=== PATIENT | female | born 1980 ===

== ENCOUNTER 2020-03-09 13:38 | Outpatient (REF) | payer OTHER, SELFPAY | END 2020-03-09 13:39 | disposition home or self-care (01) | LOC: HO.MDS 13:38 | PROVIDERS: PCP Internal Medicine; Visit Provider Internal Medicine | DX: O99.013 Anemia complicating pregnancy, third trimester (principal); D50.9 Iron deficiency anemia, unspecified; Z3A.00 Weeks of gestation of pregnancy not specified | CPT/HCPCS: 96365; J2916 ==

== ENCOUNTER 2020-03-10 11:26 | Outpatient (REF) | payer OTHER, SELFPAY | END 2020-03-10 11:27 | disposition home or self-care (01) | LOC: HO.MDS 11:26 | PROVIDERS: PCP Internal Medicine; Visit Provider Internal Medicine | DX: O99.119 Other diseases of the blood and blood-forming organs and certain disorders involving the immune mechanism complicating pregnancy, unspecified trimester (principal); D50.9 Iron deficiency anemia, unspecified; Z3A.00 Weeks of gestation of pregnancy not specified | CPT/HCPCS: 96365; J2916 ==

== ENCOUNTER 2020-03-16 13:00 | Outpatient (REF) | payer OTHER, SELFPAY | END 2020-03-16 13:01 | disposition home or self-care (01) | LOC: HO.MDS 13:00 | PROVIDERS: PCP Internal Medicine; Visit Provider Internal Medicine | DX: O99.013 Anemia complicating pregnancy, third trimester (principal); Z3A.00 Weeks of gestation of pregnancy not specified | CPT/HCPCS: 96365; J2916 ==

== ENCOUNTER 2020-03-17 10:39 | Outpatient (REF) | payer OTHER, SELFPAY | END 2020-03-17 10:40 | disposition home or self-care (01) | LOC: HO.MDS 10:39 | PROVIDERS: PCP Internal Medicine; Visit Provider Internal Medicine | DX: O99.013 Anemia complicating pregnancy, third trimester (principal); Z3A.00 Weeks of gestation of pregnancy not specified | CPT/HCPCS: 96365; J2916 ==

== ENCOUNTER 2020-03-24 12:26 | Outpatient (REF) | payer OTHER, SELFPAY | END 2020-03-24 12:27 | disposition home or self-care (01) | LOC: HO.MDS 12:26 | PROVIDERS: PCP Internal Medicine; Visit Provider Internal Medicine | DX: D50.9 Iron deficiency anemia, unspecified (principal) | CPT/HCPCS: 96365 ==

== ENCOUNTER 2020-10-20 07:53 | Outpatient (REF) | payer OTHER, SELFPAY ==
[2020-10-20 08:36] LABS: MANUAL DIFF FLAG NO
[2020-10-20 08:40] LABS: Basophils Percent Auto 0.5 % (0-2); Eosinophils Absolute Auto 0.1 X10*3/uL (0.0-0.4); Eosinophils Percent Auto 1.7 % (0-4); Hematocrit 33.2 % (37-47); Hemoglobin 10.5 g/dl (12.0-16.0); Imm Gran Abs Auto 0.01 X10*3/uL (0.00-0.03); Imm Gran Pct Auto 0.2 % (0.0-0.4); Lymphocytes Percent Auto 24.8 % (20-40); Mean Corpuscular HGB Conc 31.6 g/dl (31.0-35.0); Mean Corpuscular Hemoglobin 25.6 pg (27.0-33.0); Mean Platelet Volume 10.9 fL (9.4-12.3); Monocytes Absolute Auto 0.4 X10*3/uL (0.1-1.2); Monocytes Percent Auto 9.3 % (2-11); Neutrophils Absolute Auto 2.7 X10*3/uL (2.0-8.3); Neutrophils Percent Auto 63.5 % (45-73); Platelet Count 175 X10*3/uL (160-400); Red Cell Distribution Width 14.8 % (11.0-16.0); White Blood Count 4.2 X10*3/uL (4.8-10.8)
[2020-10-20 08:43] LABS: Color Urine YELLOW; Glucose Urine UA NEG (NEG); Leukocyte Esterase Urine NEG (NEG); Nitrite Urine NEG (NEG); Specific Gravity - Urine >= 1.030 (1.005-1.025); Urine Blood NEG (NEG); Urine Ketones NEG (NEG); Urine Protein NEG (NEG-TRACE)
[2020-10-20 08:44] LABS: Appearance Urine CLEAR
[2020-10-20 09:03] LABS: Alanine Aminotransferase 23 U/L (0-31); Albumin Level 4.1 g/dL (3.5-5.0); Alkaline Phosphatase 70 U/L (39-117); Anion Gap 11 (12-20); Aspartate Amino Transferase 42 U/L (5-31); Bilirubin Total 0.6 mg/dL (0.0-1.0); Blood Urea Nitrogen 10 mg/dL (9-16); Calcium 8.8 mg/dL (8.4-10.2); Carbon Dioxide 23 mmol/L (22-29); Chloride 109 mmol/L (96-108); Cholesterol 150 mg/dL; Estimated Glomerular Filt Rate > 60; Glucose Fasting 88 mg/dL (60-99); HDL Cholesterol 40 mg/dL; Iron 54 mcg/dL (30-160); LDL Cholesterol Calculated 77 mg/dl; Percent Iron Saturation 15 % (15-50); Potassium 4.1 mmol/L (3.3-5.1); Sodium 139 mmol/L (135-145); Total Iron Binding Capacity 370 mcg/dL (228-428); Triglycerides 168 mg/dL; Unsaturated Iron Binding 316 ug/dL
[2020-10-20 09:23] LABS: TSH reflex Free T4 1.48 uIU/mL (0.32-4.0); Vitamin D 25-OH Total 11.1 ng/mL (>30)
== END 2020-10-20 07:54 | disposition home or self-care (01) ==
LOC: HO.LAB 07:53
PROVIDERS: PCP Internal Medicine; Visit Provider Internal Medicine
DX: E78.00 Pure hypercholesterolemia, unspecified (principal); D50.9 Iron deficiency anemia, unspecified; I10 Essential (primary) hypertension; E55.9 Vitamin D deficiency, unspecified
CPT/HCPCS: 36415; 80053; 80061; 81003; 82306; 83540; 84443; 85025

== ENCOUNTER 2021-05-14 14:39 | Outpatient (REF) | payer OTHER, SELFPAY ==
--- NOTE | ~2021-05-14 | US_ITS ---
EXAMINATION: US DIAGNOSTIC ULTRASOUND BREAST, RIGHT CLINICAL INFORMATION: Palpable abnormality. COMPARISON: Mammography of same day. TECHNIQUE: Ultrasound of the breast is performed with real-time gilbert scale imaging and color Doppler. FINDINGS: Targeted ultrasound evaluation in region of palpable abnormality did not definitely demonstrate any abnormal cystic or solid mass. No skin lesion is appreciated and no mass effect upon the skin is appreciated. There is a small palpable region present but which is mobile. Recommend clinical follow-up and repeat mammogram and ultrasound if the finding is persistent in 6 months. Results are discussed with the patient at time of visit. US/US breast RT limited IMPRESSION: No specific mammographic or ultrasound findings to suggest malignancy. ASSESSMENT: BI-RADS 1: Negative RECOMMENDATION: Clinical management and if lesion is persistent would perform 6 month follow-up right breast mammogram and targeted ultrasound evaluation again. .
--- NOTE | ~2021-05-14 | MM_ITS ---
EXAMINATION: MM DIAGNOSTIC DIGITAL BREAST TOMOSYNTHESIS, BILATERAL US TARGETED BREAST, RIGHT CLINICAL INFORMATION: Right breast lump inferomedial right breast. The lifetime risk of breast cancer based on the Tyrer-Cuzick Model is 14.4%. COMPARISON: Mammography: 03/10/2014. TECHNIQUE: Digital breast tomosynthesis is performed in both the craniocaudal and mediolateral oblique views along with computer-aided detection (CAD). Synthesized 2D images are generated from the tomosynthesis. Targeted right breast ultrasound. FINDINGS: There are scattered areas of fibroglandular density (ACR BI-RADS breast composition Category b). On craniocaudal view only about the most inferior image corresponding to the skin is a question of an oval 1.5 x 1.0 cm structure. However, this may represent normal underlying parenchyma. No suspicious clustered of microcalcifications or spiculated mass identified. ULTRASOUND: Targeted ultrasound evaluation in the region of palpable abnormality did not definitely demonstrate any abnormal cystic or solid mass. No skin lesion is appreciated and no mass effect upon the skin is appreciated. There is a small palpable region present but which is mobile. Recommend clinical follow up and repeat mammogram and ultrasound if the finding is persistent in 6 months. Results are discussed with the patient at time of visit. MM/MM tomosynthesis diagnostic BI IMPRESSION: No specific mammographic or ultrasound findings to suggest malignancy. ASSESSMENT: BI-RADS 1: Negative. RECOMMENDATION: Clinical management and, if lesion is persistent, would perform 6 month follow up right breast mammogram and targeted ultrasound evaluation again. This patient's information was entered into a reminder system with a target due date for their next mammogram.
== END 2021-05-14 14:40 | disposition home or self-care (01) ==
LOC: HO.MAMMO 14:39
PROVIDERS: PCP Internal Medicine; Visit Provider Internal Medicine
DX: N63.14 Unspecified lump in the right breast, lower inner quadrant (principal)
CPT/HCPCS: 76642; 77062; 77066

== ENCOUNTER 2021-09-02 17:22 | Emergency (ER) | payer OTHER, SELFPAY ==
[2021-09-02 18:08] VITALS: BP 167/77; PULSE 76; RESP 18; TEMP 36.9; O2SAT 98; BMI 34.2
[2021-09-02 18:23] LABS: Hematocrit 32.1 % (37.0-47.0); Hemoglobin 10.1 g/dl (12.0-16.0); Mean Corpuscular HGB Conc 31.5 g/dl (31.0-35.0); Mean Corpuscular Hemoglobin 25.3 pg (27.0-33.0); Mean Corpuscular Volume 80.5 fL (80.0-98.0); Mean Platelet Volume 10.5 fL (9.4-12.3); Platelet Count 147 X10*3/uL (160-400); Red Blood Count 3.99 X10*6/uL (4.20-5.50); Red Cell Distribution Width 15.4 % (11.0-16.0); White Blood Count 5.5 X10*3/uL (4.8-10.8)
[2021-09-02 18:40] LABS: Appearance Urine CLEAR; Color Urine YELLOW; Glucose Urine UA NEG (NEG); Leukocyte Esterase Urine 1+ (NEG); Nitrite Urine NEG (NEG); PH 5.5 (5.0-8.0); Specific Gravity - Urine 1.025 (1.005-1.025); UACC Culture Trigger YES; Urine Blood NEG (NEG); Urine Ketones NEG (NEG); Urine Protein NEG (NEG-TRACE)
[2021-09-02 18:46] LABS: Anion Gap 12 (12-20); Blood Urea Nitrogen 9 mg/dL (9-16); Calcium 8.3 mg/dL (8.4-10.2); Carbon Dioxide 21 mmol/L (22-29); Chloride 108 mmol/L (96-108); Creatinine Clr Calc Pharmacy 150.9; Estimated Glomerular Filt Rate > 60; Glucose Random 100 mg/dL (60-115); Lipase 10 U/L (8-78); Potassium 4.1 mmol/L (3.3-5.1); Sodium 137 mmol/L (135-145)
[2021-09-02 18:52] LABS: Bacteria Urine 1+ /LPF; RBC Urine 0 /HPF (0); Squamous Epithelial Cell Urine 1+ /LPF
== END 2021-09-02 23:35 | disposition left against medical advice (07) ==
PROVIDERS: Emergency Provider Emergency Medicine; PCP Internal Medicine
DX: R10.11 Right upper quadrant pain (principal); R11.0 Nausea; Z79.899 Other long term (current) drug therapy
CPT/HCPCS: 36415; 80048; 81001; 83690; 85027; 87086; 99281; 99283

== ENCOUNTER 2021-09-03 09:48 | Emergency (ER) | payer OTHER, SELFPAY ==
--- NOTE | ~2021-09-03 | US_ITS ---
EXAMINATION: US ABDOMEN COMPLETE CLINICAL INFORMATION: Right upper quadrant pain. COMPARISON: CT abdomen and pelvis 07/08/2016 TECHNIQUE: Real-time imaging of the abdominal viscera. FINDINGS: PANCREAS: Pancreatic tail is obscured by bowel gas. Visualized portion of the pancreas is grossly unremarkable. ABDOMINAL AORTA: The proximal, mid, and distal segments are normal in caliber. INFERIOR VENA CAVA: Visualized portions are normal. LIVER: Liver demonstrates diffusely increased echogenicity compatible with steatosis. No liver lesions. GALLBLADDER: Moderately distended with a small amount of echogenic bile. No shadowing gallstones. No gallbladder wall thickening or pericholecystic fluid. COMMON BILE DUCT: Mildly dilated measuring 0.6-0.7 cm in diameter. RIGHT KIDNEY: Normal. No hydronephrosis or renal calculi. 2.2 cm hyperechoic focus in the upper pole cortex, indeterminate, possibly a small angiomyolipoma. No appreciable renal lesion at this location on prior CT of 05/08/2016 No other renal lesion. The kidney measures 12.1 cm in maximum dimension. LEFT KIDNEY: Normal. No hydronephrosis. No renal calculi or focal parenchymal lesions. The kidney measures 11.5 cm in maximum dimension. SPLEEN: Mildly enlarged The spleen measures 14.7 cm in maximum dimension. FREE FLUID: None. US/US abdomen complete IMPRESSION: 1. No evidence of cholelithiasis or sonographic findings of acute cholecystitis. 2. Hepatic steatosis. No liver lesion. 3. Mildly dilated extrahepatic bile duct. No intrahepatic biliary ductal dilation. Correlate with LFTs for clinical significance. 4. 2.2 cm subtly hyperechoic area in the upper pole cortex of the right kidney, indeterminate. No appreciable renal lesion at this location on comparison CT of 2017. Uncertain as to whether or not this is artifactual or due to true underlying renal lesion. Finding is not compatible with a cyst. Consider abdominal MRI for further evaluation.
[2021-09-03 10:18] VITALS: BP 149/78; PULSE 80; RESP 18; TEMP 37; O2SAT 96; BMI 34.0
[2021-09-03 15:49] VITALS: BP 150/75; PULSE 70; RESP 16; O2SAT 97
[2021-09-03] MEDS: Ibuprofen 800 MG TABLET PO (16:01)
[2021-09-03 16:08] LABS: UPreg QC Valid YES; Urine Pregnancy NEGATIVE (NEGATIVE)
--- NOTE | 2021-09-03 17:22 | ED.ABDPAIN ---
HPI - Abdominal Pain General Chief Complaint: Abdominal Pain Stated Complaint: abd pain Time Seen by Provider: 09/03/21 15:24 Source: patient Mode of arrival: ambulatory Limitations: no limitations History of Present Illness HPI narrative: 40-year-old female with a past medical history of depression, anemia, obesity and left ovarian cyst who recently had a on March 2020 and history of in vitro fertilization presenting to the ED with complaints of right upper quadrant/epigastric/right flank/back pain for that began 2 days ago and has been constant. She was in our waiting room yesterday although waited a few hours and was never called in therefore she left without being seen although reports persistent pain therefore she came here for further evaluation treatment. She reports associated nausea. She denies any fevers, chills, dizziness, headaches, neck pain/stiffness, trouble swallowing or breathing, vomiting, chest pain or shortness of breath, dyspnea exertion, orthopnea, palpitations, shoulder pain, paresthesias, dysuria, hematuria, abnormal vaginal discharge, black or bloody stools, diarrhea. Reports that she suffers from chronic constipation. Denies recent travel or sick contacts. Reports she is concerned that it is her gallbladder. MD elicited complaint: abdominal pain and flank pain Onset (ago): day(s) (2) Pain Consistency: constant Location: epigastric and RUQ Severity: moderate Quality: aching Radiation: back Exacerbating factors: nothing Relieving factors: nothing Associated symptoms: denies other symptoms Related Data Home Medications Medication Instructions Recorded Confirmed sertraline 50 mg tablet 50 mg PO DAILY 10/12/20 05/11/21 Previous Rx's Medication Instructions Recorded cefuroxime axetil 250 mg tablet 250 mg PO BID 7 days #14 tabs 09/03/21 Allergies Allergy/AdvReac Type Severity Reaction Status Date / Time No Known Allergies Allergy Verified 09/03/21 10:21 [No Known Allergies*] Review of Systems Review of Systems Constitutional : No Fever, No Chills, No Night Sweats, No Fatigue, No Malaise Cardiovascular : No Chest Pain, No SOB Respiratory : No Cough, No Sputum, No Wheezing, No Dyspnea Gastrointestinal : + Nausea, No Vomiting, No Diarrhea, + abdominal Pain, No Hematochezia, No Melena Genitourinary : No irregular bleeding, No Dysuria, No Urinary Frequency, No Hematuria,No Urinary Incontinence, No Urgency, No Flank Pain Musculoskeletal : No joint pain, No Myalgias, No Joint Swelling Skin : No Skin Lesions, No rash Neuro : No Weakness, No Numbness, No Paresthesias, No Loss of Consciousness, No Dizziness, No Headache Heme/Lymph: No Lymphadenopathy Endocrine : No Temperature Intolerance Yes all other systems are reviewed and are negative FOR[facility]LY [facility] Past Medical History Attestation statement: The following information was validated with the patient. Source: old records reviewed and nursing notes reviewed Medical History Anemia History of in vitro fertilization Left ovarian cyst Obesity (BMI 30-39.9) depression Surgical History H/O: (~03/2020) History of carpal tunnel surgery History of tonsillectomy Social History Social History Housing: Apartment Alcohol intake: never Patient Tobacco Use Status: Former Tobacco user e-Cigarette/Vaping Use: Never Used Second Hand Smoke Exposure: Yes Advance Directives: No Advance Directives Information Provided: No service: No Current occupational status: unemployed Physical Exam ED Vital Signs: Vital Signs - 24 hr 09/03/21 10:18 09/03/21 15:49 Temperature 98.6 F Pulse Rate 80 70 Respiratory Rate 18 16 Blood Pressure 149/78 H 150/75 H Pulse Oximetry 96 97 Oxygen Delivery Method Room Air Room Air BMI result Body Mass Index 34.0 Vital signs have been reviewed and blood pressure 149/78. Pulse is 80. Respiration 18. Temperature 98.6 degrees. Oxygen 96% on room air. Appearance: Alert. Oriented X3. No acute distress. Head: Normal external exam. Normocephalic. Eyes: PERRLA. EOMI. Conjunctiva and sclera normal. Eyelids normal. ENT: Pharynx normal. Uvula midline. Moist mucous membranes. No trismus noted. No drooling noted. No muffled voice noted. Neck: Normal inspection. Neck supple. FROM. No adenopathy. No meningeal signs. CVS: Normal heart rate and rhythm. Heart sound normal. No murmurs noted. Pulses normal throughout. Respiratory: No respiratory distress. Painless inspiration. Breath sounds normal. No wheezes/rales/rhonchi noted. Chest nontender. No accessory muscle usage noted or decreased air movement noted. Abdomen: Soft and moderate tenderness palpation to the epigastric/right upper quadrant/right flank. Nondistended. No guarding. No rigidity. Bowel sounds normal in all 4 quadrants. No distention noted. No organomegaly noted. No visible injury noted. No rebound tenderness. Negative Rovsing sign. Negative obturator's sign. Negative psoas sign. Positive Amaro sign. Back: No CVA tenderness. Full range of motion noted. Skin: Skin warm and dry. Normal skin color. Normal skin turgor. No rashes/lesions/lacerations noted. Extremities: Extremities exhibit normal range of motion. Extremities nontender. Neuro: Oriented X 3. No motor deficit. No sensory deficit. Reflexes normal. Normal steady gait. CN's II-XII intact bilaterally? Course Course Course Narrative: 15:35pm - 40-year-old female with a past medical history of depression, anemia, obesity and left ovarian cyst who recently had a on March 2020 and history of in vitro fertilization presenting to the ED with complaints of right upper quadrant/epigastric/right flank/back pain for that began 2 days ago and has been constant. With associated nausea. She was in our waiting room yesterday although waited a few hours and was never called in therefore she left without being seen although reports persistent pain therefore she came here for further evaluation treatment. Patient's labs reviewed from yesterday and patient has a mild baseline anemia similar compared to prior. Platelet count 147 which is low when compared to prior. Carbon dioxide 21. Calcium 8.3. Lipase 10. Otherwise all other labs are within normal limits. UA revealed +1 leukocytes otherwise for . Therefore at this time will provide Motrin and obtain an ultrasound of her abdomen and re-evaluate. Reevaluation(s) Reevaluation #1: - ultrasound of abdomen was negative for cholelithiasis or evidence of acute cholecystitis. Reported hepatic steatosis no liver lesion. Although they also state that patient has a mildly dilated extrahepatic bile duct. No intrahepatic biliary ductal dilation recommending to correlate with LFTs. Also mentions that the patient has a 2 x 2 cm subtly hyperechoic area in the upper pole cortex of the right kidney, indeterminate. No appreciable renal lesion at this location on comparison CT of 2017. Uncertain as to whether or not this is artifactual or due to true underlying renal lesion. Finding is not compatible with a cyst. Consider abdominal MRI for further evaluation. - therefore will repeat all labs at this time time including LFTs. And will re-evaluate. Sign out to SIOMARA Yee at this time pending repeat labs. Time: 17:59 MDM - Abdominal Pain Medical Records Attestation: I reviewed the patient's medical records. Lab Data Attestation: I reviewed the patient's lab results. Result diagrams: 09/03/21 18:37 09/03/21 18:27 Labs: Lab Results 09/03/21 09/03/21 Range/Units 15:53 18:37 WBC 5.5 (4.8-10.8) X10*3/uL RBC 4.05 L (4.20-5.50) X10*6/uL Hgb 10.3 L (12.0-16.0) g/dl Hct 32.6 L (37.0-47.0) % MCV 80.5 (80.0-98.0) fL MCH 25.4 L (27.0-33.0) pg MCHC 31.6 (31.0-35.0) g/dl RDW 15.3 (11.0-16.0) % Plt Count 148 L (160-400) X10*3/uL MPV 10.5 (9.4-12.3) fL Immature Gran % (Auto) 0.2 (0.0-0.4) % Neut % (Auto) 67.7 (45-73) % Lymph % (Auto) 23.2 (20-40) % Payne % (Auto) 6.9 (2-11) % Eos % (Auto) 1.5 (0-4) % Baso % (Auto) 0.5 (0-2) % Lymph # (Auto) 1.3 (1.2-4.9) X10*3/uL Payne # (Auto) 0.4 (0.1-1.2) X10*3/uL Eos # (Auto) 0.1 (0.0-0.4) X10*3/uL Baso # (Auto) 0.0 (0.0-0.2) X10*3/uL Abs Immat Gran (auto) 0.01 (0.00-0.03) X10*3/uL Absolute Neuts (auto) 3.7 (2.0-8.3) x10*3/uL Absolute Nucleated RBC 0.000 (0.0-0.012) X10*3/uL Nucleated RBC % (auto) 0.0 (0.0-0.2) /100WBC Urine Test NEGATIVE (NEGATIVE) Imaging Data Abdominal ultrasound: Attestation: I personally reviewed and interpreted this imaging study as follows: Radiologist's impression: FINDINGS: PANCREAS: Pancreatic tail is obscured by bowel gas. Visualized portion of the pancreas is grossly unremarkable. ABDOMINAL AORTA: The proximal, mid, and distal segments are normal in caliber. INFERIOR VENA CAVA: Visualized portions are normal. LIVER: Liver demonstrates diffusely increased echogenicity compatible with steatosis. No liver lesions. GALLBLADDER: Moderately distended with a small amount of echogenic bile. No shadowing gallstones. No gallbladder wall thickening or pericholecystic fluid. COMMON BILE DUCT: Mildly dilated measuring 0.6-0.7 cm in diameter. RIGHT KIDNEY: Normal. No hydronephrosis or renal calculi. 2.2 cm hyperechoic focus in the upper pole cortex, indeterminate, possibly a small angiomyolipoma. No appreciable renal lesion at this location on prior CT of 05/08/2016 No other renal lesion. The kidney measures 12.1 cm in maximum dimension. LEFT KIDNEY: Normal. No hydronephrosis. No renal calculi or focal parenchymal lesions. The kidney measures 11.5 cm in maximum dimension. SPLEEN: Mildly enlarged The spleen measures 14.7 cm in maximum dimension. FREE FLUID: None. US/US abdomen complete IMPRESSION: ? 1. No evidence of cholelithiasis or sonographic findings of acute cholecystitis. 2. Hepatic steatosis. No liver lesion. 3. Mildly dilated extrahepatic bile duct. No intrahepatic biliary ductal dilation. Correlate with LFTs for clinical significance. 4. 2.2 cm subtly hyperechoic area in the upper pole cortex of the right kidney, indeterminate. No appreciable renal lesion at this location on comparison CT of 2017. Uncertain as to whether or not this is artifactual or due to true underlying renal lesion. Finding is not compatible with a cyst. Consider abdominal MRI for further evaluation. Discharge Plan Discharge Clinical Impression: Right upper quadrant abdominal pain, Epigastric abdominal pain, UTI (urinary tract infection) Patient Disposition: Still a Patient Instructions: Urinary Tract Infection in Women (ED) Prescriptions: New cefuroxime axetil 250 mg tablet 250 mg PO BID 7 Days Qty: 14 0RF No Action sertraline 50 mg tablet 50 mg PO DAILY Referrals: Wilber Cochran MD [Primary Care Provider] - 3 days
[2021-09-03 18:44] LABS: MANUAL DIFF FLAG NO
[2021-09-03 18:47] LABS: Basophils Percent Auto 0.5 % (0-2); Eosinophils Absolute Auto 0.1 X10*3/uL (0.0-0.4); Eosinophils Percent Auto 1.5 % (0-4); Hematocrit 32.6 % (37.0-47.0); Hemoglobin 10.3 g/dl (12.0-16.0); Imm Gran Abs Auto 0.01 X10*3/uL (0.00-0.03); Imm Gran Pct Auto 0.2 % (0.0-0.4); Lymphocytes Absolute Auto 1.3 X10*3/uL (1.2-4.9); Lymphocytes Percent Auto 23.2 % (20-40); Mean Corpuscular HGB Conc 31.6 g/dl (31.0-35.0); Mean Corpuscular Hemoglobin 25.4 pg (27.0-33.0); Mean Corpuscular Volume 80.5 fL (80.0-98.0); Mean Platelet Volume 10.5 fL (9.4-12.3); Monocytes Absolute Auto 0.4 X10*3/uL (0.1-1.2); Monocytes Percent Auto 6.9 % (2-11); Neutrophils Absolute Auto 3.7 x10*3/uL (2.0-8.3); Neutrophils Percent Auto 67.7 % (45-73); Platelet Count 148 X10*3/uL (160-400); Red Blood Count 4.05 X10*6/uL (4.20-5.50); Red Cell Distribution Width 15.3 % (11.0-16.0); White Blood Count 5.5 X10*3/uL (4.8-10.8)
[2021-09-03 18:55] LABS: INTERNATIONAL NORM RATIO 1.4 (0.9-1.1); Prothrombin Time 15.8 SEC (10.0-13.1)
[2021-09-03 18:59] LABS: Alanine Aminotransferase 55 U/L (0-31); Albumin Level 4.1 g/dL (3.5-5.0); Alkaline Phosphatase 66 U/L (39-117); Anion Gap 11 (12-20); Aspartate Amino Transferase 108 U/L (5-31); Bilirubin Total 0.5 mg/dL (0.0-1.0); Blood Urea Nitrogen 9 mg/dL (9-16); Calcium 8.3 mg/dL (8.4-10.2); Carbon Dioxide 22 mmol/L (22-29); Chloride 109 mmol/L (96-108); Creatinine Clr Calc Pharmacy 150.2; Estimated Glomerular Filt Rate > 60; Glucose Random 92 mg/dL (60-115); Lipase 9 U/L (8-78); Magnesium 1.9 mg/dL (1.6-2.6); Potassium 4.1 mmol/L (3.3-5.1); Sodium 138 mmol/L (135-145)
== END 2021-09-03 20:29 | disposition home or self-care (01) ==
PROVIDERS: Physician Assistant Medical; Emergency Provider Emergency Medicine; PCP Internal Medicine
DX: N39.0 Urinary tract infection, site not specified (principal); R10.11 Right upper quadrant pain; R10.13 Epigastric pain; E66.9 Obesity, unspecified; Z68.34 Body mass index [BMI] 34.0-34.9, adult; Z79.899 Other long term (current) drug therapy; Z87.891 Personal history of nicotine dependence
CPT/HCPCS: 36415; 76700; 80053; 81025; 83690; 83735; 85025; 85610; 99283; 99284

== ENCOUNTER 2021-10-04 06:58 | Outpatient (REF) | payer OTHER, SELFPAY ==
[2021-10-04 08:35] LABS: Alanine Aminotransferase 46 U/L (0-31); Alkaline Phosphatase 71 U/L (39-117); Aspartate Amino Transferase 80 U/L (5-31); Bilirubin Direct 0.2 mg/dL (0.0-0.5); Bilirubin Total 0.4 mg/dL (0.0-1.0)
== END 2021-10-04 06:59 | disposition home or self-care (01) ==
LOC: HO.LAB 06:58
PROVIDERS: PCP Internal Medicine; Visit Provider Internal Medicine
DX: K75.9 Inflammatory liver disease, unspecified (principal)
CPT/HCPCS: 36415; 80076

== ENCOUNTER 2021-10-18 08:15 | Outpatient (REF) | payer OTHER, SELFPAY ==
--- NOTE | ~2021-10-18 | CT_ITS ---
EXAMINATION: CT ABDOMEN AND PELVIS WITHOUT AND WITH CONTRAST CLINICAL INFORMATION: Renal mass COMPARISON: Previous abdominal ultrasound August [address] of the abdomen and pelvis April 2016 TECHNIQUE: Multidetector volumetric imaging was performed of the abdomen and pelvis before and after the IV administration of 85 mL of Omnipaque 300 intravenous contrast. Sagittal and coronal reformatted images were obtained on the technologist's workstation. This CT examination was performed using dose optimization techniques as appropriate, variously including the following: *Automated exposure control *Adjustment of mA and/or kV according to patient size (this includes techniques or standardized protocols for targeted exams where dose is matched to indication/reason for exam; i.e. extremities or head) *Use of iterative reconstruction technique DLP: 1326 mGy-cm FINDINGS: LUNG BASES: The visualized lung bases are unremarkable. LIVER, GALLBLADDER, AND BILIARY TREE: The liver is slightly enlarged, right lobe measuring 25 cm in length. The liver is slightly low in attenuation suggestive of mild fatty infiltration. No focal hepatic lesion or biliary ductal dilatation is present. The gallbladder is unremarkable with no evidence of radiopaque gallstones, gallbladder wall thickening, or obvious pericholecystic inflammatory changes. PANCREAS: Unremarkable SPLEEN: The spleen is slightly enlarged measuring 14.3 cm in length. ADRENAL GLANDS: Unremarkable KIDNEYS AND URETERS: The kidneys are normal in size, shape, and attenuation. No renal mass. Small 3 mm stone in the lower pole the left kidney. BLADDER: Unremarkable GASTROINTESTINAL TRACT: The small and large bowel are unremarkable. The appendix is unremarkable. ABDOMINAL WALL: No significant hernia is appreciated. LYMPH NODES: Normal VASCULAR: Unremarkable PELVIC VISCERA: Unremarkable OSSEOUS STRUCTURES: There are degenerative changes of the spine. CT/CT abdomen pelvis wo/w IV con IMPRESSION: No renal mass. Small left renal stone. Mild fatty infiltration of the liver and hepatosplenomegaly. Fleischner guidelines were followed.
[2021-10-18] MEDS: iohexoL 350 MG/ML 100 ML INFUS..BTL 85 ML IV (09:14)
== END 2021-10-18 08:16 | disposition home or self-care (01) ==
LOC: HO.CT 08:15
PROVIDERS: Visit Provider Internal Medicine
DX: D17.71 Benign lipomatous neoplasm of kidney (principal)
CPT/HCPCS: 74178; Q9967

== ENCOUNTER 2021-11-22 12:45 | Outpatient (REF) | payer OTHER, SELFPAY ==
--- NOTE | ~2021-11-22 | MM_ITS ---
EXAMINATION: MM DIAGNOSTIC DIGITAL BREAST TOMOSYNTHESIS, BILATERAL US DIAGNOSTIC ULTRASOUND BREAST, RIGHT CLINICAL INFORMATION: Short interval six-month follow-up superficial palpable area inferomedial right breast. No imaging correlate on prior exam. Age 41. No known family history breast cancer. TC score 14%. COMPARISON: Mammography 05/14/2021, 03/10/2014; right breast ultrasound 05/14/2021. TECHNIQUE: Digital breast tomosynthesis is performed in both the craniocaudal and mediolateral oblique views along with computer-aided detection (CAD). Synthesized 2D images are generated from the tomosynthesis. Additional right MLO and spot right ML views are obtained. Ultrasound right breast is targeted to the area of clinical concern. Patient is able to point to area at time of imaging. Grayscale imaging and color Doppler are performed without and with harmonics. FINDINGS: There are scattered areas of fibroglandular density (ACR BI-RADS breast composition Category b). There is no interval mass or architectural abnormality. No skin thickening or coarsening of the Vargas's ligaments. There is no developing density in the area of clinical concern. No significant changes. Ultrasound demonstrates no cystic or solid mass or architectural abnormality. No focal duct ectasia. No skin thickening or edema tracking in soft tissue planes. No associated color flow. Results are discussed with the patient at time of visit. MM/MM diagnostic mammo unilat RT IMPRESSION: -No mammographic or ultrasound evidence of malignancy. -No imaging correlate for patient's palpable concern. ASSESSMENT: BI-RADS 1: Negative RECOMMENDATION: 1. Patient should be managed based on the clinical impression. If clinically indicated, further evaluation may be considered with surgical consult. Decision to proceed with biopsy should be based on clinical grounds and degree of clinical concern. 2. Otherwise, routine annual screening mammography. This patient's information was entered into a reminder system with a target due date for their next mammogram.
== END 2021-11-22 12:46 | disposition home or self-care (01) ==
LOC: HO.MAMMO 12:45
PROVIDERS: PCP Internal Medicine; Visit Provider Internal Medicine
DX: N63.15 Unspecified lump in the right breast, overlapping quadrants (principal)
CPT/HCPCS: 76642; 77062; 77065

== ENCOUNTER → 2021-12-13 13:42 | Outpatient (BNVA) | payer OTHER, SELFPAY | PROVIDERS: PCP Internal Medicine; Visit Provider Surgery | DX: N64.4 Mastodynia (principal); Z80.41 Family history of malignant neoplasm of ovary | CPT/HCPCS: 99202 ==

== ENCOUNTER 2022-03-11 15:35 | Outpatient (REF) | payer OTHER, SELFPAY ==
--- NOTE | ~2022-03-11 | XR_ITS ---
EXAMINATION: XR LUMBOSACRAL SPINE CLINICAL INFORMATION: Back pain. COMPARISON: CT abdomen and pelvis dated 10/18/2021; lumbar spine radiographs dated 09/08/2018; MRI lumbar spine dated 08/09/2016. TECHNIQUE: AP and lateral views of the lumbar spine and lateral view of the lumbosacral junction. FINDINGS: Vertebral body heights and alignment are normal. At L5-S1, there is mild disc space narrowing. The remaining disc spaces are relatively well-maintained. No acute fracture or spondylolisthesis is seen. There is multi-level thoracolumbar spondylosis and Schmorl's node formation. 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 No foreign body is seen. XR/XR lumbar spine 2-3V IMPRESSION: 1. There is mild degenerative disc disease at L5-S1. 2. 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 3. There is multi-level thoracolumbar spondylosis and Schmorl's node formation.
[2022-03-12 09:04] LABS: HBc Num1 0.06 S/CO (0.00-0.79); HBsAGNum1 0.35 S/CO (0.00-0.99); Hepatitis A Antibody IgM 0.12 Index (0-0.79); Hepatitis B Core Antibody Nonreactive (Nonreactive); Hepatitis B Surface Antigen Negative (Negative); ~HepC Num1 0.05 S/CO (0.00-0.79); ~Hepatitis A Antibody IgM Nonreactive (Nonreactive); ~Hepatitis C Antibody Nonreactive (Nonreactive)
[2022-03-12 09:39] LABS: HBS Num1 56.45 mIU/mL (0-7.99); ~Hepatitis B Surface Antibody REACTIVE (Nonreactive)
== END 2022-03-11 15:36 | disposition home or self-care (01) ==
LOC: HO.LAB 15:35
PROVIDERS: PCP Internal Medicine; Visit Provider Nurse Practitioner Family
DX: R79.89 Other specified abnormal findings of blood chemistry (principal); M54.9 Dorsalgia, unspecified
CPT/HCPCS: 36415; 72100; 86704; 86706; 86709; 86803; 87340

== ENCOUNTER → 2022-04-15 08:59 | Outpatient (BNVA) | payer OTHER, SELFPAY | PROVIDERS: PCP Internal Medicine; Visit Provider Nurse Practitioner Family | DX: M47.26 Other spondylosis with radiculopathy, lumbar region (principal); M43.06 Spondylolysis, lumbar region; G56.02 Carpal tunnel syndrome, left upper limb; M79.642 Pain in left hand; M62.830 Muscle spasm of back | CPT/HCPCS: 99202 ==

== ENCOUNTER 2022-05-02 07:22 | Outpatient (REF) | payer OTHER, SELFPAY ==
--- NOTE | ~2022-05-02 | MR_ITS ---
EXAMINATION: MR LUMBAR SPINE WITHOUT CONTRAST CLINICAL INFORMATION: Lumbar radiculopathy. COMPARISON: Lumbar spine radiographs from 03/11/2022. Lumbar spine MRI from 08/15/2016. CT abdomen and pelvis from 10/18/2021. TECHNIQUE: MRI of the lumbar spine was obtained using routine sequences without contrast. FINDINGS: Mild degenerative retrolisthesis of L4 on L5. Degenerative grade 1 anterolisthesis of L5 on S1. Otherwise, normal anatomic alignment. Moderate degenerative disc disease at T10-T11, T11-T12, L4-L5, and L5-S1. Mild degenerative disc disease from T12-L3. Associated mild mixed Modic type discogenic endplate changes. No suspicious marrow edema. Small Schmorl's nodes from T10-L3. Otherwise, the vertebral body heights are largely maintained. The conus medullaris terminates at the level of L1. The distal spinal cord is normal in appearance. Mild subcutaneous edema within the soft tissues of the back below the level of T12. No additional Significant abnormalities of the paraspinal musculature. Limited evaluation of the intra-abdominal structures without significant abnormalities. The abdominal aorta is of normal contour and caliber. AXIAL SPINAL LEVELS: T12-L1: Normal annular contour. There is mild bilateral facet joint arthropathy. There is no neural foraminal stenosis. There is no spinal canal stenosis. L1-L2: Shallow diffuse disc bulge. There is moderate right and mild left facet joint arthropathy. There is no neural foraminal stenosis. There is no spinal canal stenosis. L2-L3: Normal annular contour. There is mild bilateral facet joint arthropathy. There is mild right and no left neural foraminal stenosis. There is no spinal canal stenosis. L3-L4: Normal annular contour. There is mild bilateral facet joint arthropathy. There is no neural foraminal stenosis. There is no spinal canal stenosis. L4-L5: Mild diffuse disc bulge with superimposed central/right subarticular disc protrusion. There is no facet joint arthropathy. There is mild to moderate bilateral neural foraminal stenosis. There is narrowing of the right subarticular zone with no overt spinal canal stenosis centrally. L5-S1: Moderate diffuse disc bulge with posterior osseous ridging and superimposed right foraminal disc protrusion. There is moderate right and mild left facet joint arthropathy. There is moderate right and mild left neural foraminal stenosis. There is no spinal canal stenosis. MR/MR lumbar spine wo con IMPRESSION: Mild to moderate multilevel degenerative spondyloarthropathy of the lumbar spine as described in detail above. Most notably, there are mild to moderate neural foraminal stenoses at L4-L5 and L5-S1. Narrowing of the right subarticular zone at L4-L5. No overt spinal canal stenosis centrally. Overall, degenerative changes have mildly progressed compared to exam from 2017.
== END 2022-05-02 07:23 | disposition home or self-care (01) ==
LOC: HO.MRI 07:22
PROVIDERS: PCP Internal Medicine; Visit Provider Nurse Practitioner Family
DX: M43.06 Spondylolysis, lumbar region (principal); M47.816 Spondylosis without myelopathy or radiculopathy, lumbar region; M51.36 Other intervertebral disc degeneration, lumbar region; M54.16 Radiculopathy, lumbar region
CPT/HCPCS: 72148

== ENCOUNTER 2022-05-17 09:56 | Outpatient (REF) | payer OTHER, SELFPAY ==
--- NOTE | ~2022-05-17 | XR_ITS ---
EXAMINATION: XR HAND, LEFT CLINICAL INFORMATION: Pain left hand COMPARISON: None available. TECHNIQUE: PA, lateral, and oblique views of the left hand. FINDINGS: The bones and soft tissues are normal. No fracture. Alignment is anatomic. Joint spaces are maintained. No erosions or soft tissue calcifications. XR/XR hand LT min 3V IMPRESSION: Normal left hand.
== END 2022-05-17 09:57 | disposition home or self-care (01) ==
LOC: HO.HOSX 09:56
PROVIDERS: Visit Provider Orthopaedic Surgery
DX: G56.03 Carpal tunnel syndrome, bilateral upper limbs (principal)
CPT/HCPCS: 73130; 99202

== ENCOUNTER → 2022-05-19 14:34 | Outpatient (BNVA) | payer OTHER, SELFPAY | PROVIDERS: PCP Internal Medicine; Visit Provider Nurse Practitioner Family ==

== ENCOUNTER 2022-05-27 11:00 | Outpatient (RCR) | payer OTHER, SELFPAY ==
--- NOTE | 2022-04-07 13:54 | MHC.PT.EP ---
[facility] [place] Office [place] Office [place] Office [address] [phone] F: [phone] F: [phone] F: [phone] F: [phone] Physical Therapy Plan of Care Date of Evaluation: Date of Surgery: Diagnosis: dorsalgia (MD Dx) chronic LBP from DDD L5-S1, bilateral L5 spondylolysis defect and multi-level thoracolumbar spondylosis (PT Dx) Assessment: Patient is a 41 y.o. female who is referred to PT by DAYDAY Ashley with Dx of dorsalgia. PT diagnosis is chronic LBP from DDD L5-S1, bilateral L5 spondylolysis defect and multi-level thoracolumbar spondylosis as confirmed on x-ray imaging. Patient impairments include pain, limited ROM, weakness. 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 Patient will benefit from skilled PT to address aforementioned impairments and functional limitations to meet established goals. Frequency and Duration: The patient will be seen 2x/week for 4 weeks Short Term Goals: 2 weeks Patient demonstrates consistency and independence with HEP to self manage symptoms. Patient presents with ability to perform TA contraction in supine, sitting and standing to stabilize core for standing to was dishes. 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 Patient presents with increased lumbar flexion AROM 90 degrees to be able to get out of bed in the morning with less pain. Treatment Plan: Modalities to reduce pain, spasms and effusion. Manual therapy to restore motion and function. Therapeutic exercise to improve strength and flexibility. Neuromuscular re-education for posture and balance. Therapeutic activities to return to functional activities of daily living. Electronically signed by: Maame Perez, PT, DPT Please sign and return to therapist. Thank you for your referral.
--- NOTE | 2022-07-04 16:42 | MHC.PT.DC ---
[facility] [place] Office [place] Office [place] Office [address] Andrew [address] [facility] [phone] F: [phone] F: [phone] F: [phone] F: [phone] Physical Therapy Discharge Report Diagnosis: dorsalgia (MD Dx) chronic LBP from DDD L5-S1, bilateral L5 spondylolysis defect and multi-level thoracolumbar spondylosis (PT Dx) Date of Surgery: Date of Evaluation: 04/07/22 Date of Discharge: 07/04/22 Treatments to Date: 4 Cancellations to Date: 2 No Shows to Date: Discharge Status: Patient Elected to Stop Discharge Summary: Patient had carpal tunnel surgery. She called to self discharge from PT as she did not want to resume PT afterwards. Electronically signed by: Maame Perez, PT, DPT Please sign and return to therapist. Thank you for your referral.
== END 2022-07-04 16:43 | disposition home or self-care (01) ==
LOC: HO.PT 11:00
PROVIDERS: PCP Internal Medicine; Visit Provider Nurse Practitioner Family
DX: M54.9 Dorsalgia, unspecified (principal)
CPT/HCPCS: 97110; 97140; 97161

== ENCOUNTER 2022-05-30 09:51 | Day surgery (SDC) | payer OTHER, SELFPAY ==
[2022-05-30 11:12] VITALS: BMI 37.2
--- NOTE | 2022-05-30 11:28 | MHC.SHP ---
Pre-Procedural Eval Section A Date of Service: 05/30/22 The patient is an INPATIENT: No Changes since office visit: No Cold of Flu in the past 2 weeks, No New Medical Problems, No Changes in Medication and No Patient answered all questions The History & Physical has been completed within 30 days and I have reviewed it.: Yes Section B Chief Complaint: Lesion of ulnar nerve, right upper limb Allergies: Allergies Allergy/AdvReac Type Severity Reaction Status Date / Time No Known Allergies Allergy Verified 05/25/22 11:35 [No Known Allergies*] Plan I have reviewed the history and physical and performed a pertinent physical examination on my patient. No changes have occurred unless specified. Time Spent With Patient Time: Total time managing care of this patient today ____ minutes.
--- NOTE | 2022-05-30 11:29 | W.PM.OPN ---
Operative Note Operative Note Date of Service: 05/30/22 Narrative: Preop diagnosis: 1. Left Carpal tunnel syndrome Postop diagnosis: same Procedure: 1. Left Carpal tunnel release Surgeon: Ashlee Eller MD Anesthesia: local block using 1% lidocaine with epinephrine Findings: Thickened transverse carpal ligament. EBL: Less than 5 mL Specimens: None Complications: None Disposition: Brought to recovery room in stable condition Plan: Follow-up for 10-14 days for wound check and suture removal Indications: The patient is a 41 years old, with left carpal tunnel syndrome that has been unresponsive to nonoperative management. The risks and benefits of operative treatment including but not limited to risk of damage to blood vessels, nerves, tendons, infection, persistent pain, persistent symptoms, or possible need for additional surgery were discussed with the patient and the patient wishes to proceed with surgery. Procedure: Once consent was obtained a local block was performed using a combination of 1% lidocaine with epinephrine. The patient was then brought back to the operating suite and placed on the operative table in supine position. The left upper extremity was prepped and draped in a standard surgical fashion. Once assured that we had a good block, a 2.0 cm longitudinal incision was made centered over the carpal tunnel. The incision was made through the skin to the subcutaneous tissues using a #15 blade. Dissection was made down to the level of the transverse carpal ligament with care being taken to protect the palmar cutaneous nerve. Once the transverse carpal ligament was clearly visualized, a longitudinal incision was made in the transverse carpal ligament 1st using a #15 blade, then using tenotomy scissors under direct visualization. Care was taken to look for and protect the motor branch of the median nerve when seen in this area. Once satisfied with our carpal tunnel release the wound was copiously irrigated with normal saline and hemostasis was obtained with a brief period of local pressure. The skin edges were reapproximated with some 5.0 nylon suture material and a sterile dressing was applied. The patient appears to have tolerated the procedure well and with no complications. All digits were well vascularized at the conclusion of the case.
[2022-05-30 12:17] VITALS: BP 147/83; PULSE 63; RESP 15; O2SAT 98
== END 2022-05-30 12:18 | disposition home or self-care (01) ==
PROVIDERS: PCP Internal Medicine; Visit Provider Orthopaedic Surgery
PROC: (CPT 64721; principal; 2022-05-30 11:50)
DX: G56.02 Carpal tunnel syndrome, left upper limb (principal)
CPT/HCPCS: 64721; J0171

== ENCOUNTER → 2022-06-14 11:09 | Outpatient (BNVA) | payer OTHER, SELFPAY | PROVIDERS: PCP Internal Medicine; Visit Provider Orthopaedic Surgery ==

== ENCOUNTER 2022-06-21 06:05 | Outpatient (REF) | payer OTHER, SELFPAY ==
--- NOTE | ~2022-06-21 | FL_ITS ---
EXAMINATION: XR FLUOROSCOPY WITH IMAGES CLINICAL INFORMATION: M54.16 - Radiculopathy, lumbar region COMPARISON: Lumbar radiographs 03/11/2022. TECHNIQUE: Fluoroscopy Supervised By: Dr. Rigo Urbano. Fluoroscopy Time: 0.4 minutes. Cumulative Dose: 12.4 mGy. DAP: 2.35 Gycm2. Images: 1. FINDINGS: There are spinal needles overlying the outer left L5 neural foramen. There is contrast seen in the nerve sheath along with transforaminal epidural extension. No visible vascular communication. FL/FL guidance in treatment room IMPRESSION: Fluoroscopy for pain management procedures.
== END 2022-06-21 06:06 | disposition home or self-care (01) ==
LOC: CF 06:05
PROVIDERS: Visit Provider Anesthesiology
DX: M54.16 Radiculopathy, lumbar region (principal); M47.816 Spondylosis without myelopathy or radiculopathy, lumbar region; M51.36 Other intervertebral disc degeneration, lumbar region
CPT/HCPCS: 64483; J3301

== ENCOUNTER → 2022-07-19 11:12 | Outpatient (BNVA) | payer OTHER, SELFPAY | PROVIDERS: PCP Internal Medicine; Visit Provider Orthopaedic Surgery | DX: M65.331 Trigger finger, right middle finger (principal); R20.0 Anesthesia of skin; Z86.69 Personal history of other diseases of the nervous system and sense organs | CPT/HCPCS: 20550; 99212; J1100 ==

== ENCOUNTER → 2022-07-28 14:14 | Outpatient (BNVA) | payer OTHER, SELFPAY | PROVIDERS: PCP Internal Medicine; Visit Provider Nurse Practitioner Family | DX: M51.36 Other intervertebral disc degeneration, lumbar region (principal); M43.06 Spondylolysis, lumbar region; M47.816 Spondylosis without myelopathy or radiculopathy, lumbar region; M54.16 Radiculopathy, lumbar region; M79.18 Myalgia, other site | CPT/HCPCS: 99212 ==

== ENCOUNTER → 2022-08-19 13:50 | Outpatient (BNVA) | payer OTHER, SELFPAY | PROVIDERS: PCP Internal Medicine; Visit Provider Physician Assistant | DX: M54.9 Dorsalgia, unspecified (principal) | CPT/HCPCS: 99202 ==

== ENCOUNTER 2022-09-19 09:12 | Outpatient (REF) | payer OTHER, SELFPAY ==
[2022-09-19 09:30] LABS: MANUAL DIFF FLAG NO
[2022-09-19 10:18] LABS: Basophils Percent Auto 0.7 % (0-2); Eosinophils Absolute Auto 0.1 X10*3/uL (0.0-0.4); Eosinophils Percent Auto 1.5 % (0-4); Hematocrit 36.9 % (37.0-47.0); Imm Gran Abs Auto 0.01 X10*3/uL (0.00-0.03); Imm Gran Pct Auto 0.2 % (0.0-0.4); Lymphocytes Absolute Auto 1.2 X10*3/uL (1.2-4.9); Lymphocytes Percent Auto 30.3 % (20-40); Mean Corpuscular HGB Conc 32.5 g/dl (31.0-35.0); Mean Corpuscular Hemoglobin 26.9 pg (27.0-33.0); Mean Corpuscular Volume 82.7 fL (80.0-98.0); Mean Platelet Volume 10.6 fL (9.4-12.3); Monocytes Absolute Auto 0.3 X10*3/uL (0.1-1.2); Monocytes Percent Auto 7.4 % (2-11); Neutrophils Absolute Auto 2.4 x10*3/uL (2.0-8.3); Neutrophils Percent Auto 59.9 % (45-73); Platelet Count 158 X10*3/uL (160-400); Red Blood Count 4.46 X10*6/uL (4.20-5.50); Red Cell Distribution Width 15.1 % (11.0-16.0); White Blood Count 4.1 X10*3/uL (4.8-10.8)
[2022-09-19 10:51] LABS: Alanine Aminotransferase 14 U/L (0-31); Albumin Level 3.9 g/dL (3.5-5.0); Alkaline Phosphatase 54 U/L (39-117); Anion Gap 15 (12-20); Aspartate Amino Transferase 15 U/L (5-31); Bilirubin Total 0.3 mg/dL (0.0-1.0); Blood Urea Nitrogen 9 mg/dL (9-16); C Reactive Protein 0.74 mg/dL (< or = 0.50); Calcium 8.7 mg/dL (8.4-10.2); Carbon Dioxide 18 mmol/L (22-29); Chloride 111 mmol/L (96-108); Cholesterol 169 mg/dL; Estimated Glomerular Filt Rate > 60; Glucose Fasting 96 mg/dL (60-99); HDL Cholesterol 39 mg/dL; Iron 55 mcg/dL (30-160); LDL Cholesterol Calculated 105 mg/dl; Percent Iron Saturation 17 % (15-50); Potassium 4.1 mmol/L (3.3-5.1); Sodium 140 mmol/L (135-145); Total Iron Binding Capacity 330 mcg/dL (228-428); Total Protein 6.8 g/dL (6.5-8.0); Triglycerides 128 mg/dL; Unsaturated Iron Binding 275 ug/dL
[2022-09-19 10:54] LABS: Erythrocyte Sedimentation Rate 14 MM/HR (0-20)
[2022-09-19 11:05] LABS: Rheumatoid Factor < 13.0 IU/mL (<15.0)
[2022-09-19 11:12] LABS: Vitamin D 25-OH Total 17.6 ng/mL (>30)
[2022-09-25 15:38] LABS: Anti Nuclear Antibody Screen NEGATIVE (NEGATIVE)
== END 2022-09-19 09:13 | disposition home or self-care (01) ==
LOC: HO.LAB 09:12
PROVIDERS: PCP Internal Medicine; Visit Provider Internal Medicine
DX: Z00.00 Encounter for general adult medical examination without abnormal findings (principal); E55.9 Vitamin D deficiency, unspecified; M25.50 Pain in unspecified joint; M54.16 Radiculopathy, lumbar region; D50.9 Iron deficiency anemia, unspecified; R79.89 Other specified abnormal findings of blood chemistry; E78.00 Pure hypercholesterolemia, unspecified
CPT/HCPCS: 36415; 80053; 80061; 82306; 83540; 84443; 85025; 85652; 86038; 86140; 86431

== ENCOUNTER 2022-09-21 09:55 | Outpatient (REF) | payer OTHER, SELFPAY ==
--- NOTE | 2022-09-21 | EMG_ITS ---
Please see scanned EMG / Nerve Conduction Report. MTDD
== END 2022-09-21 09:56 | disposition home or self-care (01) ==
LOC: HO.NEURO 09:55
PROVIDERS: PCP Internal Medicine; Visit Provider Orthopaedic Surgery
DX: R20.0 Anesthesia of skin (principal); R20.2 Paresthesia of skin
CPT/HCPCS: 95860; 95885; 95907; 95910

== ENCOUNTER 2022-09-21 12:41 | Outpatient (AMB) | payer OTHER, SELFPAY ==
[2022-09-21 12:49] VITALS: BP 138/78; PULSE 79; O2SAT 98; BMI 36.8
--- NOTE | 2022-09-21 12:49 | MHC.PC.OV ---
Vital Signs 09/21/22 12:49 Height 5 ft 9 in Weight 249 lb BMI 36.8 BP 138/78 Blood Pressure Location Lt brachial Position Sitting Pulse 79 Pulse Source Pulse Oximeter Pulse Oximetry (%) 98 Oxygen Delivery Method Room Air Intake Visit Reasons: Annual Exam Allergies No Known Allergies [No Known Allergies*] Allergy (Verified 09/21/22 13:20) Medication List - Last Reconciled 09/21/22 by Wilber Cochran MD cyclobenzaprine 10 mg (2 x 5 mg) PO BEDTIME PRN 30 days escitalopram oxalate 20 mg PO DAILY 30 days ibuprofen 600 mg PO Q8H PRN L norgest/e.estradiol-e.estrad 0.15 mg-30 mcg (84)/10 mcg (7) 1 tab PO DAILY lorazepam 1 mg PO ONCE PRN trazodone 100 mg PO BEDTIME PRN 30 days Tobacco use date assessed: 08/05/22 Dental Screening Dental Screen Date: 09/21/22 Did you have a dental visit in the last 12 months?: Yes Did you have a dental problem in the last 6 months where you did not have access to dental care?: No Was dental information given to patient?: Patient has dentist HPI Annual Exam HPI Details Patient comes in today for her annual physical examination States that she has been experiencing recurrent discomfort and irritation in her right ear for the past 2 to 3 days Denies any ear drainage; denies any fever, sore throat or recent cough/cold symptoms and that she feels okay otherwise She denies any headaches or dizziness Denies any chest pains, no SOB No nausea/vomiting, no abdominal pain No change in bowel habits noted Denies any acute urinary symptoms Still has recurrent joint pains and myalgias but states that these have been manageable lately Adds that her anxiety/depression have been a lot better controlled lately and feels that her Escitalopram at her current dose is working well for her Had her labs done a couple of days ago - to discuss her results Had her screening mammogram done last November 2021 and she will be due for repeat in a couple of months 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 and she will be calling her grab setter to schedule an appointment [facility] Medical History (Updated 09/21/22 @ 13:57 by Wilber Cochran MD) Anemia Breast pain, right Depression Family history of ovarian cancer Hepatitis History of in vitro fertilization Left ovarian cyst Obesity (BMI 30-39.9) depression Vitamin D deficiency Surgical History H/O: (~03/2020) History of carpal tunnel surgery History of tonsillectomy Family History Maternal Aunt Ovarian cancer Maternal Uncle Colon cancer Maternal Uncle Colon cancer Mother COPD (chronic obstructive pulmonary disease) Fibromyalgia Hypertension Father No problems noted. Brother No problems noted. Son No problems noted. Social History Housing: Apartment Alcohol intake: current Alcohol intake frequency: holidays/special occasions only Patient Tobacco Use Status: Former Tobacco user Tobacco use type: Cigarette e-Cigarette/Vaping Use: Never Used Second Hand Smoke Exposure: Yes service: No Current occupational status: unemployed Cognitive needs: No Hearing needs: No Vision needs: Yes (glasses) Female Reproductive History Menstrual Age of Menarche: 12 Questionnaire PHQ-9 Over the last 2 weeks, how often have you been bothered by any of the following problems? 1. Little interest or pleasure in doing things: several days 2. Feeling down, depressed, or hopeless: several days 3. Trouble falling or staying asleep, or sleeping too much: several days 4. Feeling tired or having little energy: several days 5. Poor appetite or overeating: several days 6. Feeling bad about yourself - or that you are a failure or have let yourself or your family down: several days 7. Trouble concentrating on things, such as reading the newspaper or watching television: several days 8. Moving or speaking so slowly that other people could have noticed. Or the opposite - being so fidgety or restless that you have been moving around a lot more than usual: several days 9. Thoughts that you would be better off or of hurting yourself in some way: not at all Total score: 8 Depression Screening Interpretation: Positive Depression Screening Follow-up: Existing condition and In treatment 17500 - PHQ-9 Billing: Yes Source: Developed by Drs. Quan Painting, Sam Ac and colleagues, with an educational maxwell from [employer]. Thrive Questionnaire Date Thrive assessed: 08/05/22 AUDIT C Alcohol Use Questionnaire (AUDIT-C) 1. How often do you have a drink containing alcohol?: Never Total Score: 0 Score Reviewed/Action Taken: Yes BISHNU-7 AMB Questionnaire BISHNU-7 Date BISHNU - 7 assessed: 08/05/22 Source: Developed by Drs. Quan Painting, Sam Ac and colleagues, with an educational maxwell from [employer]. Review of Systems Const Denies chills, Reports difficulty sleeping (current Rx helping; takes Rx only when needed), Reports fatigue (improving), Denies fever(s) and Denies headache(s) Eyes Denies blurry vision, Denies change in vision, Denies irritation and Denies itchy eyes ENT Denies dysphagia, Denies dizziness, Denies ear discharge, Denies otalgia (but (+) discomfort and irritation in the right ear), Denies headache(s), Denies nasal congestion, Denies odynophagia, Denies sinus pain and Denies sore throat Card Denies chest pain, Denies palpitations and Denies dyspnea Resp Denies cough, Denies dyspnea and Denies wheezing GI Denies abdominal pain, Denies constipation, Denies dysphagia, Denies heartburn, Denies diarrhea, Denies nausea, Denies odynophagia and Denies vomiting Denies hematuria, Denies difficulty voiding, Denies nocturia, Denies dysuria and Denies urinary urgency Musc Reports back pain (over the lower back - chronic) and Denies arthralgias Skin/Breast Denies breast pain, Denies breast mass, Denies change in pigmentation, Denies lesions, Denies rash and Denies unusual bruising Neuro Denies dizziness and Denies headache(s) Psych Denies anxiety (much better controlled), Denies depression (Rx helping a lot), Denies irritability and Denies mood swings Endo Reports fatigue (improving) and Denies palpitations Jefferson/Lymph Denies easy bruising Aller/Immun Denies itchy eyes and Denies wheezing Physical exam (Primary Care) Vital Signs: Last Vital Signs Pulse 79 09/21/22 12:49 BP 138/78 09/21/22 12:49 Pulse Ox 98 09/21/22 12:49 Oxygen Delivery Method Room Air 09/21/22 12:49 BMI result Body Mass Index 36.8 Tobacco/Smoking Status: Tobacco use Status Tobacco use date assessed 08/05/22 09/21/22 12:57 Patient Tobacco Use Status Former Tobacco user 09/21/22 12:57 Tobacco use type Cigarette 09/21/22 12:57 e-Cigarette/Vaping Use Never Used 09/21/22 12:57 PHQ-9: PHQ-9 Score PHQ-9: Total score 8 09/21/22 12:57 Depression Screening Interpretation: Positive Depression Screening Follow-up: Existing condition and In treatment Thrive Assessment: Date of Thrive Assessment Date Thrive assessed 08/05/22 09/21/22 12:57 Const General: no acute distress, alert and awake Orientation/consciousness: patient oriented x3 HENMT Head: Yes normocephalic and Yes atraumatic Ears: external ears normal, TM's normal bilaterally, EAC's normal (in the left ear) and Abnormal EAC present erythema (mild) on the right; no edema General nose exam: No nasal discharge present Face and sinus: Yes normal facial exam and Yes sinuses nontender Teeth and gingiva: dentition normal Throat: Yes posterior oropharynx normal and Yes tonsils normal (no TP congestion) Eyes Eyelids: Yes eyelids normal Conjunctivae: conjunctivae normal Pupils: Equal, round and reactive pupils present EOM: EOMs intact bilaterally Neck Neck: Yes no lymphadenopathy and Yes supple Thyroid: Thyroid normal Resp Auscultation: clear to auscultation bilaterally, no rales and no wheezes Cardio Rate: regular rate Rhythm: regular rhythm Heart sounds: no murmurs GI Palpation (GI): Soft to palpation, nontender and No hepatosplenomegaly present Auscultation: normal bowel sounds General: Yes no CVA tenderness Back/Spine/Pelvis Back: no CVA tenderness Thoracic/Lumbar Spine: lumbar spinal tenderness Skin Lesions: no lesions Rashes: no rashes Neuro General: patient oriented x3, moves all extremities, no focal motor deficits and CN's II-XI intact bilaterally Cranial nerves: Yes Equal, round and reactive pupils present Cognition (Neuro): normal cognition Gait exam (Neuro): Normal gait present Extrem General: Yes no clubbing, cyanosis or edema Results Reviewed Results Reviewed: Laboratory Tests 06/09/19/22 09/19/22 15:15 09:29 09:29 WBC 4.1 L Hgb 12.0 Hct 36.9 L Plt Count 158 L ESR 14 Sodium Potassium Creatinine Estimated GFR Fasting Glucose Calcium AST ALT C-Reactive Protein Triglycerides Cholesterol LDL Cholesterol, Calc HDL Cholesterol 25-OH Vitamin D Total TSH Specific [place] (Auto) 1.030 Rheumatoid Factor 09/19/22 09/19/22 09:29 09:29 WBC Hgb Hct Plt Count ESR Sodium 140 Potassium 4.1 Creatinine 0.65 Estimated GFR > 60 Fasting Glucose 96 Calcium 8.7 AST 15 ALT 14 C-Reactive Protein 0.74 H Triglycerides 128 Cholesterol 169 LDL Cholesterol, Calc 105 HDL Cholesterol 39 25-OH Vitamin D Total 17.6 TSH 0.90 Specific [place] (Auto) Rheumatoid Factor < 13.0 Assessment and Plan Assessment & Plan (1) Annual physical exam: Code(s): Z00.00 - Encounter for general adult medical examination without abnormal findings Plan: Results of her labs done a couple of days ago reviewed and discussed with patient (2) Discomfort of right ear: Code(s): H92.01 - Otalgia, right ear Plan: Will start patient empirically on Cortisporin ear drops to apply 5 drops into the right ear QID x 7 days Patient is istructed to call if her ear symptoms persist or get worse despite her Rx (3) Vitamin D deficiency: Code(s): E55.9 - Vitamin D deficiency, unspecified Plan: Advised that her Vitamin D level remains low on her recent labs Will start her on Vitamin D3 2000 units QD (4) Elevated LFTs: Code(s): R79.89 - Other specified abnormal findings of blood chemistry Plan: Reassured that her LFTs have improved and remain normal on her recent labs Were most likely related to her weight (hepatosteatosis) Will continue to monitor her LFTs regularly (5) Lumbar degenerative disc disease: Code(s): M51.36 - Other intervertebral disc degeneration, lumbar region Plan: Reinforced activity and weight-lifting restrictions Continue Cyclobenzaprine 10 mg Q HS PRN Follow up with [facility] [place] as scheduled (6) Insomnia: Code(s): G47.00 - Insomnia, unspecified Qualifiers: Insomnia type: unspecified Qualified Code(s): G47.00 - Insomnia, unspecified Plan: Sleep hygiene reinforced Continue Trazodone 100 mg Q HS PRN - patient states that she only has had to take this every now and then, not daily (7) Depression: Code(s): F32.A - Depression, unspecified Qualifiers: Depression Type: major depressive disorder Major depression recurrence: recurrent Active/Remission status: currently active Major depression episode severity: unspecified Qualified Code(s): F33.9 - Major depressive disorder, recurrent, unspecified Plan: Most likely also has a component of depression Continue Escitalopram 20 mg QD - feels that she is currently doing a lot better on Rx (8) Obesity (BMI 30-39.9): Code(s): E66.9 - Obesity, unspecified Plan: Reinforced diet/exercise as tolerated/lose weight Plan Follow up in 6 months Medications: New cholecalciferol (vitamin D3) 50 mcg PO DAILY 90 days 90 caps 3RF E55.9 - Vitamin D deficiency, unspecified Cortisporin-TC 3.3-3-10-0.5 mg/mL (rievmomt-isaoel-ZH-thonzonium) 5 drps otic (ear) left QID 7 days 10 mL 0RF NS Coding Level of Care Code Est Pt Prev Care 40-64y([id number]) Diagnoses Annual physical exam Z00.00 Discomfort of right ear H92.01 Vitamin D deficiency E55.9 Elevated LFTs R79.89 Lumbar degenerative disc disease M51.36 Insomnia G47.00 Insomnia type: unspecified Depression F33.9 Depression Type: major depressive disorder Major depression recurrence: recurrent Active/Remission status: currently active Major depression episode severity: unspecified Obesity (BMI 30-39.9) E66.9
== END 2022-09-21 13:34 | disposition home or self-care (01) ==
PROVIDERS: Visit Provider Internal Medicine
DX: Z00.00 Encounter for general adult medical examination without abnormal findings (principal); E55.9 Vitamin D deficiency, unspecified; F33.9 Major depressive disorder, recurrent, unspecified; Z68.36 Body mass index [BMI] 36.0-36.9, adult; E66.9 Obesity, unspecified; H92.01 Otalgia, right ear; R79.89 Other specified abnormal findings of blood chemistry; M51.36 Other intervertebral disc degeneration, lumbar region; G47.00 Insomnia, unspecified
CPT/HCPCS: 99396

== ENCOUNTER 2022-10-18 06:00 | Outpatient (REF) | payer OTHER, SELFPAY ==
--- NOTE | ~2022-10-18 | FL_ITS ---
EXAMINATION: XR FLUOROSCOPY WITH IMAGES CLINICAL INFORMATION: Sacrococcygeal disorders, not elsewhere classified. COMPARISON: None available. TECHNIQUE: Fluoroscopy Supervised By: Dr. Rigo Urbano. Fluoroscopy Time: 0.2 minutes. Cumulative Dose: 4.50 mGy. DAP: 0.0782 Gycm2. Images: 1. FINDINGS: Image demonstrates needle placement and contrast injection over the left sacroiliac joint FL/FL guidance in treatment room IMPRESSION: Fluoroscopy guidance for left sacroiliac joint injection
== END 2022-10-18 06:01 | disposition home or self-care (01) ==
LOC: CF 06:00
PROVIDERS: Visit Provider Anesthesiology
DX: M53.3 Sacrococcygeal disorders, not elsewhere classified (principal); M51.36 Other intervertebral disc degeneration, lumbar region; M43.06 Spondylolysis, lumbar region; M47.816 Spondylosis without myelopathy or radiculopathy, lumbar region; M54.16 Radiculopathy, lumbar region; M79.18 Myalgia, other site; M46.1 Sacroiliitis, not elsewhere classified; G89.29 Other chronic pain
CPT/HCPCS: 27096

== ENCOUNTER 2022-10-18 10:39 | Outpatient (AMB) | payer OTHER, SELFPAY ==
[2022-10-18 10:48] VITALS: BP 126/82; PULSE 68; RESP 17; O2SAT 98; BMI 36.8
--- NOTE | 2022-10-18 10:48 | MHC.OFFVIS ---
Intake Vital Signs 10/18/22 10:48 10/18/22 11:23 Height 5 ft 9 in 5 ft 9 in Weight 249 lb 249 lb BMI 36.8 36.8 BP 126/82 120/84 Blood Pressure Location Lt brachial Lt brachial Position Sitting Sitting Respiration 17 16 Pulse 68 84 Pulse Source Pulse Oximeter Pulse Oximeter Pulse Oximetry (%) 98 96 Oxygen Delivery Method Room Air Room Air Comment pre-op post-op Intake Visit Reasons: L DX SIJ INJ/LOCAL Allergies No Known Allergies [No Known Allergies*] Allergy (Verified 10/18/22 10:50) PFSH Medical History (Updated 10/18/22 @ 12:25 by Rigo Urbano MD) Anemia Breast pain, right Depression Family history of ovarian cancer Hepatitis History of in vitro fertilization Left ovarian cyst Obesity (BMI 30-39.9) depression Vitamin D deficiency Surgical History H/O: (~03/2020) History of carpal tunnel surgery History of tonsillectomy Family History Maternal Aunt Ovarian cancer Maternal Uncle Colon cancer Maternal Uncle Colon cancer Mother COPD (chronic obstructive pulmonary disease) Fibromyalgia Hypertension Father No problems noted. Brother No problems noted. Son No problems noted. Social History Housing: Apartment Alcohol intake: current Alcohol intake frequency: holidays/special occasions only Patient Tobacco Use Status: Former Tobacco user Tobacco use type: Cigarette e-Cigarette/Vaping Use: Never Used Second Hand Smoke Exposure: Yes service: No Current occupational status: unemployed Cognitive needs: No Hearing needs: No Vision needs: Yes (glasses) Female Reproductive History Menstrual Age of Menarche: 12 Physical Exam Vital Signs: Last Vital Signs Pulse 84 10/18/22 11:23 Resp 16 10/18/22 11:23 BP 120/84 10/18/22 11:23 Pulse Ox 96 10/18/22 11:23 Oxygen Delivery Method Room Air 10/18/22 11:23 BMI result Body Mass Index 36.8 Assessment & Plan Assessment & Plan (1) Lumbar degenerative disc disease: Code(s): M51.36 - Other intervertebral disc degeneration, lumbar region (2) Pars defect of lumbar spine: Code(s): M43.06 - Spondylolysis, lumbar region (3) Lumbar spondylosis: Code(s): M47.816 - Spondylosis without myelopathy or radiculopathy, lumbar region (4) Lumbar back pain with radiculopathy affecting left lower extremity: Code(s): M54.16 - Radiculopathy, lumbar region (5) Piriformis muscle pain: Code(s): M79.18 - Myalgia, other site (6) Sacroiliitis: Code(s): M46.1 - Sacroiliitis, not elsewhere classified Plan: left diagnostic sacroiliac joint injection Informed consent was explained thoroughly to the patient. All questions about benefits and risks for the procedure were answered. Patient came to the operating room and was positioned prone on the operating table with the pillow under the pelvis. [place] [employer] monitors were applied and patient was deeply sedated. Time out was performed delineating name and of the patient, allergies and the nature of the procedure. The lower back and buttocks of the patient were prepped with ChloraPrep prepped and draped with sterile utility towels. C-arm was brought over the operating field and sq picture of patient's pelvis was demonstrated on the screen. For the left joint tilting C-arm contralateral to the site of the joint the most posterior portion of the joints was superimposed with anterior silhouette of the joint. Skin was injected in the projection of the joint slightly medial to the location of the joint with 25 gauge 1/2 inch needle using local lidocaine 2% .After that 22 gauge 3 and 1/2 inch needle was driven to the right joint in tunnel vision fashion. When needle entered the joint capsule injection of the contrast was performed demonstrating intra-articular and minimally periarticular spread of the contrast. After that 4 cc. of ropivacaine 0.5% was injected into the joint. Upon completion of the injections the needle was removed Sterile dressing was applied. Upon completion of the injection patient was taken outside of the operating room to the recovery room where recovered uneventfully. (7) Chronic left SI joint pain: Code(s): M53.3 - Sacrococcygeal disorders, not elsewhere classified; G89.29 - Other chronic pain Plan Patient is status post Left L5-S1 TFESI injection with good results but only 2 weeks of pain relief. She would like to hold off on diagnostic left piriformis muscle injection and proceed with Neurosurgical evaluation. She did not make any gains regarding pain or function with physical therapy. Patient is aware to call if pain worsens or if she develops any red flag symptoms to seek emergency care. Patient denies any cauda equina syndrome symptoms at this time. All questions and concerns have been answered and patient agreed with the plan. Follow up after injections and sooner if needed. Orders: Orders FL guidance in treatment room Today G89.29 - Other chronic pain, M53.3 - Sacrococcygeal disorders, not elsewhere classified Coding Level of Care Code Procedure Only Diagnoses Lumbar degenerative disc disease M51.36 Pars defect of lumbar spine M43.06 Lumbar spondylosis M47.816 Lumbar back pain with radiculopathy affecting left lower extremity M54.16 Piriformis muscle pain M79.18 Sacroiliitis M46.1 Chronic left SI joint pain M53.3; G89.29
[2022-10-18 11:23] VITALS: BP 120/84; PULSE 84; RESP 16; O2SAT 96; BMI 36.8
== END 2022-10-18 11:27 | disposition home or self-care (01) ==
PROVIDERS: PCP Internal Medicine; Visit Provider Anesthesiology
DX: M46.1 Sacroiliitis, not elsewhere classified (principal); M53.3 Sacrococcygeal disorders, not elsewhere classified; M51.36 Other intervertebral disc degeneration, lumbar region; M47.26 Other spondylosis with radiculopathy, lumbar region; G89.29 Other chronic pain
CPT/HCPCS: 27096

== ENCOUNTER 2022-10-20 08:59 | Outpatient (AMB) | payer OTHER, SELFPAY ==
--- NOTE | 2022-10-20 09:18 | A.OFFVIS_ITS ---
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 Urbano. Patient reports 40% pain relief for 6 hours after procedure with partial relief in left lower back or buttock tightness. Patient reports she was able to complete housework, take care of her 2 year old toddler and complete laundry during these 6 hours with less pain. After6 hours, her pain gradually returned to its baseline and currently rates her pain at 8/10. She continues to report mid to lower back pain with bending forward or lifting her toddler or objects, prolonged sitting, walking or standing. 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 Patient reports she was deemed non surgical candidate with [facility]. She is interested to proceed with therapeutic left SIJ injection as diagnostic injection allowed her to be less symptomatic and more functional. Denies any fever, foot drop, bladder or bowel dysfunction or saddle anesthesia. Past Procedures: 10/18/22: Left Diagnostic SIJ injection-40% pain relief for 6 hours 06/21/22: Left L5-S1 TFESI-80% pain relief for 2 weeks PRIOR: Patient is a pleasant 41 year old female who presents today for an initial evaluation of chronic lower back pain, left hand pain and right shoulder pain. Patient reports chronic back pain that has been worsening after her with epidural 04/04/2020. Her back pain is axial and also radiates into her left lower extremity posteriorly with numbness and tingling in the posterior lower leg, osborne and sole of her left foot. She also has localized pain in the projections of the left sacroiliac joint. Patient also reports left hand and wrist pain with flexion, pulling and lifting objects consistent with carpal tunnel syndrome. She has a history of right carpal tunnel repair in 2010. Patient is right hand dominant. Her right shoulder radiates to her neck with muscle spasms and tenderness. Pain increases with prolonged sitting, walking, standing, intercourse, climbing stairs, changing positions and weather changes. Pain is described as constant throbbing, shooting, stabbing, sharp, cramping, tingling, sore, hurting, aching, exhausting, tiring, and radiating. Pain interferes with her daily activities and functionings, mood, sleep, social interactions and quality of life. She has been managing pain with Ibuprofen and cyclobenzaprine with continued symptoms. Patient also started physical therapy last week and is intersted to trial acupuncture therapy for right shoulder and neck pain. Lumbar spine MRI in 2017 showed disc degeneration and a minimal anterior subluxation at L5-S1 with chronic bilateral L5 pars defects and [id number] right foraminal narrowing. Facet spurring mildly distorts the exiting right L5 nerve root. Most recent lumbar spine xray showed bilateral L5 spondylolysis defect is redemonstrated and multi-level thoracolumbar spondylosis and Schmorl's node formation. Patient denies any fever, weight loss, tachycardia, abdominal or groin pain, weakness, nausea, vomiting, constipation, diarrhea, vaginal bleeding, bladder or bowel incontinence or saddle anesthesia. Of note, patient has history of fatty liver, elevated LFT and hepatitis. She reports the most recent screening for hepatitis panel was negative. [facility] Medical History Anemia Breast pain, right Depression Family history of ovarian cancer Hepatitis History of in vitro fertilization Left ovarian cyst Obesity (BMI 30-39.9) depression Vitamin D deficiency Surgical History H/O: (~03/2020) History of carpal tunnel surgery History of tonsillectomy Family History Maternal Aunt Ovarian cancer Maternal Uncle Colon cancer Maternal Uncle Colon cancer Mother COPD (chronic obstructive pulmonary disease) Fibromyalgia Hypertension Father No problems noted. Brother No problems noted. Son No problems noted. Social History Housing: Apartment Alcohol intake: current Alcohol intake frequency: holidays/special occasions only Patient Tobacco Use Status: Former Tobacco user Tobacco use type: Cigarette e-Cigarette/Vaping Use: Never Used Second Hand Smoke Exposure: Yes service: No Current occupational status: unemployed Cognitive needs: No Hearing needs: No Vision needs: Yes (glasses) Female Reproductive History Menstrual Age of Menarche: 12 Review of Systems Const All systems reviewed & are unremarkable except as noted in HPI and below Physical Exam Vital Signs: Last Vital Signs Pulse 68 10/20/22 09:25 BP 179/93 H 10/20/22 09:25 Pulse Ox 98 10/20/22 09:25 Oxygen Delivery Method Room Air 10/20/22 09:25 BMI result Body Mass Index 36.7 General: Appears afebrile. Alert and oriented. Mood and affect appropriate. Follows and participates in conversation appropriately. Respiratory effort is unlabored. No cough. Able to transition from sit to stand unassisted. Back/Spine/Pelvis Other: Patient is able to walk and stand on heels and tip toes with mild difficulty on the left due to pain and unsteadiness. Mild antalgic gait, no limping. Can flex forward to 65-75 degrees and extend to 5-10 degrees before experiencing lumbar pain. Limited bending elicits low mid to low back pain. Demonstrates 5/5 strength of quadriceps bilaterally as well as flexion/dorsiflexion of bilateral feet against resistance. 2+ pedal pulses bilaterally. Straight leg rise with dorsiflexion negative bilaterally. Diminished patellar and achilles reflexes bilaterally. Facet loading test positive bilaterally. Alex signs, Rafael?s, Pelvic Compression and Stinchfield tests are positive on the left. Mild groin pain with external hip rotations. Valsalva maneuver negative. Cervical Spine: normal cervical lordosis, cervical ROM normal and No Cervical spine tenderness Thoracic/Lumbar Spine: thoracic and lumbar spine normal to inspection, No Thoracic/lumbar spine scar(s), Lasegue's sign negative, straight leg raise negative bilaterally, pain with thoraco-lumbar ROM, paraspinal muscle tenderness, thoraco-lumbar spasm on the left greater than right, No thoracic spinal tenderness and lumbar spinal tenderness Pelvis: buttock tenderness on the left Sacroiliac joints: bilaterally tender to palpation Results Reviewed Results Reviewed: MR LUMBAR SPINE WITHOUT CONTRAST 05/02/22 CLINICAL INFORMATION: Lumbar radiculopathy. COMPARISON: Lumbar spine radiographs from 03/11/2022. Lumbar spine MRI from 08/15/2016. CT abdomen and pelvis from 10/18/2021. TECHNIQUE: MRI of the lumbar spine was obtained using routine sequences without contrast. FINDINGS: Mild degenerative retrolisthesis of L4 on L5. Degenerative grade 1 anterolisthesis of L5 on S1. Otherwise, normal anatomic alignment. Moderate degenerative disc disease at T10-T11, T11-T12, L4-L5, and L5-S1. Mild degenerative disc disease from T12-L3. Associated mild mixed Modic type discogenic endplate changes. No suspicious marrow edema. Small Schmorl's nodes from T10-L3. Otherwise, the vertebral body heights are largely maintained. The conus medullaris terminates at the level of L1. The distal spinal cord is normal in appearance. Mild subcutaneous edema within the soft tissues of the back below the level of T12. No additional Significant abnormalities of the paraspinal musculature. Limited evaluation of the intra-abdominal structures without significant abnormalities. The abdominal aorta is of normal contour and caliber. AXIAL SPINAL LEVELS: T12-L1: Normal annular contour. There is mild bilateral facet joint arthropathy. There is no neural foraminal stenosis. There is no spinal canal stenosis. L1-L2: Shallow diffuse disc bulge. There is moderate right and mild left facet joint arthropathy. There is no neural foraminal stenosis. There is no spinal canal stenosis. L2-L3: Normal annular contour. There is mild bilateral facet joint arthropathy. There is mild right and no left neural foraminal stenosis. There is no spinal canal stenosis. L3-L4: Normal annular contour. There is mild bilateral facet joint arthropathy. There is no neural foraminal stenosis. There is no spinal canal stenosis. L4-L5: Mild diffuse disc bulge with superimposed central/right subarticular disc protrusion. There is no facet joint arthropathy. There is mild to moderate bilateral neural foraminal stenosis. There is narrowing of the right subarticular zone with no overt spinal canal stenosis centrally. L5-S1: Moderate diffuse disc bulge with posterior osseous ridging and superimposed right foraminal disc protrusion. There is moderate right and mild left facet joint arthropathy. There is moderate right and mild left neural foraminal stenosis. There is no spinal canal stenosis. 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 Most notably, there are mild to moderate neural foraminal stenoses at L4-L5 and L5-S1. Narrowing of the right subarticular zone at L4-L5. No overt spinal canal stenosis centrally. Overall, degenerative changes have mildly progressed compared to exam from 2017. XR LUMBOSACRAL SPINE 03/11/22 FINDINGS: Vertebral body heights and alignment are normal. At L5-S1, there is mild disc space narrowing. The remaining disc spaces are relatively well-maintained. No acute fracture or spondylolisthesis is seen. There is multi-level thoracolumbar spondylosis and Schmorl's node formation. 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 No foreign body is seen. IMPRESSION: 1. There is mild degenerative disc disease at L5-S1. 2. 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 3. There is multi-level thoracolumbar spondylosis and Schmorl's node formation. Assessment & Plan Assessment & Plan (1) Lumbar degenerative disc disease: Code(s): M51.36 - Other intervertebral disc degeneration, lumbar region (2) Lumbar spondylosis: Code(s): M47.816 - Spondylosis without myelopathy or radiculopathy, lumbar region (3) Lumbar back pain with radiculopathy affecting left lower extremity: Code(s): M54.16 - Radiculopathy, lumbar region (4) Chronic left SI joint pain: Code(s): M53.3 - Sacrococcygeal disorders, not elsewhere classified; G89.29 - Other chronic pain (5) Sacroiliitis: Code(s): M46.1 - Sacroiliitis, not elsewhere classified (6) Vertebrogenic low back pain: Code(s): M54.51 - Vertebrogenic low back pain Plan 1. Patient is status post Left Diagnostic SIJ injection with 40% pain relief for 6 hours during which she was able to complete housework, take care of her 2 year old toddler and complete laundry during these 6 hours with less pain. She requests to proceed with Therapeutic Left SIJ injection with local and fluoroscopy to achieve a longer pain relief. 2. For her axial low back pain and degenerative changes with mixed Modic type discogenic endplate changes and Schmorl's nodes, patient is a good candidate for possible Intracept procedure. All questions and concerns have been answered and patient agreed with the plan. Follow up after injection and sooner if needed. Anticoagulation: Patient not on anticoagulant Justification for interventional therapy: ? Patient with average pain > 6/10 ? Patient has exhausted conservative therapy, NSAIDs, physical therapy The risks, consequences, alternatives, and benefits of various treatment options were discussed with the patient in great detail, including conservative management, injections and procedures. I informed her of the hyperglycemic effects of steroids. Coding Level of Care Code Est Pt Level 4 (72930) Diagnoses Lumbar degenerative disc disease M51.36 Lumbar spondylosis M47.816 Lumbar back pain with radiculopathy affecting left lower extremity M54.16 Chronic left SI joint pain M53.3; G89.29 Sacroiliitis M46.1 Vertebrogenic low back pain M54.51
[2022-10-20 09:25] VITALS: BP 179/93; PULSE 68; O2SAT 98; BMI 36.7
== END 2022-10-20 09:43 | disposition home or self-care (01) ==
PROVIDERS: PCP Internal Medicine; Visit Provider Nurse Practitioner Family
DX: G89.29 Other chronic pain (principal); M51.36 Other intervertebral disc degeneration, lumbar region; M47.816 Spondylosis without myelopathy or radiculopathy, lumbar region; M54.16 Radiculopathy, lumbar region; M53.3 Sacrococcygeal disorders, not elsewhere classified; M46.1 Sacroiliitis, not elsewhere classified; M54.51 Vertebrogenic low back pain
CPT/HCPCS: 99214

== ENCOUNTER → 2022-10-20 08:59 | Outpatient (BNVA) | payer OTHER, SELFPAY | PROVIDERS: PCP Internal Medicine; Visit Provider Nurse Practitioner Family | DX: M51.36 Other intervertebral disc degeneration, lumbar region (principal); M47.26 Other spondylosis with radiculopathy, lumbar region; G89.29 Other chronic pain; M53.3 Sacrococcygeal disorders, not elsewhere classified; M46.1 Sacroiliitis, not elsewhere classified; M54.51 Vertebrogenic low back pain; Z98.890 Other specified postprocedural states | CPT/HCPCS: 99212 ==

== ENCOUNTER 2022-11-08 06:26 | Outpatient (REF) | payer OTHER, SELFPAY ==
--- NOTE | ~2022-11-08 | FL_ITS ---
EXAMINATION: XR FLUOROSCOPY WITH IMAGES CLINICAL INFORMATION: Sacrococcygeal disorders, not elsewhere classified, left injection. COMPARISON: None available. TECHNIQUE: Fluoroscopy Supervised By: Dr. Rigo Urbano. Fluoroscopy Time: 0.1 minute. Cumulative Dose: 2.32 mGy. DAP: 0.0403 Gycm2. Images: 1. FINDINGS: Images demonstrate needle placement and contrast injection of the left sacroiliac joint FL/FL guidance in treatment room IMPRESSION: Fluoroscopy guidance for left sacroiliac joint injection.
== END 2022-11-08 06:27 | disposition home or self-care (01) ==
LOC: CF 06:26
PROVIDERS: Visit Provider Anesthesiology
DX: M53.3 Sacrococcygeal disorders, not elsewhere classified (principal); G89.29 Other chronic pain; M51.36 Other intervertebral disc degeneration, lumbar region; M47.816 Spondylosis without myelopathy or radiculopathy, lumbar region; M54.16 Radiculopathy, lumbar region; M46.1 Sacroiliitis, not elsewhere classified; M54.51 Vertebrogenic low back pain
CPT/HCPCS: 27096; J2795; J3301

== ENCOUNTER 2022-11-08 13:51 | Outpatient (AMB) | payer OTHER, SELFPAY ==
[2022-11-08 13:59] VITALS: BP 130/84; PULSE 90; RESP 18; O2SAT 97; BMI 36.6
--- NOTE | 2022-11-08 13:59 | A.OFFVIS_ITS ---
Intake Vital Signs 11/08/22 13:59 11/08/22 14:45 Height 5 ft 9 in 5 ft 9 in Weight 248 lb 248 lb BMI 36.6 36.6 BP 130/84 122/94 H Blood Pressure Location Lt radial Lt radial Position Sitting Sitting Respiration 18 18 Pulse 90 84 Pulse Source Pulse Oximeter Pulse Oximeter Pulse Oximetry (%) 97 98 Oxygen Delivery Method Room Air Room Air Comment pre-op post-op Intake Visit Reasons: L THERAPEUTIC SIJ INJ/LOCAL Allergies No Known Allergies [No Known Allergies*] Allergy (Verified 11/08/22 14:00) PFSH Medical History Anemia Breast pain, right Depression Family history of ovarian cancer Hepatitis History of in vitro fertilization Left ovarian cyst Obesity (BMI 30-39.9) depression Vitamin D deficiency Surgical History H/O: (~03/2020) History of carpal tunnel surgery History of tonsillectomy Family History Maternal Aunt Ovarian cancer Maternal Uncle Colon cancer Maternal Uncle Colon cancer Mother COPD (chronic obstructive pulmonary disease) Fibromyalgia Hypertension Father No problems noted. Brother No problems noted. Son No problems noted. Social History Housing: Apartment Alcohol intake: current Alcohol intake frequency: holidays/special occasions only Patient Tobacco Use Status: Former Tobacco user Tobacco use type: Cigarette e-Cigarette/Vaping Use: Never Used Second Hand Smoke Exposure: Yes service: No Current occupational status: unemployed Cognitive needs: No Hearing needs: No Vision needs: Yes (glasses) Female Reproductive History Menstrual Age of Menarche: 12 Physical Exam Vital Signs: Last Vital Signs Pulse 84 11/08/22 14:45 Resp 18 11/08/22 14:45 BP 122/94 H 11/08/22 14:45 Pulse Ox 98 11/08/22 14:45 Oxygen Delivery Method Room Air 11/08/22 14:45 BMI result Body Mass Index 36.6 Assessment & Plan Assessment & Plan (1) Lumbar degenerative disc disease: Code(s): M51.36 - Other intervertebral disc degeneration, lumbar region (2) Lumbar spondylosis: Code(s): M47.816 - Spondylosis without myelopathy or radiculopathy, lumbar region (3) Lumbar back pain with radiculopathy affecting left lower extremity: Code(s): M54.16 - Radiculopathy, lumbar region (4) Chronic left SI joint pain: Code(s): M53.3 - Sacrococcygeal disorders, not elsewhere classified; G89.29 - Other chronic pain (5) Sacroiliitis: Code(s): M46.1 - Sacroiliitis, not elsewhere classified Plan: Left therapeutic sacroiliac joint injection Informed consent was explained thoroughly to the patient. All questions about benefits and risks for the procedure were answered. Patient came to the operating room and was positioned prone on the operating table with the pillow under the pelvis. Time out was performed delineating name and of the patient, allergies and the nature of the procedure. The lower back and buttocks of the patient were prepped with ChloraPrep prepped and draped with sterile utility towels. C-arm was brought over the operating field and sq picture of patient's pelvis was demonstrated on the screen. For the left joint tilting C-arm contralateral to the site of the joint the most p osterior portion of the joints was superimposed with anterior silhouette of the joint. Skin was injected in the projection of the joint slightly medial to the location of the joint with 25 gauge 1/2 inch needle using local lidocaine 2% .After that 22 gauge 3 and 1/2 inch needle was driven to the left joint in tunnel vision fashion. When needle entered the joint capsule injection of the contrast was performed demonstrating intra-articular and minimally periarticular spread of the contrast. After that 4 cc. of ropivacaine 0.5%mixed with kenalog 40 mg was injected into each joint. Upon completion of the injections the needle was removed Sterile dressing was applied. Upon completion of the injection patient was taken outside of the operating room to the recovery room where recovered uneventfully. (6) Vertebrogenic low back pain: Code(s): M54.51 - Vertebrogenic low back pain Plan 1. Patient is status post Left Diagnostic SIJ injection with 40% pain relief for 6 hours during which she was able to complete housework, take care of her 2 year old toddler and complete laundry during these 6 hours with less pain. She requests to proceed with Therapeutic Left SIJ injection with local and fluoroscopy to achieve a longer pain relief. 2. For her axial low back pain and degenerative changes with mixed Modic type discogenic endplate changes and Schmorl's nodes, patient is a good candidate for possible Intracept procedure. All questions and concerns have been answered and patient agreed with the plan. Follow up after injection and sooner if needed. Anticoagulation: Patient not on anticoagulant Justification for interventional therapy: ? Patient with average pain > 6/10 ? Patient has exhausted conservative therapy, NSAIDs, physical therapy The risks, consequences, alternatives, and benefits of various treatment options were discussed with the patient in great detail, including conservative management, injections and procedures. I informed her of the hyperglycemic effects of steroids. Orders: Orders FL guidance in treatment room Today G89.29 - Other chronic pain, M53.3 - Sacrococcygeal disorders, not elsewhere classified Coding Level of Care Code Procedure Only Diagnoses Lumbar degenerative disc disease M51.36 Lumbar spondylosis M47.816 Lumbar back pain with radiculopathy affecting left lower extremity M54.16 Chronic left SI joint pain M53.3; G89.29 Sacroiliitis M46.1 Vertebrogenic low back pain M54.51
[2022-11-08 14:45] VITALS: BP 122/94; PULSE 84; RESP 18; O2SAT 98; BMI 36.6
== END 2022-11-08 14:40 | disposition home or self-care (01) ==
LOC: HO.PMCPRC 13:51
PROVIDERS: PCP Internal Medicine; Visit Provider Anesthesiology
DX: M46.1 Sacroiliitis, not elsewhere classified (principal); M53.3 Sacrococcygeal disorders, not elsewhere classified; M47.26 Other spondylosis with radiculopathy, lumbar region; G89.29 Other chronic pain; M51.36 Other intervertebral disc degeneration, lumbar region; M54.51 Vertebrogenic low back pain
CPT/HCPCS: 27096

== ENCOUNTER 2022-11-17 11:08 | Outpatient (AMB) | payer OTHER, SELFPAY ==
--- NOTE | 2022-11-17 11:25 | MHC.OFFVIS ---
Intake Vital Signs 11/17/22 11:33 Height 5 ft 9 in Weight 247 lb 4 oz BMI 36.5 BP 163/105 H Blood Pressure Location Rt brachial Position Sitting Pulse 75 Pulse Source Pulse Oximeter Pulse Oximetry (%) 98 Oxygen Delivery Method Room Air Intake Visit Reasons: Pain s/p Injection on 11/08 Intake Note: Pain today 8/10 Professional Services Manager Required: No Accompanied by: Self / Same As Patient Allergies No Known Allergies [No Known Allergies*] Allergy (Verified 11/17/22 11:32) HPI HPI Comments History of Present Illness Details Patient presents today status post therapeutic left SIJ injection on 11/08/22 due to increase low back pain with radiation into her left buttock, thigh and lower leg. Patient reports no pain relief since injection. She also reports concerns for urinary incontinence for one month. Patient presents today with localized tenderness in the projection of left SIJ area with positive provocative testing. Denies any recent cough, cold, infection, fever or other significant changes in medical history since last office visit. Patient denies any bladder or bowel incontinence or saddle anesthesia. PRIOR: Patient presents today for follow up and to assess response to Left Diagnostic SIJ injection on 10/18/[address] Urbano. Patient reports 40% pain relief for 6 hours after procedure with partial relief in left lower back or buttock tightness. Patient reports she was able to complete housework, take care of her 2 year old toddler and complete laundry during these 6 hours with less pain. After 6 hours, her pain gradually returned to its baseline and currently rates her pain at 8/10. She continues to report mid to lower back pain with bending forward or lifting her toddler or objects, prolonged sitting, walking or standing. 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 Patient reports she was deemed non surgical candidate with [facility]. She is interested to proceed with therapeutic left SIJ injection as diagnostic injection allowed her to be less symptomatic and more functional. Denies any fever, foot drop, bladder or bowel dysfunction or saddle anesthesia. Past Procedures: 10/18/22: Left Diagnostic SIJ injection-40% pain relief for 6 hours 06/21/22: Left L5-S1 TFESI-80% pain relief for 2 weeks PRIOR: Patient is a pleasant 41 year old female who presents today for an initial evaluation of chronic lower back pain, left hand pain and right shoulder pain. Patient reports chronic back pain that has been worsening after her with epidural 04/04/2020. Her back pain is axial and also radiates into her left lower extremity posteriorly with numbness and tingling in the posterior lower leg, osborne and sole of her left foot. She also has localized pain in the projections of the left sacroiliac joint. Patient also reports left hand and wrist pain with flexion, pulling and lifting objects consistent with carpal tunnel syndrome. She has a history of right carpal tunnel repair in 2010. Patient is right hand dominant. Her right shoulder radiates to her neck with muscle spasms and tenderness. Pain increases with prolonged sitting, walking, standing, intercourse, climbing stairs, changing positions and weather changes. Pain is described as constant throbbing, shooting, stabbing, sharp, cramping, tingling, sore, hurting, aching, exhausting, tiring, and radiating. Pain interferes with her daily activities and functionings, mood, sleep, social interactions and quality of life. She has been managing pain with Ibuprofen and cyclobenzaprine with continued symptoms. Patient also started physical therapy last week and is intersted to trial acupuncture therapy for right shoulder and neck pain. Lumbar spine MRI in 2017 showed disc degeneration and a minimal anterior subluxation at L5-S1 with chronic bilateral L5 pars defects and [id number] right foraminal narrowing. Facet spurring mildly distorts the exiting right L5 nerve root. Most recent lumbar spine xray showed bilateral L5 spondylolysis defect is redemonstrated and multi-level thoracolumbar spondylosis and Schmorl's node formation. Patient denies any fever, weight loss, tachycardia, abdominal or groin pain, weakness, nausea, vomiting, constipation, diarrhea, vaginal bleeding, bladder or bowel incontinence or saddle anesthesia. Of note, patient has history of fatty liver, elevated LFT and hepatitis. She reports the most recent screening for hepatitis panel was negative. [facility]LY [facility], [facility] Medical History Anemia Breast pain, right Depression Family history of ovarian cancer Hepatitis History of in vitro fertilization Left ovarian cyst Obesity (BMI 30-39.9) depression Vitamin D deficiency Surgical History H/O: (~03/2020) History of carpal tunnel surgery History of tonsillectomy Family History Maternal Aunt Ovarian cancer Maternal Uncle Colon cancer Maternal Uncle Colon cancer Mother COPD (chronic obstructive pulmonary disease) Fibromyalgia Hypertension Father No problems noted. Brother No problems noted. Son No problems noted. Social History Housing: Apartment Alcohol intake: current Alcohol intake frequency: holidays/special occasions only Patient Tobacco Use Status: Former Tobacco user Tobacco use type: Cigarette e-Cigarette/Vaping Use: Never Used Second Hand Smoke Exposure: Yes service: No Current occupational status: unemployed Cognitive needs: No Hearing needs: No Vision needs: Yes (glasses) Female Reproductive History Menstrual Age of Menarche: 12 Review of Systems Const All systems reviewed & are unremarkable except as noted in HPI and below Denies abnormal vaginal bleeding, Denies hematuria, Denies difficulty voiding, Denies flank pain, Reports urinary incontinence and Denies urinary urgency Physical Exam Vital Signs: Last Vital Signs Pulse 75 11/17/22 11:33 BP 163/105 H 11/17/22 11:33 Pulse Ox 98 11/17/22 11:33 Oxygen Delivery Method Room Air 11/17/22 11:33 BMI result Body Mass Index 36.5 General: Appears afebrile. Alert and oriented. Mood and affect appropriate. Follows and participates in conversation appropriately. Respiratory effort is unlabored. No cough. Able to transition from sit to stand unassisted. Const General: healthy appearing and no acute distress Nutritional Appearance: well nourished and obese Limitations: no limitations Back/Spine/Pelvis Other: Localized TTP in the projection of left SIJ. Rafael's, Gaenslen's and Stinchfield's testing reproduce SIJ pain on the left. Limited lumbar ROM due to mild pain. Cervical Spine: normal cervical lordosis, cervical ROM normal and No Cervical spine tenderness Thoracic/Lumbar Spine: thoracic and lumbar spine normal to inspection, No Thoracic/lumbar spine scar(s), Lasegue's sign negative, straight leg raise negative bilaterally, pain with thoraco-lumbar ROM, paraspinal muscle tenderness, No thoracic spinal tenderness and lumbar spinal tenderness Pelvis: buttock tenderness on the left Sacroiliac joints: on the right nontender and on the left tender to palpation Results Reviewed Results Reviewed: MR LUMBAR SPINE WITHOUT CONTRAST 05/02/22 CLINICAL INFORMATION: Lumbar radiculopathy. COMPARISON: Lumbar spine radiographs from 03/11/2022. Lumbar spine MRI from 08/15/2016. CT abdomen and pelvis from 10/18/2021. TECHNIQUE: MRI of the lumbar spine was obtained using routine sequences without contrast. FINDINGS: Mild degenerative retrolisthesis of L4 on L5. Degenerative grade 1 anterolisthesis of L5 on S1. Otherwise, normal anatomic alignment. Moderate degenerative disc disease at T10-T11, T11-T12, L4-L5, and L5-S1. Mild degenerative disc disease from T12-L3. Associated mild mixed Modic type discogenic endplate changes. No suspicious marrow edema. Small Schmorl's nodes from T10-L3. Otherwise, the vertebral body heights are largely maintained. The conus medullaris terminates at the level of L1. The distal spinal cord is normal in appearance. Mild subcutaneous edema within the soft tissues of the back below the level of T12. No additional Significant abnormalities of the paraspinal musculature. Limited evaluation of the intra-abdominal structures without significant abnormalities. The abdominal aorta is of normal contour and caliber. AXIAL SPINAL LEVELS: T12-L1: Normal annular contour. There is mild bilateral facet joint arthropathy. There is no neural foraminal stenosis. There is no spinal canal stenosis. L1-L2: Shallow diffuse disc bulge. There is moderate right and mild left facet joint arthropathy. There is no neural foraminal stenosis. There is no spinal canal stenosis. L2-L3: Normal annular contour. There is mild bilateral facet joint arthropathy. There is mild right and no left neural foraminal stenosis. There is no spinal canal stenosis. L3-L4: Normal annular contour. There is mild bilateral facet joint arthropathy. There is no neural foraminal stenosis. There is no spinal canal stenosis. L4-L5: Mild diffuse disc bulge with superimposed central/right subarticular disc protrusion. There is no facet joint arthropathy. There is mild to moderate bilateral neural foraminal stenosis. There is narrowing of the right subarticular zone with no overt spinal canal stenosis centrally. L5-S1: Moderate diffuse disc bulge with posterior osseous ridging and superimposed right foraminal disc protrusion. There is moderate right and mild left facet joint arthropathy. There is moderate right and mild left neural foraminal stenosis. There is no spinal canal stenosis. 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 Most notably, there are mild to moderate neural foraminal stenoses at L4-L5 and L5-S1. Narrowing of the right subarticular zone at L4-L5. No overt spinal canal stenosis centrally. Overall, degenerative changes have mildly progressed compared to exam from 2017. XR LUMBOSACRAL SPINE 03/11/22 FINDINGS: Vertebral body heights and alignment are normal. At L5-S1, there is mild disc space narrowing. The remaining disc spaces are relatively well-maintained. No acute fracture or spondylolisthesis is seen. There is multi-level thoracolumbar spondylosis and Schmorl's node formation. 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 No foreign body is seen. IMPRESSION: 1. There is mild degenerative disc disease at L5-S1. 2. 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 3. There is multi-level thoracolumbar spondylosis and Schmorl's node formation. Assessment & Plan Assessment & Plan (1) Urine incontinence: Code(s): R32 - Unspecified urinary incontinence (2) Chronic left SI joint pain: Code(s): M53.3 - Sacrococcygeal disorders, not elsewhere classified; G89.29 - Other chronic pain (3) Sacroiliitis: Code(s): M46.1 - Sacroiliitis, not elsewhere classified (4) Lumbar spondylosis: Code(s): M47.816 - Spondylosis without myelopathy or radiculopathy, lumbar region Plan 1. Urology referral and Pelvic Floor PT for urinary incontinence x 1 month. Encouraged diary for frequency of incontinence episodes. 2. Patient is status post recent therapeutic left SIJ with no pain relief so far. She is encouraged to monitor her symptoms and follow up with Sp[facility]. Due to minimal pain responses, patient is not candidate for sacroiliac joint neuromodulation or RFA procedures at this time. Will consider lumbar facet joint injections for persistent low back pain. Encouraged daily physical activity, adequate hydration, weight loss, good posture and Kegel exercises. All questions and concerns have been answered and patient agreed with the plan. Follow up as needed. Orders: Referrals Urology Referral R32 - Unspecified urinary incontinence Pelvic Mobile Device Engineer Referral G89.29 - Other chronic pain, M46.1 - Sacroiliitis, not elsewhere classified, M53.3 - Sacrococcygeal disorders, not elsewhere classified, R32 - Unspecified urinary incontinence Coding Level of Care Code Est Pt Level 4 (68330) Diagnoses Urine incontinence R32 Chronic left SI joint pain M53.3; G89.29 Sacroiliitis M46.1 Lumbar spondylosis M47.816
[2022-11-17 11:33] VITALS: BP 163/105; PULSE 75; O2SAT 98; BMI 36.5
== END 2022-11-17 11:49 | disposition home or self-care (01) ==
PROVIDERS: PCP Internal Medicine; Visit Provider Nurse Practitioner Family
DX: R32 Unspecified urinary incontinence (principal); M53.3 Sacrococcygeal disorders, not elsewhere classified; G89.29 Other chronic pain; M46.1 Sacroiliitis, not elsewhere classified; M47.816 Spondylosis without myelopathy or radiculopathy, lumbar region
CPT/HCPCS: 99214

== ENCOUNTER → 2022-11-17 11:08 | Outpatient (BNVA) | payer OTHER, SELFPAY | PROVIDERS: PCP Internal Medicine; Visit Provider Nurse Practitioner Family | DX: M46.1 Sacroiliitis, not elsewhere classified (principal); G89.29 Other chronic pain; M53.3 Sacrococcygeal disorders, not elsewhere classified; M47.816 Spondylosis without myelopathy or radiculopathy, lumbar region; R32 Unspecified urinary incontinence | CPT/HCPCS: 99212 ==

== ENCOUNTER 2022-11-19 09:57 | Outpatient (AMB) | payer OTHER, SELFPAY ==
--- NOTE | 2022-11-19 10:46 | AM.OFFWIN_ITS ---
Intake Vital Signs 11/19/22 11:00 Weight 249 lb BP 120/80 Blood Pressure Location Rt brachial Position Sitting Pulse 88 Pulse Source Pulse Oximeter Pulse Oximetry (%) 98 Oxygen Delivery Method Room Air Intake Visit Reasons: EP, low back pain [phone] Intake Note: Patient here for a lot of lower back pain that radiates down and having difficulty walking or standing too long. she states she has a hx of arthritis amoungs other things Patient Tobacco Use Status: Former Tobacco user Allergies No Known Allergies [No Known Allergies*] Allergy (Verified 11/19/22 11:04) Medication List - Last Reconciled 11/19/22 by Kaylee Thomas CNP cholecalciferol (vitamin D3) 50 mcg PO DAILY 90 days Cortisporin-TC 3.3-3-10-0.5 mg/mL (nshopkqo-hcjesb-VP-thonzonium) 5 drps otic (ear) left QID 7 days NS cyclobenzaprine 10 mg (2 x 5 mg) PO BEDTIME PRN 30 days escitalopram oxalate 20 mg PO DAILY 30 days ibuprofen 600 mg PO Q8H PRN L norgest/e.estradiol-e.estrad 0.15 mg-30 mcg (84)/10 mcg (7) 1 tab PO DAILY lorazepam 1 mg PO ONCE PRN trazodone 100 mg PO BEDTIME PRN 30 days Do you need a note to return to daycare/school/sports/work: No HPI HPI Comments History of Present Illness Details 42-year-old female presents today for co mplaint of left lower back pain radiating down left thigh and lower leg with radiation into her mid to left buttocks and difficulty walking due to excruciating pain. Patient reports no pain relief since steroid injection on 11/08/22. She does have localized tenderness in the projection of left SIJ area with positive provocative testing. She denies any recent cough, fever, chills cold, CP, SOB, bladder or bowel incontinence or saddle anesthesia. Patient is followed by pain management w/ recent referral to spine center. [facility] Medical History Vitamin D deficiency Depression Family history of ovarian cancer Breast pain, right Hepatitis depression Obesity (BMI 30-39.9) History of in vitro fertilization Left ovarian cyst Anemia Surgical History H/O: (~03/2020) History of tonsillectomy History of carpal tunnel surgery Family History Maternal Aunt Ovarian cancer Maternal Uncle Colon cancer Maternal Uncle Colon cancer Mother COPD (chronic obstructive pulmonary disease) Fibromyalgia Hypertension Father No problems noted. Brother No problems noted. Son No problems noted. Social History Housing: Apartment Alcohol intake: current Alcohol intake frequency: holidays/special occasions only Patient Tobacco Use Status: Former Tobacco user Tobacco use type: Cigarette e-Cigarette/Vaping Use: Never Used Second Hand Smoke Exposure: Yes service: No Current occupational status: unemployed Cognitive needs: No Hearing needs: No Vision needs: Yes (glasses) Female Reproductive History Menstrual Age of Menarche: 12 Review of Systems Const All systems reviewed & are unremarkable except as noted in HPI and below Physical Exam Vital Signs: Last Vital Signs Pulse 88 11/19/22 11:00 BP 120/80 11/19/22 11:00 Pulse Ox 98 11/19/22 11:00 Oxygen Delivery Method Room Air 11/19/22 11:00 General: Appears afebrile. Alert and oriented. Mood and affect appropriate. Follows and participates in conversation appropriately. Respiratory effort is unlabored. No cough. Able to transition from sit to stand unassisted. Const General: healthy appearing and no acute distress Nutritional Appearance: well nourished and obese Limitations: no limitations Back/Spine/Pelvis Other: Localized TTP in the projection of left SIJ. Rafael's, Gaenslen's and Stinchfield's testing reproduce SIJ pain on the left. Limited lumbar ROM due to mild pain. Cervical Spine: normal cervical lordosis, cervical ROM normal and No Cervical spine tenderness Thoracic/Lumbar Spine: thoracic and lumbar spine normal to inspection, No Thoracic/lumbar spine scar(s), Lasegue's sign negative, straight leg raise negative bilaterally, pain with thoraco-lumbar ROM, paraspinal muscle tenderness, No thoracic spinal tenderness and lumbar spinal tenderness Pelvis: buttock tenderness on the left Sacroiliac joints: on the right nontender and on the left tender to palpation Results Reviewed Results Reviewed: EXAMINATION: MR LUMBAR SPINE WITHOUT CONTRAST CLINICAL INFORMATION: Lumbar radiculopathy. COMPARISON: Lumbar spine radiographs from 03/11/2022. Lumbar spine MRI from 08/15/2016. CT abdomen and pelvis from 10/18/2021. TECHNIQUE: MRI of the lumbar spine was obtained using routine sequences without contrast. FINDINGS: Mild degenerative retrolisthesis of L4 on L5. Degenerative grade 1 anterolisthesis of L5 on S1. Otherwise, normal anatomic alignment. Moderate degenerative disc disease at T10-T11, T11-T12, L4-L5, and L5-S1. Mild degenerative disc disease from T12-L3. Associated mild mixed Modic type discogenic endplate changes. No suspicious marrow edema. Small Schmorl's nodes from T10-L3. Otherwise, the vertebral body heights are largely maintained. The conus medullaris terminates at the level of L1. The distal spinal cord is normal in appearance. Mild subcutaneous edema within the soft tissues of the back below the level of T12. No additional Significant abnormalities of the paraspinal musculature. Limited evaluation of the intra-abdominal structures without significant abnormalities. The abdominal aorta is of normal contour and caliber. AXIAL SPINAL LEVELS: T12-L1: Normal annular contour. There is mild bilateral facet joint arthropathy. There is no neural foraminal stenosis. There is no spinal canal stenosis. L1-L2: Shallow diffuse disc bulge. There is moderate right and mild left facet joint arthropathy. There is no neural foraminal stenosis. There is no spinal canal stenosis. L2-L3: Normal annular contour. There is mild bilateral facet joint arthropathy. There is mild right and no left neural foraminal stenosis. There is no spinal canal stenosis. L3-L4: Normal annular contour. There is mild bilateral facet joint arthropathy. There is no neural foraminal stenosis. There is no spinal canal stenosis. L4-L5: Mild diffuse disc bulge with superimposed central/right subarticular disc protrusion. There is no facet joint arthropathy. There is mild to moderate bilateral neural foraminal stenosis. There is narrowing of the right subarticular zone with no overt spinal canal stenosis centrally. L5-S1: Moderate diffuse disc bulge with posterior osseous ridging and superimposed right foraminal disc protrusion. There is moderate right and mild left facet joint arthropathy. There is moderate right and mild left neural foraminal stenosis. There is no spinal canal stenosis. MR/MR lumbar spine wo con IMPRESSION: Mild to moderate multilevel degenerative spondyloarthropathy of the lumbar spine as described in detail above. Most notably, there are mild to moderate neural foraminal stenoses at L4-L5 and L5-S1. Narrowing of the right subarticular zone at L4-L5. No overt spinal canal stenosis centrally. Overall, degenerative changes have mildly progressed compared to exam from 2017. Assessment & Plan Assessment & Plan (1) Chronic left SI joint pain: Code(s): M53.3 - Sacrococcygeal disorders, not elsewhere classified; G89.29 - Other chronic pain Plan: 42-year-old female seen today for unresolved sacral lower back pain and ongoing SI Joint pain, Patient is status post recent therapeutic left SIJ with no pain relief so far. -- Encouraged to follow up with Spine Center, and pain management. -- Per Pain management; they will consider lumbar facet joint injections for persistent low back pain. -- Encouraged daily physical activity, adequate hydration, weight loss, good posture and Kegel exercises. -- Tylenol 1000 mg, orally, every 6 hours as needed for sacral back pain, and SI joint pain -- Lidocaine patch, available [id number] and should be apply to area of maximal tenderness as directed on the outside package -- Prednisone 20 mg po bid x 5 days, followed by Ibuprofen 600 mg, orally with milk or food, every 6 hours as needed for back pain and SI Joint pain. -- Ice to low back pain twice a day, may alternate w/ heat therapy. Call office, or go to ER for acute worsening of symptoms. Medications: New prednisone 20 mg PO BID 5 days 10 tabs 0RF G89.29 - Other chronic pain, M53.3 - Sacrococcygeal disorders, not elsewhere classified lidocaine 4% (AsperFlex (lidocaine)) 1 patch topical DAILY 10 days PRN 10 ea 0RF pain G89.29 - Other chronic pain, M53.3 - Sacrococcygeal disorders, not elsewhere classified Coding Level of Care Code Est Pt Level 3 (57373) Diagnoses Chronic left SI joint pain M53.3; G89.29
[2022-11-19 11:00] VITALS: BP 120/80; PULSE 88; O2SAT 98
== END 2022-11-19 11:12 | disposition home or self-care (01) ==
PROVIDERS: PCP Internal Medicine; Visit Provider Nurse Practitioner Acute Care
DX: M53.3 Sacrococcygeal disorders, not elsewhere classified (principal); G89.29 Other chronic pain
CPT/HCPCS: 99051; 99213

== ENCOUNTER 2023-03-03 14:32 | Outpatient (AMB) | payer OTHER, SELFPAY ==
[2023-03-03 14:33] VITALS: BP 124/86; PULSE 78; O2SAT 98; BMI 38.1
--- NOTE | 2023-03-03 14:33 | MHC.PC.OV ---
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 Accompanied by: Self / Same As Patient Allergies No Known Allergies [No Known Allergies*] Allergy (Verified 03/03/23 15:01) Medication List - Last Reconciled 03/03/23 by Wilber Cochran MD cholecalciferol (vitamin D3) 50 mcg PO DAILY 90 days cyclobenzaprine 10 mg (2 x 5 mg) PO BEDTIME PRN 30 days escitalopram oxalate 20 mg PO DAILY 30 days ibuprofen 600 mg PO Q8H PRN L norgest/e.estradiol-e.estrad 0.15 mg-30 mcg (84)/10 mcg (7) 1 tab PO DAILY lidocaine 4% (AsperFlex (lidocaine)) 1 patch topical DAILY PRN 10 days lorazepam 1 mg PO ONCE PRN trazodone 100 mg PO BEDTIME PRN 30 days Tobacco use date assessed: 03/03/23 Dental Screening Dental Screen Date: 03/03/23 Did you have a dental visit in the last 12 months?: Yes Did you have a dental problem in the last 6 months where you did not have access to dental care?: No Was dental information given to patient?: Patient has dentist HPI 6 month f/u HPI Details Patient comes in today for her follow up visit States that she has been experiencing again recurrent headaches lately, especially over her right side Has not noticed any associated nausea/vomiting, blurring of vision or any photosensitivity associated with her headaches Adds that she feels that she has been losing a lot of her hair lately and that her hair is starting to thin out significantly States that she still has chronic low back pain - has been seeing pain management for her low back pain for a while now and states that the injections that she has received so far have not really helped with her pain She has reportedly been advised to see neurosurgery for further evaluation but she states that she does not really want to get any surgery done on her lower back and is debating whether she should see neurosurgery or not Would like to get her Cyclobenzaprine Rx refilled in the meantime Patient denies any dizziness Denies any chest pains, no SOB No abdominal pain and no change in bowel habits noted PFSH Medical History Vitamin D deficiency Depression Family history of ovarian cancer Breast pain, right Hepatitis depression Obesity (BMI 30-39.9) History of in vitro fertilization Left ovarian cyst Anemia Surgical History H/O: (~03/2020) History of tonsillectomy History of carpal tunnel surgery Family History Maternal Aunt Ovarian cancer Maternal Uncle Colon cancer Maternal Uncle Colon cancer Mother COPD (chronic obstructive pulmonary disease) Fibromyalgia Hypertension Father No problems noted. Brother No problems noted. Son No problems noted. Social History Housing: Apartment Alcohol intake: current Alcohol intake frequency: holidays/special occasions only Patient Tobacco Use Status: Former Tobacco user Tobacco use type: Cigarette e-Cigarette/Vaping Use: Never Used Second Hand Smoke Exposure: Yes service: No Current occupational status: unemployed Cognitive needs: No Hearing needs: No Vision needs: Yes (glasses) Female Reproductive History Menstrual Age of Menarche: 12 Questionnaire PHQ-9 Over the last 2 weeks, how often have you been bothered by any of the following problems? 1. Little interest or pleasure in doing things: several days 2. Feeling down, depressed, or hopeless: several days 3. Trouble falling or staying asleep, or sleeping too much: several days 4. Feeling tired or having little energy: several days 5. Poor appetite or overeating: several days 6. Feeling bad about yourself - or that you are a failure or have let yourself or your family down: several days 7. Trouble concentrating on things, such as reading the newspaper or watching television: several days 8. Moving or speaking so slowly that other people could have noticed. Or the opposite - being so fidgety or restless that you have been moving around a lot more than usual: several days 9. Thoughts that you would be better off or of hurting yourself in some way: not at all Total score: 8 Depression Screening Interpretation: Positive Depression Screening Follow-up: Existing condition and In treatment Depression Screening Done: Yes [id number] - PHQ-9 Billing: Yes Source: Developed by Drs. Quan Painting, Sam Ac and colleagues, with an educational maxwell from [employer]. Thrive Questionnaire Date Thrive assessed: 03/03/23 I am a: Patient What is your living situation today?: I have a steady place to live Within the past 12 months, did the food you bought not last and you didn't have the money to get more?: Never true Within the past 12 months, did you worry whether your food would run out before you got money to buy more?: Never true Do you have trouble paying for medicines?: No Do you have trouble getting transportation to medical appointments?: No Do you have trouble paying your heating and electricity bill?: No Do you have trouble taking care of your child, family member or friend?: No Do you have trouble with day-to-day activities such as bathing, preparing meals, shopping, managing finances, etc.?: No Are you currently unemployed and looking for a job?: No Are you interested in more education?: No Please select the resources that you would like help with: None Currently or been in a relationship where the following occur: no concerns reported AUDIT C Alcohol Use Questionnaire (AUDIT-C) 1. How often do you have a drink containing alcohol?: Never Total Score: 0 Score Reviewed/Action Taken: Yes BISHNU-7 AMB Questionnaire BISHNU-7 Date BISHNU - 7 assessed: 03/03/23 Feeling nervous, anxious, or on edge: 0 = Not at all Not being able to stop or control worryin = Not at all Worrying too much about different things: 0 = Not at all Trouble relaxin = Not at all Being so restless that it is hard to sit still: 0 = Not at all Becoming easily annoyed or irritable: 0 = Not at all Feeling afraid as if something awful might happen: 0 = Not at all Total BISHNU-7 score (0-4 normal; 5-9 mild; 10-14 moderate; 15-21 severe): 0 Source: Developed by Vickie Dean Kurt Kroenke and colleagues, with an educational maxwell from [employer]. Review of Systems Const Denies chills, Reports difficulty sleeping (current Rx helping; takes Rx only when needed), Reports fatigue, Denies fever(s) and Reports headache(s) (recurrent lately) ENT Denies dysphagia, Denies dizziness, Denies otalgia, Reports headache(s) (recurrent lately), Denies neck pain, Denies odynophagia and Denies sore throat Card Denies chest pain, Denies palpitations and Denies dyspnea Resp Denies cough, Denies dyspnea and Denies wheezing GI Denies abdominal pain, Denies constipation, Denies dysphagia, Denies heartburn, Denies diarrhea, Denies nausea, Denies odynophagia and Denies vomiting Denies difficulty voiding, Denies nocturia, Denies dysuria and Denies urinary urgency Musc Reports back pain (over the lower back - chronic), Denies arthralgias and Denies neck pain Skin/Breast Denies rash Neuro Denies dizziness and Reports headache(s) (recurrent lately) Psych Denies anxiety (much better controlled), Denies depression (Rx helping a lot), Denies irritability and Denies mood swings Endo Reports fatigue and Denies palpitations Jefferson/Lymph Denies easy bruising Aller/Immun Denies wheezing Physical exam (Primary Care) Vital Signs: Last Vital Signs Pulse 78 03/03/23 14:33 BP 124/86 03/03/23 14:33 Pulse Ox 98 03/03/23 14:33 Oxygen Delivery Method Room Air 03/03/23 14:33 BMI result Body Mass Index 38.1 Tobacco/Smoking Status: Tobacco use Status Tobacco use date assessed 03/03/23 03/03/23 14:38 Patient Tobacco Use Status Former Tobacco user 03/03/23 14:38 Tobacco use type Cigarette 03/03/23 14:38 e-Cigarette/Vaping Use Never Used 03/03/23 14:38 PHQ-9: PHQ-9 Score PHQ-9: Total score 8 03/03/23 15:13 Depression Screening Interpretation: Positive Depression Screening Follow-up: Existing condition and In treatment Thrive Assessment: Date of Thrive Assessment Date Thrive assessed 03/03/23 03/03/23 14:38 Currently or been in a relationship where the following occur: no concerns reported Const General: no acute distress and alert Orientation/consciousness: patient oriented x3 HENMT Ears: TM's normal bilaterally and EAC's normal Throat: Yes posterior oropharynx normal and Yes tonsils normal (no TP congestion) Eyes Conjunctivae: conjunctivae normal Pupils: Equal, round and reactive pupils present EOM: EOMs intact bilaterally Neck Neck: Yes no lymphadenopathy and Yes supple Thyroid: Thyroid normal Resp Auscultation: clear to auscultation bilaterally, no rales and no wheezes Cardio Rate: regular rate Rhythm: regular rhythm Heart sounds: no murmurs GI Palpation (GI): Soft to palpation and nontender Auscultation: normal bowel sounds General: Yes no CVA tenderness Back/Spine/Pelvis Back: no CVA tenderness Thoracic/Lumbar Spine: lumbar spinal tenderness Skin Rashes: no rashes Neuro General: patient oriented x3, moves all extremities and no focal motor deficits Cranial nerves: Yes Equal, round and reactive pupils present Gait exam (Neuro): Normal gait present Extrem General: Yes no clubbing, cyanosis or edema Assessment and Plan Assessment & Plan (1) Recurrent headache: Code(s): R51.9 - Headache, unspecified Plan: Suspect tension headaches as a possibility Continue Ibuprofen 600 mg PRN for now Will refer patient to neurology for further evaluation and management (2) Vitamin D deficiency: Code(s): E55.9 - Vitamin D deficiency, unspecified Plan: Continue Vitamin D3 2000 units QD (3) Elevated LFTs: Code(s): R79.89 - Other specified abnormal findings of blood chemistry Plan: Her LFTs were normal when last checked in August 2022; were most likely related to her weight (hepatosteatosis) Will continue to monitor her LFTs regularly (4) Lumbar degenerative disc disease: Code(s): M51.36 - Other intervertebral disc degeneration, lumbar region Plan: Reinforced activity and weight-lifting restrictions Continue Cyclobenzaprine 10 mg Q HS PRN - Rx refilled Follow up with [facility] [place] Pain Management as scheduled States that she has been advised by pain management to see neurosurgery for further recommendations but patient is debating whether to go ahead or not as she states that she has no intention of going for any back surgery (5) Insomnia: Code(s): G47.00 - Insomnia, unspecified Qualifiers: Insomnia type: unspecified Qualified Code(s): G47.00 - Insomnia, unspecified Plan: Sleep hygiene reinforced Continue Trazodone 100 mg Q HS PRN - patient states that she only has had to take this every now and then, not daily (6) Depression: Code(s): F32.A - Depression, unspecified Qualifiers: Depression Type: major depressive disorder Major depression recurrence: recurrent Active/Remission status: currently active Major depression episode severity: unspecified Qualified Code(s): F33.9 - Major depressive disorder, recurrent, unspecified Plan: Most likely also has a component of depression Continue Escitalopram 20 mg QD - feels that she is currently doing a lot better on her current Rx (7) Obesity (BMI 30-39.9): Code(s): E66.9 - Obesity, unspecified Plan: Reinforced diet/exercise as tolerated/lose weight Plan Follow up in 4 months Orders: Referrals Neurology Referral R51.9 - Headache, unspecified Medications: Refilled cyclobenzaprine 10 mg (2 x 5 mg) PO BEDTIME 30 days PRN 60 tabs 3RF muscle spasm M51.36 - Other intervertebral disc degeneration, lumbar region, M54.9 - Dorsalgia, unspecified, M62.830 - Muscle spasm of back Coding Level of Care Code Est Pt Level 4 (42916) Diagnoses Recurrent headache R51.9 Vitamin D deficiency E55.9 Elevated LFTs R79.89 Lumbar degenerative disc disease M51.36 Insomnia, unspecified type G47.00 Insomnia type: unspecified Episode of recurrent major depressive disorder, unspecified depression episode severity F33.9 Depression Type: major depressive disorder Major depression recurrence: recurrent Active/Remission status: currently active Major depression episode severity: unspecified Obesity (BMI 30-39.9) E66.9
== END 2023-03-03 15:20 | disposition home or self-care (01) ==
PROVIDERS: PCP Internal Medicine; Visit Provider Internal Medicine
DX: R51.9 Headache, unspecified (principal); F33.9 Major depressive disorder, recurrent, unspecified; E55.9 Vitamin D deficiency, unspecified; R79.89 Other specified abnormal findings of blood chemistry; M51.36 Other intervertebral disc degeneration, lumbar region; G47.00 Insomnia, unspecified; E66.9 Obesity, unspecified
CPT/HCPCS: 99214

== ENCOUNTER 2023-03-16 09:41 | Outpatient (AMB) | payer OTHER, SELFPAY ==
--- NOTE | 2023-03-16 09:43 | A.OFFVIS_ITS ---
Intake Vital Signs 03/16/23 10:02 Height 5 ft 9 in Weight 256 lb BMI 37.8 BP 124/81 Blood Pressure Location Lt brachial Position Sitting Pulse 88 Pulse Source Pulse Oximeter Pulse Oximetry (%) 98 Oxygen Delivery Method Room Air Intake Visit Reasons: lower back pain Intake Note: Pain today 10/30. [employer] Clerk Required: No Accompanied by: Self / Same As Patient Allergies No Known Allergies [No Known Allergies*] Allergy (Verified 03/16/23 10:02) HPI HPI Comments History of Present Illness Details Patient presents today for follow up to discuss treatments for bilateral radicular low back pain, worse on the left side. She was last year and underwent left therapeutic SIJ injection on 11/08/22 per Neurosurgery without any pain relief. She was deemed non-surgical per [facility] last summer. Patient is hesitant towards back surgery. Her pain is axial and also radiates into her buttocks and dows into lowers extremiteis laterally and posteriorly and into her feet with associated numbness and tingling. At times, her left leg gives out and she feels unbalance due to pain. She continues to have localized tenderness in the left SIJ area and has positive provocative testing. [facility]22 and was prescribed oral prednisone and lidocaine patches with minimal relief. Patient also has vertebrogenic pain components especially with bending forward or lifting. Her previous lumbar spine MRI in 04/2022 showed associated mild mixed Modic type discogenic endplate changes and small Schmorl's nodes from T10-L3. Patient is interested to undergo epidural steroid injection for radicular symptoms. Denies any recent cough, fever, chills cold, foot drop, weakness, bladder or bowel incontinence or saddle anesthesia. Past Procedures: 11/08/22: Left Therapeutic SIJ injection - 0% pain relief 10/18/22: Left Diagnostic SIJ injection- 40% pain relief for 6 hours 06/21/22: Left L5-S1 TFESI-80% pain reli ef for 2 weeks PRIOR: Patient is a pleasant 41 year old female who presents today for an initial evaluation of chronic lower back pain, left hand pain and right shoulder pain. Patient reports chronic back pain that has been worsening after her with epidural 04/04/2020. Her back pain is axial and also radiates into her left lower extremity posteriorly with numbness and tingling in the posterior lower leg, osborne and sole of her left foot. She also has localized pain in the projections of the left sacroiliac joint. Patient also reports left hand and wrist pain with flexion, pulling and lifting objects consistent with carpal tunnel syndrome. She has a history of right carpal tunnel repair in 2010. Patient is right hand dominant. Her right shoulder radiates to her neck with muscle spasms and tenderness. Pain increases with prolonged sitting, walking, standing, intercourse, climbing stairs, changing positions and weather changes. Pain is described as constant throbbing, shooting, stabbing, sharp, cramping, tingling, sore, hurting, aching, exhausting, tiring, and radiating. Pain interferes with her daily activities and functionings, mood, sleep, social interactions and quality of life. She has been managing pain with Ibuprofen and cyclobenzaprine with continued symptoms. Patient also started physical therapy last week and is intersted to trial acupuncture therapy for right shoulder and neck pain. Lumbar spine MRI in 2017 showed disc degeneration and a minimal anterior subluxation at L5-S1 with chronic bilateral L5 pars defects and [id number] right foraminal narrowing. Facet spurring mildly distorts the exiting right L5 nerve root. Most recent lumbar spine xray showed bilateral L5 spondylolysis defect is redemonstrated and multi-level thoracolumbar spondylosis and Schmorl's node formation. Patient denies any fever, weight loss, tachycardia, abdominal or groin pain, weakness, nausea, vomiting, constipation, diarrhea, vaginal bleeding, bladder or bowel incontinence or saddle anesthesia. Of note, patient has history of fatty liver, elevated LFT and hepatitis. She reports the most recent screening for hepatitis panel was negative. [facility] Medical History Vitamin D deficiency Depression Family history of ovarian cancer Breast pain, right Hepatitis depression Obesity (BMI 30-39.9) History of in vitro fertilization Left ovarian cyst Anemia Surgical History H/O: (~03/2020) History of tonsillectomy History of carpal tunnel surgery Family History Maternal Aunt Ovarian cancer Maternal Uncle Colon cancer Maternal Uncle Colon cancer Mother COPD (chronic obstructive pulmonary disease) Fibromyalgia Hypertension Father No problems noted. Brother No problems noted. Son No problems noted. Social History Housing: Apartment Alcohol intake: current Alcohol intake frequency: holidays/special occasions only Patient Tobacco Use Status: Former Tobacco user Tobacco use type: Cigarette e-Cigarette/Vaping Use: Never Used Second Hand Smoke Exposure: Yes service: No Current occupational status: unemployed Cognitive needs: No Hearing needs: No Vision needs: Yes (glasses) Female Reproductive History Menstrual Age of Menarche: 12 Review of Systems Const All systems reviewed & are unremarkable except as noted in HPI and below Physical Exam Vital Signs: Last Vital Signs Pulse 88 03/16/23 10:02 BP 124/81 03/16/23 10:02 Pulse Ox 98 03/16/23 10:02 Oxygen Delivery Method Room Air 03/16/23 10:02 BMI result Body Mass Index 37.8 General: Appears afebrile. Alert and oriented. Mood and affect appropriate. Follows and participates in conversation appropriately. Respiratory effort is unlabored. No cough. Able to transition from sit to stand unassisted. Const General: healthy appearing and no acute distress Nutritional Appearance: well nourished and obese Limitations: no limitations Back/Spine/Pelvis Other: Limited lumbar ROM due to pain. Lumbar flexion and bending reproduce moderate- severe pain. Localized tenderness in the projection of left SIJ. Rafael's, Gaenslen's, Pelvic compression and Stinchfield's testing reproduce SIJ pain on the left, mild pain on the right SIJ with positive Rafael's, negative Stinchfield test. Cervical Spine: normal cervical lordosis, cervical ROM normal and No Cervical spine tenderness Thoracic/Lumbar Spine: thoracic and lumbar spine normal to inspection, No Thoracic/lumbar spine scar(s), Lasegue's sign positive bilateral and diffuse, pain with thoraco-lumbar ROM, paraspinal muscle tenderness, No thoracic spinal tenderness and lumbar spinal tenderness Pelvis: buttock tenderness on the left Sacroiliac joints: bilaterally tender to palpation Extrem General: Yes capillary refill normal, Yes no clubbing, cyanosis or edema and Yes no calf tenderness Results Reviewed Results Reviewed: MR LUMBAR SPINE WITHOUT CONTRAST 05/02/22 CLINICAL INFORMATION: Lumbar radiculopathy. COMPARISON: Lumbar spine radiographs from 03/11/2022. Lumbar spine MRI from 08/15/2016. CT abdomen and pelvis from 10/18/2021. TECHNIQUE: MRI of the lumbar spine was obtained using routine sequences without contrast. FINDINGS: Mild degenerative retrolisthesis of L4 on L5. Degenerative grade 1 anterolisthesis of L5 on S1. Otherwise, normal anatomic alignment. Moderate degenerative disc disease at T10-T11, T11-T12, L4-L5, and L5-S1. Mild degenerative disc disease from T12-L3. Associated mild mixed Modic type discogenic endplate changes. No suspicious marrow edema. Small Schmorl's nodes from T10-L3. Otherwise, the vertebral body heights are largely maintained. The conus medullaris terminates at the level of L1. The distal spinal cord is normal in appearance. Mild subcutaneous edema within the soft tissues of the back below the level of T12. No additional Significant abnormalities of the paraspinal musculature. Limited evaluation of the intra-abdominal structures without significant abnormalities. The abdominal aorta is of normal contour and caliber. AXIAL SPINAL LEVELS: T12-L1: Normal annular contour. There is mild bilateral facet joint arthropathy. There is no neural foraminal stenosis. There is no spinal canal stenosis. L1-L2: Shallow diffuse disc bulge. There is moderate right and mild left facet joint arthropathy. There is no neural foraminal stenosis. There is no spinal canal stenosis. L2-L3: Normal annular contour. There is mild bilateral facet joint arthropathy. There is mild right and no left neural foraminal stenosis. There is no spinal canal stenosis. L3-L4: Normal annular contour. There is mild bilateral facet joint arthropathy. There is no neural foraminal stenosis. There is no spinal canal stenosis. L4-L5: Mild diffuse disc bulge with superimposed central/right subarticular disc protrusion. There is no facet joint arthropathy. There is mild to moderate bilateral neural foraminal stenosis. There is narrowing of the right subarticular zone with no overt spinal canal stenosis centrally. L5-S1: Moderate diffuse disc bulge with posterior osseous ridging and superimposed right foraminal disc protrusion. There is moderate right and mild left facet joint arthropathy. There is moderate right and mild left neural foraminal stenosis. There is no spinal canal stenosis. 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 Most notably, there are mild to moderate neural foraminal stenoses at L4-L5 and L5-S1. Narrowing of the right subarticular zone at L4-L5. No overt spinal canal stenosis centrally. Overall, degenerative changes have mildly progressed compared to exam from 2017. XR LUMBOSACRAL SPINE 03/11/22 FINDINGS: Vertebral body heights and alignment are normal. At L5-S1, there is mild disc space narrowing. The remaining disc spaces are relatively well-maintained. No acute fracture or spondylolisthesis is seen. There is multi-level thoracolumbar spondylosis and Schmorl's node formation. 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 No foreign body is seen. IMPRESSION: 1. There is mild degenerative disc disease at L5-S1. 2. 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 3. There is multi-level thoracolumbar spondylosis and Schmorl's node formation. Assessment & Plan Assessment & Plan (1) Vertebrogenic low back pain: Code(s): M54.51 - Vertebrogenic low back pain (2) Sacroiliitis: Code(s): M46.1 - Sacroiliitis, not elsewhere classified (3) Lumbar degenerative disc disease: Code(s): M51.36 - Other intervertebral disc degeneration, lumbar region (4) Lumbar radiculopathy: Code(s): M54.16 - Radiculopathy, lumbar region (5) Chronic left SI joint pain: Code(s): M53.3 - Sacrococcygeal disorders, not elsewhere classified; G89.29 - Other chronic pain (6) Lumbar spondylosis: Code(s): M47.816 - Spondylosis without myelopathy or radiculopathy, lumbar region Plan Patient returns today for worsening low back pain symptoms with radicular and vertebrogenic components as well as sacroiliac joint pain. She underwent therapeutic left SIJ with no pain relief last year. Due to minimal pain responses to diagnostic and therapeutic SIJ injections, patient is not candidate for sacroiliac joint neuromodulation or RFA procedures at this time. We will proceed with Bilateral L5-S1 TFESI with local and fluoroscopy as next steps. Expectations, risks and benefits were reviewed. Patient is aware she will be contacted to schedule this procedure. For moderate to severe pain, I will provide patient with short script of tramadol and gabapentin for bedtime. Side effects and precautions discussed with patient. Safety, medication administration and storage reviewed with patient. Narcan provided. Refill sent for lidocaine patches per patient's request. We also discussed lumbar facet joint injections for persistent axial low back pain. Encouraged daily physical activity, adequate hydration, weight optimization and good posture. All questions and concerns have been answered and patient agreed with the plan. Follow up as needed. Medications: New gabapentin 300 mg PO BEDTIME 30 days 30 caps 0RF pain M46.1 - Sacroiliitis, not elsewhere classified, M51.36 - Other intervertebral disc degeneration, lumbar region, M54.16 - Radiculopathy, lumbar region, M54.51 - Vertebrogenic low back pain tramadol 50 mg PO BID 10 days PRN 20 tabs 0RF pain M46.1 - Sacroiliitis, not elsewhere classified, M51.36 - Other intervertebral disc degeneration, lumbar region, M54.16 - Radiculopathy, lumbar region, M54.51 - Vertebrogenic low back pain naloxone 4 mg/actuation (Narcan) spray 1 dose into ONE nostril; alternate nostrils w each dose until help arrives 4 mg intranasal Q2M PRN 2 ea 0RF opioid overdose Changed From lidocaine 4% (AsperFlex (lidocaine)) 1 patch topical DAILY 10 days PRN 10 ea 0RF pain G89.29 - Other chronic pain, M51.36 - Other intervertebral disc degeneration, lumbar region, M53.3 - Sacrococcygeal disorders, not elsewhere classified, M54.16 - Radiculopathy, lumbar region To lidocaine 4% (AsperFlex (lidocaine)) 1 patch topical DAILY 30 days PRN 30 ea 3RF pain G89.29 - Other chronic pain, M51.36 - Other intervertebral disc degeneration, lumbar region, M53.3 - Sacrococcygeal disorders, not elsewhere classified, M54.16 - Radiculopathy, lumbar region Discontinued cyclobenzaprine Discontinued Reason: Doctor's Order 10 mg (2 x 5 mg) PO BEDTIME 30 days PRN 60 tabs 3RF muscle spasm M51.36 - Other intervertebral disc degeneration, lumbar region, M54.9 - Dorsalgia, unspecified, M62.830 - Muscle spasm of back Coding Level of Care Code Est Pt Level 4 (66414) Diagnoses Vertebrogenic low back pain M54.51 Sacroiliitis M46.1 Lumbar degenerative disc disease M51.36 Lumbar radiculopathy M54.16 Chronic left SI joint pain M53.3; G89.29 Lumbar spondylosis M47.816
[2023-03-16 10:02] VITALS: BP 124/81; PULSE 88; O2SAT 98; BMI 37.8
== END 2023-03-16 10:17 | disposition home or self-care (01) ==
PROVIDERS: PCP Internal Medicine; Visit Provider Nurse Practitioner Family
DX: M54.51 Vertebrogenic low back pain (principal); M46.1 Sacroiliitis, not elsewhere classified; M51.36 Other intervertebral disc degeneration, lumbar region; M54.16 Radiculopathy, lumbar region; M53.3 Sacrococcygeal disorders, not elsewhere classified; G89.29 Other chronic pain; M47.816 Spondylosis without myelopathy or radiculopathy, lumbar region
CPT/HCPCS: 99214

== ENCOUNTER → 2023-03-16 09:41 | Outpatient (BNVA) | payer OTHER, SELFPAY | PROVIDERS: PCP Internal Medicine; Visit Provider Nurse Practitioner Family | DX: M54.51 Vertebrogenic low back pain (principal); M46.1 Sacroiliitis, not elsewhere classified; M51.36 Other intervertebral disc degeneration, lumbar region; M54.16 Radiculopathy, lumbar region; M53.3 Sacrococcygeal disorders, not elsewhere classified; M47.816 Spondylosis without myelopathy or radiculopathy, lumbar region; G89.29 Other chronic pain | CPT/HCPCS: 99212 ==

== ENCOUNTER 2023-04-18 06:08 | Outpatient (REF) | payer OTHER, SELFPAY ==
--- NOTE | ~2023-04-18 | FL_ITS ---
EXAMINATION: XR FLUOROSCOPY WITH IMAGES CLINICAL INFORMATION: Lumbar radiculopathy. COMPARISON: Fluoroscopy dated 07/07/2022; MRI lumbar spine dated 05/02/2022; lumbar spine radiographs dated 03/15/2022. TECHNIQUE: Fluoroscopy Supervised By: Dr. Tara Nevarez. Fluoroscopy Time: 0.5 minutes. Cumulative Dose: 9.98 mGy. DAP: 0.147 mGym2. Images: 2. FINDINGS: The submitted images show injection needles and contrast in the vicinity of the bilateral L5 neural foramina. FL/FL guidance in treatment room IMPRESSION: Intraoperative fluoroscopy is provided during pain management procedure. Please see the patient's Operative Report for full procedural details.
== END 2023-04-18 06:09 | disposition home or self-care (01) ==
LOC: CF 06:08
PROVIDERS: Visit Provider Anesthesiology
DX: M47.26 Other spondylosis with radiculopathy, lumbar region (principal); M51.36 Other intervertebral disc degeneration, lumbar region
CPT/HCPCS: 64483; J3301; Q9967

== ENCOUNTER 2023-04-18 07:11 | Outpatient (AMB) | payer OTHER, SELFPAY ==
[2023-04-18 07:13] VITALS: BP 128/70; PULSE 98; RESP 14; O2SAT 99; BMI 37.7
--- NOTE | 2023-04-18 07:13 | MHC.OFFVIS ---
Intake Vital Signs 04/18/23 07:13 04/18/23 08:08 Height 5 ft 9 in 5 ft 9 in Weight 255 lb 255 lb BMI 37.7 37.7 BP 128/70 128/72 Blood Pressure Location Lt brachial Rt brachial Position Sitting Sitting Respiration 14 14 Pulse 98 79 Pulse Source Pulse Oximeter Pulse Oximeter Pulse Oximetry (%) 99 98 Oxygen Delivery Method Room Air Room Air Comment Pre-Op Post-Op Intake Visit Reasons: BILATERAL L5, S1 TFESI/confirm Data Center Manager Required: No Accompanied by: Self / Same As Patient Allergies No Known Allergies [No Known Allergies*] Allergy (Verified 04/18/23 07:21) PFSH Medical History Vitamin D deficiency Depression Family history of ovarian cancer Breast pain, right Hepatitis depression Obesity (BMI 30-39.9) History of in vitro fertilization Left ovarian cyst Anemia Surgical History H/O: (~03/2020) History of tonsillectomy History of carpal tunnel surgery Family History Maternal Aunt Ovarian cancer Maternal Uncle Colon cancer Maternal Uncle Colon cancer Mother COPD (chronic obstructive pulmonary disease) Fibromyalgia Hypertension Father No problems noted. Brother No problems noted. Son No problems noted. Social History Housing: Apartment Alcohol intake: current Alcohol intake frequency: holidays/special occasions only Patient Tobacco Use Status: Former Tobacco user Tobacco use type: Cigarette e-Cigarette/Vaping Use: Never Used Second Hand Smoke Exposure: Yes service: No Current occupational status: unemployed Cognitive needs: No Hearing needs: No Vision needs: Yes (glasses) Female Reproductive History Menstrual Age of Menarche: 12 Physical Exam Vital Signs: Last Vital Signs Pulse 79 04/18/23 08:08 Resp 14 04/18/23 08:08 BP 128/72 04/18/23 08:08 Pulse Ox 98 04/18/23 08:08 Oxygen Delivery Method Room Air 04/18/23 08:08 BMI result Body Mass Index 37.7 Assessment & Plan Assessment & Plan (1) Lumbar back pain with radiculopathy affecting left lower extremity: Code(s): M54.16 - Radiculopathy, lumbar region (2) Lumbar spondylosis: Code(s): M47.816 - Spondylosis without myelopathy or radiculopathy, lumbar region (3) Lumbar degenerative disc disease: Code(s): M51.36 - Other intervertebral disc degeneration, lumbar region Plan Bilateral L5- S1 Transforaminal epidural steroid injection Informed consent was thoroughly explained to the patient before the procedure.? The patient came to the operating room.? She was positioned prone on operating table with a pillow under his abdomen.? Time-out was performed delineating correct site and side of the procedure, nature of the injection, name and date of of the patient. The lower back of the patient was prepped with ChloraPrep and draped with sterile utility towels.? C-arm was brought over the operating field and sq picture of L5 vertebra was demonstrated on the screen.? First the right side was chosen as the side of the injection.? Tilting machine ipsilateral to the right at the level of L5 the most prominent picture of theright L5 pedicle was obtained on the screen. At the projection of the lowest point of the most prominent projection of the pedicle of L5 on the right was injected into the skin forming a skin wheal. ? After that 5 in 22 gauge Quincke point needle was inserted through the skin wheal and was advanced to were the L5-S1 foramina on anterior posterior, lateral and oblique views intermittently.When needle tip contacted the bone the needle was deviated laterally and a after that medially to advance it below the pedicle and into the L5- S1 foramina. On lateral view the needle appeared to be at the latetal superior portion of the foramina.? When tip of the needle entered foramina projection on AP view injection of the contrast was performed demonstrating epidural and perineural spread of the contrast.? After that injection of the treatment medicine 4 cc of preservative-free lidocaine 1% mixed with Kenalog 40 mg was injected into the foramina.? Injection of the contrast and injection of the treatment medicine was observed live on the screen.? No intrathecal and no intravascular spread of the contrast was noted. After that attention was attracted to the left L5-S1 foramina in mirroring fashion The needle was removed and bandaid was applied the patient tolerated procedure well. Orders: Orders FL guidance in treatment room Today M54.16 - Radiculopathy, lumbar region Coding Level of Care Code Procedure Only Diagnoses Lumbar back pain with radiculopathy affecting left lower extremity M54.16 Lumbar spondylosis M47.816 Lumbar degenerative disc disease M51.36
[2023-04-18 08:08] VITALS: BP 128/72; PULSE 79; RESP 14; O2SAT 98; BMI 37.7
== END 2023-04-18 08:08 | disposition home or self-care (01) ==
LOC: HO.PMCPRC 07:12
PROVIDERS: PCP Internal Medicine; Visit Provider Anesthesiology
DX: M54.16 Radiculopathy, lumbar region (principal)
CPT/HCPCS: 64483

== ENCOUNTER 2023-05-15 08:41 | Outpatient (AMB) | payer OTHER, SELFPAY ==
--- NOTE | 2023-05-15 08:51 | A.OFFVIS_ITS ---
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 Urbano. Patient reports 40-50% pain relief since procedure with partial improvement in her radicular symptoms, especially on left side. She has chronic left L5 radiculopathy as well as sacroiliac joint pain. SIJ injections were not effective. Patient also had Neurosurgical evaluation last year with [facility] and was deemed non-surgical at that time. Patient is hesitant towards back surgery given her age. Patient had responded well to local and oral steroid treatments for radicular symptoms. She notes left lower leg numbness and tingling is constant and occasional on the right side. Denies any recent cough, fever, chills cold, foot drop, weakness, bladder or bowel incontinence or saddle anesthesia. Past Procedures: 04/18/23: Bilateral L5-S1 TFESI-40-50% p ain relief 11/08/22: Left Therapeutic SIJ injection - 0% pain relief 10/18/22: Left Diagnostic SIJ injection- 40% pain relief for 6 hours 06/21/22: Left L5-S1 TFESI-80% pain reli ef for 2 weeks PRIOR: Patient is a pleasant 41 year old female who presents today for an initial evaluation of chronic lower back pain, left hand pain and right shoulder pain. Patient reports chronic back pain that has been worsening after her with epidural 04/04/2020. Her back pain is axial and also radiates into her left lower extremity posteriorly with numbness and tingling in the posterior lower leg, osborne and sole of her left foot. She also has localized pain in the projections of the left sacroiliac joint. Patient also reports left hand and wrist pain with flexion, pulling and lifting objects consistent with carpal tunnel syndrome. She has a history of right carpal tunnel repair in 2010. Patient is right hand dominant. Her right shoulder radiates to her neck with muscle spasms and tenderness. Pain increases with prolonged sitting, walking, standing, intercourse, climbing stairs, changing positions and weather changes. Pain is described as constant throbbing, shooting, stabbing, sharp, cramping, tingling, sore, hurting, aching, exhausting, tiring, and radiating. Pain interferes with her daily activities and functionings, mood, sleep, social interactions and quality of life. She has been managing pain with Ibuprofen and cyclobenzaprine with continued symptoms. Patient also started physical therapy last week and is intersted to trial acupuncture therapy for right shoulder and neck pain. Lumbar spine MRI in 2017 showed disc degeneration and a minimal anterior subluxation at L5-S1 with chronic bilateral L5 pars defects and [id number] right foraminal narrowing. Facet spurring mildly distorts the exiting right L5 nerve root. Most recent lumbar spine xray showed bilateral L5 spondylolysis defect is redemonstrated and multi-level thoracolumbar spondylosis and Schmorl's node formation. Patient denies any fever, weight loss, tachycardia, abdominal or groin pain, weakness, nausea, vomiting, constipation, diarrhea, vaginal bleeding, bladder or bowel incontinence or saddle anesthesia. Of note, patient has history of fatty liver, elevated LFT and hepatitis. She reports the most recent screening for hepatitis panel was negative. [facility] Medical History Vitamin D deficiency Depression Family history of ovarian cancer Breast pain, right Hepatitis depression Obesity (BMI 30-39.9) History of in vitro fertilization Left ovarian cyst Anemia Surgical History H/O: (~03/2020) History of tonsillectomy History of carpal tunnel surgery Family History Maternal Aunt Ovarian cancer Maternal Uncle Colon cancer Maternal Uncle Colon cancer Mother COPD (chronic obstructive pulmonary disease) Fibromyalgia Hypertension Father No problems noted. Brother No problems noted. Son No problems noted. Social History (Reviewed 05/15/23 @ 08:57 by LOU Garcia Housing: Apartment Alcohol intake: current Alcohol intake frequency: holidays/special occasions only Patient Tobacco Use Status: Former Tobacco user Tobacco use type: Cigarette e-Cigarette/Vaping Use: Never Used Second Hand Smoke Exposure: Yes service: No Current occupational status: unemployed Cognitive needs: No Hearing needs: No Vision needs: Yes (glasses) Female Reproductive History Menstrual Age of Menarche: 12 Review of Systems Const All systems reviewed & are unremarkable except as noted in HPI and below Physical Exam Vital Signs: Last Vital Signs Pulse 95 05/15/23 08:54 BP 164/83 H 05/15/23 08:54 Pulse Ox 100 05/15/23 08:54 Oxygen Delivery Method Room Air 05/15/23 08:54 BMI result Body Mass Index 38.1 General: Appears afebrile. Alert and oriented. Mood and affect appropriate. Follows and participates in conversation appropriately. Respiratory effort is unlabored. No cough. Able to transition from sit to stand unassisted. Const General: healthy appearing and no acute distress Nutritional Appearance: well nourished and obese Limitations: no limitations Back/Spine/Pelvis Other: Limited lumbar ROM due to pain. Lumbar flexion and bending reproduce moderate pain. Mild tenderness in the projection of both SIJ, left>right. Rafael's, Gaenslen's, Pelvic compression and Stinchfield's testing reproduce moderate SIJ pain on the left, mild pain on the right SIJ. Valsalva maneuver is negative. Cervical Spine: cervical ROM normal, cervical muscular tenderness and No Cervical spine tenderness Thoracic/Lumbar Spine: thoracic and lumbar spine normal to inspection, No Thoracic/lumbar spine scar(s), Lasegue's sign positive on the left and diffuse, pain with thoraco-lumbar ROM, paraspinal muscle tenderness, No thoracic spinal tenderness and lumbar spinal tenderness at L3, at L4 and at L5 Pelvis: buttock tenderness on the left Sacroiliac joints: bilaterally tender to palpation Extrem General: Yes capillary refill normal, Yes no clubbing, cyanosis or edema and Yes no calf tenderness Results Reviewed Results Reviewed: MR LUMBAR SPINE WITHOUT CONTRAST 05/02/22 CLINICAL INFORMATION: Lumbar radiculopathy. COMPARISON: Lumbar spine radiographs from 03/11/2022. Lumbar spine MRI from 08/15/2016. CT abdomen and pelvis from 10/18/2021. TECHNIQUE: MRI of the lumbar spine was obtained using routine sequences without contrast. FINDINGS: Mild degenerative retrolisthesis of L4 on L5. Degenerative grade 1 anterolisthesis of L5 on S1. Otherwise, normal anatomic alignment. Moderate degenerative disc disease at T10-T11, T11-T12, L4-L5, and L5-S1. Mild degenerative disc disease from T12-L3. Associated mild mixed Modic type discogenic endplate changes. No suspicious marrow edema. Small Schmorl's nodes from T10-L3. Otherwise, the vertebral body heights are largely maintained. The conus medullaris terminates at the level of L1. The distal spinal cord is normal in appearance. Mild subcutaneous edema within the soft tissues of the back below the level of T12. No additional Significant abnormalities of the paraspinal musculature. Limited evaluation of the intra-abdominal structures without significant abnormalities. The abdominal aorta is of normal contour and caliber. AXIAL SPINAL LEVELS: T12-L1: Normal annular contour. There is mild bilateral facet joint arthropathy. There is no neural foraminal stenosis. There is no spinal canal stenosis. L1-L2: Shallow diffuse disc bulge. There is moderate right and mild left facet joint arthropathy. There is no neural foraminal stenosis. There is no spinal canal stenosis. L2-L3: Normal annular contour. There is mild bilateral facet joint arthropathy. There is mild right and no left neural foraminal stenosis. There is no spinal canal stenosis. L3-L4: Normal annular contour. There is mild bilateral facet joint arthropathy. There is no neural foraminal stenosis. There is no spinal canal stenosis. L4-L5: Mild diffuse disc bulge with superimposed central/right subarticular disc protrusion. There is no facet joint arthropathy. There is mild to moderate bilateral neural foraminal stenosis. There is narrowing of the right subarticular zone with no overt spinal canal stenosis centrally. L5-S1: Moderate diffuse disc bulge with posterior osseous ridging and superimposed right foraminal disc protrusion. There is moderate right and mild left facet joint arthropathy. There is moderate right and mild left neural foraminal stenosis. There is no spinal canal stenosis. 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 Most notably, there are mild to moderate neural foraminal stenoses at L4-L5 and L5-S1. Narrowing of the right subarticular zone at L4-L5. No overt spinal canal stenosis centrally. Overall, degenerative changes have mildly progressed compared to exam from 2017. XR LUMBOSACRAL SPINE 03/11/22 FINDINGS: Vertebral body heights and alignment are normal. At L5-S1, there is mild disc space narrowing. The remaining disc spaces are relatively well-maintained. No acute fracture or spondylolisthesis is seen. There is multi-level thoracolumbar spondylosis and Schmorl's node formation. 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 No foreign body is seen. IMPRESSION: 1. There is mild degenerative disc disease at L5-S1. 2. 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 3. There is multi-level thoracolumbar spondylosis and Schmorl's node formation. Assessment & Plan Assessment & Plan (1) Lumbar radiculopathy: Code(s): M54.16 - Radiculopathy, lumbar region (2) Numbness and tingling of both lower extremities: Code(s): R20.0 - Anesthesia of skin; R20.2 - Paresthesia of skin (3) Vertebrogenic low back pain: Code(s): M54.51 - Vertebrogenic low back pain (4) Sacroiliitis: Code(s): M46.1 - Sacroiliitis, not elsewhere classified (5) Lumbar degenerative disc disease: Code(s): M51.36 - Other intervertebral disc degeneration, lumbar region (6) Lumbar spondylosis: Code(s): M47.816 - Spondylosis without myelopathy or radiculopathy, lumbar region Plan Patient presents today one month s/p bilateral L5-S1 TFESI with partial improvement in her ADLs, mobility and sleep. She continues to experience SIJ and radicular low back pain, worse on the left. We will proceed with EMG and NVC studies for bilateral lower extremities as next steps. Patient will continue to monitor her symptoms s/p recent injection. Will consider interlaminar approach vs SIJ innervation under sedation at next follow up visit. Continue daily physical activity, adequate hydration, weight optimization and good posture. All questions and concerns have been answered and patient agreed with the plan. Follow up for EMG/NVC results and sooner as needed. Orders: Orders NE nerve conduction velocity Today M54.16 - Radiculopathy, lumbar region, R20.0 - Anesthesia of skin, R20.2 - Paresthesia of skin NE electromyogram (EMG) Today M54.16 - Radiculopathy, lumbar region, R20.0 - Anesthesia of skin, R20.2 - Paresthesia of skin Coding Level of Care Code Est Pt Level 4 (50241) Diagnoses Lumbar radiculopathy M54.16 Numbness and tingling of both lower extremities R20.0; R20.2 Vertebrogenic low back pain M54.51 Sacroiliitis M46.1 Lumbar degenerative disc disease M51.36 Lumbar spondylosis M47.816
[2023-05-15 08:54] VITALS: BP 164/83; PULSE 95; O2SAT 100; BMI 38.1
== END 2023-05-15 09:06 | disposition home or self-care (01) ==
PROVIDERS: PCP Internal Medicine; Visit Provider Nurse Practitioner Family
DX: M54.16 Radiculopathy, lumbar region (principal); R20.0 Anesthesia of skin; R20.2 Paresthesia of skin; M54.51 Vertebrogenic low back pain; M46.1 Sacroiliitis, not elsewhere classified; M51.36 Other intervertebral disc degeneration, lumbar region; M47.816 Spondylosis without myelopathy or radiculopathy, lumbar region
CPT/HCPCS: 99214

== ENCOUNTER → 2023-05-15 08:41 | Outpatient (BNVA) | payer OTHER, SELFPAY | PROVIDERS: PCP Internal Medicine; Visit Provider Nurse Practitioner Family | DX: M54.16 Radiculopathy, lumbar region (principal); M54.51 Vertebrogenic low back pain; M51.36 Other intervertebral disc degeneration, lumbar region; M46.1 Sacroiliitis, not elsewhere classified; M47.816 Spondylosis without myelopathy or radiculopathy, lumbar region; R20.0 Anesthesia of skin; R20.2 Paresthesia of skin | CPT/HCPCS: 99212 ==

== ENCOUNTER 2023-06-14 14:00 | Outpatient (REF) | payer OTHER, SELFPAY ==
--- NOTE | 2023-06-14 14:02 | EMG_ITS ---
Chief complaint: Back pain, tingling/numbness/burning on legs Reason for referral: Evaluate for neuropathy versus radiculopathy Referred by: Jacqueline Birmingham NP Procedure done: Bilateral lower extremity NCS/EMG Precautions and/or limitations: None The limb temperature was monitored continuously and remained between 32-36 degrees C during the performance of the NCS. Nerve Conduction Studies Anti Sensory Summary Table ?Stim Site NR Onset (ms) Norm Onset (ms) Peak (ms) Norm Peak (ms) O-P Amp (?V) Norm O-P Amp Site1 Site2 Delta-0 (ms) Dist (cm) Vikram (m/s) Norm Vikram (m/s) Left Sural Anti Sensory (Lat Mall) Calf ? 1.5 3.0 <4.0 5.8 >5.0 Calf Lat Mall 1.5 14.0 93 Right Sural Anti Sensory (Lat Mall) Calf ? 2.4 3.0 <4.0 6.9 >5.0 Calf Lat Mall 2.4 14.0 58 Motor Summary Table ?Stim Site NR Onset (ms) Norm Onset (ms) O-P Amp (mV) Norm O-P Amp iAmp (mV) Amp (1st) (%) Site1 Site2 Delta-0 (ms) Dist (cm) Vikram (m/s) Norm Vikram (m/s) Left Peroneal Motor (Ext Dig Brev) Ankle ? 3.5 <4.0 7.4 >2.5 9.1 100.0 Ankle Ext Dig Brev 3.5 0.0 B Fib ? 10.8 6.1 7.6 82.4 B Fib Ankle 7.3 34.0 47 >40 Poplt ? 11.8 6.1 7.6 82.4 Poplt B Fib 1.0 5.0 50 >40 Right Peroneal Motor (Ext Dig Brev) Ankle ? 3.6 <4.0 4.0 >2.5 5.4 100.0 Ankle Ext Dig Brev 3.6 0.0 B Fib ? 10.9 2.6 3.4 65.0 B Fib Ankle 7.3 35.0 48 >40 Poplt ? 11.8 2.7 3.5 67.5 Poplt B Fib 0.9 5.5 61 >40 Left Tibial Motor (Abd Stock Brev) Ankle ? 3.3 <5 6.7 >2.5 8.9 100.0 Ankle Abd Stock Brev 3.3 0.0 Knee ? 12.3 5.2 6.6 77.6 Knee Ankle 9.0 40.0 44 >40 Right Tibial Motor (Abd Stock Brev) Ankle ? 3.7 <5 6.8 >2.5 9.7 100.0 Ankle Abd Stock Brev 3.7 0.0 Knee ? 12.2 4.7 6.8 69.1 Knee Ankle 8.5 40.5 48 >40 EMG ?Side Muscle Nerve Root Ins Act Fibs Psw Amp Dur Poly Recrt Int Pat Comment Right AbdHallucis MedPlantar S1-2 Nml Nml Nml Nml Nml 0 Nml Complete Right AntTibialis Dp Br Peron L4-5 Nml Nml Nml Nml Nml 0 Nml Complete Right PostTibialis Tibial L5, S1 Nml Nml Nml Nml Nml 0 Nml Complete Right MedGastroc Tibial S1-2 Nml Nml Nml Nml Nml 0 Nml Complete Right VastusMed Femoral L2-4 Nml Nml Nml Nml Nml 0 Nml Complete Left AbdHallucis MedPlantar S1-2 Nml Nml Nml Nml Nml 0 Nml Complete Left AntTibialis Dp Br Peron L4-5 Nml Nml Nml Nml Nml 0 Nml Complete Left PostTibialis Tibial L5, S1 Nml Nml Nml Nml Nml 0 Nml Complete Left MedGastroc Tibial S1-2 Nml Nml Nml Nml Nml 0 Nml Complete Left VastusMed Femoral L2-4 Nml Nml Nml Nml Nml 0 Nml Complete FINDINGS: All motor and sensory nerves tested showed normal latencies, amplitudes and conduction velocities. Concentric needle EMG was performed in selected muscles of the bilateral lower extremity. Study did not reveal signs of electric abnormalities as shown in the table below. IMPRESSION: 1. This is a normal study. 2. There is no electrodiagnostic evidence for peroneal neuropathy, tibial neuropathy, lumbosacral plexopathy, lumbar radiculopathy, or peripheral neuropathy. Thank you for your kind referral. Maria C Mckeon MD, STEPHANY Board Certified, [place] [employer] and Rehabilitation (ABPMR) Board Certified, [place] Board of Electrodiagnostic Medicine (ABEM) CODIN [id number] x 2 MTDD
== END 2023-06-14 14:01 | disposition home or self-care (01) ==
LOC: HO.NEURO 14:00
PROVIDERS: PCP Internal Medicine; Visit Provider Nurse Practitioner Family
DX: R20.0 Anesthesia of skin (principal); R20.2 Paresthesia of skin; M54.16 Radiculopathy, lumbar region
CPT/HCPCS: 95886; 95909

== ENCOUNTER → 2023-06-14 14:02 | Outpatient (BNV) | payer OTHER, SELFPAY | PROVIDERS: PCP Internal Medicine; Visit Provider Physical Medicine & Rehabilitation | DX: M79.604 Pain in right leg (principal); M79.605 Pain in left leg; R20.2 Paresthesia of skin | CPT/HCPCS: 95886; 95909 ==

== ENCOUNTER 2023-06-20 09:48 | Outpatient (AMB) | payer OTHER, SELFPAY ==
--- NOTE | 2023-06-20 09:56 | A.OFFVIS_ITS ---
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 She continues to endorse lower back pain with radiation into her sacral and hip areas. Reports multiple joint pain, including right shoulder, hands, hips and lower legs pain. Neurodiagnostic studies showed normal result. Patient underwent multiple diagnostic and therapeutic injections at our office with minimal and temporary results. Reports chronic pain negatively affects her ADLs, caring for her family and herself, mood, sleep, social interactions and quality of life. Denies any recent cough, fever, chills cold, foot drop, weakness, bladder or bowel incontinence or saddle anesthesia. Past Procedures: 04/18/23: Bilateral L5-S1 TFESI-40-50% pain relief 11/08/22: Left Therapeutic SIJ injection- 0% pain relief 10/18/22: Left Diagnostic SIJ injection-40% pain relief for 6 hours 06/21/22: Left L5-S1 TFESI-80% pain relief for 2 weeks PRIOR: Patient is a pleasant 41 year old female who presents today for an initial evaluation of chronic lower back pain, left hand pain and right shoulder pain. Patient reports chronic back pain that has been worsening after her with epidural 04/04/2020. Her back pain is axial and also radiates into her left lower extremity posteriorly with numbness and tingling in the posterior lower leg, osborne and sole of her left foot. She also has localized pain in the projections of the left sacroiliac joint. Patient also reports left hand and wrist pain with flexion, pulling and lifting objects consistent with carpal tu nnel syndrome. She has a history of right carpal tunnel repair in 2010. Patient is right hand dominant. Her right shoulder radiates to her neck with muscle spasms and tenderness. Pain increases with prolonged sitting, walking, standing, intercourse, climbing stairs, changing positions and weather changes. Pain is described as constant throbbing, shooting, stabbing, sharp, cramping, tingling, sore, hurting, aching, exhausting, tiring, and radiating. Pain interferes with her daily activities and functionings, mood, sleep, social interactions and quality of life. She has been managing pain with Ibuprofen and cyclobenzaprine with continued symptoms. Patient also started physical therapy last week and is intersted to trial acupuncture therapy for right shoulder and neck pain. Lumbar spine MRI in 2017 showed disc degeneration and a minimal anterior subluxation at L5-S1 with chronic bilateral L5 pars defects and [id number] right foraminal narrowing. Facet spurring mildly distorts the exiting right L5 nerve root. Most recent lumbar spine xray showed bilateral L5 spondylolysis defect is redemonstrated and multi-level thoracolumbar spondylosis and Schmorl's node formation. Patient denies any fever, weight loss, tachycardia, abdominal or groin pain, weakness, nausea, vomiting, constipation, diarrhea, vaginal bleeding, bladder or bowel incontinence or saddle anesthesia. Of note, patient has history of fatty liver, elevated LFT and hepatitis. She reports the most recent screening for hepatitis panel was negative. [facility] Medical History Vitamin D deficiency Depression Family history of ovarian cancer Breast pain, right Hepatitis depression Obesity (BMI 30-39.9) History of in vitro fertilization Left ovarian cyst Anemia Surgical History H/O: (~03/2020) History of tonsillectomy History of carpal tunnel surgery Family History Maternal Aunt Ovarian cancer Maternal Uncle Colon cancer Maternal Uncle Colon cancer Mother COPD (chronic obstructive pulmonary disease) Fibromyalgia Hypertension Father No problems noted. Brother No problems noted. Son No problems noted. Social History Housing: Apartment Alcohol intake: current Alcohol intake frequency: holidays/special occasions only Patient Tobacco Use Status: Former Tobacco user Tobacco use type: Cigarette e-Cigarette/Vaping Use: Never Used Second Hand Smoke Exposure: Yes service: No Current occupational status: unemployed Cognitive needs: No Hearing needs: No Vision needs: Yes (glasses) Female Reproductive History Menstrual Age of Menarche: 12 Review of Systems Const All systems reviewed & are unremarkable except as noted in HPI and below Physical Exam Vital Signs: Last Vital Signs Pulse 86 06/20/23 10:01 BP 171/87 H 06/20/23 10:01 Pulse Ox 97 06/20/23 10:01 Oxygen Delivery Method Room Air 06/20/23 10:01 BMI result Body Mass Index 37.9 General: Appears afebrile. Alert and oriented. Mood and affect appropriate. Follows and participates in conversation appropriately. Respiratory effort is unlabored. No cough. Able to transition from sit to stand unassisted. Const General: healthy appearing and no acute distress Nutritional Appearance: well nourished and obese Limitations: no limitations Back/Spine/Pelvis Other: Lumbar flexion and bending reproduce moderate pain. Mild tenderness in the projection of both SIJ, left>right. Rafael's test reproduce moderate SIJ pain on the left, mild pain on the right SIJ. Mild TTP to GTB. Cervical Spine: cervical ROM normal, cervical muscular tenderness and No Cervical spine tenderness Thoracic/Lumbar Spine: thoracic and lumbar spine normal to inspection, No Thoracic/lumbar spine scar(s), Lasegue's sign negative, straight leg raise negative bilaterally, pain with thoraco-lumbar ROM, paraspinal muscle tenderness, No thoracic spinal tenderness and lumbar spinal tenderness at L3, at L4 and at L5 Sacroiliac joints: bilaterally tender to palpation Extrem General: Yes full ROM, Yes capillary refill normal, Yes no clubbing, cyanosis or edema and Yes no calf tenderness Results Reviewed Results Reviewed: MR LUMBAR SPINE WITHOUT CONTRAST 05/02/22 CLINICAL INFORMATION: Lumbar radiculopathy. COMPARISON: Lumbar spine radiographs from 03/11/2022. Lumbar spine MRI from 08/15/2016. CT abdomen and pelvis from 10/18/2021. TECHNIQUE: MRI of the lumbar spine was obtained using routine sequences without contrast. FINDINGS: Mild degenerative retrolisthesis of L4 on L5. Degenerative grade 1 anterolisthesis of L5 on S1. Otherwise, normal anatomic alignment. Moderate degenerative disc disease at T10-T11, T11-T12, L4-L5, and L5-S1. Mild degenerative disc disease from T12-L3. Associated mild mixed Modic type discogenic endplate changes. No suspicious marrow edema. Small Schmorl's nodes from T10-L3. Otherwise, the vertebral body heights are largely maintained. The conus medullaris terminates at the level of L1. The distal spinal cord is normal in appearance. Mild subcutaneous edema within the soft tissues of the back below the level of T12. No additional Significant abnormalities of the paraspinal musculature. Limited evaluation of the intra-abdominal structures without significant abnormalities. The abdominal aorta is of normal contour and caliber. AXIAL SPINAL LEVELS: T12-L1: Normal annular contour. There is mild bilateral facet joint arthropathy. There is no neural foraminal stenosis. There is no spinal canal stenosis. L1-L2: Shallow diffuse disc bulge. There is moderate right and mild left facet joint arthropathy. There is no neural foraminal stenosis. There is no spinal canal stenosis. L2-L3: Normal annular contour. There is mild bilateral facet joint arthropathy. There is mild right and no left neural foraminal stenosis. There is no spinal canal stenosis. L3-L4: Normal annular contour. There is mild bilateral facet joint arthropathy. There is no neural foraminal stenosis. There is no spinal canal stenosis. L4-L5: Mild diffuse disc bulge with superimposed central/right subarticular disc protrusion. There is no facet joint arthropathy. There is mild to moderate bilateral neural foraminal stenosis. There is narrowing of the right subarticular zone with no overt spinal canal stenosis centrally. L5-S1: Moderate diffuse disc bulge with posterior osseous ridging and superimposed right foraminal disc protrusion. There is moderate right and mild left facet joint arthropathy. There is moderate right and mild left neural foraminal stenosis. There is no spinal canal stenosis. 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 Most notably, there are mild to moderate neural foraminal stenoses at L4-L5 and L5-S1. Narrowing of the right subarticular zone at L4-L5. No overt spinal canal stenosis centrally. Overall, degenerative changes have mildly progressed compared to exam from 2017. XR LUMBOSACRAL SPINE 03/11/22 FINDINGS: Vertebral body heights and alignment are normal. At L5-S1, there is mild disc space narrowing. The remaining disc spaces are relatively well-maintained. No acute fracture or spondylolisthesis is seen. There is multi-level thoracolumbar spondylosis and Schmorl's node formation. 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 No foreign body is seen. IMPRESSION: 1. There is mild degenerative disc disease at L5-S1. 2. 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 3. There is multi-level thoracolumbar spondylosis and Schmorl's node formation. NE electromyogram (EMG); NE nerve conduction velocity 06/14/23 FINDINGS: All motor and sensory nerves tested showed normal latencies, amplitudes and conduction velocities. Concentric needle EMG was performed in selected muscles of the bilateral lower extremity. Study did not reveal signs of electric abnormalities as shown in the table below. IMPRESSION: 1. This is a normal study. 2. There is no electrodiagnostic evidence for peroneal neuropathy, tibial neuropathy, lumbosacral plexopathy, lumbar radiculopathy, or peripheral neuropathy. Assessment & Plan Assessment & Plan (1) Lumbar spondylosis: Code(s): M47.816 - Spondylosis without myelopathy or radiculopathy, lumbar region Category: Medical (2) Lumbar degenerative disc disease: Code(s): M51.36 - Other intervertebral disc degeneration, lumbar region Category: Medical (3) Polyarthralgia: Code(s): M25.50 - Pain in unspecified joint Category: Medical (4) Chronic pain syndrome: Code(s): G89.4 - Chronic pain syndrome Category: Medical (5) Polyarthralgia: Code(s): M25.50 - Pain in unspecified joint Category: Medical (6) Chronic pain syndrome: Code(s): G89.4 - Chronic pain syndrome Category: Medical (7) Polyarthralgia: Code(s): M25.50 - Pain in unspecified joint Category: Medical (8) Chronic pain syndrome: Code(s): G89.4 - Chronic pain syndrome Category: Medical (9) Numbness and tingling of both lower extremities: Code(s): R20.0 - Anesthesia of skin; R20.2 - Paresthesia of skin Category: Medical (10) Vertebrogenic low back pain: Code(s): M54.51 - Vertebrogenic low back pain Category: Medical (11) Sacroiliitis: Code(s): M46.1 - Sacroiliitis, not elsewhere classified Category: Medical Plan EMG and NVC studies were normal, results discussed with patient today. Proceed with Rheumatology referral for further evaluation of multiple joint pain. Baseline labs ordered. Continue daily physical activity, adequate hydration, weight loss, well-balanced diet and good posture. All questions and concerns have been answered and patient agreed with the plan. Follow up as needed. Orders: Orders Erythrocyte Sedimentation Rate Today G89.4 - Chronic pain syndrome, M25.50 - Pain in unspecified joint Rheumatoid Factor Today G89.4 - Chronic pain syndrome, M25.50 - Pain in unspecified joint DNA Double Stranded-Crithidia Today G89.4 - Chronic pain syndrome, M25.50 - Pain in unspecified joint MITZY Reflex Titer and Pattern Today G89.4 - Chronic pain syndrome, M25.50 - Pain in unspecified joint Cyclic Citrullinated Peptide Today G89.4 - Chronic pain syndrome, M25.50 - Pain in unspecified joint Referrals Rheumatology Referral M25.50 - Pain in unspecified joint, M47.816 - Spondylosis without myelopathy or radiculopathy, lumbar region, M51.36 - Other intervertebral disc degeneration, lumbar region Coding Level of Care Code Est Pt Level 4 (62189) Diagnoses Lumbar spondylosis M47.816 Lumbar degenerative disc disease M51.36 Polyarthralgia M25.50 Chronic pain syndrome G89.4 Numbness and tingling of both lower extremities R20.0; R20.2 Vertebrogenic low back pain M54.51 Sacroiliitis M46.1
[2023-06-20 10:01] VITALS: BP 171/87; PULSE 86; O2SAT 97; BMI 37.9
== END 2023-06-20 10:27 | disposition home or self-care (01) ==
PROVIDERS: PCP Internal Medicine; Visit Provider Nurse Practitioner Family
DX: M47.816 Spondylosis without myelopathy or radiculopathy, lumbar region (principal); M51.36 Other intervertebral disc degeneration, lumbar region; M25.50 Pain in unspecified joint; G89.4 Chronic pain syndrome; R20.0 Anesthesia of skin; R20.2 Paresthesia of skin; M54.51 Vertebrogenic low back pain; M46.1 Sacroiliitis, not elsewhere classified
CPT/HCPCS: 99214

== ENCOUNTER → 2023-06-20 09:48 | Outpatient (BNVA) | payer OTHER, SELFPAY | PROVIDERS: PCP Internal Medicine; Visit Provider Nurse Practitioner Family | DX: M47.816 Spondylosis without myelopathy or radiculopathy, lumbar region (principal); M51.36 Other intervertebral disc degeneration, lumbar region; M25.50 Pain in unspecified joint; M54.51 Vertebrogenic low back pain; M46.1 Sacroiliitis, not elsewhere classified; R20.0 Anesthesia of skin; R20.2 Paresthesia of skin; G89.4 Chronic pain syndrome | CPT/HCPCS: 99212 ==

== ENCOUNTER 2023-06-28 08:52 | Outpatient (REF) | payer OTHER, SELFPAY ==
[2023-06-28 10:25] LABS: Rheumatoid Factor < 13.0 IU/mL (<15.0)
[2023-06-28 10:42] LABS: Erythrocyte Sedimentation Rate 25 MM/HR (0-20)
[2023-06-30 15:53] LABS: Cyclic Citrullinated Peptide 18 UNITS
[2023-07-01 20:53] LABS: Anti Nuclear Antibody Screen NEGATIVE (NEGATIVE)
[2023-07-04 14:23] LABS: DNAds, Crithidia Antibody Negative (Negative)
== END 2023-06-28 08:53 | disposition home or self-care (01) ==
LOC: HO.LAB 08:52
PROVIDERS: PCP Internal Medicine; Visit Provider Nurse Practitioner Family
DX: M25.50 Pain in unspecified joint (principal); G89.4 Chronic pain syndrome
CPT/HCPCS: 36415; 85652; 86038; 86200; 86255; 86431

== ENCOUNTER 2023-07-11 10:42 | Outpatient (AMB) | payer OTHER, SELFPAY ==
[2023-07-11 10:47] VITALS: BP 118/90; PULSE 89; O2SAT 97; BMI 37.7
--- NOTE | 2023-07-11 10:47 | A.OFFPC_ITS ---
Vital Signs 07/11/23 10:47 Height 5 ft 9 in Weight 255 lb 0.4 oz BMI 37.7 BP 118/90 H Blood Pressure Location Lt brachial Position Sitting Pulse 89 Pulse Source Pulse Oximeter Pulse Oximetry (%) 97 Oxygen Delivery Method Room Air Intake Visit Reasons: chronic low back pain,recurrent headaches, anxiety Manager Of Patient Required: No Allergies No Known Allergies [No Known Allergies*] Allergy (Verified 07/11/23 11:51) Medication List - Last Reconciled 07/11/23 by Wilber Cochran MD cholecalciferol (vitamin D3) 50 mcg PO DAILY 90 days duloxetine 30 mg PO BID 30 days escitalopram oxalate 20 mg PO DAILY 30 days gabapentin 300 mg PO BEDTIME 30 days ibuprofen 600 mg PO Q8H PRN L norgest/e.estradiol-e.estrad 0.15 mg-30 mcg (84)/10 mcg (7) 1 tab PO DAILY lidocaine 4% (AsperFlex (lidocaine)) 1 patch topical DAILY PRN 30 days lorazepam 1 mg PO ONCE PRN naloxone 4 mg/actuation (Narcan) 4 mg intranasal Q2M PRN sennosides (senna) 17.2 mg (2 x 8.6 mg) PO BEDTIME PRN 30 days tramadol 50 mg PO BID PRN 10 days trazodone 100 mg PO BEDTIME PRN 30 days Tobacco use date assessed: 07/11/23 Dental Screening Dental Screen Date: 03/03/23 HPI chronic low back pain,recurrent headaches, anxiety HPI Details Patient comes in today for her follow up visit She continues to complain of increased pain all over, including her chronic low back pain She has been following up with pain management for her chronic pain and has tr ied multiple diagnostic and therapeutic injections, all with minimal and/or temporary relief She was then referred to rheumatology for further evaluation and is scheduled to be seen sometime in August 2023 Initial labs done recently came back negative for RA and lupus Patient states that her current pain significantly impacts her ADLs negatively and she had to recently quit her job and she is now considering applying for disability States that she has been feeling very depressed about her overall situation and that her current meds do not seem to be helping much She continues to struggle with sleeping at night as well - has taken Trazodone 50 mg sometime last year but states that it helped only slightly She has also been experiencing increased pain over her right shoulder lately although she does not recall any recent injury or trauma to her shoulder She denies any headaches or dizziness Denies any chest pains, no SOB No nausea/vomiting, no abdominal pain No change in bowel habits noted [facility] Medical History Vitamin D deficiency Depression Family history of ovarian cancer Breast pain, right Hepatitis depression Obesity (BMI 30-39.9) History of in vitro fertilization Left ovarian cyst Anemia Surgical History H/O: (~03/2020) History of tonsillectomy History of carpal tunnel surgery Family History Maternal Aunt Ovarian cancer Maternal Uncle Colon cancer Maternal Uncle Colon cancer Mother COPD (chronic obstructive pulmonary disease) Fibromyalgia Hypertension Father No problems noted. Brother No problems noted. Son No problems noted. Social History Housing: Apartment Alcohol intake: current Alcohol intake frequency: holidays/special occasions only Patient Tobacco Use Status: Former Tobacco user Tobacco use type: Cigarette e-Cigarette/Vaping Use: Never Used Second Hand Smoke Exposure: Yes service: No Current occupational status: unemployed Cognitive needs: No Hearing needs: No Vision needs: Yes (glasses) Female Reproductive History Menstrual Age of Menarche: 12 Questionnaire PHQ-9 Over the last 2 weeks, how often have you been bothered by any of the following problems? 1. Little interest or pleasure in doing things: several days 2. Feeling down, depressed, or hopeless: several days 3. Trouble falling or staying asleep, or sleeping too much: several days 4. Feeling tired or having little energy: several days 5. Poor appetite or overeating: several days 6. Feeling bad about yourself - or that you are a failure or have let yourself or your family down: several days 7. Trouble concentrating on things, such as reading the newspaper or watching television: several days 8. Moving or speaking so slowly that other people could have noticed. Or the opposite - being so fidgety or restless that you have been moving around a lot more than usual: several days 9. Thoughts that you would be better off or of hurting yourself in some way: not at all Total score: 8 Depression Screening Interpretation: Positive Depression Screening Follow-up: Existing condition and In treatment Depression Screening Done: Yes 17626 - PHQ-9 Billing: Yes Source: Developed by Drs. Quan Painting, Vickie Hui, Sam Dudley and colleagues, with an educational maxwell from [employer]. Thrive Questionnaire Date Thrive assessed: 07/11/23 I am a: Patient What is your living situation today?: I have a steady place to live Within the past 12 months, did the food you bought not last and you didn't have the money to get more?: Never true Within the past 12 months, did you worry whether your food would run out before you got money to buy more?: Never true Do you have trouble paying for medicines?: No Do you have trouble getting transportation to medical appointments?: No Do you have trouble paying your heating and electricity bill?: No Do you have trouble taking care of your child, family member or friend?: No Do you have trouble with day-to-day activities such as bathing, preparing meals, shopping, managing finances, etc.?: No Are you currently unemployed and looking for a job?: No Are you interested in more education?: No Please select the resources that you would like help with: None Currently or been in a relationship where the following occur: no concerns reported THRIVE Score: 0 AUDIT C Alcohol Use Questionnaire (AUDIT-C) 1. How often do you have a drink containing alcohol?: Never 3. How often do you have six or more drinks on one occasion?: Never Total Score: 0 Score Reviewed/Action Taken: Yes BISHNU-7 AMB Questionnaire BISHNU-7 Date BISHNU - 7 assessed: 07/11/23 Feeling nervous, anxious, or on edge: 3 = Nearly every day Not being able to stop or control worryin = More than half the days Worrying too much about different things: 2 = More than half the days Trouble relaxin = Nearly every day Being so restless that it is hard to sit still: 1 = Several days (back pain) Becoming easily annoyed or irritable: 0 = Not at all Feeling afraid as if something awful might happen: 0 = Not at all Total BISHNU-7 score (0-4 normal; 5-9 mild; 10-14 moderate; 15-21 severe): 11 Source: Developed by Drs. Quan Painting, Vickie Hui, Sam Dudley and colleagues, with an educational maxwell from [employer]. Review of Systems Const Reports body aches (diffuse), Denies chills, Reports difficulty sleeping, Reports fatigue, Denies fever(s) and Denies headache(s) ENT Denies dysphagia, Denies dizziness, Denies otalgia, Denies headache(s), Denies neck pain, Denies odynophagia and Denies sore throat Card Denies chest pain, Denies palpitations and Denies dyspnea Resp Denies cough, Denies dyspnea and Denies wheezing GI Denies abdominal pain, Denies constipation, Denies dysphagia, Denies heartburn, Denies diarrhea, Denies nausea, Denies odynophagia and Denies vomiting Denies difficulty voiding, Denies nocturia, Denies dysuria and Denies urinary urgency Musc Reports back pain (over the lower back - chronic), Reports arthralgias (involving multiple joints; most recently in the right shoulder) and Denies neck pain Skin/Breast Denies rash Neuro Denies dizziness and Denies headache(s) Psych Reports anxiety, Reports depression (increased lately), Denies irritability, Reports anhedonia and Denies mood swings Endo Reports fatigue and Denies palpitations Jefferson/Lymph Denies easy bruising Aller/Immun Denies wheezing Physical exam (Primary Care) Vital Signs: Last Vital Signs Pulse 89 07/11/23 10:47 BP 118/90 H 07/11/23 10:47 Pulse Ox 97 07/11/23 10:47 Oxygen Delivery Method Room Air 07/11/23 10:47 BMI result Body Mass Index 37.7 Tobacco/Smoking Status: Tobacco use Status Tobacco use date assessed 07/11/23 07/11/23 10:49 Patient Tobacco Use Status Former Tobacco user 07/11/23 10:49 Tobacco use type Cigarette 07/11/23 10:49 e-Cigarette/Vaping Use Never Used 07/11/23 10:49 PHQ-9: PHQ-9 Score PHQ-9: Total score 8 07/11/23 10:49 Depression Screening Interpretation: Positive Depression Screening Follow-up: Existing condition and In treatment Thrive Assessment: Date of Thrive Assessment Date Thrive assessed 03/03/23 07/11/23 10:49 Currently or been in a relationship where the following occur: no concerns reported Const General: no acute distress and alert HENMT Ears: TM's normal bilaterally and EAC's normal Throat: Yes posterior oropharynx normal and Yes tonsils normal (no TP congestion) Neck Neck: Yes no lymphadenopathy and Yes supple Thyroid: Thyroid normal Resp Auscultation: clear to auscultation bilaterally, no rales and no wheezes Cardio Rate: regular rate Rhythm: regular rhythm Heart sounds: no murmurs GI Palpation (GI): Soft to palpation and nontender Auscultation: normal bowel sounds General: Yes no CVA tenderness Back/Spine/Pelvis Back: no CVA tenderness Thoracic/Lumbar Spine: lumbar spinal tenderness Skin Rashes: no rashes Extrem General: Yes no clubbing, cyanosis or edema Right upper extremity: shoulder/upper arm Details: tenderness (diffusely over the scapular area) Left upper extremity: shoulder/upper arm Details: tenderness (diffusely over the scapular areas) Results Reviewed Results Reviewed: Laboratory Tests 06/28/23 09:09 ESR 25 H Rheumatoid Factor < 13.0 Cycl Citrul Peptide IgG 18 MITZY Screen NEGATIVE Anti-ds DNA (Crithidia) Negative Assessment and Plan Assessment & Plan (1) Chronic pain syndrome: Code(s): G89.4 - Chronic pain syndrome Plan: Have discussed with patient that she likely has fibromyalgia which is compounding her chronic pain issues as well as her low back pain Will start her on Duloxetine 30 mg BID She is advised to try to stay active and to try exercise (as tolerated) regularly to help better manage her fibromyalgia symptoms (2) Polyarthralgia: Code(s): M25.50 - Pain in unspecified joint Plan: Arthralgia work ups done recently came back negative (for RA and lupus) She has so far been tried on multiple diagnostic and therapeutic injections by pain management, all with minimal and/or temporary relief She is now scheduled to see rheumatology in August 2023 for further evaluation (3) Lumbar degenerative disc disease: Code(s): M51.36 - Other intervertebral disc degeneration, lumbar region Plan: Reinforced activity and weight-lifting restrictions Continue Cyclobenzaprine 10 mg Q HS PRN Follow up with [facility] Pain Management as scheduled States that she has been previously advised by pain management to see neurosurgery for further recommendations but patient is debating whether to go ahead or not as she states that she has no intention of going for any back surgery (4) Right shoulder pain: Code(s): M25.511 - Pain in right shoulder Qualifiers: Chronicity: acute Qualified Code(s): M25.511 - Pain in right shoulder Plan: Will send patient for x-rays of the right shoulder for further evaluation (5) Vitamin D deficiency: Code(s): E55.9 - Vitamin D deficiency, unspecified Plan: Continue Vitamin D3 2000 units QD (6) Elevated LFTs: Code(s): R79.89 - Other specified abnormal findings of blood chemistry Plan: Her LFTs were normal when last checked in August 2022; were most likely related to her weight (hepatosteatosis) Will continue to monitor her LFTs regularly (7) Insomnia: Code(s): G47.00 - Insomnia, unspecified Qualifiers: Insomnia type: unspecified Qualified Code(s): G47.00 - Insomnia, unspecified Plan: Sleep hygiene reinforced Will increase her Trazodone to 100 mg Q HS - states that she was only on 50 mg in the past, which helped somewhat (8) Depression: Code(s): F32.A - Depression, unspecified Qualifiers: Depression Type: major depressive disorder Major depression recurrence: recurrent Active/Remission status: currently active Major depression episode severity: unspecified Qualified Code(s): F33.9 - Major depressive disorder, recurrent, unspecified Plan: Patient most likely also has a component of depression Continue Escitalopram 20 mg QD She is also being started on Duloxetine 30 mg BID, which may help with her mood as well (9) Obesity (BMI 30-39.9): Code(s): E66.9 - Obesity, unspecified Plan: Reinforced diet; exercise and weight loss are not practical at present due to her current physical issues but she is encouraged to try to get some exercise regularly to help better manage her fibromyalgia symptoms Plan To return as scheduled in August 2023 for her annual physical examination Orders: Orders XR shoulder RT min 2V Today M25.511 - Pain in right shoulder Medications: New duloxetine 30 mg PO BID 30 days 60 caps 3RF sennosides (senna) 17.2 mg (2 x 8.6 mg) PO BEDTIME 30 days PRN 60 tabs 3RF constipation Refilled trazodone 100 mg PO BEDTIME 30 days PRN 30 tabs 1RF insomnia Coding Level of Care Code Est Pt Level 4 (44668) Diagnoses Chronic pain syndrome G89.4 Polyarthralgia M25.50 Lumbar degenerative disc disease M51.36 Acute pain of right shoulder M25.511 Chronicity: acute Vitamin D deficiency E55.9 Elevated LFTs R79.89 Insomnia, unspecified type G47.00 Insomnia type: unspecified Episode of recurrent major depressive disorder, unspecified depression episode severity F33.9 Depression Type: major depressive disorder Major depression recurrence: recurrent Active/Remission status: currently active Major depression episode severity: unspecified Obesity (BMI 30-39.9) E66.9
== END 2023-07-11 11:44 | disposition home or self-care (01) ==
PROVIDERS: PCP Internal Medicine; Visit Provider Internal Medicine
DX: M51.36 Other intervertebral disc degeneration, lumbar region (principal); G89.4 Chronic pain syndrome; M25.511 Pain in right shoulder; F33.9 Major depressive disorder, recurrent, unspecified; E55.9 Vitamin D deficiency, unspecified; R79.89 Other specified abnormal findings of blood chemistry; G47.00 Insomnia, unspecified
CPT/HCPCS: 99214

== ENCOUNTER 2023-07-12 08:50 | Outpatient (REF) | payer OTHER, SELFPAY ==
--- NOTE | ~2023-07-12 | XR_ITS ---
EXAMINATION: XR SHOULDER, RIGHT CLINICAL INFORMATION: Pain in right shoulder. COMPARISON: None available. TECHNIQUE: 3 views of the right shoulder. FINDINGS: Bone mineralization is normal. Mild degenerative changes in the acromioclavicular and glenohumeral joints. Acromioclavicular and glenohumeral alignment is preserved. No abnormal soft tissue calcifications identified adjacent to the humeral head to suggest rotator cuff pathology. XR/XR shoulder RT min 2V IMPRESSION: Mild degenerative changes.
== END 2023-07-12 08:51 | disposition home or self-care (01) ==
LOC: HO.XRAY 08:50
PROVIDERS: PCP Internal Medicine; Visit Provider Internal Medicine
DX: M25.511 Pain in right shoulder (principal)
CPT/HCPCS: 73030

== ENCOUNTER 2023-07-14 07:36 | Outpatient (REF) | payer OTHER, SELFPAY ==
--- NOTE | ~2023-07-14 | MM_ITS ---
EXAMINATION: MM SCREENING DIGITAL BREAST TOMOSYNTHESIS, BILATERAL CLINICAL INFORMATION: Screening. Asymptomatic. COMPARISON: Mammography: 11/22/2021, 05/14/2021, 03/10/2014. Ultrasound right: 11/22/2021, 05/14/2021. TECHNIQUE: Digital breast tomosynthesis is performed in both the craniocaudal and mediolateral oblique views along with computer-aided detection (CAD). Synthesized 2D images are generated from the tomosynthesis. Added left CC view was provided. FINDINGS: There are scattered areas of fibroglandular density (ACR BI-RADS breast composition Category b). There are no suspicious masses, suspicious grouped calcifications, or areas of architectural distortion in either breast. The parenchymal pattern is stable from prior exams. No suspicious skin or axillary abnormality. MM/MM tomosynthesis screening BI IMPRESSION: No mammographic evidence of malignancy. No significant interval change. ASSESSMENT: BI-RADS BI-RADS 1 - Negative RECOMMENDATION: Routine annual mammography screening. 1 year F/U This examination should not preclude the clinical evaluation of a suspicious palpable abnormality. This patient's information was entered into a reminder system with a target due date for their next mammogram.
== END 2023-07-14 07:37 | disposition home or self-care (01) ==
LOC: HO.MAMMO 07:36
PROVIDERS: PCP Internal Medicine; Visit Provider Internal Medicine
DX: Z12.31 Encounter for screening mammogram for malignant neoplasm of breast (principal)
CPT/HCPCS: 77063; 77067

== ENCOUNTER → 2023-07-14 07:45 | Outpatient (BNV) | payer OTHER, SELFPAY | PROVIDERS: PCP Internal Medicine; Visit Provider Radiology Diagnostic Radiology | DX: Z12.31 Encounter for screening mammogram for malignant neoplasm of breast (principal) | CPT/HCPCS: 77063; 77067 ==

== ENCOUNTER 2023-07-21 10:02 | Outpatient (AMB) | payer OTHER, SELFPAY ==
--- NOTE | 2023-07-21 10:23 | MHC.OFFVIS ---
Intake Visit Reasons: Newprob-Right shoulder pain/muscle spasm Intake Note: Norma a 42 year old right hand dominant female who presents today for an evaluation of right shoulder pain. Patient reports ongoing bilateral shoulder pain for years with her right shoulder being the worse. States constant pain in her shoulder as well as tenderness. Limited ROM. Denies injury. HX of back conditions. She was seen years ago here for her shoulder and received a cortisone injection however she does not recall which shoulder. Finds no relief with ibuprofen. Allergies No Known Allergies [No Known Allergies*] Allergy (Verified 07/21/23 10:30) Medication List - Last Reconciled 07/21/23 by Bernardo Parikh PA-C cholecalciferol (vitamin D3) 50 mcg PO DAILY 90 days duloxetine 30 mg PO BID 30 days escitalopram oxalate 20 mg PO DAILY 30 days gabapentin 300 mg PO BEDTIME 30 days ibuprofen 600 mg PO Q8H PRN L norgest/e.estradiol-e.estrad 0.15 mg-30 mcg (84)/10 mcg (7) 1 tab PO DAILY lidocaine 4% (AsperFlex (lidocaine)) 1 patch topical DAILY PRN 30 days lorazepam 1 mg PO ONCE PRN naloxone 4 mg/actuation (Narcan) 4 mg intranasal Q2M PRN sennosides (senna) 17.2 mg (2 x 8.6 mg) PO BEDTIME PRN 30 days tramadol 50 mg PO BID PRN 10 days trazodone 100 mg PO BEDTIME PRN 30 days HPI HPI Newprob-Right shoulder pain/muscle spasm: Details: 42-year-old right hand dominant female who presents to the office today for evaluation of right shoulder pain. She has a history of bilateral shoulder pain for years with the right shoulder being the worse. She was seen in the past for her shoulder where she was given cortisone injection but does not recall which shoulder. She currently states she has constant pain, tenderness and limited ROM in her shoulder. She has not had any injury in the past. She finds no relief with ibuprofen. She has a history of back conditions. [facility] Medical History Vitamin D deficiency Depression Family history of ovarian cancer Breast pain, right Hepatitis depression Obesity (BMI 30-39.9) History of in vitro fertilization Left ovarian cyst Anemia Surgical History H/O: (~03/2020) History of tonsillectomy History of carpal tunnel surgery Family History Maternal Aunt Ovarian cancer Maternal Uncle Colon cancer Maternal Uncle Colon cancer Mother COPD (chronic obstructive pulmonary disease) Fibromyalgia Hypertension Father No problems noted. Brother No problems noted. Son No problems noted. Social History Housing: Apartment Alcohol intake: current Alcohol intake frequency: holidays/special occasions only Patient Tobacco Use Status: Former Tobacco user Tobacco use type: Cigarette e-Cigarette/Vaping Use: Never Used Second Hand Smoke Exposure: Yes service: No Current occupational status: unemployed Cognitive needs: No Hearing needs: No Vision needs: Yes (glasses) Female Reproductive History Menstrual Age of Menarche: 12 Review of Systems Const All systems reviewed & are unremarkable except as noted in HPI and below Physical Exam Const General: cooperative, healthy appearing, comfortable, no acute distress, well developed and alert Orientation/consciousness: patient oriented x3 HEENT Head: Yes normal to inspection, Yes normocephalic and Yes atraumatic Eyes General: appearance normal, both eyes and all related structures Resp Effort & Inspection: normal respiratory effort and able to speak in complete sentences Cardio Rate: regular rate Peripheral pulses: Peripheral pulses 2+ throughout GI Palpation (GI): Soft to palpation Skin Lesions: no lesions Rashes: no rashes Neuro General: patient oriented x3 Extrem Other: Right shoulder normal to inspection. Tenderness over the bicipital groove and along the deltoid region of the shoulder. Forward flexion to 175, external rotation to 90, internal rotation to S1. 5/5 RTC strength. Negative Arita and cross body abduction. NVI. Results Reviewed Results Reviewed: XR shoulder RT min 2V IMPRESSION: Mild degenerative changes. Assessment & Plan Assessment & Plan (1) Myofascial pain on right side: Code(s): M79.18 - Myalgia, other site Category: Medical (2) Cervical pain: Code(s): M54.2 - Cervicalgia Category: Medical Plan We discussed options which include PT, NSAIDs and injections. The patient will defer on the injection today and proceed with PT and NSAIDs. If symptoms persist, the patient will contact me for an injection, otherwise, PRN. Orders: Orders PT Evaluation and Treatment 07/21/23 M54.2 - Cervicalgia, M79.18 - Myalgia, other site Patient Instructions: Scribed for Bernardo Parikh PA-C, by Amari Huertas medical assistant, on 07/21/2023 at 10:15 AM EST.? I, Bernardo Parikh PA-C, have personally reviewed and agree with the information entered by the scribe. Coding Level of Care Code New Pt Level 3 (91311) Diagnoses Myofascial pain on right side M79.18 Cervical pain M54.2
== END 2023-07-21 10:42 | disposition home or self-care (01) ==
PROVIDERS: PCP Internal Medicine; Visit Provider Physician Assistant
DX: M79.18 Myalgia, other site (principal); M54.2 Cervicalgia
CPT/HCPCS: 99203

== ENCOUNTER → 2023-07-21 10:02 | Outpatient (BNVA) | payer OTHER, SELFPAY | PROVIDERS: PCP Internal Medicine; Visit Provider Physician Assistant | DX: M79.18 Myalgia, other site (principal); M54.2 Cervicalgia | CPT/HCPCS: 99202 ==

== ENCOUNTER 2023-08-16 09:12 | Outpatient (AMB) | payer OTHER, SELFPAY ==
[2023-08-16 10:06] VITALS: BMI 37.7
--- NOTE | 2023-08-16 10:06 | MHC.OFFVIS ---
Vital Signs 08/16/23 10:06 Height 5 ft 9 in Weight 255 lb BMI 37.7 Handedness Right Intake Visit Reasons: New Pt - right shoulder pain Intake Note: Norma is a 42 year old right hand dominant female who presents today as a new patient with complaints of right shoulder pain. Patient reports ongoing pain for some time. No history of injury. She states that her pain is on the lateral aspect of the shoulder and it radiates up to her neck. Pain is worse when she is lifting her arm, brushing her hair, and picking up her child. Hx of injections in the past but unsure on how long hey gave her relief. Patient has tried and failed ibuprofen. Allergies No Known Allergies [No Known Allergies*] Allergy (Verified 08/16/23 10:12) Medication List - Last Reconciled 08/16/23 by Maria C Mckeon MD cholecalciferol (vitamin D3) 50 mcg PO DAILY 90 days duloxetine 30 mg PO BID 30 days escitalopram oxalate 20 mg PO DAILY 30 days gabapentin 300 mg PO BEDTIME 30 days ibuprofen 600 mg PO Q8H PRN L norgest/e.estradiol-e.estrad 0.15 mg-30 mcg (84)/10 mcg (7) 1 tab PO DAILY lidocaine 4% (AsperFlex (lidocaine)) 1 patch topical DAILY PRN 30 days lorazepam 1 mg PO ONCE PRN naloxone 4 mg/actuation (Narcan) 4 mg intranasal Q2M PRN sennosides (senna) 17.2 mg (2 x 8.6 mg) PO BEDTIME PRN 30 days tramadol 50 mg PO BID PRN 10 days trazodone 100 mg PO BEDTIME PRN 30 days HPI Comments Details: I've met patient before for EMG (BLE which was normal). She has chronic pain. Per PCP note, fibromyalgia is being considered. For chronic back pain, she has seen neurosurgery and pain management. She's been worked up by Rheumatology (negative workup per PCP's note). She has seen Hand Surgery, s/p left CTR and orthopedics for shoulder pain. Today here for right shoulder and neck pain. She points to right lateral trapezius. Always had issues but says maybe just a few months. No inciting injuries. Denies radicular pain to arm. Tingling but not numbness on right arm/hand. Hard for her to brush her hair or put on bra. Not dropping things. Treatment done so far: Waiting for PT to call her for appointment. Flexeril, ibuprofen No injection. [facility] Medical History Vitamin D deficiency Depression Family history of ovarian cancer Breast pain, right Hepatitis depression Obesity (BMI 30-39.9) History of in vitro fertilization Left ovarian cyst Anemia Surgical History H/O: (~03/2020) History of tonsillectomy History of carpal tunnel surgery Family History Maternal Aunt Ovarian cancer Maternal Uncle Colon cancer Maternal Uncle Colon cancer Mother COPD (chronic obstructive pulmonary disease) Fibromyalgia Hypertension Father No problems noted. Brother No problems noted. Son No problems noted. Social History Housing: Apartment Alcohol intake: current Alcohol intake frequency: holidays/special occasions only Patient Tobacco Use Status: Former Tobacco user Tobacco use type: Cigarette e-Cigarette/Vaping Use: Never Used Second Hand Smoke Exposure: Yes service: No Current occupational status: unemployed Cognitive needs: No Hearing needs: No Vision needs: Yes (glasses) Female Reproductive History Menstrual Age of Menarche: 12 Review of Systems Const All systems reviewed & are unremarkable except as noted in HPI and below Physical Exam Vital Signs: BMI result Body Mass Index 37.7 Constitutional: Patient appears to be in no acute distress, well nourished and well developed. Patient was appropriately conversant and oriented. Good historian. MSK: Inspection reveals appropriate head and neck positioning. Tender right upper trapezius. Cervical ROM was full. Spurling's sign negative. Limited range on right upper extremity/shoulder but more because of tightness on trapezius rather than shoulder issue. Negative Arita sign. Negative empty can sign. Negative speed's test. Strength is 5/5 in all muscle groups tested. No increased tone noted. Neurological: Neurologic examination of the upper and lower extremities was nonfocal with intact sensation, muscle stretch reflexes and without focal motor deficits . Willson?s negative bilaterally. Gait is non-antalgic without loss of balance. Results Reviewed Results Reviewed: I independently reviewed the results of the following: Cervical x-ray done in the office today showed endplate spurs anteriorly, but preserved disc spaces. Await official reading. Ordering Physician: Wilber Cochran MD Date of Service: 07/12/23 Procedure(s): XR shoulder RT min 2V Accession Number(s): [id number] cc: Wilber Cochran MD~ EXAMINATION: XR SHOULDER, RIGHT CLINICAL INFORMATION: Pain in right shoulder. COMPARISON: None available. TECHNIQUE: 3 views of the right shoulder. FINDINGS: Bone mineralization is normal. Mild degenerative changes in the acromioclavicular and glenohumeral joints. Acromioclavicular and glenohumeral alignment is preserved. No abnormal soft tissue calcifications identified adjacent to the humeral head to suggest rotator cuff pathology. XR/XR shoulder RT min 2V IMPRESSION: Mild degenerative changes. I reviewed records from the following: PCP Neurosurgery Orthopedics Hand surgery Pain management Assessment & Plan Assessment & Plan (1) Myofascial pain on right side: Code(s): M79.18 - Myalgia, other site Category: Medical Plan Myofascial pain in right upper trapezius. No signs of cervical radiculopathy or myelopathy. No signs of rotator cuff injury. Discussed option for trigger point injections. Patient eager to proceed. We will schedule. Assessment and plan discussed with patient, and patient was agreeable. All questions were answered thoroughly. Maria C Mckeon MD, STEPHANY Board Certified, [place] [employer] and [employer] (ABPMR) Board Certified, [place] [employer] Electro[employer] (ABEM) Orders: Orders XR cervical spine 3V Today M54.2 - Cervicalgia Coding Level of Care Code Est Pt Level 4 (14787) Diagnoses Myofascial pain on right side M79.18
== END 2023-08-16 10:30 | disposition home or self-care (01) ==
PROVIDERS: PCP Internal Medicine; Visit Provider Physical Medicine & Rehabilitation
DX: M79.18 Myalgia, other site (principal); M54.2 Cervicalgia
CPT/HCPCS: 99213

== ENCOUNTER 2023-08-16 10:18 | Outpatient (REF) | payer OTHER, SELFPAY ==
--- NOTE | ~2023-08-16 | XR_ITS ---
EXAMINATION: XR CERVICAL SPINE CLINICAL INFORMATION: Neck pain. COMPARISON: 09/08/2015. TECHNIQUE: 3 views of the cervical spine. FINDINGS: Straightening of the normal cervical lordosis. Multilevel cervical spondylosis. Mild loss of disc space height at C2-C3. Minimal anterior subluxation of C3 on C4 with mild loss of disc space height. Large anterior osteophytes at C5-C6 with mild loss of disc space height. Poor visualization of C6 and C7 due to overlying bone and soft tissue structures. XR/XR cervical spine 3V IMPRESSION: Multilevel cervical spondylosis.
== END 2023-08-16 10:19 | disposition home or self-care (01) ==
LOC: HO.HOSX 10:18
PROVIDERS: Visit Provider Physical Medicine & Rehabilitation
DX: M54.2 Cervicalgia (principal); M79.18 Myalgia, other site; M25.511 Pain in right shoulder
CPT/HCPCS: 72040; 99212

== ENCOUNTER 2023-09-04 12:22 | Outpatient (AMB) | payer OTHER, SELFPAY ==
--- NOTE | 2023-09-04 12:43 | MHC.OFFVIS ---
Vital Signs 09/04/23 12:47 Height 5 ft 9 in Weight 260 lb 9.382 oz BMI 38.5 BP 132/80 Blood Pressure Location Lt brachial Position Sitting Pulse 102 H Pulse Source Pulse Oximeter Pulse Oximetry (%) 98 Oxygen Delivery Method Room Air Intake Visit Reasons: Joint Pain/CM Intake Note: Patient presents for joint pain. Allergies No Known Allergies [No Known Allergies*] Allergy (Verified 09/04/23 12:46) Medication List - Last Reconciled 09/04/23 by Graciela Torres MD cholecalciferol (vitamin D3) 50 mcg PO DAILY 90 days duloxetine 30 mg PO BID 30 days escitalopram oxalate 20 mg PO DAILY 30 days ibuprofen 600 mg PO Q8H PRN L norgest/e.estradiol-e.estrad 0.15 mg-30 mcg (84)/10 mcg (7) 1 tab PO DAILY lidocaine 4% (AsperFlex (lidocaine)) 1 patch topical DAILY PRN 30 days lorazepam 1 mg PO ONCE PRN naloxone 4 mg/actuation (Narcan) 4 mg intranasal Q2M PRN sennosides (senna) 17.2 mg (2 x 8.6 mg) PO BEDTIME PRN 30 days tramadol 50 mg PO BID PRN 10 days trazodone 100 mg PO BEDTIME PRN 30 days HPI Comments Details: This is a 42-year-old female who presents for evaluation of diffuse pain. Patient states that she has pain everywhere especially when she touches herself. She also gets tingling and numbness in different areas. She has had injections in the past by Pain Management and it did not provide much relief. She was evaluated by a spine surgeon and no surgery was pursued. She is unaware of any family history of an autoimmune rheumatic disease. [facility] Medical History Vitamin D deficiency Depression Family history of ovarian cancer Breast pain, right Hepatitis depression Obesity (BMI 30-39.9) History of in vitro fertilization Left ovarian cyst Anemia Surgical History H/O: (~03/2020) History of tonsillectomy History of carpal tunnel surgery Family History Maternal Aunt Ovarian cancer Maternal Uncle Colon cancer Maternal Uncle Colon cancer Mother COPD (chronic obstructive pulmonary disease) Fibromyalgia Hypertension Father No problems noted. Brother No problems noted. Son No problems noted. Social History Housing: Apartment Alcohol intake: current Alcohol intake frequency: holidays/special occasions only Patient Tobacco Use Status: Former Tobacco user Tobacco use type: Cigarette e-Cigarette/Vaping Use: Never Used Second Hand Smoke Exposure: Yes service: No Current occupational status: unemployed Cognitive needs: No Hearing needs: No Vision needs: Yes (glasses) Female Reproductive History Menstrual Age of Menarche: 12 Total pregnancies: 1 Full term: 1 Ab induced: 0 Review of Systems Const Reports fatigue, Reports headache(s), Reports weakness and Reports weight gain Eyes Reports dry eyes and Reports itchy eyes ENT Reports headache(s) Card Reports chest pain and Reports dyspnea Resp Reports dyspnea GI Reports constipation Musc Reports arthralgias, Reports stiffness and Reports tingling Skin/Breast Reports alopecia Neuro Reports headache(s), Reports tingling, Reports paresthesias and Reports weakness Psych Reports abnormal sleep pattern, Reports anxiety and Reports depression Endo Reports fatigue Aller/Immun Reports itchy eyes Physical Exam Vital Signs: Last Vital Signs Pulse 102 H 09/04/23 12:47 BP 132/80 09/04/23 12:47 Pulse Ox 98 09/04/23 12:47 Oxygen Delivery Method Room Air 09/04/23 12:47 BMI result Body Mass Index 38.5 Const General: cooperative, healthy appearing and comfortable Nutritional Appearance: obese morbidly obese Orientation/consciousness: patient oriented x3 Limitations: no limitations HEENT Head: Yes normocephalic and Yes atraumatic Mouth: moist mucous membranes Resp Effort & Inspection: normal respiratory effort and able to speak in complete sentences Skin General skin exam: no rashes or lesions noted Neuro General: patient oriented x3 Extrem Other: No active synovitis Numerous fibromyalgia tender points Normal nailfold capillaroscopy Assessment & Plan Assessment & Plan (1) Fibromyalgia, primary: Code(s): M79.7 - Fibromyalgia Category: Medical Plan: This is a 42-year-old female who presents for evaluation of diffuse pain. I do not see any signs suggestive of an autoimmune rheumatic disease upon my evaluation. Clinical picture consistent with fibromyalgia Discussed management of fibromyalgia with patient. Is a noninflammatory, non-autoimmune central afferent processing disorder leading to a diffuse pain syndrome. I suggested that patient try to address her underlying psychiatric issues, anxiety/depression. I suggested evaluation by a therapist and/or a psychiatrist. Consider a referral for a sleep study by her PCP to rule out LOUISA. Try to follow sleep hygiene practices. Patient would benefit from increased physical activity, either through formal physical therapy or by joining a gym. Advised patient that she should start activity slowly and increase as tolerated. Consider low-impact exercises such as walking, swimming, aqua therapy stretching, yoga. Advised patient to look up mind your fibro podcast Patient is on duloxetine 30 mg Twice daily Follow-up with PCP Plan I spent 22 minutes reviewing patient's chart, evaluating patient, counseling patient and documenting in the chart Coding Level of Care Code New Pt Level 3 (07798) Diagnoses Fibromyalgia, primary M79.7
[2023-09-04 12:47] VITALS: BP 132/80; PULSE 102; O2SAT 98; BMI 38.5
== END 2023-09-04 13:21 | disposition home or self-care (01) ==
PROVIDERS: PCP Internal Medicine; Visit Provider Student in an Organized Health Care Education/Training Program
DX: M79.7 Fibromyalgia (principal)
CPT/HCPCS: 99203

== ENCOUNTER → 2023-09-04 12:22 | Outpatient (BNVA) | payer OTHER, SELFPAY | PROVIDERS: PCP Internal Medicine; Visit Provider Student in an Organized Health Care Education/Training Program | DX: M79.7 Fibromyalgia (principal) | CPT/HCPCS: 99202 ==

== ENCOUNTER 2023-09-27 08:59 | Outpatient (AMB) | payer OTHER, SELFPAY ==
[2023-09-27 09:11] VITALS: BP 122/78; PULSE 80; O2SAT 98; BMI 38.8
--- NOTE | 2023-09-27 09:11 | A.OFFPC_ITS ---
Vital Signs 09/27/23 09:11 Height 5 ft 9 in Weight 263 lb BMI 38.8 BP 122/78 Blood Pressure Location Lt brachial Position Sitting Pulse 80 Pulse Source Pulse Oximeter Pulse Oximetry (%) 98 Oxygen Delivery Method Room Air Intake Visit Reasons: pe Allergies No Known Allergies [No Known Allergies*] Allergy (Verified 09/27/23 09:37) Medication List - Last Reconciled 09/27/23 by Wilber Cochran MD cholecalciferol (vitamin D3) 50 mcg PO DAILY 90 days duloxetine 30 mg PO BID 30 days escitalopram oxalate 20 mg PO DAILY 30 days ibuprofen 600 mg PO Q8H PRN L norgest/e.estradiol-e.estrad 0.15 mg-30 mcg (84)/10 mcg (7) 1 tab PO DAILY lidocaine 4% (AsperFlex (lidocaine)) 1 patch topical DAILY PRN 30 days lorazepam 1 mg PO ONCE PRN naloxone 4 mg/actuation (Narcan) 4 mg intranasal Q2M PRN sennosides (senna) 17.2 mg (2 x 8.6 mg) PO BEDTIME PRN 30 days tramadol 50 mg PO BID PRN 10 days trazodone 100 mg PO BEDTIME PRN 30 days Tobacco use date assessed: 07/11/23 Dental Screening Dental Screen Date: 03/03/23 HPI pe HPI Details Patient comes in today for her annual physical examination She continues to complain of increased diffuse pain as well as chronic low back pain and multiple joint pains She was recently seen by physiatry and is now scheduled for a trial of trigger point injection in a few weeks She relates (+) recurrent headaches lately - recalls that she was seeing neurology for her migraine headaches a few years ago but has not been back to [facility] neurology in a while She denies any dizziness Denies any chest pains, no increased SOB No nausea or vomiting associated with her headaches lately; no abdominal pain and no change in bowel habits noted She denies any acute urinary symptoms She was also advised by physiatry recently that she may benefit from therapy / counseling and she is now requesting for a referral for this She also admits that she has only been taking her Duloxetine 30 mg every other day and not BID as previously instructed, as she finds that she feels somewhat confused and loopy whenever she takes her dose of Duloxetine - is wondering if it needs to be changed to something else States that she is still taking her Lexapro 20 mg Q AM daily She had her mammogram done a couple of months ago but has not seen her gynecolo gist in a year or two as she recently found out that her previous clerk of works is now retired [facility] Medical History Migraine Anxiety Vitamin D deficiency Depression Family history of ovarian cancer Breast pain, right Hepatitis depression Obesity (BMI 30-39.9) History of in vitro fertilization Left ovarian cyst Anemia Surgical History H/O: (~03/2020) History of tonsillectomy History of carpal tunnel surgery Family History Maternal Aunt Ovarian cancer Maternal Uncle Colon cancer Maternal Uncle Colon cancer Mother COPD (chronic obstructive pulmonary disease) Fibromyalgia Hypertension Father No problems noted. Brother No problems noted. Son No problems noted. Social History Housing: Apartment Alcohol intake: current Alcohol intake frequency: holidays/special occasions only Patient Tobacco Use Status: Former Tobacco user Tobacco use type: Cigarette e-Cigarette/Vaping Use: Never Used Second Hand Smoke Exposure: Yes service: No Current occupational status: unemployed Cognitive needs: No Hearing needs: No Vision needs: Yes (glasses) Female Reproductive History Menstrual Age of Menarche: 12 Questionnaire PHQ-9 Over the last 2 weeks, how often have you been bothered by any of the following problems? 1. Little interest or pleasure in doing things: several days 2. Feeling down, depressed, or hopeless: several days 3. Trouble falling or staying asleep, or sleeping too much: several days 4. Feeling tired or having little energy: several days 5. Poor appetite or overeating: several days 6. Feeling bad about yourself - or that you are a failure or have let yourself or your family down: several days 7. Trouble concentrating on things, such as reading the newspaper or watching television: several days 8. Moving or speaking so slowly that other people could have noticed. Or the opposite - being so fidgety or restless that you have been moving around a lot more than usual: several days 9. Thoughts that you would be better off or of hurting yourself in some way: not at all Total score: 8 Depression Screening Interpretation: Positive Depression Screening Follow-up: Existing condition and In treatment Depression Screening Done: Yes 01639 - PHQ-9 Billing: Yes Source: Developed by Drs. Quan Painting, Vickie Hui, Sam Dudley and colleagues, with an educational maxwell from [employer]. Thrive Questionnaire Date Thrive assessed: 07/11/23 AUDIT C Alcohol Use Questionnaire (AUDIT-C) 1. How often do you have a drink containing alcohol?: Never 3. How often do you have six or more drinks on one occasion?: Never Total Score: 0 Score Reviewed/Action Taken: Yes BISHNU-7 AMB Questionnaire BISHNU-7 Date BISHNU - 7 assessed: 09/27/23 Feeling nervous, anxious, or on edge: 3 = Nearly every day Not being able to stop or control worryin = More than half the days Worrying too much about different things: 2 = More than half the days Trouble relaxin = Nearly every day Being so restless that it is hard to sit still: 1 = Several days (back pain) Becoming easily annoyed or irritable: 0 = Not at all Feeling afraid as if something awful might happen: 0 = Not at all Total BISHNU-7 score (0-4 normal; 5-9 mild; 10-14 moderate; 15-21 severe): 11 Source: Developed by Drs. Quan Painting, Vickie Hui, Sam Dudley and colleagues, with an educational maxwell from [employer]. Review of Systems Const Reports body aches (diffuse), Denies chills, Reports difficulty sleeping, Reports fatigue, Denies fever(s) and Reports headache(s) (recurrent lately) Eyes Denies blurry vision, Denies change in vision, Denies irritation and Denies itchy eyes ENT Denies dysphagia, Denies dizziness, Denies otalgia, Reports headache(s) (recurrent lately), Denies neck pain, Denies odynophagia and Denies sore throat Card Denies chest pain, Denies palpitations and Denies dyspnea Resp Denies chest congestion, Denies cough, Denies dyspnea and Denies wheezing GI Denies abdominal pain, Denies constipation, Denies dysphagia, Denies heartburn, Denies diarrhea, Denies nausea, Denies odynophagia and Denies vomiting Denies difficulty voiding, Denies nocturia, Denies dysuria and Denies urinary urgency Musc Reports back pain (over the lower back - chronic), Reports arthralgias (involving multiple joints; most recently in the right shoulder), Denies joint swelling, Denies muscle weakness and Denies neck pain Skin/Breast Denies rash Neuro Denies dizziness and Reports headache(s) (recurrent lately) Psych Reports anxiety, Reports depression (increased lately), Denies irritability and Denies mood swings Endo Reports fatigue and Denies palpitations Jefferson/Lymph Denies easy bruising Aller/Immun Denies itchy eyes and Denies wheezing Physical exam (Primary Care) Vital Signs: Last Vital Signs Pulse 80 09/27/23 09:11 BP 122/78 09/27/23 09:11 Pulse Ox 98 09/27/23 09:11 Oxygen Delivery Method Room Air 09/27/23 09:11 BMI result Body Mass Index 38.8 Tobacco/Smoking Status: Tobacco use Status Tobacco use date assessed 07/11/23 09/27/23 09:17 Patient Tobacco Use Status Former Tobacco user 09/27/23 09:17 Tobacco use type Cigarette 09/27/23 09:17 e-Cigarette/Vaping Use Never Used 09/27/23 09:17 PHQ-9: PHQ-9 Score PHQ-9: Total score 8 09/27/23 09:17 Depression Screening Interpretation: Positive Depression Screening Follow-up: Existing condition and In treatment Thrive Assessment: Date of Thrive Assessment Date Thrive assessed 07/11/23 09/27/23 09:17 Const General: no acute distress and alert Orientation/consciousness: patient oriented x3 HENMT Head: Yes normocephalic and Yes atraumatic Ears: TM's normal bilaterally and EAC's normal General nose exam: No nasal discharge present Face and sinus: Yes normal facial exam and Yes sinuses nontender Teeth and gingiva: dentition normal Throat: Yes posterior oropharynx normal and Yes tonsils normal (no TP congestion) Eyes Eyelids: Yes eyelids normal Conjunctivae: conjunctivae normal Pupils: Equal, round and reactive pupils present EOM: EOMs intact bilaterally Neck Neck: Yes no lymphadenopathy and Yes supple Thyroid: Thyroid normal Resp Auscultation: clear to auscultation bilaterally, no rales and no wheezes Cardio Rate: regular rate Rhythm: regular rhythm Heart sounds: no murmurs GI Palpation (GI): Soft to palpation and nontender Auscultation: normal bowel sounds General: Yes no CVA tenderness Back/Spine/Pelvis Back: no CVA tenderness Thoracic/Lumbar Spine: lumbar spinal tenderness Skin Lesions: no lesions Rashes: no rashes Neuro General: patient oriented x3, moves all extremities, no focal motor deficits and CN's II-XI intact bilaterally Cranial nerves: Yes Equal, round and reactive pupils present Cognition (Neuro): normal cognition Gait exam (Neuro): Normal gait present Extrem General: Yes no clubbing, cyanosis or edema Right upper extremity: shoulder/upper arm Details: tenderness (diffusely over the scapular area) Left upper extremity: shoulder/upper arm Details: tenderness (diffusely over the scapular areas) Assessment and Plan Assessment & Plan (1) Annual physical exam: Code(s): Z00.00 - Encounter for general adult medical examination without abnormal findings Plan: Check labs She just had her annual mammogram done in June 2023 - mammogram came out normal She has not seen her clerk of works in a few years now - states that her previous clerk of works retired and she is looking for a new doctor [facility]necology exam and pap smear done and updated (2) Migraine: Code(s): G43.909 - Migraine, unspecified, not intractable, without status migrainosus Qualifiers: Migraine type: unspecified Status migrainosus presence: without status migrainosus Intractability: not intractable Qualified Code(s): G43.909 - Migraine, unspecified, not intractable, without status migrainosus Plan: She has been seen by neurology (Dr. Martínez) in the past but has not been back to see him since her last visit in 2018 Will refer her back to Dr. Martínez for neurology follow up and management Will start patient back on Sumatriptan 50 mg PRN for now Reinforced avoidance of migraine triggers (3) Chronic pain syndrome: Code(s): G89.4 - Chronic pain syndrome Plan: Have discussed with patient previously that she likely has fibromyalgia, which is compounding her chronic pain issues, her polyarthralgia, as well as her low back pain We started her on Duloxetine 30 mg BID a couple of months ago but she finds herself feeling somewhat confused and out of it when she takes the medication so she has been taking it once every other day for the past couple of weeks but she has not noticed any difference in how the medication is supposedly making her feel so far Will have her try taking her Duloxetine 30 mg just once a day at night time for now to see if this will allow her to better tolerate the medication Have advised that if she can manage to stay on Duloxetine, it can also help with her chronic pains and that was what I was hoping for when I started her on it a couple of months ago She is again advised to try to stay active and to try to exercise (as tolerated) regularly to help better manage her fibromyalgia symptoms (4) Polyarthralgia: Code(s): M25.50 - Pain in unspecified joint Plan: Arthralgia work ups done previously came back negative (for RA and lupus) She has so far been tried on multiple diagnostic and therapeutic injections by pain management, all with minimal and/or temporary relief She is now seeing rheumatology for further evaluation and management and will also be starting physiatry and trigger point injections in a few weeks (5) Lumbar degenerative disc disease: Code(s): M51.36 - Other intervertebral disc degeneration, lumbar region Plan: Reinforced activity and weight-lifting restrictions Continue Cyclobenzaprine 10 mg Q HS PRN Follow up with [facility] as scheduled States that she has been previously advised by pain management to see neurosurgery for further recommendations but patient as patient states that she has no intention of going for any back surgery, she was referred for physiatry evaluation instead and will be starting on a trial of trigger point injections soon (6) Primary osteoarthritis, right shoulder: Code(s): M19.011 - Primary osteoarthritis, right shoulder Plan: X-rays of the right shoulder done a few months ago revealed (+) mild OA changes in the shoulder Would recommend physical therapy for now if her shoulder continues to bother her (7) Vitamin D deficiency: Code(s): E55.9 - Vitamin D deficiency, unspecified Plan: Continue Vitamin D3 2000 units QD (8) Elevated LFTs: Code(s): R79.89 - Other specified abnormal findings of blood chemistry Plan: Her LFTs were normal when last checked in August 2022; were most likely related to her weight (hepatosteatosis) Will continue to monitor her LFTs regularly (9) Insomnia: Code(s): G47.00 - Insomnia, unspecified Qualifiers: Insomnia type: unspecified Qualified Code(s): G47.00 - Insomnia, unspecified Plan: Sleep hygiene reinforced Continue Trazodone 100 mg Q HS PRN (10) Depression: Code(s): F32.A - Depression, unspecified Qualifiers: Depression Type: major depressive disorder Major depression recurrence: recurrent Active/Remission status: currently active Major depression episode severity: unspecified Qualified Code(s): F33.9 - Major depressive disorder, recurrent, unspecified Plan: Patient most likely also has a component of depression as well Continue Escitalopram 20 mg QD She was also started on Duloxetine 30 mg BID, which may help with her mood as well, but she cut if back recently to 1 tablet every other day as she is finding it difficult to tolerate some potential side effects (confusion) Have advised her to try taking Duloxetine 30 mg Q HS for now Will also refer her to psychiatry for further evaluation and management and counseling/therapy, which may help her a lot (11) Obesity (BMI 30-39.9): Code(s): E66.9 - Obesity, unspecified Plan: Reinforced diet; exercise and weight loss are not practical at present due to her current physical issues but she is encouraged to try to get some exercise regularly to help better manage her fibromyalgia symptoms (12) Cervical cancer screening: Code(s): Z12.4 - Encounter for screening for malignant neoplasm of cervix Plan: [facility]necology exam and pap smear done and updated Plan Follow up in 4 months Orders: Orders Complete Blood Count Auto Diff Today D64.9 - Anemia, unspecified UA CC w/rflx Micro + Cult Today M25.50 - Pain in unspecified joint, R30.0 - Dysuria, Z00.00 - Encounter for general adult medical examination without abnormal findings Vitamin D 25-OH Total Today E55.9 - Vitamin D deficiency, unspecified, M25.50 - Pain in unspecified joint, Z00.00 - Encounter for general adult medical examination without abnormal findings Comprehensive [place]. Panel Fast Today E78.00 - Pure hypercholesterolemia, unspecified Lipid Panel Today E78.00 - Pure hypercholesterolemia, unspecified TSH reflex Free T4 Today E78.00 - Pure hypercholesterolemia, unspecified, M25.50 - Pain in unspecified joint, Z00.00 - Encounter for general adult medical examination without abnormal findings Erythrocyte Sedimentation Rate Today M25.50 - Pain in unspecified joint, M79.7 - Fibromyalgia, Z00.00 - Encounter for general adult medical examination without abnormal findings MITZY Reflex Titer and Pattern Today M25.50 - Pain in unspecified joint, Z00.00 - Encounter for general adult medical examination without abnormal findings C Reactive Protein Today M25.50 - Pain in unspecified joint, Z00.00 - Encounter for general adult medical examination without abnormal findings Referrals DATA COLLECTION TECHNICIAN Referral Z12.4 - Encounter for screening for malignant neoplasm of cervix Psychiatry Referral F33.9 - Major depressive disorder, recurrent, unspecified, F41.9 - Anxiety disorder, unspecified, M79.7 - Fibromyalgia Neurology Referral G43.909 - Migraine, unspecified, not intractable, without status migrainosus Medications: New sumatriptan succinate take 1 tab at onset of headache; if no relief may repeat 1 tab after at least 2 hrs; max = 4 tabs/24 hr PO 20 tabs 3RF G43.909 - Migraine, unspecified, not intractable, without status migrainosus Coding Level of Care Code Est Pt Prev Care 40-64y([id number]) Diagnoses Annual physical exam Z00.00 Migraine without status migrainosus, not intractable, unspecified migraine type G43.909 Migraine type: unspecified Status migrainosus presence: without status migrainosus Intractability: not intractable Chronic pain syndrome G89.4 Polyarthralgia M25.50 Lumbar degenerative disc disease M51.36 Primary osteoarthritis, right shoulder M19.011 Vitamin D deficiency E55.9 Elevated LFTs R79.89 Insomnia, unspecified type G47.00 Insomnia type: unspecified Episode of recurrent major depressive disorder, unspecified depression episode severity F33.9 Depression Type: major depressive disorder Major depression recurrence: recurrent Active/Remission status: currently active Major depression episode severity: unspecified Obesity (BMI 30-39.9) E66.9 Cervical cancer screening Z12.4
== END 2023-09-27 09:46 | disposition home or self-care (01) ==
PROVIDERS: PCP Internal Medicine; Visit Provider Internal Medicine
DX: Z00.00 Encounter for general adult medical examination without abnormal findings (principal); G43.909 Migraine, unspecified, not intractable, without status migrainosus; M51.36 Other intervertebral disc degeneration, lumbar region; M19.011 Primary osteoarthritis, right shoulder; E55.9 Vitamin D deficiency, unspecified; R79.89 Other specified abnormal findings of blood chemistry; G47.00 Insomnia, unspecified
CPT/HCPCS: 99396

== ENCOUNTER 2023-09-28 08:30 | Outpatient (REF) | payer OTHER, SELFPAY ==
[2023-09-28 08:53] LABS: MANUAL DIFF FLAG NO
[2023-09-28 08:59] LABS: Basophils Percent Auto 1.1 % (0-2); Eosinophils Absolute Auto 0.1 X10*3/uL (0.0-0.4); Hematocrit 27.4 % (37.0-47.0); Hemoglobin 8.1 g/dl (12.0-16.0); Imm Gran Abs Auto 0.02 X10*3/uL (0.00-0.03); Imm Gran Pct Auto 0.6 % (0.0-0.4); Lymphocytes Absolute Auto 0.9 X10*3/uL (1.2-4.9); Lymphocytes Percent Auto 24.2 % (20-40); Mean Corpuscular HGB Conc 29.6 g/dl (31.0-35.0); Mean Corpuscular Hemoglobin 21.1 pg (27.0-33.0); Mean Corpuscular Volume 71.5 fL (80.0-98.0); Mean Platelet Volume 10.7 fL (9.4-12.3); Monocytes Absolute Auto 0.3 X10*3/uL (0.1-1.2); Monocytes Percent Auto 7.9 % (2-11); Neutrophils Absolute Auto 2.3 x10*3/uL (2.0-8.3); Neutrophils Percent Auto 64.2 % (45-73); Platelet Count 176 X10*3/uL (160-400); Red Blood Count 3.83 X10*6/uL (4.20-5.50); Red Cell Distribution Width 17.9 % (11.0-16.0); White Blood Count 3.6 X10*3/uL (4.8-10.8)
[2023-09-28 09:43] LABS: Alanine Aminotransferase 17 U/L (0-31); Alkaline Phosphatase 70 U/L (39-117); Anion Gap 9 (12-20); Aspartate Amino Transferase 24 U/L (5-31); Bilirubin Total 0.4 mg/dL (0.0-1.0); Blood Urea Nitrogen 7 mg/dL (9-16); C Reactive Protein 0.72 mg/dL (< or = 0.50); Calcium 8.5 mg/dL (8.4-10.2); Carbon Dioxide 23 mmol/L (22-29); Chloride 111 mmol/L (96-108); Cholesterol 148 mg/dL (<200); Erythrocyte Sedimentation Rate 23 MM/HR (0-20); Estimated Glomerular Filt Rate > 60; Glucose Fasting 105 mg/dL (60-99); HDL Cholesterol 34 mg/dL (>40); LDL Cholesterol Calculated 81 mg/dL (<100); Potassium 4.3 mmol/L (3.3-5.1); Sodium 139 mmol/L (135-145); Total Protein 7.1 g/dL (6.5-8.0); Triglycerides 166 mg/dL (<150)
[2023-09-28 09:58] LABS: TSH reflex Free T4 1.32 uIU/mL (0.32-4.0); Vitamin D 25-OH Total 11.7 ng/mL (>30)
[2023-10-04 10:42] LABS: Anti Nuclear Antibody Screen NEGATIVE (NEGATIVE)
== END 2023-09-28 08:31 | disposition home or self-care (01) ==
LOC: HO.LAB 08:30
PROVIDERS: PCP Internal Medicine; Visit Provider Internal Medicine
DX: Z00.00 Encounter for general adult medical examination without abnormal findings (principal); M25.50 Pain in unspecified joint; D64.9 Anemia, unspecified; E78.00 Pure hypercholesterolemia, unspecified; M79.7 Fibromyalgia; E55.9 Vitamin D deficiency, unspecified
CPT/HCPCS: 36415; 80053; 80061; 82306; 84443; 85025; 85652; 86038; 86140; 99212

== ENCOUNTER 2023-09-28 08:57 | Outpatient (AMB) | payer OTHER, SELFPAY ==
--- NOTE | 2023-09-28 08:59 | MHC.OFFVIS ---
Vital Signs 09/28/23 09:03 Height 5 ft 9 in Weight 258 lb 6 oz BMI 38.2 BP 151/84 H Blood Pressure Location Lt brachial Position Sitting Pulse 90 Pulse Source Pulse Oximeter Pulse Oximetry (%) 100 Oxygen Delivery Method Room Air Intake Visit Reasons: Back pain getting worse. 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 Denies any recent trauma, injury, falls. Patient was recently seen by Rheumatology for diffuse chronic widespread body pain with negative workup and Physiatry services for neck pain. She is schedule for 3 sessions of right upper trapezium trigger point injections with Dr. Anderson this month. Today patient presents with axial low back pain with range of motion, lateral movements, bending backwards with daily activities and sleep. She is interested to undergo diagnostic home branch blocks for potential Sprint PNS trial or RFA procedures. Denies any significant radicular back pain symptoms today. Denies any recent cough, fever, chills cold, foot drop, weakness, bladder or bowel incontinence or saddle anesthesia. Past Procedures: 04/18/23: Bilateral L5-S1 TFESI-40-50% pain relief 11/08/22: Left Therapeutic SIJ injection- 0% pain relief 10/18/22: Left Diagnostic SIJ injection-40% pain relief for 6 hours 06/21/22: Left L5-S1 TFESI-80% pain relief for 2 weeks PRIOR: Patient is a pleasant 41 year old female who presents today for an initial evaluation of chronic lower back pain, left hand pain and right shoulder pain. Patient reports chronic back pain that has been worsening after her with epidural 04/04/2020. Her back pain is axial and also radiates into her left lower extremity posteriorly with numbness and tingling in the posterior lower leg, osborne and sole of her left foot. She also has localized pain in the projections of the left sacroiliac joint. Patient also reports left hand and wrist pain with flexion, pulling and lifting objects consistent with carpal tunnel syndrome. She has a history of right carpal tunnel repair in 2010. Patient is right hand dominant. Her right shoulder radiates to her neck with muscle spasms and tenderness. Pain increases with prolonged sitting, walking, standing, intercourse, climbing stairs, changing positions and weather changes. Pain is described as constant throbbing, shooting, stabbing, sharp, cramping, tingling, sore, hurting, aching, exhausting, tiring, and radiating. Pain interferes with her daily activities and functionings, mood, sleep, social interactions and quality of life. She has been managing pain with Ibuprofen and cyclobenzaprine with continued symptoms. Patient also started physical therapy last week and is intersted to trial acupuncture therapy for right shoulder and neck pain. Lumbar spine MRI in 2017 showed disc degeneration and a minimal anterior subluxation at L5-S1 with chronic bilateral L5 pars defects and [id number] right foraminal narrowing. Facet spurring mildly distorts the exiting right L5 nerve root. Most recent lumbar spine xray showed bilateral L5 spondylolysis defect is redemonstrated and multi-level thoracolumbar spondylosis and Schmorl's node formation. Patient denies any fever, weight loss, tachycardia, abdominal or groin pain, weakness, nausea, vomiting, constipation, diarrhea, vaginal bleeding, bladder or bowel incontinence or saddle anesthesia. Of note, patient has history of fatty liver, elevated LFT and hepatitis. She reports the most recent screening for hepatitis panel was negative. [facility] Medical History Migraine Anxiety Vitamin D deficiency Depression Family history of ovarian cancer Breast pain, right Hepatitis depression Obesity (BMI 30-39.9) History of in vitro fertilization Left ovarian cyst Anemia Surgical History H/O: (~03/2020) History of tonsillectomy History of carpal tunnel surgery Family History Maternal Aunt Ovarian cancer Maternal Uncle Colon cancer Maternal Uncle Colon cancer Mother COPD (chronic obstructive pulmonary disease) Fibromyalgia Hypertension Father No problems noted. Brother No problems noted. Son No problems noted. Social History Housing: Apartment Alcohol intake: current Alcohol intake frequency: holidays/special occasions only Patient Tobacco Use Status: Former Tobacco user Tobacco use type: Cigarette e-Cigarette/Vaping Use: Never Used Second Hand Smoke Exposure: Yes service: No Current occupational status: unemployed Cognitive needs: No Hearing needs: No Vision needs: Yes (glasses) Female Reproductive History Menstrual Age of Menarche: 12 Review of Systems Const All systems reviewed & are unremarkable except as noted in HPI and below Physical Exam Vital Signs: Last Vital Signs Pulse 90 09/28/23 09:03 BP 151/84 H 09/28/23 09:03 Pulse Ox 100 09/28/23 09:03 Oxygen Delivery Method Room Air 09/28/23 09:03 BMI result Body Mass Index 38.2 General: Appears afebrile. Alert and oriented. Mood and affect appropriate. Follows and participates in conversation appropriately. Respiratory effort is unlabored. No cough or dyspnea. Able to transition from sit to stand unassisted. Const General: healthy appearing and no acute distress Nutritional Appearance: well nourished and obese Limitations: no limitations General: Yes no CVA tenderness Back/Spine/Pelvis Other: Limited lumbar ROM due to pain. Lumbar extension reproduce moderate pain, bending forward reproduce mild symptoms. TTP in the projection of both SIJ, left>right. Rafael's test reproduce moderate SIJ pain on the left, mild pain on the right SIJ. Mild TTP to GTB. Multiple TTPs 16/16 of lower extremities consistent with fibromyalgia. Back: no CVA tenderness Cervical Spine: cervical ROM normal, cervical muscular tenderness, pain with cervical ROM, cervical spasm (right upper trapezius) and No Cervical spine tenderness Thoracic/Lumbar Spine: thoracic and lumbar spine normal to inspection, No Thoracic/lumbar spine scar(s), Lasegue's sign negative, straight leg raise negative bilaterally, pain with thoraco-lumbar ROM, paraspinal muscle tenderness, thoraco-lumbar ROM limited, No thoracic spinal tenderness and lumbar spinal tenderness at L3, at L4 and at L5 Sacroiliac joints: bilaterally tender to palpation Extrem General: Yes full ROM, Yes capillary refill normal, Yes no clubbing, cyanosis or edema and Yes no calf tenderness Results Reviewed Results Reviewed: MR LUMBAR SPINE WITHOUT CONTRAST 05/02/22 CLINICAL INFORMATION: Lumbar radiculopathy. COMPARISON: Lumbar spine radiographs from 03/11/2022. Lumbar spine MRI from 08/15/2016. CT abdomen and pelvis from 10/18/2021. TECHNIQUE: MRI of the lumbar spine was obtained using routine sequences without contrast. FINDINGS: Mild degenerative retrolisthesis of L4 on L5. Degenerative grade 1 anterolisthesis of L5 on S1. Otherwise, normal anatomic alignment. Moderate degenerative disc disease at T10-T11, T11-T12, L4-L5, and L5-S1. Mild degenerative disc disease from T12-L3. Associated mild mixed Modic type discogenic endplate changes. No suspicious marrow edema. Small Schmorl's nodes from T10-L3. Otherwise, the vertebral body heights are largely maintained. The conus medullaris terminates at the level of L1. The distal spinal cord is normal in appearance. Mild subcutaneous edema within the soft tissues of the back below the level of T12. No additional Significant abnormalities of the paraspinal musculature. Limited evaluation of the intra-abdominal structures without significant abnormalities. The abdominal aorta is of normal contour and caliber. AXIAL SPINAL LEVELS: T12-L1: Normal annular contour. There is mild bilateral facet joint arthropathy. There is no neural foraminal stenosis. There is no spinal canal stenosis. L1-L2: Shallow diffuse disc bulge. There is moderate right and mild left facet joint arthropathy. There is no neural foraminal stenosis. There is no spinal canal stenosis. L2-L3: Normal annular contour. There is mild bilateral facet joint arthropathy. There is mild right and no left neural foraminal stenosis. There is no spinal canal stenosis. L3-L4: Normal annular contour. There is mild bilateral facet joint arthropathy. There is no neural foraminal stenosis. There is no spinal canal stenosis. L4-L5: Mild diffuse disc bulge with superimposed central/right subarticular disc protrusion. There is no facet joint arthropathy. There is mild to moderate bilateral neural foraminal stenosis. There is narrowing of the right subarticular zone with no overt spinal canal stenosis centrally. L5-S1: Moderate diffuse disc bulge with posterior osseous ridging and superimposed right foraminal disc protrusion. There is moderate right and mild left facet joint arthropathy. There is moderate right and mild left neural foraminal stenosis. There is no spinal canal stenosis. 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 Most notably, there are mild to moderate neural foraminal stenoses at L4-L5 and L5-S1. Narrowing of the right subarticular zone at L4-L5. No overt spinal canal stenosis centrally. Overall, degenerative changes have mildly progressed compared to exam from 2017. XR LUMBOSACRAL SPINE 03/11/22 FINDINGS: Vertebral body heights and alignment are normal. At L5-S1, there is mild disc space narrowing. The remaining disc spaces are relatively well-maintained. No acute fracture or spondylolisthesis is seen. There is multi-level thoracolumbar spondylosis and Schmorl's node formation. 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 No foreign body is seen. IMPRESSION: 1. There is mild degenerative disc disease at L5-S1. 2. 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 3. There is multi-level thoracolumbar spondylosis and Schmorl's node formation. NE electromyogram (EMG); NE nerve conduction velocity 06/14/23 FINDINGS: All motor and sensory nerves tested showed normal latencies, amplitudes and conduction velocities. Concentric needle EMG was performed in selected muscles of the bilateral lower extremity. Study did not reveal signs of electric abnormalities as shown in the table below. IMPRESSION: 1. This is a normal study. 2. There is no electrodiagnostic evidence for peroneal neuropathy, tibial neuropathy, lumbosacral plexopathy, lumbar radiculopathy, or peripheral neuropathy. Assessment & Plan Assessment & Plan (1) Sacroiliitis: Code(s): M46.1 - Sacroiliitis, not elsewhere classified Category: Medical (2) Lumbar degenerative disc disease: Code(s): M51.36 - Other intervertebral disc degeneration, lumbar region Category: Medical (3) Lumbar spondylosis: Code(s): M47.816 - Spondylosis without myelopathy or radiculopathy, lumbar region Category: Medical (4) Chronic pain syndrome: Code(s): G89.4 - Chronic pain syndrome Category: Medical (5) Fibromyalgia, primary: Code(s): M79.7 - Fibromyalgia Category: Medical Plan Discussed interventional treatments for axial low back pain, including therapeutic injections, Sprint PNS trial, and RFA procedure. Informational pamphlets provided today. Schedule bilateral diagnostic L3 L4 DR L5 medial branch blocks with local and fluoroscopy. Expectations, risks and benefits were reviewed. Patient is aware she will be contacted to schedule this procedure. For moderate to severe pain, I will provide patient with short script of tramadol. Side effects and precautions discussed with patient. Safety, medication administration and storage reviewed with patient. Patient has Narcan at home. Patient will trial acupuncture at [facility] for right upper trapezius tender point as well as other myofascial pain in cervical and lumbar regions. Encouraged daily physical activity, adequate hydration, weight loss and good posture. All questions and concerns have been answered and patient agreed with the plan. Follow up after injections and as needed. Medications: Refilled tramadol 50 mg PO BID 10 days PRN 20 tabs 0RF pain M46.1 - Sacroiliitis, not elsewhere classified, M51.36 - Other intervertebral disc degeneration, lumbar region, M54.16 - Radiculopathy, lumbar region, M54.51 - Vertebrogenic low back pain Coding Level of Care Code Est Pt Level 4 (34429) Diagnoses Sacroiliitis M46.1 Lumbar degenerative disc disease M51.36 Lumbar spondylosis M47.816 Chronic pain syndrome G89.4 Fibromyalgia, primary M79.7
[2023-09-28 09:03] VITALS: BP 151/84; PULSE 90; O2SAT 100; BMI 38.2
== END 2023-09-28 09:31 | disposition home or self-care (01) ==
PROVIDERS: PCP Internal Medicine; Visit Provider Nurse Practitioner Family
DX: M46.1 Sacroiliitis, not elsewhere classified (principal); M51.36 Other intervertebral disc degeneration, lumbar region; M47.816 Spondylosis without myelopathy or radiculopathy, lumbar region; G89.4 Chronic pain syndrome; M79.7 Fibromyalgia
CPT/HCPCS: 99214

== ENCOUNTER 2023-10-19 08:57 | Outpatient (AMB) | payer OTHER, SELFPAY ==
[2023-10-19 09:00] VITALS: BMI 38.2
--- NOTE | 2023-10-19 09:00 | MHC.OFFVIS ---
Vital Signs 10/19/23 09:00 Height 5 ft 9 in Weight 258 lb 6 oz BMI 38.2 Intake Visit Reasons: Inj-Trigger point injection #1 Intake Note: Norma is a 42 year old right hand dominant female who presents today for her 1st trigger point injection. Allergies No Known Allergies [No Known Allergies*] Allergy (Verified 10/19/23 09:01) HPI Comments Details: Here for 1st injection to right upper trapezius. No change since last time she was seen. [facility] Medical History Migraine Anxiety Vitamin D deficiency Depression Family history of ovarian cancer Breast pain, right Hepatitis depression Obesity (BMI 30-39.9) History of in vitro fertilization Left ovarian cyst Anemia Surgical History H/O: (~03/2020) History of tonsillectomy History of carpal tunnel surgery Family History Maternal Aunt Ovarian cancer Maternal Uncle Colon cancer Maternal Uncle Colon cancer Mother COPD (chronic obstructive pulmonary disease) Fibromyalgia Hypertension Father No problems noted. Brother No problems noted. Son No problems noted. Social History Housing: Apartment Alcohol intake: current Alcohol intake frequency: holidays/special occasions only Patient Tobacco Use Status: Former Tobacco user Tobacco use type: Cigarette e-Cigarette/Vaping Use: Never Used Second Hand Smoke Exposure: Yes service: No Current occupational status: unemployed Cognitive needs: No Hearing needs: No Vision needs: Yes (glasses) Female Reproductive History Menstrual Age of Menarche: 12 Physical Exam Vital Signs: BMI result Body Mass Index 38.2 Office Procedures Therapeutic Injection Therapeutic Injection Details: Trigger point injection, right upper trapezius. Conset obtained. Trigger points palpated, 2 on right upper trapezius. 1 ml of 2% Lidocaine injected in each site, total of 2 mL. Patient tolerated procedure well. Post-injection instructions given. 96643-Qquvonu Point Injection 1 or 2 sites All charges added?: Procedure code (CPT) selection complete Assessment & Plan Assessment & Plan (1) Myofascial pain: Code(s): M79.18 - Myalgia, other site Category: Medical Plan Tolerated procedure well. Assessment and plan discussed with patient, and patient was agreeable. All questions were answered thoroughly. Maria C Mckeon MD, STEPHANY Board Certified, [place] [employer] Medicine and Rehabilitation (ABPMR) Board Certified, [place] Board of Electrodiagnostic Medicine (ABEM) Orders: Orders AMB Trigger Point Injection Today M79.18 - Myalgia, other site Coding Level of Care Code Procedure Only Diagnoses Myofascial pain M79.18 CPT Codes Therapeutic Injection - Ther Injection 1: 68935-Cylrfuu Point Injection 1 or 2 sites ([id number])
== END 2023-10-19 09:13 | disposition home or self-care (01) ==
PROVIDERS: PCP Internal Medicine; Visit Provider Physical Medicine & Rehabilitation
DX: M25.511 Pain in right shoulder (principal); M79.18 Myalgia, other site
CPT/HCPCS: 20552

== ENCOUNTER → 2023-10-19 08:57 | Outpatient (BNVA) | payer OTHER, SELFPAY | PROVIDERS: PCP Internal Medicine; Visit Provider Physical Medicine & Rehabilitation | DX: M79.18 Myalgia, other site (principal) | CPT/HCPCS: 20552 ==

== ENCOUNTER 2023-10-26 08:53 | Outpatient (AMB) | payer OTHER, SELFPAY ==
--- NOTE | 2023-10-26 08:58 | MHC.OFFVIS ---
Vital Signs 10/26/23 09:07 Height 5 ft 9 in Weight 258 lb 6 oz BMI 38.2 Intake Visit Reasons: right upper trapezius trigger injection # 2 Intake Note: Norma is a 42 year old female who presents today for her right upper trapezius trigger injection # 2. Her first trigger injection was on 10/19/23. Patient reports she still feels tightness where she received the last injection. Allergies No Known Allergies [No Known Allergies*] Allergy (Verified 10/26/23 09:06) Medication List - Last Reconciled 10/26/23 by Maria C Mckeon MD cholecalciferol (vitamin D3) 50 mcg PO DAILY 90 days duloxetine 30 mg PO BID 30 days escitalopram oxalate 20 mg PO DAILY 30 days ibuprofen 600 mg PO Q8H PRN L norgest/e.estradiol-e.estrad 0.15 mg-30 mcg (84)/10 mcg (7) 1 tab PO DAILY lidocaine 4% (AsperFlex (lidocaine)) 1 patch topical DAILY PRN 30 days lorazepam 1 mg PO ONCE PRN naloxone 4 mg/actuation (Narcan) 4 mg intranasal Q2M PRN sennosides (senna) 17.2 mg (2 x 8.6 mg) PO BEDTIME PRN 30 days sumatriptan succinate take 1 tab at onset of headache; if no relief may repeat 1 tab after at least 2 hrs; max = 4 tabs/24 hr PO tramadol 50 mg PO BID PRN 10 days trazodone 100 mg PO BEDTIME PRN 30 days PFSH Medical History Migraine Anxiety Vitamin D deficiency Depression Family history of ovarian cancer Breast pain, right Hepatitis depression Obesity (BMI 30-39.9) History of in vitro fertilization Left ovarian cyst Anemia Surgical History H/O: (~03/2020) History of tonsillectomy History of carpal tunnel surgery Family History Maternal Aunt Ovarian cancer Maternal Uncle Colon cancer Maternal Uncle Colon cancer Mother COPD (chronic obstructive pulmonary disease) Fibromyalgia Hypertension Father No problems noted. Brother No problems noted. Son No problems noted. Social History Housing: Apartment Alcohol intake: current Alcohol intake frequency: holidays/special occasions only Patient Tobacco Use Status: Former Tobacco user Tobacco use type: Cigarette e-Cigarette/Vaping Use: Never Used Second Hand Smoke Exposure: Yes service: No Current occupational status: unemployed Cognitive needs: No Hearing needs: No Vision needs: Yes (glasses) Female Reproductive History Menstrual Age of Menarche: 12 Physical Exam Vital Signs: BMI result Body Mass Index 38.2 Office Procedures Therapeutic Injection Therapeutic Injection Details: Trigger point injection, right upper trapezius. Conset obtained. 3 Trigger points palpated on right upper trapezius. 1 ml of 2% Lidocaine injected in each site, total of 3 mL. Patient tolerated procedure well. Post-injection instructions given. 89146-Zpmbpiu Point Injection 3 or more All charges added?: Procedure code (CPT) selection complete Assessment & Plan Assessment & Plan (1) Myofascial pain: Code(s): M79.18 - Myalgia, other site Category: Medical Plan Tolerated procedure well. Assessment and plan discussed with patient, and patient was agreeable. All questions were answered thoroughly. Maria C Mckeon MD, STEPHANY Board Certified, [place] Board [employer] Physical Medicine and Rehabilitation (ABPMR) Board Certified, [place] Board [employer] Electrodiagnostic Medicine (ABEM) Orders: Orders AMB Trigger Point Injection Today M79.18 - Myalgia, other site Coding Level of Care Code Procedure Only Diagnoses Myofascial pain M79.18 CPT Codes Therapeutic Injection - Ther Injection 2: 64466-Bbsbrmi Point Injection 3 or more ([id number])
[2023-10-26 09:07] VITALS: BMI 38.2
== END 2023-10-26 09:16 | disposition home or self-care (01) ==
PROVIDERS: PCP Internal Medicine; Visit Provider Physical Medicine & Rehabilitation
DX: M25.511 Pain in right shoulder (principal); M79.18 Myalgia, other site
CPT/HCPCS: 20553

== ENCOUNTER → 2023-10-26 08:53 | Outpatient (BNVA) | payer OTHER, SELFPAY | PROVIDERS: PCP Internal Medicine; Visit Provider Physical Medicine & Rehabilitation | DX: M79.18 Myalgia, other site (principal) | CPT/HCPCS: 20553 ==

== ENCOUNTER 2023-11-02 09:02 | Outpatient (AMB) | payer OTHER, SELFPAY ==
--- NOTE | 2023-11-02 09:07 | MHC.OFFVIS ---
Intake Visit Reasons: right upper trapezius trigger injection # 3 Intake Note: Norma is a 42 year old female who presents today for her right upper trapezius trigger injection # 3. Her first trigger injection was on 10/19/23. Patient reports feeling tightness and having limited ROM. Allergies No Known Allergies [No Known Allergies*] Allergy (Verified 11/02/23 09:09) Medication List - Last Reconciled 11/02/23 by Maria C Mckeon MD cholecalciferol (vitamin D3) 50 mcg PO DAILY 90 days duloxetine 30 mg PO BID 30 days escitalopram oxalate 20 mg PO DAILY 30 days ibuprofen 600 mg PO Q8H PRN L norgest/e.estradiol-e.estrad 0.15 mg-30 mcg (84)/10 mcg (7) 1 tab PO DAILY lidocaine 4% (AsperFlex (lidocaine)) 1 patch topical DAILY PRN 30 days lorazepam 1 mg PO ONCE PRN naloxone 4 mg/actuation (Narcan) 4 mg intranasal Q2M PRN sennosides (senna) 17.2 mg (2 x 8.6 mg) PO BEDTIME PRN 30 days sumatriptan succinate take 1 tab at onset of headache; if no relief may repeat 1 tab after at least 2 hrs; max = 4 tabs/24 hr PO tramadol 50 mg PO BID PRN 10 days trazodone 100 mg PO BEDTIME PRN 30 days PFSH Medical History Migraine Anxiety Vitamin D deficiency Depression Family history of ovarian cancer Breast pain, right Hepatitis depression Obesity (BMI 30-39.9) History of in vitro fertilization Left ovarian cyst Anemia Surgical History H/O: (~03/2020) History of tonsillectomy History of carpal tunnel surgery Family History Maternal Aunt Ovarian cancer Maternal Uncle Colon cancer Maternal Uncle Colon cancer Mother COPD (chronic obstructive pulmonary disease) Fibromyalgia Hypertension Father No problems noted. Brother No problems noted. Son No problems noted. Social History Housing: Apartment Alcohol intake: current Alcohol intake frequency: holidays/special occasions only Patient Tobacco Use Status: Former Tobacco user Tobacco use type: Cigarette e-Cigarette/Vaping Use: Never Used Second Hand Smoke Exposure: Yes service: No Current occupational status: unemployed Cognitive needs: No Hearing needs: No Vision needs: Yes (glasses) Female Reproductive History Menstrual Age of Menarche: 12 Office Procedures Therapeutic Injection Therapeutic Injection Details: Trigger point injection, right upper trapezius. Conset obtained. Trigger points palpated on right upper trapezius, 3 areas. 1 ml of 2% Lidocaine injected in each site, total of 3 mL. Patient tolerated procedure well. Post-injection instructions given. [id number]-Iffmzwa Point Injection 3 or more All charges added?: Procedure code (CPT) selection complete Assessment & Plan Assessment & Plan (1) Myofascial pain: Code(s): M79.18 - Myalgia, other site Category: Medical Plan Tolerated procedure well. Next follow up/re-evaluate in 1 month. Assessment and plan discussed with patient, and patient was agreeable. All questions were answered thoroughly. Maria C Mckeon MD, STEPHANY Board Certified, [place] Board of Physical Medicine and Rehabilitation (ABPMR) Board Certified, [place] Board [employer] Electrodiagnostic Medicine (ABEM) Orders: Orders AMB Trigger Point Injection Today M79.18 - Myalgia, other site Coding Level of Care Code Procedure Only Diagnoses Myofascial pain M79.18 CPT Codes Therapeutic Injection - Ther Injection 2: [id number]-Pkofxjm Point Injection 3 or more ([id number])
== END 2023-11-02 09:33 | disposition home or self-care (01) ==
PROVIDERS: PCP Internal Medicine; Visit Provider Physical Medicine & Rehabilitation
DX: M25.511 Pain in right shoulder (principal); M79.18 Myalgia, other site
CPT/HCPCS: 20553

== ENCOUNTER → 2023-11-02 09:02 | Outpatient (BNVA) | payer OTHER, SELFPAY | PROVIDERS: PCP Internal Medicine; Visit Provider Physical Medicine & Rehabilitation | DX: M79.18 Myalgia, other site (principal) | CPT/HCPCS: 20553 ==

== ENCOUNTER 2023-11-07 07:05 | Outpatient (REF) | payer OTHER, SELFPAY | END 2023-11-07 07:06 | disposition home or self-care (01) | LOC: CF 07:05 | PROVIDERS: Visit Provider Anesthesiology | DX: M47.816 Spondylosis without myelopathy or radiculopathy, lumbar region (principal); M46.1 Sacroiliitis, not elsewhere classified; M51.36 Other intervertebral disc degeneration, lumbar region; G89.4 Chronic pain syndrome; M79.7 Fibromyalgia | CPT/HCPCS: 64493; 64494; J2795; Q9967 ==

== ENCOUNTER 2023-11-07 08:05 | Outpatient (AMB) | payer OTHER, SELFPAY ==
[2023-11-07 08:15] VITALS: BP 125/62; PULSE 77; RESP 16; O2SAT 99
--- NOTE | 2023-11-07 08:15 | A.OFFVIS_ITS ---
Vital Signs 11/07/23 08:15 11/07/23 09:55 BP 125/62 121/75 Blood Pressure Location Rt brachial Lt brachial Position Sitting Sitting Respiration 16 16 Pulse 77 74 Pulse Source Pulse Oximeter Pulse Oximeter Pulse Oximetry (%) 99 98 Oxygen Delivery Method Room Air Room Air Comment Pre-op post-op Intake Visit Reasons: BILATERAL DIAGNOSTIC L3, L4, DRL5 MBB Allergies No Known Allergies [No Known Allergies*] Allergy (Verified 11/07/23 09:58) PFSH Medical History Migraine Anxiety Vitamin D deficiency Depression Family history of ovarian cancer Breast pain, right Hepatitis depression Obesity (BMI 30-39.9) History of in vitro fertilization Left ovarian cyst Anemia Surgical History H/O: (~03/2020) History of tonsillectomy History of carpal tunnel surgery Family History Maternal Aunt Ovarian cancer Maternal Uncle Colon cancer Maternal Uncle Colon cancer Mother COPD (chronic obstructive pulmonary disease) Fibromyalgia Hypertension Father No problems noted. Brother No problems noted. Son No problems noted. Social History Housing: Apartment Alcohol intake: current Alcohol intake frequency: holidays/special occasions only Patient Tobacco Use Status: Former Tobacco user Tobacco use type: Cigarette e-Cigarette/Vaping Use: Never Used Second Hand Smoke Exposure: Yes service: No Current occupational status: unemployed Cognitive needs: No Hearing needs: No Vision needs: Yes (glasses) Female Reproductive History Menstrual Age of Menarche: 12 Physical Exam Vital Signs: Last Vital Signs Pulse 74 11/07/23 09:55 Resp 16 11/07/23 09:55 BP 121/75 11/07/23 09:55 Pulse Ox 98 11/07/23 09:55 Oxygen Delivery Method Room Air 11/07/23 09:55 Assessment & Plan Assessment & Plan (1) Sacroiliitis: Code(s): M46.1 - Sacroiliitis, not elsewhere classified Category: Medical (2) Lumbar degenerative disc disease: Code(s): M51.36 - Other intervertebral disc degeneration, lumbar region Category: Medical (3) Lumbar spondylosis: Code(s): M47.816 - Spondylosis without myelopathy or radiculopathy, lumbar region Category: Medical Plan: Diagnostic medial branch block L3,L4 dorsal ramus L5 bilateral.? ? ?Informed consent was explained to the patient. All questions were explained and? answered.? The patient was taken inside the operating room where she was positioned prone on the operating table. Time-out was performed delineating correct site, side, the nature of the procedure, patient's allergy, . All operating room staff was participating in OR time-out procedure. ? ? The lower back was prepped with ChloraPrep and draped with sterile towels.? C- arm was brought over the operating field and sq picture of L4-, L5 vertebra and S1 AREA were delineated on the screen.? Point of interest were delineated as confluence of superior articular process of L4 and L5 vertebra bilaterally with corresponding transverse processes as well as confluence of the sacral alae bilaterally with superior articular process of S1.? The projection of the point of interest to the skin were injected with the small amount of local anesthetic lidocaine 2% 1-1.5 cc.? After that 22 gauge 3.5 inch spinal needle was driven sequentially to the points of interest in tunnel vision fashion. After needles gently contacted the bone at the point of interests the needle was injected with small amount of the contrast.? The injection of the contrast did not demonstrate any intravascular or intrathecal spread of the contrast.? After that injection of the? ropivacaine 0.5%-1cc was performed at each needle location.??after that the needles were removed and Bandaids were applied. ? (4) Chronic pain syndrome: Code(s): G89.4 - Chronic pain syndrome Category: Medical (5) Fibromyalgia, primary: Code(s): M79.7 - Fibromyalgia Category: Medical Plan Discussed interventional treatments for axial low back pain, including therapeutic injections, Sprint PNS trial, and RFA procedure. Informational pamphlets provided today. Schedule bilateral diagnostic L3 L4 DR L5 medial branch blocks with local and fluoroscopy. Expectations, risks and benefits were reviewed. Patient is aware she will be contacted to schedule this procedure. For moderate to severe pain, I will provide patient with short script of tramadol. Side effects and precautions discussed with patient. Safety, medication administration and storage reviewed with patient. Patient has Narcan at home. Patient will trial acupuncture at [facility] for right upper trapezius tender point as well as other myofascial pain in cervical and lumbar regions. Encouraged daily physical activity, adequate hydration, weight loss and good posture. All questions and concerns have been answered and patient agreed with the plan. Follow up after injections and as needed. Orders: Orders FL guidance in treatment room Today M47.816 - Spondylosis without myelopathy or radiculopathy, lumbar region Coding Level of Care Code Procedure Only Diagnoses Sacroiliitis M46.1 Lumbar degenerative disc disease M51.36 Lumbar spondylosis M47.816 Chronic pain syndrome G89.4 Fibromyalgia, primary M79.7
[2023-11-07 09:55] VITALS: BP 121/75; PULSE 74; RESP 16; O2SAT 98
== END 2023-11-07 09:25 | disposition home or self-care (01) ==
LOC: HO.PMCPRC 08:05
PROVIDERS: PCP Internal Medicine; Visit Provider Anesthesiology
DX: M47.816 Spondylosis without myelopathy or radiculopathy, lumbar region (principal); M46.1 Sacroiliitis, not elsewhere classified; M51.36 Other intervertebral disc degeneration, lumbar region; G89.4 Chronic pain syndrome; M79.7 Fibromyalgia
CPT/HCPCS: 64493; 64494

== ENCOUNTER 2023-11-14 08:52 | Outpatient (AMB) | payer OTHER, SELFPAY ==
--- NOTE | 2023-11-14 08:56 | A.OFFVIS_ITS ---
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 Urbano. Patient reports about 20% pain relief for 6 hours without significant pain or function improvement. Unfortunately, given patient's response, she is not candidate for stimulative or ablative procedures. Patient reports moderate to severe low back pain with radiation into her bilateral lower extremities, worse on the left. Previous interventions, including sacroiliac joint and TFESI injections were not helpful. She was seen by our [facility] last year and deemed non-surgical. Patient reports back pain has been progressively worsening. She has difficulty with ADLs, bending down, flexing forward, house chores or prolonged sitting, standing or walking. Patient reports she has adjusted her diet and avoids sweets, carbohydrates for weight loss but has difficulty to participate in home exercise program or PT. Reports pain negatively affects her mood, sleep and social interactions. Denies any recent cough, fever, chills cold, foot drop, weakness, bladder or bowel incontinence or saddle anesthesia. Past Procedures: 11/07/23: Bilateral Diagnostic L3-L4 DR L5 MBB-20% pain relief for 6 hours 04/18/23: Bilateral L5-S1 TFESI-40-50% pain relief 11/08/22: Left Therapeutic SIJ injection- 0% pain relief 10/18/22: Left Diagnostic SIJ injection-40% pain relief for 6 hours 06/21/22: Left L5-S1 TFESI-80% pain relief for 2 weeks PRIOR: Patient is a pleasant 41 year old female who presents today for an initial evaluation of chronic lower back pain, left hand pain and right shoulder pain. Patient reports chronic back pain that has been worsening after her with epidural 04/04/2020. Her back pain is axial and also radiates into her left lower extremity posteriorly with numbness and tingling in the posterior lower leg, osborne and sole of her left foot. She also has localized pain in the projecti ons of the left sacroiliac joint. Patient also reports left hand and wrist pain with flexion, pulling and lifting objects consistent with carpal tunnel syndrome. She has a history of right carpal tunnel repair in 2010. Patient is right hand dominant. Her right shoulder radiates to her neck with muscle spasms and tenderness. Pain increases with prolonged sitting, walking, standing, intercourse, climbing stairs, changing positions and weather changes. Pain is described as constant throbbing, shooting, stabbing, sharp, cramping, tingling, sore, hurting, aching, exhausting, tiring, and radiating. Pain interferes with her daily activities and functionings, mood, sleep, social interactions and quality of life. She has been managing pain with Ibuprofen and cyclobenzaprine with continued symptoms. Patient also started physical therapy last week and is intersted to trial acupuncture therapy for right shoulder and neck pain. Lumbar spine MRI in 2017 showed disc degeneration and a minimal anterior subluxation at L5-S1 with chronic bilateral L5 pars defects and [id number] right foraminal narrowing. Facet spurring mildly distorts the exiting right L5 nerve root. Most recent lumbar spine xray showed bilateral L5 spondylolysis defect is redemonstrated and multi-level thoracolumbar spondylosis and Schmorl's node formation. Patient denies any fever, weight loss, tachycardia, abdominal or groin pain, weakness, nausea, vomiting, constipation, diarrhea, vaginal bleeding, bladder or bowel incontinence or saddle anesthesia. Of note, patient has history of fatty liver, elevated LFT and hepatitis. She reports the most recent screening for hepatitis panel was negative. [facility] Medical History Migraine Anxiety Vitamin D deficiency Depression Family history of ovarian cancer Breast pain, right Hepatitis depression Obesity (BMI 30-39.9) History of in vitro fertilization Left ovarian cyst Anemia Surgical History H/O: (~03/2020) History of tonsillectomy History of carpal tunnel surgery Family History Maternal Aunt Ovarian cancer Maternal Uncle Colon cancer Maternal Uncle Colon cancer Mother COPD (chronic obstructive pulmonary disease) Fibromyalgia Hypertension Father No problems noted. Brother No problems noted. Son No problems noted. Social History Housing: Apartment Alcohol intake: current Alcohol intake frequency: holidays/special occasions only Patient Tobacco Use Status: Former Tobacco user Tobacco use type: Cigarette e-Cigarette/Vaping Use: Never Used Second Hand Smoke Exposure: Yes service: No Current occupational status: unemployed Cognitive needs: No Hearing needs: No Vision needs: Yes (glasses) Female Reproductive History Menstrual Age of Menarche: 12 Review of Systems Const All systems reviewed & are unremarkable except as noted in HPI and below Physical Exam Vital Signs: Last Vital Signs Pulse 82 11/14/23 09:01 BP 160/79 H 11/14/23 09:01 Pulse Ox 98 11/14/23 09:01 Oxygen Delivery Method Room Air 11/14/23 09:01 BMI result Body Mass Index 38.4 General: Appears afebrile. Alert and oriented. Mood and affect appropriate. Follows and participates in conversation appropriately. Respiratory effort is unlabored. No cough or dyspnea. Able to transition from sit to stand unassisted. Const General: healthy appearing and no acute distress Nutritional Appearance: well nourished and obese Limitations: no limitations General: Yes no CVA tenderness Back/Spine/Pelvis Other: Limited lumbar ROM due to pain. Lumbar extension and flexion forward reproduce moderate to severe pain. TTP in the projection of both SIJ, left>right. Rafael's test reproduce moderate SIJ pain on the left, mild pain on the right SIJ. Mild TTP to GTB. Multiple TTPs 16/16 of lower extremities consistent with fibromyalgia. Back: no CVA tenderness Cervical Spine: cervical ROM normal, cervical muscular tenderness, pain with cervical ROM, cervical spasm (right upper trapezius) and No Cervical spine tenderness Thoracic/Lumbar Spine: thoracic and lumbar spine normal to inspection, No Thoracic/lumbar spine scar(s), Lasegue's sign positive bilateral and diffuse, p ain with thoraco-lumbar ROM, paraspinal muscle tenderness, thoraco-lumbar ROM limited, No thoracic spinal tenderness and lumbar spinal tenderness (L4-S1) Pelvis: buttock tenderness on the left Sacroiliac joints: bilaterally tender to palpation Extrem General: Yes full ROM, Yes capillary refill normal, Yes no clubbing, cyanosis or edema and Yes no calf tenderness Results Reviewed Results Reviewed: MR LUMBAR SPINE WITHOUT CONTRAST 05/02/22 CLINICAL INFORMATION: Lumbar radiculopathy. COMPARISON: Lumbar spine radiographs from 03/11/2022. Lumbar spine MRI from 08/15/2016. CT abdomen and pelvis from 10/18/2021. TECHNIQUE: MRI of the lumbar spine was obtained using routine sequences without contrast. FINDINGS: Mild degenerative retrolisthesis of L4 on L5. Degenerative grade 1 anterolisthesis of L5 on S1. Otherwise, normal anatomic alignment. Moderate degenerative disc disease at T10-T11, T11-T12, L4-L5, and L5-S1. Mild degenerative disc disease from T12-L3. Associated mild mixed Modic type discogenic endplate changes. No suspicious marrow edema. Small Schmorl's nodes from T10-L3. Otherwise, the vertebral body heights are largely maintained. The conus medullaris terminates at the level of L1. The distal spinal cord is normal in appearance. Mild subcutaneous edema within the soft tissues of the back below the level of T12. No additional Significant abnormalities of the paraspinal musculature. Limited evaluation of the intra-abdominal structures without significant abnormalities. The abdominal aorta is of normal contour and caliber. AXIAL SPINAL LEVELS: T12-L1: Normal annular contour. There is mild bilateral facet joint arthropathy. There is no neural foraminal stenosis. There is no spinal canal stenosis. L1-L2: Shallow diffuse disc bulge. There is moderate right and mild left facet joint arthropathy. There is no neural foraminal stenosis. There is no spinal canal stenosis. L2-L3: Normal annular contour. There is mild bilateral facet joint arthropathy. There is mild right and no left neural foraminal stenosis. There is no spinal canal stenosis. L3-L4: Normal annular contour. There is mild bilateral facet joint arthropathy. There is no neural foraminal stenosis. There is no spinal canal stenosis. L4-L5: Mild diffuse disc bulge with superimposed central/right subarticular disc protrusion. There is no facet joint arthropathy. There is mild to moderate bilateral neural foraminal stenosis. There is narrowing of the right subarticular zone with no overt spinal canal stenosis centrally. L5-S1: Moderate diffuse disc bulge with posterior osseous ridging and superimposed right foraminal disc protrusion. There is moderate right and mild left facet joint arthropathy. There is moderate right and mild left neural foraminal stenosis. There is no spinal canal stenosis. 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 Most notably, there are mild to moderate neural foraminal stenoses at L4-L5 and L5-S1. Narrowing of the right subarticular zone at L4-L5. No overt spinal canal stenosis centrally. Overall, degenerative changes have mildly progressed compared to exam from 2017. XR LUMBOSACRAL SPINE 03/11/22 FINDINGS: Vertebral body heights and alignment are normal. At L5-S1, there is mild disc space narrowing. The remaining disc spaces are relatively well-maintained. No acute fracture or spondylolisthesis is seen. There is multi-level thoracolumbar spondylosis and Schmorl's node formation. 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 No foreign body is seen. IMPRESSION: 1. There is mild degenerative disc disease at L5-S1. 2. 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 3. There is multi-level thoracolumbar spondylosis and Schmorl's node formation. NE electromyogram (EMG); NE nerve conduction velocity 06/14/23 FINDINGS: All motor and sensory nerves tested showed normal latencies, amplitudes and conduction velocities. Concentric needle EMG was performed in selected muscles of the bilateral lower extremity. Study did not reveal signs of electric abnormalities as shown in the table below. IMPRESSION: 1. This is a normal study. 2. There is no electrodiagnostic evidence for peroneal neuropathy, tibial neuropathy, lumbosacral plexopathy, lumbar radiculopathy, or peripheral neuropathy. Assessment & Plan Assessment & Plan (1) Lumbar spondylosis: Code(s): M47.816 - Spondylosis without myelopathy or radiculopathy, lumbar region Category: Medical (2) Pars defect of lumbar spine: Code(s): M43.06 - Spondylolysis, lumbar region Category: Medical (3) Lumbar degenerative disc disease: Code(s): M51.36 - Other intervertebral disc degeneration, lumbar region Category: Medical (4) Vertebrogenic low back pain: Code(s): M54.51 - Vertebrogenic low back pain Category: Medical (5) Lumbar radiculopathy: Code(s): M54.16 - Radiculopathy, lumbar region Category: Medical (6) Spondylolisthesis of lumbar region: Code(s): M43.16 - Spondylolisthesis, lumbar region Category: Medical (7) Fibromyalgia, primary: Code(s): M79.7 - Fibromyalgia Category: Medical (8) Chronic pain syndrome: Code(s): G89.4 - Chronic pain syndrome Category: Medical (9) Chronic left SI joint pain: Code(s): M53.3 - Sacrococcygeal disorders, not elsewhere classified; G89.29 - Other chronic pain Category: Medical (10) Lumbar back pain with radiculopathy affecting left lower extremity: Code(s): M54.16 - Radiculopathy, lumbar region Category: Medical Plan Patient is status post diagnostic bilateral lumbar medial branches with very minimal pain relief. Unfortunately, given patient's response, she is not candidate for stimulative or ablative procedures. Patient reports moderate to severe low back pain with radiation into her bilateral lower extremities, worse on the left. Previous interventions, including sacroiliac joint and TFESI injections were not helpful. She was seen by our [facility] last year and deemed non-surgical. Patient reports back pain has been progressively worsening and resistant to conservative measures. We will proceed with updating MRI of the lumbar spine to assess for neural integrity and compression and follow up on previous MRI findings, including spondylolisthesis and degree of degeneration. Questions and concerns answered and patient agreed with the treatment plan. Patient will return to the clinic to discuss results of the MRI? findings when it is done and consider interventional therapy vs Neuro Spien re-evaluation as indicated.? Orders: Orders MR lumbar spine wo con Today M43.06 - Spondylolysis, lumbar region, M43.16 - Spondylolisthesis, lumbar region, M47.816 - Spondylosis without myelopathy or radiculopathy, lumbar region, M51.36 - Other intervertebral disc degeneration, lumbar region, M54.16 - Radiculopathy, lumbar region, M54.51 - Vertebrogenic low back pain Coding Level of Care Code Est Pt Level 4 (09663) Complex EM visit Add On G2211 Diagnoses Lumbar spondylosis M47.816 Pars defect of lumbar spine M43.06 Lumbar degenerative disc disease M51.36 Vertebrogenic low back pain M54.51 Lumbar radiculopathy M54.16 Spondylolisthesis of lumbar region M43.16 Fibromyalgia, primary M79.7 Chronic pain syndrome G89.4 Chronic left SI joint pain M53.3; G89.29 Lumbar back pain with radiculopathy affecting left lower extremity M54.16
[2023-11-14 09:01] VITALS: BP 160/79; PULSE 82; O2SAT 98; BMI 38.4
== END 2023-11-14 09:12 | disposition home or self-care (01) ==
PROVIDERS: PCP Internal Medicine; Visit Provider Nurse Practitioner Family
DX: M47.816 Spondylosis without myelopathy or radiculopathy, lumbar region (principal); M43.06 Spondylolysis, lumbar region; M51.36 Other intervertebral disc degeneration, lumbar region; M54.51 Vertebrogenic low back pain; M54.16 Radiculopathy, lumbar region; M43.16 Spondylolisthesis, lumbar region; M79.7 Fibromyalgia; G89.4 Chronic pain syndrome; M53.3 Sacrococcygeal disorders, not elsewhere classified; G89.29 Other chronic pain
CPT/HCPCS: 99214; G2211

== ENCOUNTER → 2023-11-14 08:52 | Outpatient (BNVA) | payer OTHER, SELFPAY | PROVIDERS: PCP Internal Medicine; Visit Provider Nurse Practitioner Family | DX: M47.816 Spondylosis without myelopathy or radiculopathy, lumbar region (principal); M43.06 Spondylolysis, lumbar region; M51.36 Other intervertebral disc degeneration, lumbar region; M54.51 Vertebrogenic low back pain; M54.16 Radiculopathy, lumbar region; M43.16 Spondylolisthesis, lumbar region; M79.7 Fibromyalgia; M53.3 Sacrococcygeal disorders, not elsewhere classified; G89.29 Other chronic pain | CPT/HCPCS: 99212 ==

== ENCOUNTER 2023-11-24 09:45 | Outpatient (AMB) | payer OTHER, SELFPAY ==
[2023-11-24 09:49] VITALS: BP 126/72; BMI 37.9
--- NOTE | 2023-11-24 09:49 | MHC.OFFVIS ---
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 Services: It Field Technician Present Information Interpreted: clinical only Item Repair Manager: Item Repair Manager Present Allergies No Known Allergies [No Known Allergies*] Allergy (Verified 11/24/23 09:50) Medication List - Last Reconciled 11/24/23 by Corinne Crabtree CNM cholecalciferol (vitamin D3) 50 mcg PO DAILY 90 days duloxetine 30 mg PO BID 30 days escitalopram oxalate 20 mg PO DAILY 30 days ibuprofen 600 mg PO Q8H PRN lorazepam 1 mg PO ONCE PRN sennosides (senna) 17.2 mg (2 x 8.6 mg) PO BEDTIME PRN 30 days sumatriptan succinate take 1 tab at onset of headache; if no relief may repeat 1 tab after at least 2 hrs; max = 4 tabs/24 hr PO tramadol 50 mg PO BID PRN 10 days trazodone 100 mg PO BEDTIME PRN 30 days Is last menstrual period known: Yes Last menstrual period: 11/14/23 Do you need a note to return to daycare/school/sports/work: No HPI HPI 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 She is to go to [facility] in [place]. She had her baby through that practice she was induced at 37 because of her age and other factors and had a failed induction of labor and so had a . She thinks her last Pap smear was . She is is in a monogamous relationship she has a 3-year-old who she devote her time to. She has lots of back issues she has got degenerated discs and has had many injections were in her lower back and and has sciatica and various challenges with arthritis. She has been trying to lose weight and has lost a little bit she says she does not qualify for bariatric surgery because of her BMI. She knows her blood sugar was a little bit elevated but did not think she was in the prediabetic range. She has cut out sugar from her diet and soda and drinks only water and coffee and is trying to make changes. Because of her lower back pain she has limited but she does try to walk in the mornings when she brings her son to pre school. She is currently at home taking care of her child considers going back to work when he goes to school. She would like to talk about something for her periods. Also control. They had their son through IVF because she had trouble getting though she has to have regular periods however in September she got to 7 day periods in the month and then her last period in October was only 3 days on November 13. When she is in pain with her back she does not have sex much but she would like to have a method of control she was tried on three-month OCP a few years ago it did not really work for her and she had breakthrough bleeding in the 2nd month. She would like something to help her periods and control. She had her mammogram in June and it was fine. FOR[facility]LY [facility] Medical History Migraine Anxiety Vitamin D deficiency Depression Family history of ovarian cancer Breast pain, right Hepatitis depression Obesity (BMI 30-39.9) History of in vitro fertilization Left ovarian cyst Anemia Surgical History H/O: (~03/2020) History of tonsillectomy History of carpal tunnel surgery Family History Maternal Aunt Ovarian cancer Maternal Uncle Colon cancer Maternal Uncle Colon cancer Mother COPD (chronic obstructive pulmonary disease) Fibromyalgia Hypertension Father No problems noted. Brother No problems noted. Son No problems noted. Social History Housing: Apartment Alcohol intake: current Alcohol intake frequency: holidays/special occasions only Patient Tobacco Use Status: Former Tobacco user Tobacco use type: Cigarette e-Cigarette/Vaping Use: Never Used Second Hand Smoke Exposure: Yes service: No Current occupational status: unemployed Cognitive needs: No Hearing needs: No Vision needs: Yes (glasses) Female Reproductive History Menstrual Age of Menarche: 12 Duration of menses: other Date of last menstrual period: 11/14/23 control method: none Total pregnancies: 1 Full term: 1 Date of last pap smear: 10/11/20 (negative) History of abnormal pap smear: No Date of Mammogram: 07/14/23 (negative) History of abnormal mammogram: No Physical Exam Vital Signs: Last Vital Signs BP 126/72 11/24/23 09:49 BMI result Body Mass Index 37.9 Const General: healthy appearing, comfortable, no acute distress, well developed and alert Nutritional Appearance: average body habitus Orientation/consciousness: patient oriented x3 Limitations: no limitations HEENT Head: Yes normocephalic Neck Neck: Yes normal visual inspection Chest Chest palpation & inspection: normal inspection of the chest Breast/axilla inspection: normal inspection of the breasts and normal inspection of the axillae Breast/axilla palpation: normal palpation of the breasts and normal palpation of the axillae Resp Effort & Inspection: normal respiratory effort GI Inspection: Yes normal to inspection, No Abdominal wall edema and No distended Palpation (GI): Soft to palpation and nontender Other: External exam within limits vagina pink and moist with normal appearing white discharge cervix appears slightly multiparous. Cervix mobile nontender uterus not enlarged nontender difficult to feel completely secondary to habitus adnexa nontender good tone with Kegel. General: Yes bladder normal to palpation External Female Exam: normal external appearance and normal appearance of the urethra Speculum Exam - Vagina: normal appearance of the vagina, normal palpation and normal vaginal discharge Speculum Exam - Cervix: normal appearance of the cervix, normal palpation and nontender Bimanual exam- vagina & uterus: normal bimanual exam, normal palpation, uterine size normal, bladder normal to palpation, consistency normal, normal palpation, uterine mobility normal, uterine shape normal, No Cervical tenderness present, non-tender and no cervical motion tenderness Bimanual Exam- Adnexa, other: normal adnexae, no masses, normal and No adnexal tenderness Neuro General: patient oriented x3 Assessment & Plan Assessment & Plan (1) Spondylolisthesis of lumbar region: Code(s): M43.16 - Spondylolisthesis, lumbar region Category: Medical (2) Cervical cancer screening: Comment: Pap smear done 11/24/2023. Code(s): Z12.4 - Encounter for screening for malignant neoplasm of cervix Category: Medical (3) Primary osteoarthritis, right shoulder: Code(s): M19.011 - Primary osteoarthritis, right shoulder Category: Medical (4) Cervical pain: Code(s): M54.2 - Cervicalgia Category: Medical (5) Lumbar radiculopathy: Code(s): M54.16 - Radiculopathy, lumbar region Category: Medical (6) Lumbar degenerative disc disease: Code(s): M51.36 - Other intervertebral disc degeneration, lumbar region Category: Medical (7) Obesity (BMI 30-39.9): Code(s): E66.9 - Obesity, unspecified Category: Medical (8) Elevated fasting glucose: Code(s): R73.01 - Impaired fasting glucose Category: Medical (9) Women's annual routine gynecological examination: Code(s): Z01.419 - Encounter for gynecological examination (general) (routine) without abnormal findings Category: Medical (10) control counseling: Code(s): Z30.09 - Encounter for other general counseling and advice on contraception Category: Medical Plan -----Discussed in this visit the following: healthy balanced diet, regular and consistent exercise, getting recommended health screens, doing the best she can for her particular health concerns, kegel exercises, pap smear screening and followup recommendations, mammography screening and SBE, normal changes in cycles in her life stage--- . Discussed her period History and options for control in her particular age group I normally would not be comfortable starting combination control pills in her age range as well as there are other factors Discussed the option of considering a Mirena IU S that would help her with her uncomfortable periods and also be a reliable method of control for 5-8 years depending and I did discuss the variable factors with her.. She is interested and we will call the office when she gets her. Discussed the benefits of placing it in the 1st 2 days of her menses which are the only days that her normally heavy in her cycle to read the benefits of cervical softening and minimal dilation that occurs at that time to make the procedure use year she had a very difficult attempt at labor induction with cervical ripening so she understood this issue well. -additionally a lot of discussion took place about all the different factors that may help her with making her health and weight loss a priority while she still has her son at home half a day it but in school half a day and taking this time to get healthier lose the weight improve her situation with her back and improve her possible prediabetic condition as well discussed that that may help her qualify for different weight loss medications and she should consider having a discussion with her primary about this as she has medical conditions as well that are made worse by her weight (all her back and spine issues). Discussed the possible benefits of swimming andcongratulated her on her morning walks,. and the changes she is already making. We will see her for her Mirena insertion hopefully with her next menses. Coding Level of Care Code New Pt Prev Care 18-39yr([id number] Diagnoses Spondylolisthesis of lumbar region M43.16 Cervical cancer screening Z12.4 Primary osteoarthritis, right shoulder M19.011 Cervical pain M54.2 Lumbar radiculopathy M54.16 Lumbar degenerative disc disease M51.36 Obesity (BMI 30-39.9) E66.9 Elevated fasting glucose R73.01 Women's annual routine gynecological examination Z01.419 control counseling Z30.09 Time Spent (min) 50 Comment Discussed the interrelationship of her health issues and weight, and control & plan
== END 2023-11-24 11:14 | disposition home or self-care (01) ==
PROVIDERS: PCP Internal Medicine; Visit Provider Advanced Practice Midwife
DX: Z01.419 Encounter for gynecological examination (general) (routine) without abnormal findings (principal); E66.9 Obesity, unspecified; Z30.09 Encounter for other general counseling and advice on contraception
CPT/HCPCS: 99386

== ENCOUNTER 2023-11-24 09:45 | Outpatient (REF) | payer OTHER, SELFPAY ==
[2023-11-25 14:20] LABS: CT PCR NOT DETECTED (Not Detect.); NG PCR NOT DETECTED (Not Detect.)
[2023-11-26 08:56] LABS: Bacterial Vaginosis PCR NEGATIVE (Negative); Candida Group PCR NOT DETECTED (Not Detect); Candida glab krusei PCR NOT DETECTED (Not Detect); Trichomonas vaginalis PCR NOT DETECTED (Not Detect)
[2023-11-29 12:22] LABS: HPV mRNA E6/E7 Not Detected (Not Detected)
== END 2023-11-24 09:46 | disposition home or self-care (01) ==
LOC: HO.LAB 09:45
PROVIDERS: PCP Internal Medicine; Visit Provider Advanced Practice Midwife
DX: N89.8 Other specified noninflammatory disorders of vagina (principal); Z20.2 Contact with and (suspected) exposure to infections with a predominantly sexual mode of transmission; Z01.419 Encounter for gynecological examination (general) (routine) without abnormal findings; M43.16 Spondylolisthesis, lumbar region; Z12.4 Encounter for screening for malignant neoplasm of cervix; M19.011 Primary osteoarthritis, right shoulder; M54.2 Cervicalgia; M54.16 Radiculopathy, lumbar region; M51.360 Other intervertebral disc degeneration, lumbar region with discogenic back pain only; E66.9 Obesity, unspecified; R73.01 Impaired fasting glucose; Z30.09 Encounter for other general counseling and advice on contraception
CPT/HCPCS: 0352U; 36415; 87491; 87591; 87624; 88175; 99386

== ENCOUNTER 2023-12-02 21:14 | Emergency (ER) | payer OTHER, SELFPAY ==
--- NOTE | ~2023-12-02 | US_ITS ---
EXAMINATION: US ABDOMEN LIMITED CLINICAL INFORMATION: Right upper quadrant pain radiating to back. COMPARISON: None available. TECHNIQUE: Real-time imaging of the right upper quadrant abdominal viscera. FINDINGS: PANCREAS: Not imaged. LIVER: The visualized liver is normal in appearance. There is no intrahepatic biliary duct dilatation seen. GALLBLADDER: Normal. The gallbladder is physiologically distended without evidence of stones, sludge, polyps, wall thickening or pericholecystic fluid. COMMON BILE DUCT: Normal in caliber measuring 0.2 cm in diameter. RIGHT KIDNEY: Not imaged. FREE FLUID: None. US/US abdomen limited IMPRESSION: No cholelithiasis or biliary ductal dilatation. Electronically signed by: Yoel Henson MD 12/02/2023 11:49 PM EDT
[2023-12-02 21:16] VITALS: BP 132/77; PULSE 63; RESP 16; TEMP 36.6; O2SAT 100; BMI 36.9
[2023-12-02 21:40] LABS: MANUAL DIFF FLAG NO
[2023-12-02 21:43] LABS: Basophils Percent Auto 0.9 % (0-2); Eosinophils Absolute Auto 0.1 X10*3/uL (0.0-0.4); Eosinophils Percent Auto 1.3 % (0-4); Hematocrit 28.2 % (37.0-47.0); Imm Gran Abs Auto 0.01 X10*3/uL (0.00-0.03); Imm Gran Pct Auto 0.2 % (0.0-0.4); Lymphocytes Absolute Auto 1.6 X10*3/uL (1.2-4.9); Mean Corpuscular HGB Conc 28.4 g/dl (31.0-35.0); Mean Corpuscular Volume 70.5 fL (80.0-98.0); Monocytes Absolute Auto 0.4 X10*3/uL (0.1-1.2); Monocytes Percent Auto 8.9 % (2-11); Neutrophils Absolute Auto 2.4 x10*3/uL (2.0-8.3); Neutrophils Percent Auto 53.7 % (45-73); Platelet Count 170 X10*3/uL (160-400); White Blood Count 4.5 X10*3/uL (4.8-10.8)
[2023-12-02 21:45] LABS: Mean Platelet Volume 10.3 fL (9.4-12.3)
[2023-12-02 21:47] LABS: Appearance Urine Clear; Color Urine Yellow; Glucose Urine UA Negative (Negative); Leukocyte Esterase Urine Small (1+) (Negative); Nitrite Urine Negative (Negative); UMIC TRIGGER UACC YES; Urine Blood Negative (Negative); Urine Ketones Negative (Negative); Urine Protein Negative (Neg-Trace)
[2023-12-02 21:54] LABS: Alanine Aminotransferase 16 U/L (0-31); Albumin Level 4.3 g/dL (3.5-5.0); Alkaline Phosphatase 78 U/L (39-117); Anion Gap 11 (12-20); Aspartate Amino Transferase 18 U/L (5-31); Bilirubin Direct 0.1 mg/dL (0.0-0.5); Bilirubin Total 0.3 mg/dL (0.0-1.0); Blood Urea Nitrogen 13 mg/dL (9-16); Calcium 9.1 mg/dL (8.4-10.2); Carbon Dioxide 22 mmol/L (22-29); Chloride 110 mmol/L (96-108); Creatinine Clr Calc Pharmacy 139.1; Estimated Glomerular Filt Rate > 60; Glucose Random 100 mg/dL (60-115); Lipase 17 U/L (8-78); Sodium 139 mmol/L (135-145); Total Protein 7.5 g/dL (6.5-8.0)
[2023-12-02 21:58] LABS: Bacteria Urine None Seen (None Seen); Hyaline Casts Urine 0-2 /LPF (0-2); RBC Urine 0-2 /HPF (0-2); Squamous Epithelial Cell Urine 0-2 /HPF (0-2); UACC Culture Trigger YES; WBC Urine 0-5 /HPF (0-5)
--- NOTE | 2023-12-02 23:04 | ED.GENADULT ---
HPI - General Adult General Chief complaint: Abdominal Pain Stated complaint: abd pain radiating to back Time Seen by Provider: 12/02/23 22:34 Source: patient, RN notes reviewed and old records reviewed Mode of arrival: ambulatory Limitations: no limitations History of Present Illness ED Provider: Lesvia PETERS narrative: 43-year-old female 43-year-old female presents for evaluation of abdominal pain. Patient reports she has had right upper quadrant abdominal pain for about 1 month but has been worse over the last 2 days. She has associated nausea without vomiting. The pain is worse with eating and movement She denies any history abdominal surgeries Denies any fevers, chills. Her pain is a 7/10 at worst. She does have a history of ?back problems. ? She took Flexeril prior to arrival that did help her symptoms somewhat Related Data Previous Rx's ?Medication ?Instructions ?Recorded ibuprofen 600 mg tablet 600 mg PO Q8H PRN pain #30 tabs 03/11/22 lorazepam 1 mg tablet 1 mg PO ONCE PRN anxiety #2 tabs 06/20/22 cholecalciferol (vitamin D3) 50 50 mcg PO DAILY 90 days #90 caps 09/21/22 mcg (2,000 unit) capsule sennosides 8.6 mg tablet (senna) 17.2 mg (2 x 8.6 mg) PO BEDTIME 07/11/23 PRN constipation 30 days #60 tabs trazodone 100 mg tablet 100 mg PO BEDTIME PRN insomnia 30 09/13/23 days #30 tabs sumatriptan succinate 50 mg tablet See Rx Instructions PO .COMPLEX 09/27/23 #20 tabs tramadol 50 mg tablet 50 mg PO BID PRN pain 10 days #20 09/28/23 tabs escitalopram oxalate 20 mg tablet 20 mg PO DAILY 30 days #30 tabs 10/19/23 duloxetine 30 mg capsule,delayed 30 mg PO BID 30 days #60 caps 11/24/23 release Allergies Allergy/AdvReac Type Severity Reaction Status Date / Time No Known Allergies Allergy Verified 12/02/23 21:18 [No Known Allergies*] Review of Systems Constitutional: Constitutional: Denies body ache(s), Denies chills and Denies fever(s) Cardiovascular: Cardiovascular: Denies chest pain and Denies dyspnea Respiratory: Respiratory: Denies cough and Denies dyspnea Gastrointestinal: Gastrointestinal: Reports abdominal pain, Reports nausea and Denies vomiting Genitourinary: Genitourinary: Denies urinary hesitancy Musculoskeletal: Musculoskeletal: Denies back pain Integumentary/Breasts: Skin/Breast: Denies rash PMFSH Past Medical History Medical History Migraine Anxiety Vitamin D deficiency Depression Family history of ovarian cancer Breast pain, right Hepatitis depression Obesity (BMI 30-39.9) History of in vitro fertilization Left ovarian cyst Anemia Surgical History H/O: (~03/2020) History of tonsillectomy History of carpal tunnel surgery Family History Family History Maternal Aunt Ovarian cancer Maternal Uncle Colon cancer Maternal Uncle Colon cancer Mother COPD (chronic obstructive pulmonary disease) Fibromyalgia Hypertension Father No problems noted. Brother No problems noted. Son No problems noted. Social History Social History Housing: Apartment Alcohol intake: current Alcohol intake frequency: holidays/special occasions only Patient Tobacco Use Status: Former Tobacco user Tobacco use type: Cigarette e-Cigarette/Vaping Use: Never Used Second Hand Smoke Exposure: Yes Advance Directives: No Advance Directives Information Provided: No service: No Current occupational status: unemployed Cognitive needs: No Hearing needs: No Vision needs: Yes (glasses) Physical Exam ED Vital Signs: Vital Signs - 24 hr 12/02/23 21:16 Temperature 97.8 F Pulse Rate 63 Respiratory Rate 16 Blood Pressure 132/77 Pulse Oximetry 100 Oxygen Delivery Method Room Air BMI result Body Mass Index 36.9 Const General: healthy appearing, comfortable, no acute distress, alert and awake Nutritional Appearance: well nourished Orientation/consciousness: patient oriented x3 HENMT Head: Yes normocephalic and Yes atraumatic Eyes Eyelids: Yes eyelids normal Conjunctivae: conjunctivae normal Sclerae: sclerae normal Corneas: corneas normal Pupils: Equal, round and reactive pupils present EOM: EOMs intact bilaterally Neck Neck: Yes full ROM Resp Effort & Inspection: normal respiratory effort, able to speak in complete sentences and not labored Cardio Rate: regular rate Rhythm: regular rhythm GI Inspection: No distended Palpation (GI): Soft to palpation, not firm, Tenderness to palpation present (GI) in the RUQ; not in the epigastrum, not in the LLQ, not in the RLQ and not in the LUQ, no guarding and not rigid Auscultation: normoactive bowel sounds Skin General skin exam: elasticity normal Neuro General: patient oriented x3 Cranial nerves: Yes Equal, round and reactive pupils present and Yes Bilaterally intact EOM present Cognition (Neuro): normal cognition Extrem Other: Moving all extremities well without any obvious deformities Course Reevaluation(s) Reevaluation #1: Ultrasound of the gallbladder negative for gallstones or evidence of cholecystitis Time: 23:14 Medical Decision Making Medical Decision Making [facility] Narrative: 43-year-old female presents for evaluation of right upper abdominal pain. Her pain is worse with movement but also after eating. Her labs are reassuring within normal limits, she has a negative Amaro's sign. Plan for ultrasound of the gallbladder to evaluate for cholelithiasis. I have a very low suspicion for acute cholecystitis. Her pain is quite high in the right upper quadrant, less likely to be acute appendicitis. She has no CVA tenderness to suggest pyelonephritis or obstructive uropathy. No symptoms whatsoever. Differential Diagnosis Differential Diagnoses: The differential diagnosis associated with the presentation includes Cholelithiasis Acute cholecystitis Pancreatitis Abdominal pain Muscle strain Lab Data [facility] Lab Attestation statement: I reviewed the patient's lab results. The patient has a mild leukopenia and anemia consistent with her baseline going back to September, 2 months ago. She has a normal platelet count. Electrolytes are within normal limits including LFTs. 12/02/23 21:33 12/02/23 21:33 Labs: Lab Results 12/02/23 12/02/23 Range/Units 21:33 21:38 WBC 4.5 L (4.8-10.8) X10*3/uL RBC 4.00 L (4.20-5.50) X10*6/uL Hgb 8.0 L (12.0-16.0) g/dl Hct 28.2 L (37.0-47.0) % MCV 70.5 L (80.0-98.0) fL MCH 20.0 L (27.0-33.0) pg MCHC 28.4 L (31.0-35.0) g/dl RDW 19.0 H (11.0-16.0) % Plt Count 170 (160-400) X10*3/uL MPV 10.3 (9.4-12.3) fL Immature Gran % (Auto) 0.2 (0.0-0.4) % Neut % (Auto) 53.7 (45-73) % Lymph % (Auto) 35.0 (20-40) % [place] % (Auto) 8.9 (2-11) % Eos % (Auto) 1.3 (0-4) % Baso % (Auto) 0.9 (0-2) % Lymph # (Auto) 1.6 (1.2-4.9) X10*3/uL [place] # (Auto) 0.4 (0.1-1.2) X10*3/uL Eos # (Auto) 0.1 (0.0-0.4) X10*3/uL Baso # (Auto) 0.0 (0.0-0.2) X10*3/uL Abs Immat Gran (auto) 0.01 (0.00-0.03) X10*3/uL Absolute Neuts (auto) 2.4 (2.0-8.3) x10*3/uL Absolute Nucleated RBC 0.000 (0.0-0.012) X10*3/uL Nucleated RBC % (auto) 0.0 (0.0-0.2) /100WBC Sodium 139 (135-145) mmol/L Potassium 4.0 (3.3-5.1) mmol/L Chloride 110 H (96-108) mmol/L Carbon Dioxide 22 (22-29) mmol/L Anion Gap 11 L (12-20) BUN 13 (9-16) mg/dL Creatinine 0.70 (0.5-1.4) mg/dL Estim Creat Clear Calc 139.1 Estimated GFR > 60 Random Glucose 100 (60-115) mg/dL Calcium 9.1 D (8.4-10.2) mg/dL Total Bilirubin 0.3 (0.0-1.0) mg/dL Direct Bilirubin 0.1 (0.0-0.5) mg/dL AST 18 (5-31) U/L ALT 16 (0-31) U/L Alkaline Phosphatase 78 (39-117) U/L Total Protein 7.5 (6.5-8.0) g/dL Albumin 4.3 (3.5-5.0) g/dL Lipase 17 (8-78) U/L Urine Color Yellow Urine Appearance Clear Urine pH 7.0 (5.0-9.0) Ur Specific [place] 1.020 (1.005-1.025) Urine Protein Negative (Neg-Trace) mg/dL Urine Glucose (UA) Negative (Negative) mg/dL Urine Ketones Negative (Negative) mg/dL Urine Blood Negative (Negative) Urine Nitrite Negative (Negative) Ur Leukocyte Esterase Small (1+) H (Negative) Urine RBC 0-2 (0-2) /HPF Urine WBC 0-5 (0-5) /HPF Ur Squamous Epith Cells 0-2 (0-2) /HPF Urine Bacteria None Seen (None Seen) Hyaline Casts 0-2 (0-2) /LPF Discharge Plan Discharge Clinical Impression: Abdominal pain Patient Disposition: Home, Self-Care Instructions: Abdominal Pain (ED) Additional Instructions: Your workup in the ER today was reassuring. Ultrasound did not show any evidence of gallstones or gallbladder infection. Your pain is likely musculoskeletal in origin Follow-up with your primary doctor, return for new or worsening symptoms Prescriptions: No Action lorazepam 1 mg tablet 1 mg PO ONCE PRN (Reason: anxiety) Qty: 2 0RF Rx Instructions: Take one tablet 30 min prior to procedure on 06/21/22. trazodone 100 mg tablet 100 mg PO BEDTIME PRN (Reason: insomnia) 30 Days Qty: 30 1RF escitalopram oxalate 20 mg tablet 20 mg PO DAILY 30 Days Qty: 30 1RF duloxetine 30 mg capsule,delayed release(DR/EC) 30 mg PO BID 30 Days Qty: 60 1RF ibuprofen 600 mg tablet 600 mg PO Q8H PRN (Reason: pain) Qty: 30 0RF sumatriptan succinate 50 mg tablet See Rx Instructions PO .COMPLEX Qty: 20 3RF Rx Instructions: take 1 tab at onset of headache; if no relief may repeat 1 tab after at least 2 hrs; max = 4 tabs/24 hr PO sennosides [senna] 8.6 mg tablet 17.2 mg PO BEDTIME PRN (Reason: constipation) 30 Days Qty: 60 3RF cholecalciferol (vitamin D3) 50 mcg (2,000 unit) capsule 50 mcg PO DAILY 90 Days Qty: 90 3RF tramadol 50 mg tablet 50 mg PO BID PRN (Reason: pain) 10 Days Qty: 20 0RF Print Language: Bengali
== END 2023-12-02 23:24 | disposition home or self-care (01) ==
PROVIDERS: Emergency Provider Emergency Medicine; PCP Internal Medicine
DX: R10.11 Right upper quadrant pain (principal)
CPT/HCPCS: 36415; 76705; 80048; 80076; 81001; 83690; 85025; 87086; 99282; 99284

== ENCOUNTER 2023-12-06 08:48 | Outpatient (AMB) | payer OTHER, SELFPAY ==
--- NOTE | 2023-12-06 08:52 | A.OFFVIS_ITS ---
Vital Signs 12/06/23 09:00 Height 5 ft 9 in Weight 250 lb BMI 36.9 Handedness Right Intake Visit Reasons: OV-RT upper trapezius trigger injection-follow up Intake Note: Norma is a 43 year old right hand dominant female who presents today for a follow up of her upper trapezius trigger injection, last injection 11/02/23. Patient reports the injection gave her some relief but her ROM is limited and causing her pain. Allergies No Known Allergies [No Known Allergies*] Allergy (Verified 12/06/23 08:59) HPI Comments Details: We have tried trigger point injections to upper trapezius with good relief but not 100% resolved. Patient continues to have right-sided upper trapezius pain especially when moving head and shoulder. Does not radiate down to arm. No associated numbness. Review of history: I've met patient before for EMG (BLE which was normal). She has chronic pain. Per PCP note, fibromyalgia is being considered. For chronic back pain, she has seen neurosurgery and follows with pain management for lumbar injections. She's been worked up by Rheumatology (negative workup per PCP's note). She has seen Hand Surgery, s/p left CTR and orthopedics for shoulder pain. Past shoulder x-ray did show mild arthritic changes; past cervical x-ray did show disc space loss. [facility] Medical History Migraine Anxiety Vitamin D deficiency Depression Family history of ovarian cancer Breast pain, right Hepatitis depression Obesity (BMI 30-39.9) History of in vitro fertilization Left ovarian cyst Anemia Surgical History H/O: (~03/2020) History of tonsillectomy History of carpal tunnel surgery Family History Maternal Aunt Ovarian cancer Maternal Uncle Colon cancer Maternal Uncle Colon cancer Mother COPD (chronic obstructive pulmonary disease) Fibromyalgia Hypertension Father No problems noted. Brother No problems noted. Son No problems noted. Social History Housing: Apartment Alcohol intake: current Alcohol intake frequency: holidays/special occasions only Patient Tobacco Use Status: Former Tobacco user Tobacco use type: Cigarette e-Cigarette/Vaping Use: Never Used Second Hand Smoke Exposure: Yes service: No Current occupational status: unemployed Cognitive needs: No Hearing needs: No Vision needs: Yes (glasses) Female Reproductive History Menstrual Age of Menarche: 12 Physical Exam Vital Signs: BMI result Body Mass Index 36.9 Constitutional: Patient appears to be in no acute distress, well nourished and well developed. Patient was appropriately conversant and oriented. Good historian. MSK: Inspection reveals appropriate head and neck positioning. Tender right upper trapezius. Cervical ROM was full. Though pain with neck extension. Spurling's sign negative. Right shoulder has full range of motion. Negative Arita sign. Negative empty can sign. Negative speed's test. Strength is 5/5 in all muscle groups tested. No increased tone noted. Neurological: Neurologic examination of the upper and lower extremities was nonfocal with intact sensation, muscle stretch reflexes and without focal motor deficits . Willson?s negative bilaterally. Gait is non-antalgic without loss of balance. Results Reviewed Results Reviewed: Ordering Physician: Maria C Anderson Date of Service: 08/16/23 Procedure(s): XR cervical spine 3V Accession Number(s): [id number] cc: Maria C nAderson~ EXAMINATION: XR CERVICAL SPINE CLINICAL INFORMATION: Neck pain. COMPARISON: 09/08/2015. TECHNIQUE: 3 views of the cervical spine. FINDINGS: Straightening of the normal cervical lordosis. Multilevel cervical spondylosis. Mild loss of disc space height at C2-C3. Minimal anterior subluxation of C3 on C4 with mild loss of disc space height. Large anterior osteophytes at C5-C6 with mild loss of disc space height. Poor visualization of C6 and C7 due to overlying bone and soft tissue structures. XR/XR cervical spine 3V IMPRESSION: Multilevel cervical spondylosis. Ordering Physician: Wilber Cochran MD Date of Service: 07/12/23 Procedure(s): XR shoulder RT min 2V Accession Number(s): [id number] cc: Wilber Cochran MD~ EXAMINATION: XR SHOULDER, RIGHT CLINICAL INFORMATION: Pain in right shoulder. COMPARISON: None available. TECHNIQUE: 3 views of the right shoulder. FINDINGS: Bone mineralization is normal. Mild degenerative changes in the acromioclavicular and glenohumeral joints. Acromioclavicular and glenohumeral alignment is preserved. No abnormal soft tissue calcifications identified adjacent to the humeral head to suggest rotator cuff pathology. XR/XR shoulder RT min 2V IMPRESSION: Mild degenerative changes. I reviewed records from the following: PCP Neurosurgery Orthopedics Hand surgery Pain management Assessment & Plan Assessment & Plan (1) Cervical radiculitis: Code(s): M54.12 - Radiculopathy, cervical region Category: Medical (2) Cervical spondylosis: Code(s): M47.812 - Spondylosis without myelopathy or radiculopathy, cervical region Category: Medical (3) Myofascial pain on right side: Code(s): M79.18 - Myalgia, other site Category: Medical Plan Continues to have pain right upper trapezius despite trigger point injections. We could consider botulinum toxin injections that may give longer lasting relief. However prior to doing that, we would want to rule out anything that could be referring from cervical spine. Patient had undergone adequate conservative management without improvement of condition. It would be reasonable to obtain further imaging such as MRI. An MRI would help rule out any serious condition, guide treatment and assess prognosis for recovery. Specifically ruling out right C5-6 disc herniation or nerve impingement. She has only been taking Flexeril as needed, 5 mg, as it does make her sedated. Advised to take more routinely but before bedtime only. She will ask her PCP for refills. Assessment and plan discussed with patient, and patient was agreeable. All questions were answered thoroughly. We will contact patient after MRI results reviewed. Mraia C Mckeon MD, STEPHANY Board Certified, [place] [employer] and Rehabilitation (ABPMR) Board Certified, [place] [employer] Electrodiagnostic [employer] (ABEM) Orders: Orders MR cervical spine wo con Today M54.12 - Radiculopathy, cervical region Coding Level of Care Code New Pt Level 4 (54135) Diagnoses Cervical radiculitis M54.12 Cervical spondylosis M47.812 Myofascial pain on right side M79.18
[2023-12-06 09:00] VITALS: BMI 36.9
== END 2023-12-06 09:27 | disposition home or self-care (01) ==
PROVIDERS: PCP Internal Medicine; Visit Provider Physical Medicine & Rehabilitation
DX: M47.22 Other spondylosis with radiculopathy, cervical region (principal); M79.18 Myalgia, other site
CPT/HCPCS: 99214

== ENCOUNTER → 2023-12-06 08:48 | Outpatient (BNVA) | payer OTHER, SELFPAY | PROVIDERS: PCP Internal Medicine; Visit Provider Physical Medicine & Rehabilitation | DX: M54.12 Radiculopathy, cervical region (principal); M47.812 Spondylosis without myelopathy or radiculopathy, cervical region; M79.18 Myalgia, other site | CPT/HCPCS: 99212 ==

== ENCOUNTER 2023-12-07 10:29 | Outpatient (AMB) | payer OTHER, SELFPAY ==
--- NOTE | 2023-12-07 10:34 | MHC.OFFVIS ---
Vital Signs 12/07/23 10:39 Height 5 ft 9 in BP 100/60 Intake Visit Reasons: Mirena insertion Learning Disabled Teacher: Learning Disabled Teacher Present (Tasia) Allergies No Known Allergies [No Known Allergies*] Allergy (Verified 12/07/23 10:34) Is last menstrual period known: Yes Last menstrual period: 12/06/23 HPI Comments Details: Patient presents today for Mirena IUD insertion, currently on her menstrual cycle. She reports cycles are heavy and last up to 8 days, she reports her norm since having her menses. History of infertility, has a 3-year-old son through IVF. Is not seeking a future . UPT is negative today. Pap and GC chlamydia done on her annual visit several weeks ago are all negative. Anemic- recent labs 8.0/28.2. She had iron infusions during her weekly and is waiting to hear from her primary care to have a referral for hematology. [facility] Medical History (Updated 12/07/23 @ 11:59 by Alexia Silva CNM) IUD (intrauterine device) in place Migraine Anxiety Vitamin D deficiency Depression Family history of ovarian cancer Breast pain, right Hepatitis depression Obesity (BMI 30-39.9) History of in vitro fertilization Left ovarian cyst Anemia Surgical History H/O: (~03/2020) History of tonsillectomy History of carpal tunnel surgery Family History Maternal Aunt Ovarian cancer Maternal Uncle Colon cancer Maternal Uncle Colon cancer Mother COPD (chronic obstructive pulmonary disease) Fibromyalgia Hypertension Father No problems noted. Brother No problems noted. Son No problems noted. Social History Housing: Apartment Alcohol intake: current Alcohol intake frequency: holidays/special occasions only Patient Tobacco Use Status: Former Tobacco user Tobacco use type: Cigarette e-Cigarette/Vaping Use: Never Used Second Hand Smoke Exposure: Yes service: No Current occupational status: unemployed Cognitive needs: No Hearing needs: No Vision needs: Yes (glasses) Female Reproductive History Menstrual Age of Menarche: 12 Date of last menstrual period: 12/06/23 Review of Systems Const All systems reviewed & are unremarkable except as noted in HPI and below Physical Exam Vital Signs: Last Vital Signs BP 100/60 12/07/23 10:39 Const General: cooperative, healthy appearing and no acute distress Orientation/consciousness: patient oriented x3 GI Inspection: Yes normal to inspection Palpation (GI): Soft to palpation and Other GI palpation findings present (Nontender) Rectal Exam - Female: visual inspection normal General: Yes bladder normal to palpation External Female Exam: normal appearance of the urethra Speculum Exam - Vagina: normal appearance of the vagina, normal palpation, normal vaginal discharge and vaginal bleeding Speculum Exam - Cervix: normal appearance of the cervix and normal palpation Bimanual exam- vagina & uterus: normal bimanual exam, normal palpation, uterine size normal, bladder normal to palpation, normal palpation, uterine shape normal and non-tender Bimanual Exam- Adnexa, other: normal adnexae OB/external & speculum: vaginal bleeding Neuro General: patient oriented x3 Office Procedures IUD Insert/Removal Details 85750-EZS Insertion Procedure code (CPT) selection complete Contraception Insert/Removal Details Details: The patient is here today for a Mirena IUD insertion. She was counseled on the side effects including: menstrual cycle changes, pain, infection, bleeding, or expulsion. Risks of injury to the vagina, cervix, uterus, tubes, ovaries, bowel, bladder, and any adjacent tissue, resulting in nerve damage, scarring, and pain. Risks complications for the procedure that may require other test including ultrasounds, Xray, CT or MRI scan, surgery, anesthesia, blood transfusion. A urine test was completed and was negative. She was consented for the IUD insertion and has signed the consent form. All questions were answered. IUD Insertion: The patient was placed in the dorsal lithotomy position and a sterile speculum was inserted. The procedure was completed under aseptic technique. The cervix was cleansed with a Betadine solution x 3 swabs. A single toothed tenaculum was applied to the cervix for stabilization, and the uterus was sounded to 8 cm. The device was inserted and released with a gentle motion. Bleeding from the tenaculum sites and the procedure were minimal. The strings were trimmed to 3cm. All of the equipment was removed and the bimanual was normal, no tip was palpable at the cervical os. The patient tolerated the procedure well and left the office in good condition. Post IUD Insertion Care: There may be some post insertion bleeding for several days that is usually light and can turn to a light brown or pink in color. Mild cramping may occur. Nothing in the vagina including: tampons, douching or intimacy for several days. You may take an over the counter mild analgesia like Tylenol or Advil (if no allergies), per the manufacturers recommendations on dosing and frequency. Follow the directions completely. Call the office if any: fever (over 100.4), flu like symptoms, abdominal pain, worsening cramping not resolved with over the counter medications, foul smelling vaginal odor, signs of infected appearing discharge, or heavy bleeding. Use a condom for a back up method if indicated for 7 days. Always use a condom for STI prevention; IUD's are not protective against STD's. Return to the office in 4-6 weeks for IUD recheck. This note is constructed using voice recognition software. While every effort has been made to ensure accuracy, oil and gas exploration technician errors may have been included. 50255 - Insertion Endometrial Biopsy Details: The patient is here today for an endometrial biopsy due to AUB to rule out any pathology including atypical, hyperplasia or cancer cells of the uterus. She was counseled regarding anticipatory guidance for the procedure including the risks for pain, infection, bleeding, perforation, potential injury to the tissues may include the cervix, uterus, tubes, bladder and bowels. These injuries may include further treatment and evaluation including surgery, blood transfusions, antibiotics, hospitalizations and anesthesia. Permanent injury and scarring can occur. She was consented for the procedure, and the consent forms were signed. She is agreeable to have the procedure today. All questions were answered. Endometrial Biopsy Procedure: The patient was placed in the dorsal lithotomy position and a sterile speculum inserted. Using aseptic technique for the procedure. The cervix was cleansed with Betadine x 3 swabs. A single toothed tenaculum was placed on the cervix for stabilization and the uterus was sounded to 8 cm with a 4mm pipelle, and tissue sample obtained. Minimal bleeding was observed. The tissue sample was placed in formalin in a patient labeled container by staff assisting and sent to the pathology department for processing and interpretation. The patient tolerate the procedure well and was in good condition when leaving the department. Endometrial Biopsy Post Procedure Care: Nothing in the vagina including: tampons, douching or intimacy until all the bleeding has subsided. There may be some post procedure bleeding for several days, this bleeding is usually light and may turn to a light brown or pink color. Mild cramps may occurs. Nothing in the vaginal including: tampons, douching, or intimacy until all the bleeding has subsided. You may take an over the counter mild analgesic such as Tylenol or Advil (if no allergies) per the manufactures recommendation on dosing, frequency, and follow the directions completely. Call the office if any: fever (over 100.4), flu like symptoms, abdominal pain (worse than cramping), foul smelling, infected appearing vaginal discharge, or heavy bleeding. If indicated: Use condoms to prevent and STI's, and only after the bleeding has stopped completely. Return to the office in 2 weeks for results and plan of care. This note is constructed using voice recognition software. While every effort has been made to ensure accuracy, oil and gas exploration technician errors may have been included. 60209-Gtgrtcimajn Biopsy Office Meds Mirena 21 mcg/24 hr (up to 8 years) 52 mg intrauterine device Performing Provider: Alexia Silva CNM Performing Location: [facility] Administered by: SHANKAR Terry on 12/07/23 11:13 Dose Route Admin Location Dispensed Lot Number Expiration Date [facility] Cash On Delivery Clerk 1 device intrauterine 1 device [id number] 01/19/26 50359-732-70 [employer] Results AMB Test Urine AMB Test Urine Negative Last Edit by SHANKAR Terry on 12/07/23 10:42 Results Reviewed Results Reviewed: Laboratory Last Values [facility]st Clinic Negative 12/07/23 10:42 Assessment & Plan Assessment & Plan (1) Anemia: Code(s): D64.9 - Anemia, unspecified Category: Medical Qualifiers: Anemia type: unspecified type Qualified Code(s): D64.9 - Anemia, unspecified (2) Abnormal uterine bleeding (AUB): Code(s): N93.9 - Abnormal uterine and vaginal bleeding, unspecified Category: Medical Plan See procedure notes for endometrial biopsy and Mirena IUD insertion. Pelvic ultrasound ordered plan follow up combination visit with IUD check and EMB results. Plan referral to Hematology for further evaluation and treatment planning. All of her questions and concerns were addressed to the best of my ability and shared decision making. She is agreeable to the plan of care. This note is constructed using voice recognition software. While every effort has been made to ensure accuracy, oil and gas exploration technician errors may have been included. Orders: Orders AMB HCG Urine Test Today Z32.02 - Encounter for test, result negative AMB IUD Insertion/Removal - Practice Supplied Today N93.9 - Abnormal uterine and vaginal bleeding, unspecified, Z30.430 - Encounter for insertion of intrauterine contraceptive device Surgical Today N93.9 - Abnormal uterine and vaginal bleeding, unspecified US pelvic and transvaginal Today N93.9 - Abnormal uterine and vaginal bleeding, unspecified Referrals Hematology & Oncology Referral D64.9 - Anemia, unspecified, N93.9 - Abnormal uterine and vaginal bleeding, unspecified Coding Level of Care Code Procedure Only Diagnoses Anemia, unspecified type D64.9 Anemia type: unspecified type Abnormal uterine bleeding (AUB) N93.9 CPT Codes Details - CPT: 30672-ALR Insertion ([id number]) Details - Contraception: 63476 - Insertion ([id number]) Endometrial Biopsy - CPT: 68201-Xynoxaxubrj Biopsy ([id number]) Comment 2 procedures same day visit
[2023-12-07 10:39] VITALS: BP 100/60
== END 2023-12-07 11:13 | disposition home or self-care (01) ==
LOC: HO.HWSW 10:29
PROVIDERS: PCP Internal Medicine; Visit Provider Advanced Practice Midwife
DX: N93.9 Abnormal uterine and vaginal bleeding, unspecified (principal); D64.9 Anemia, unspecified; Z30.430 Encounter for insertion of intrauterine contraceptive device; Z32.02 Encounter for pregnancy test, result negative
CPT/HCPCS: 58100; 58300

== ENCOUNTER → 2023-12-13 11:32 | Outpatient (BNV) | payer OTHER, SELFPAY | PROVIDERS: PCP Internal Medicine; Visit Provider Internal Medicine | DX: D50.9 Iron deficiency anemia, unspecified (principal); N92.0 Excessive and frequent menstruation with regular cycle | CPT/HCPCS: 99212; 99214; G2211 ==

== ENCOUNTER 2023-12-15 10:55 | Outpatient (REF) | payer OTHER, SELFPAY | END 2023-12-15 10:56 | disposition home or self-care (01) | LOC: HO.US 10:55 | PROVIDERS: PCP Internal Medicine; Visit Provider Advanced Practice Midwife | DX: N93.9 Abnormal uterine and vaginal bleeding, unspecified (principal) | CPT/HCPCS: 76830; 76856 ==

== ENCOUNTER 2023-12-29 19:42 | Outpatient (REF) | payer OTHER, SELFPAY ==
--- NOTE | ~2023-12-29 | MR_ITS ---
EXAMINATION: MR LUMBAR SPINE WITHOUT CONTRAST CLINICAL INFORMATION: Radiculopathy lumbar region. Self-reported leg weakness, sciatica and leg numbness. COMPARISON: MRI lumbar spine 05/02/2022. MRI lumbar spine 08/15/2016. TECHNIQUE: MRI of the lumbar spine was obtained using routine sequences without contrast. FINDINGS: 5 lumbar type vertebral bodies are identified. Bilateral L5 pars interarticularis defects are visualized. No L5-S1 spondylolisthesis noted. No suspicious marrow abnormalities. Minimal multilevel Schmorl's node deformities identified. The visualized sacrum appears intact. Partial visualization is made of an approximate 2.5 cm right adnexal unilocular-appearing cyst which on the basis of this examination warrants no additional follow-up. The conus medullaris terminates at the level of L1. The conus medullaris and cauda equina are normal in appearance. T12-L1: No significant central or foraminal stenoses. L1-L2: No significant central or foraminal stenoses. L2-L3: No significant central or foraminal stenoses. L3-L4: No significant central or foraminal stenoses. L4-L5: A central and right paracentral disc protrusion measures 5 mm in radial extent and demonstrates annular T2 hyperintensity suspicious for an annular fissure. The protrusion partially effaces right subarticular recess without associated impingement or displacement of the adjacent traversing right L5 nerve roots. Intervertebral disc demonstrates 25% overall loss of cranial caudal height. No facet arthropathic changes. Normal ligamentum flavum appearance. An intraforaminal component of the protrusion results in minimal right foraminal stenosis without associated nerve root impingement. Making allowances for differences in slice selection, the protrusion is unchanged appreciably in size and configuration compared with 05/02/2022. L5-S1 mild central and right parasagittal disc protrusion is present. Minimal osteophytosis of the inferior endplate of L5 is present along the right parasagittal component of the protrusion. The protrusion measures 5 mm in radial extent and T2 hyperintensities present in the annulus of the protrusion suspicious for an annular fissure. No associated direct nerve root impingement or displacement. The intervertebral disc demonstrates 25% overall loss of cranial caudal height. The protrusion is unchanged in configuration compared with 12/02/2022. MR/MR lumbar spine wo con IMPRESSION: *L4-L5 mild-moderate central and right parasagittal disc protrusion and overlying annular fissure unchanged in configuration and size compared with 05/02/2022. No associated direct nerve root impingement. The annular fissure is present in the right parasagittal aspect of the protrusion. This component of the protrusion comes to within 1-2 mm proximity of the traversing right L5 nerve roots. Inflammatory changes related to the annular fissure could correlate with right L5 radiculopathy. *L5-S1 mild central and right parasagittal disc protrusion and overlying annular fissure unchanged compared with 05/02/2022. No associated direct nerve root impingement. The annular fissure resides within the central component of the protrusion. *Chronic L5 bilateral pars interarticularis defects. No L5-S1 spondylolisthesis. Electronically signed by: Oskar Preciado MD 12/30/2023 12:48 AM [facility]
== END 2023-12-29 19:43 | disposition home or self-care (01) ==
LOC: HO.MRI 19:42
PROVIDERS: PCP Internal Medicine; Visit Provider Nurse Practitioner Family
DX: M54.16 Radiculopathy, lumbar region (principal); M54.51 Vertebrogenic low back pain; M47.816 Spondylosis without myelopathy or radiculopathy, lumbar region; M43.16 Spondylolisthesis, lumbar region
CPT/HCPCS: 72148

== ENCOUNTER 2024-01-04 09:36 | Outpatient (AMB) | payer OTHER, SELFPAY ==
[2024-01-04 09:55] VITALS: BP 172/106; PULSE 89; O2SAT 98; BMI 37.1
--- NOTE | 2024-01-04 09:55 | MHC.OFFVIS ---
Vital Signs 01/04/24 09:55 01/04/24 09:56 Height 5 ft 9 in Weight 251 lb 8 oz BMI 37.1 BP 172/106 H 169/79 H Blood Pressure Location Lt brachial Rt brachial Position Sitting Sitting Pulse 89 Pulse Source Pulse Oximeter Pulse Oximetry (%) 98 Oxygen Delivery Method Room Air Intake Visit Reasons: Discuss MRI Results Intake Note: Pain today 9/10 back pain radiating into left lower extremity. Scalp Treatment Specialist Required: No Accompanied by: Self / Same As Patient Allergies No Known Allergies [No Known Allergies*] Allergy (Verified 01/04/24 09:57) HPI Comments Details: Patient presents today to discuss recent lumbar spine MRI results. Denies any recent cough, cold, infection, fever or other significant changes in medical history since last office visit. PRIOR: Patient presents today to assess response to Bilateral Diagnostic L3-L4 DR L5 MBB on 11/07/[address] Urbano. Patient reports about 20% pain relief for 6 hours without significant pain or function improvement. Unfortunately, given patient's response, she is not candidate for stimulative or ablative procedures. Patient reports moderate to severe low back pain with radiation into her bilateral lower extremities, worse on the left. Previous interventions, including sacroiliac joint and TFESI injections were not helpful. She was seen by our [facility] last year and deemed non-surgical. Patient reports back pain has been progressively worsening. She has difficulty with ADLs, bending down, flexing forward, house chores or prolonged sitting, standing or walking. Patient reports she has adjusted her diet and avoids sweets, carbohydrates for weight loss but has difficulty to participate in home exercise program or PT. Reports pain negatively affects her mood, sleep and social interactions. Denies any recent cough, fever, chills cold, foot drop, weakness, bladder or bowel incontinence or saddle anesthesia. Past Procedures: 11/07/23: Bilateral Diagnostic L3-L4 DR L5 MBB-20% pain relief for 6 hours 04/18/23: Bilateral L5-S1 TFESI-40-50% pain relief 11/08/22: Left Therapeutic SIJ injection- 0% pain relief 10/18/22: Left Diagnostic SIJ injection-40% pain relief for 6 hours 06/21/22: Left L5-S1 TFESI-80% pain relief for 2 weeks PRIOR: Patient is a pleasant 41 year old female who presents today for an initial evaluation of chronic lower back pain, left hand pain and right shoulder pain. Patient reports chronic back pain that has been worsening after her with epidural 04/04/2020. Her back pain is axial and also radiates into her left lower extremity posteriorly with numbness and tingling in the posterior lower leg, osborne and sole of her left foot. She also has localized pain in the projections of the left sacroiliac joint. Patient also reports left hand and wrist pain with flexion, pulling and lifting objects consistent with carpal tunnel syndrome. She has a history of right carpal tunnel repair in 2010. Patient is right hand dominant. Her right shoulder radiates to her neck with muscle spasms and tenderness. Pain increases with prolonged sitting, walking, standing, intercourse, climbing stairs, changing positions and weather changes. Pain is described as constant throbbing, shooting, stabbing, sharp, cramping, tingling, sore, hurting, aching, exhausting, tiring, and radiating. Pain interferes with her daily activities and functionings, mood, sleep, social interactions and quality of life. She has been managing pain with Ibuprofen and cyclobenzaprine with continued symptoms. Patient also started physical therapy last week and is intersted to trial acupuncture therapy for right shoulder and neck pain. Lumbar spine MRI in 2017 showed disc degeneration and a minimal anterior subluxation at L5-S1 with chronic bilateral L5 pars defects and [id number] right foraminal narrowing. Facet spurring mildly distorts the exiting right L5 nerve root. Most recent lumbar spine xray showed bilateral L5 spondylolysis defect is redemonstrated and multi-level thoracolumbar spondylosis and Schmorl's node formation. Patient denies any fever, weight loss, tachycardia, abdominal or groin pain, weakness, nausea, vomiting, constipation, diarrhea, vaginal bleeding, bladder or bowel incontinence or saddle anesthesia. Of note, patient has history of fatty liver, elevated LFT and hepatitis. She reports the most recent screening for hepatitis panel was negative. [facility] Medical History IUD (intrauterine device) in place Migraine Anxiety Vitamin D deficiency Depression Family history of ovarian cancer Breast pain, right Hepatitis depression Obesity (BMI 30-39.9) History of in vitro fertilization Left ovarian cyst Anemia Surgical History H/O: (~03/2020) History of tonsillectomy History of carpal tunnel surgery Family History Maternal Aunt Ovarian cancer Maternal Uncle Colon cancer Maternal Uncle Colon cancer Mother COPD (chronic obstructive pulmonary disease) Fibromyalgia Hypertension Father No problems noted. Brother No problems noted. Son No problems noted. Social History Household Members: Spouse, Family and Children Housing: Apartment Alcohol intake: current Alcohol intake frequency: holidays/special occasions only Patient Tobacco Use Status: Former Tobacco user Tobacco use type: Cigarette e-Cigarette/Vaping Use: Never Used Second Hand Smoke Exposure: Yes service: No Current occupational status: unemployed Gender identity: Female Cognitive needs: No Hearing needs: No Vision needs: Yes (glasses) Female Reproductive History Menstrual Age of Menarche: 12 Review of Systems Const All systems reviewed & are unremarkable except as noted in HPI and below Physical Exam Vital Signs: Last Vital Signs Pulse 89 01/04/24 09:55 BP 169/79 H 01/04/24 09:56 Pulse Ox 98 01/04/24 09:55 Oxygen Delivery Method Room Air 01/04/24 09:55 BMI result Body Mass Index 37.1 General: Appears afebrile. Moderate discomfort due to pain. Alert and oriented. Mood and affect appropriate. Follows and participates in conversation appropriately. Respiratory effort is unlabored. No cough. Able to transition from sit to stand unassisted, reports LLE weakness due to pain. Back/Spine/Pelvis Other: Limited lumbar ROM due to pain. Lumbar extension and flexion forward reproduce moderate to severe pain, worse with bending. TTP in the projection of both SIJ, left>right. Rafael's test reproduce moderate SIJ pain on the left, mild pain on the right SIJ. Mild TTP to GTB. Multiple TTPs 16/16 of lower extremities consistent with fibromyalgia. Cervical Spine: cervical ROM normal, cervical muscular tenderness, pain with cervical ROM, cervical spasm (right upper trapezius) and No Cervical spine tenderness Thoracic/Lumbar Spine: thoracic and lumbar spine normal to inspection, No Thoracic/lumbar spine scar(s), Lasegue's sign positive on the left and localized, pain with thoraco-lumbar ROM, paraspinal muscle tenderness, thoraco-lumbar ROM limited, No thoracic spinal tenderness, lumbar spinal tenderness (L4-S1) and straight leg raise positive left at 50 degrees Pelvis: buttock tenderness on the left Sacroiliac joints: bilaterally tender to palpation Results Reviewed Results Reviewed: MR LUMBAR SPINE WITHOUT CONTRAST 12/29/23 CLINICAL INFORMATION: Radiculopathy lumbar region. Self-reported leg weakness, sciatica and leg numbness. COMPARISON: MRI lumbar spine 05/02/2022. MRI lumbar spine 08/15/2016. FINDINGS: 5 lumbar type vertebral bodies are identified. Bilateral L5 pars interarticularis defects are visualized. No L5-S1 spondylolisthesis noted. No suspicious marrow abnormalities. Minimal multilevel Schmorl's node deformities identified. The visualized sacrum appears intact. Partial visualization is made of an approximate 2.5 cm right adnexal unilocular-appearing cyst which on the basis of this examination warrants no additional follow-up. The conus medullaris terminates at the level of L1. The conus medullaris and cauda equina are normal in appearance. T12-L1: No significant central or foraminal stenoses. L1-L2: No significant central or foraminal stenoses. L2-L3: No significant central or foraminal stenoses. L3-L4: No significant central or foraminal stenoses. L4-L5: A central and right paracentral disc protrusion measures 5 mm in radial extent and demonstrates annular T2 hyperintensity suspicious for an annular fissure. The protrusion partially effaces right subarticular recess without associated impingement or displacement of the adjacent traversing right L5 nerve roots. Intervertebral disc demonstrates 25% overall loss of cranial caudal height. No facet arthropathic changes. Normal ligamentum flavum appearance. An intraforaminal component of the protrusion results in minimal right foraminal stenosis without associated nerve root impingement. Making allowances for differences in slice selection, the protrusion is unchanged appreciably in size and configuration compared with 05/02/2022. L5-S1 mild central and right parasagittal disc protrusion is present. Minimal osteophytosis of the inferior endplate of L5 is present along the right parasagittal component of the protrusion. The protrusion measures 5 mm in radial extent and T2 hyperintensities present in the annulus of the protrusion suspicious for an annular fissure. No associated direct nerve root impingement or displacement. The intervertebral disc demonstrates 25% overall loss of cranial caudal height. The protrusion is unchanged in configuration compared with 12/02/2022. IMPRESSION: *L4-L5 mild-moderate central and right parasagittal disc protrusion and overlying annular fissure unchanged in configuration and size compared with 05/02/2022. No associated direct nerve root impingement. The annular fissure is present in the right parasagittal aspect of the protrusion. This component of the protrusion comes to within 1-2 mm proximity of the traversing right L5 nerve roots. Inflammatory changes related to the annular fissure could correlate with right L5 radiculopathy. *L5-S1 mild central and right parasagittal disc protrusion and overlying annular fissure unchanged compared with 05/02/2022. No associated direct nerve root impingement. The annular fissure resides within the central component of the protrusion. *Chronic L5 bilateral pars interarticularis defects. No L5-S1 spondylolisthesis. Assessment & Plan Assessment & Plan (1) Sacroiliitis: Code(s): M46.1 - Sacroiliitis, not elsewhere classified Category: Medical (2) Lumbar degenerative disc disease: Code(s): M51.36 - Other intervertebral disc degeneration, lumbar region Category: Medical (3) Lumbar spondylosis: Code(s): M47.816 - Spondylosis without myelopathy or radiculopathy, lumbar region Category: Medical (4) Fibromyalgia, primary: Code(s): M79.7 - Fibromyalgia Category: Medical (5) Lumbar back pain with radiculopathy affecting left lower extremity: Code(s): M54.16 - Radiculopathy, lumbar region Category: Medical (6) Pars defect of lumbar spine: Code(s): M43.06 - Spondylolysis, lumbar region Category: Medical (7) Vertebrogenic low back pain: Onset Date: ~12/06/23 Code(s): M54.51 - Vertebrogenic low back pain Category: Medical Plan Discussed Lumbar spine MRI imaging reports. Patient presents with worsening left sided radiculopathy. We will proceed with Left L4-L5, L5-S1 TFESI with local and fluoroscopy. Expectations, risks and benefits were reviewed. Patient is aware she will be contacted to schedule this procedure. She will follow up with [facility] if no pain relief. For moderate to severe pain, I will provide patient with short script of tramadol. Side effects and precautions discussed with patient. Safety, medication administration and storage reviewed with patient. Patient has Narcan at home. All questions and concerns have been answered and patient agreed with the plan. Follow up after injections and as needed. Medications: Changed From tramadol 50 mg PO BID 10 days PRN 20 tabs 0RF pain M46.1 - Sacroiliitis, not elsewhere classified, M51.36 - Other intervertebral disc degeneration, lumbar region, M54.16 - Radiculopathy, lumbar region, M54.51 - Vertebrogenic low back pain To tramadol 50 mg PO BID 15 days PRN 30 tabs 0RF pain M46.1 - Sacroiliitis, not elsewhere classified, M51.36 - Other intervertebral disc degeneration, lumbar region, M54.16 - Radiculopathy, lumbar region, M54.51 - Vertebrogenic low back pain Coding Level of Care Code Est Pt Level 4 (36413) Complex EM visit Add On G2211 Diagnoses Sacroiliitis M46.1 Lumbar degenerative disc disease M51.36 Lumbar spondylosis M47.816 Fibromyalgia, primary M79.7 Lumbar back pain with radiculopathy affecting left lower extremity M54.16 Pars defect of lumbar spine M43.06 Vertebrogenic low back pain M54.51
[2024-01-04 09:56] VITALS: BP 169/79
== END 2024-01-04 10:27 | disposition home or self-care (01) ==
PROVIDERS: PCP Internal Medicine; Visit Provider Nurse Practitioner Family
DX: M46.1 Sacroiliitis, not elsewhere classified (principal); M51.369 Other intervertebral disc degeneration, lumbar region without mention of lumbar back pain or lower extremity pain; M47.816 Spondylosis without myelopathy or radiculopathy, lumbar region; M79.7 Fibromyalgia; M54.16 Radiculopathy, lumbar region; M43.06 Spondylolysis, lumbar region; M54.51 Vertebrogenic low back pain
CPT/HCPCS: 99214; G2211

== ENCOUNTER → 2024-01-04 09:36 | Outpatient (BNVA) | payer OTHER, SELFPAY | PROVIDERS: PCP Internal Medicine; Visit Provider Nurse Practitioner Family | DX: M46.1 Sacroiliitis, not elsewhere classified (principal); M51.360 Other intervertebral disc degeneration, lumbar region with discogenic back pain only; M79.7 Fibromyalgia; M47.26 Other spondylosis with radiculopathy, lumbar region; M43.06 Spondylolysis, lumbar region | CPT/HCPCS: 99212 ==

== ENCOUNTER 2024-01-08 11:20 | Outpatient (AMB) | payer OTHER, SELFPAY ==
--- NOTE | 2024-01-08 11:41 | HO.SPINEOV ---
Intake Visit Reasons: low back pain/radiculopathy Intake Note: Ms. Abreu is here today c/o low back pain that radiates down to the legs. 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 We saw her last year, sent her for SI joint injection. She did get some relief from the SI joint injection, but a subsequent injection did not prove helpful. She has seen up to 80% relief from an L5 TF he that was done last year. A repeat injection helped her about 40-50%. The problem that we had last time is that we see that she has breakdown of the disc at L5-S1 with bilateral pars defects, but the only foraminal narrowing we see is on the right side. This is still the case on her current MRI that was just done here at [place] few weeks back. There is no evidence of a disc herniation or central canal stenosis. Something tells me that there could be a component of mobility when she stands with the pars defect that is collapsing the foramen slightly. The problem is that this is difficult to prove. Especially with the L5 foramen on the MRI looking so open, but of course this is when she is not in pain when she is lying flat. The primary discomfort is when she is standing up and moving around. It radiates down her leg into her foot. She also has a component of left-sided back pain. I am going to get standing flexion-extension x-rays and I will review this with Dr. Lynn get back to the patient with a final plan. If these do not show anything convincing enough that the foramen is collapsing, the other possibility is that it is the SI joint. Total amount of time spent in this visit was 20 minutes in discussion of symptoms, lumbar imaging results and subsequent plan of care Yg Lynn MD,PhD [facility] Orders: Orders XR lumbar spine 4V min Today M54.16 - Radiculopathy, lumbar region Coding Level of Care Code Est Pt Level 3 (38785) Diagnoses Lumbar radiculopathy M54.16
== END 2024-01-08 12:22 | disposition home or self-care (01) ==
PROVIDERS: PCP Internal Medicine; Visit Provider Physician Assistant
DX: M54.16 Radiculopathy, lumbar region (principal)
CPT/HCPCS: 99213

== ENCOUNTER 2024-01-08 11:20 | Outpatient (REF) | payer OTHER, SELFPAY | END 2024-01-08 11:21 | disposition home or self-care (01) | LOC: HO.HOSX 11:20 | PROVIDERS: PCP Internal Medicine; Visit Provider Physician Assistant | DX: M54.16 Radiculopathy, lumbar region (principal) | CPT/HCPCS: 72110; 99212 ==

== ENCOUNTER 2024-02-07 10:52 | Outpatient (AMB) | payer OTHER, SELFPAY ==
[2024-02-07 10:54] VITALS: BP 124/72; PULSE 94; O2SAT 97; BMI 37.2
--- NOTE | 2024-02-07 10:54 | MHC.PC.OV ---
Vital Signs 02/07/24 10:54 Height 5 ft 9 in Weight 252 lb 2 oz BMI 37.2 BP 124/72 Blood Pressure Location Lt brachial Position Sitting Pulse 94 Pulse Source Pulse Oximeter Pulse Oximetry (%) 97 Oxygen Delivery Method Room Air Intake Visit Reasons: 4mth f/u Direct Support Staff Required: No Accompanied by: Self / Same As Patient Allergies No Known Allergies [No Known Allergies*] Allergy (Verified 02/07/24 11:05) Medication List - Last Reconciled 02/07/24 by SARIKA Allred cholecalciferol (vitamin D3) 50 mcg PO DAILY 90 days duloxetine 30 mg PO BID 30 days ferrous sulfate 27 mg PO DAILY ibuprofen 600 mg PO Q8H PRN sennosides (senna) 17.2 mg (2 x 8.6 mg) PO BEDTIME PRN 30 days tramadol 50 mg PO BID PRN 15 days trazodone 100 mg PO BEDTIME PRN 30 days Tobacco use date assessed: 02/07/24 Dental Screening Dental Screen Date: 02/07/24 Did you have a dental visit in the last 12 months?: Yes Did you have a dental problem in the last 6 months where you did not have access to dental care?: No Was dental information given to patient?: Patient has dentist HPI 4mth f/u HPI Details The patient is a 43-year-old female with significant medical history of of depression, insomnia, vitamin-D deficiency, chronic pain syndrome, and migraine. The patient may presenting today for a follow-up visit. She reports that the only change in her health is a right ear pain. She reported that her right ear pain started a week ago, per patient, the pain is very minimal about 4/10. The pain is a constant dull, bothersome, itchy, at times, it feels like water is in her right ear. She denies any drainage, denies any other recent cold symptoms, including fevers or chills, nasal congestion, sinus pressure, sore throat, cough or wheezing. She denies shortness of breath, denies chest pain, denies heart palpitation. She reports that she has chronic migraine, but no change in her ongoing intermittent headaches. The patient also reports as she forgot to refill her Lexapro last month and has been off this medications since. She reports that Dr. Cochran was planning on weaning her off this medication, so she waited for this appt to see if she should refill that medication since she had not been taking it anyways. The patient also reports that she is still waiting to see a psycho-therapist and that she called last week and was told she is still on the waiting list. She denies any worsening depression or anxiety. She will reports that her duloxetine has been working better since started taking it at night. The patient report that she has not followed up Dr. Martínez as yet. She also reports stop taking her sumatriptan p.r.n. due to dizziness after taking the medication. The patient reports that she we will give Dr. Martínez a call this week to get back on his schedule. [facility] Medical History IUD (intrauterine device) in place Migraine Anxiety Vitamin D deficiency Depression Family history of ovarian cancer Breast pain, right Hepatitis depression Obesity (BMI 30-39.9) History of in vitro fertilization Left ovarian cyst Anemia Surgical History H/O: (~03/2020) History of tonsillectomy History of carpal tunnel surgery Family History Maternal Aunt Ovarian cancer Maternal Uncle Colon cancer Maternal Uncle Colon cancer Mother COPD (chronic obstructive pulmonary disease) Fibromyalgia Hypertension Father No problems noted. Brother No problems noted. Son No problems noted. Social History Household Members: Spouse, Family and Children Housing: Apartment Alcohol intake: current Alcohol intake frequency: holidays/special occasions only Patient Tobacco Use Status: Former Tobacco user Tobacco use type: Cigarette e-Cigarette/Vaping Use: Never Used Second Hand Smoke Exposure: Yes service: No Current occupational status: unemployed Gender identity: Female Cognitive needs: No Hearing needs: No Vision needs: Yes (glasses) Female Reproductive History Menstrual Age of Menarche: 12 Questionnaire PHQ-9 Over the last 2 weeks, how often have you been bothered by any of the following problems? 1. Little interest or pleasure in doing things: several days 2. Feeling down, depressed, or hopeless: several days 3. Trouble falling or staying asleep, or sleeping too much: several days 4. Feeling tired or having little energy: several days 5. Poor appetite or overeating: several days 6. Feeling bad about yourself - or that you are a failure or have let yourself or your family down: several days 7. Trouble concentrating on things, such as reading the newspaper or watching television: several days 8. Moving or speaking so slowly that other people could have noticed. Or the opposite - being so fidgety or restless that you have been moving around a lot more than usual: several days 9. Thoughts that you would be better off or of hurting yourself in some way: not at all Total score: 8 Depression Screening Interpretation: Positive Depression Screening Follow-up: Existing condition and In treatment Depression Screening Done: Yes 01799 - PHQ-9 Billing: Yes Source: Developed by Drs. Quan Painting, Vickie Hui, Sam Dudley and colleagues, with an educational maxwell from [employer]. Thrive Questionnaire Date Thrive assessed: 02/07/24 I am a: Patient What is your living situation today?: I have a steady place to live Within the past 12 months, did the food you bought not last and you didn't have the money to get more?: Never true Within the past 12 months, did you worry whether your food would run out before you got money to buy more?: Never true Do you have trouble paying for medicines?: No Do you have trouble getting transportation to medical appointments?: No Do you have trouble paying your heating and electricity bill?: No Do you have trouble taking care of your child, family member or friend?: No Do you have trouble with day-to-day activities such as bathing, preparing meals, shopping, managing finances, etc.?: No Are you currently unemployed and looking for a job?: No Are you interested in more education?: No Please select the resources that you would like help with: None Currently or been in a relationship where the following occur: No concerns reported THRIVE Score: 0 AUDIT C Alcohol Use Questionnaire (AUDIT-C) 1. How often do you have a drink containing alcohol?: Never 3. How often do you have six or more drinks on one occasion?: Never Total Score: 0 Score Reviewed/Action Taken: Yes BISHNU-7 AMB Questionnaire BISHNU-7 Date BISHNU - 7 assessed: 02/07/24 Feeling nervous, anxious, or on edge: 3 = Nearly every day Not being able to stop or control worryin = More than half the days Worrying too much about different things: 2 = More than half the days Trouble relaxin = Nearly every day Being so restless that it is hard to sit still: 1 = Several days (back pain) Becoming easily annoyed or irritable: 0 = Not at all Feeling afraid as if something awful might happen: 0 = Not at all Total BISHNU-7 score (0-4 normal; 5-9 mild; 10-14 moderate; 15-21 severe): 11 Source: Developed by Drs. Quan Painting, Vickie Hui, Sam Dudley and colleagues, with an educational maxwell from [employer]. BISHNU-7 Assessment Billing BISHNU-7 Assessment Tool: BISHNU-7 Assessment 16922 Review of Systems Const Details: Const Denies chills, Denies fatigue, Denies fever(s), +chronic migraines and Denies weakness ENT Denies dizziness and (s)+ right ear dull, constant pain,4/10, mild in nature (bothersome), associated with itching, no drainage. Card Denies chest pain, Denies lightheadedness, Denies dyspnea and Denies other (Palpitations) Resp Denies cough, Denies dyspnea, Denies wheezing and Denies other ( shortness of breath) GI Denies abdominal pain, Denies melena, Denies hematochezia, reports constipation, Denies dyspepsia and Denies nausea Denies hematuria and Denies dysuria Musc Denies abnormal gait, Denies myalgias, Denies arthralgias, Denies numbness and Denies tingling Skin/Breast Denies rash, Denies unusual bruising and Denies wounds Neuro Denies abnormal gait, Denies dizziness, Denies headache(s), Denies memory loss, Denies numbness, Denies Sensory deficit (Neuro), Denies tingling and Denies weakness Psych Report anxiety, reports depression, Denies memory loss Endo Denies cold intolerance, Denies fatigue, Denies heat intolerance, Denies polydipsia and Denies polyuria Aller/Immun Denies wheezing Physical exam (Primary Care) Vital Signs: Last Vital Signs Pulse 94 02/07/24 10:54 BP 124/72 02/07/24 10:54 Pulse Ox 97 02/07/24 10:54 Oxygen Delivery Method Room Air 02/07/24 10:54 BMI result Body Mass Index 37.2 Tobacco/Smoking Status: Tobacco use Status Tobacco use date assessed 02/07/24 02/07/24 10:59 Patient Tobacco Use Status Former Tobacco user 02/07/24 10:59 Tobacco use type Cigarette 02/07/24 10:59 e-Cigarette/Vaping Use Never Used 02/07/24 10:59 PHQ-9: PHQ-9 Score PHQ-9: Total score 8 02/07/24 14:02 Depression Screening Interpretation: Positive Depression Screening Follow-up: Existing condition and In treatment Thrive Assessment: Date of Thrive Assessment Date Thrive assessed 02/07/24 02/07/24 10:59 Currently or been in a relationship where the following occur: No concerns reported Const Other: General: no acute distress and well developed Nutritional Appearance: well nourished Orientation/consciousness: patient oriented x3 HENMT Head: Yes normocephalic and Yes atraumatic, right ear canal with a small, pink, irritated-appearing area, TMs bilaterally pearly gilbert and positive cone of light, no bulging or redness. Mild pressure with palpation to anterior auricle on the right side. No discomfort to the mastoid region bilaterally. Eyes General: appearance normal, both eyes and all related structures Pupils: Equal, round and reactive pupils present EOM: EOMs intact bilaterally Resp Effort & Inspection: normal respiratory effort Auscultation: clear to auscultation bilaterally Cardio Rate: regular rate Rhythm: regular rhythm Heart sounds: S1 normal heart sound present, S2 normal heart sound present, no gallops, no murmurs and no rubs GI Palpation (GI): No Abdominal aortic bruit present, Soft to palpation, nontender, No hepatosplenomegaly present and No Rebound tenderness present Auscultation: normal bowel sounds General: Yes no CVA tenderness Back/Spine/Pelvis Back: no CVA tenderness Cervical Spine: cervical ROM normal and No Cervical spine tenderness Thoracic/Lumbar Spine: thoraco-lumbar ROM normal, No pain with thoraco-lumbar ROM, No thoracic spinal tenderness and No lumbar spinal tenderness Extrem General: Yes normal to inspection, No edema and No calf tenderness Skin General: warm and dry. Normal skin color. Normal skin turgor Lesions: no lesions Rashes: no rashes Trauma: no lacerations or abrasions Wounds: no wounds Nails: normal Neuro General: patient oriented x3, gait normal and no focal neuro deficit Cranial nerves: Yes Equal, round and reactive pupils present Cognition (Neuro): normal cognition Gait exam (Neuro): Normal gait present Sensory Exam: No Sensory deficit (Neuro) Psych Appearance: grossly normal Affect: normal affect Attitude: cooperative Thought process: Normal thought process present Results Reviewed Results Reviewed: Laboratory Tests 12/02/23 21:33 WBC 4.5 L RBC 4.00 L Hgb 8.0 L Hct 28.2 L MCV 70.5 L MCH 20.0 L RDW 19.0 H Plt Count 170 Sodium 139 Potassium 4.0 Chloride 110 H BUN 13 Creatinine 0.70 Estimated GFR > 60 Random Glucose 100 AST 18 ALT 16 Alkaline Phosphatase 78 Coding Level of Care Code Est Pt Level 4 (56222) Diagnoses Spondylolisthesis of lumbar region M43.16 Migraine without status migrainosus, not intractable, unspecified migraine type G43.909 Intractability: not intractable Migraine type: unspecified Status migrainosus presence: without status migrainosus Anxiety F41.9 Chronic pain syndrome G89.4 Vitamin D deficiency E55.9 Degeneration of intervertebral disc of lumbar region with discogenic back pain M51.360 Disc-related pain type: discogenic back pain only Anemia, unspecified type D64.9 Anemia type: unspecified type Episode of recurrent major depressive disorder, unspecified depression episode severity F33.9 Active/Remission status: currently active Depression Type: major depressive disorder Major depression episode severity: unspecified Major depression recurrence: recurrent Discomfort of right ear H92.01 Insomnia, unspecified type G47.00 Insomnia type: unspecified Obesity (BMI 30-39.9) E66.9 Additional Codes BISHNU-7 Assessment Billing - BISHNU-7 Assessment Tool: BISHNU-7 Assessment 16059 ([id number]) PHQ-9 - 45478 - PHQ-9 Billing: Yes ([id number]) Assessment & Plan Assessment & Plan (1) Spondylolisthesis of lumbar region: Code(s): M43.16 - Spondylolisthesis, lumbar region Category: Medical Plan: Continue tramadol 50 mg b.i.d. p.r.n. Reinforced activity and weight lifting restrictions. Follow up with pain management as needed. (2) Migraine: Code(s): G43.909 - Migraine, unspecified, not intractable, without status migrainosus Category: Medical Qualifiers: Intractability: not intractable Migraine type: unspecified Status migrainosus presence: without status migrainosus Qualified Code(s): G43.909 - Migraine, unspecified, not intractable, without status migrainosus Plan: Patient was prescribed sumatriptan 50 mg p.r.n. the patient reports that she stopped taking this medication a couple of months ago. Per patient, the sumatriptan 50 mg was causing her to be dizzy. Instead, she has been laying down and wait until the migraine subsides. She reports that she still has not followed up with Dr. Martínez (neurologist), per Dr. Cochran referral. The patient was encouraged to follow up with Dr. Martínez. She verbalized that she will call his office this week to get back on his schedule. Reinforced avoiding triggers. (3) Anxiety: Code(s): F41.9 - Anxiety disorder, unspecified Category: Medical Plan: The patient is on the waiting for psychotherapy. Verbalize that she will reach out to them again this week. Continue duloxetine as prescribed. This medication has multiple used I can help with her anxiety as well. (4) Chronic pain syndrome: Code(s): G89.4 - Chronic pain syndrome Category: Medical Plan: Ibuprofen 600mg q 8hrs prn, and Tradadol 50mg bid PRN. Follow up with pain management as needed. (5) Vitamin D deficiency: Code(s): E55.9 - Vitamin D deficiency, unspecified Category: Medical Plan: Continue cholecalciferol 50mcg domingo Vitamin D levels ordered for 4 months follow up appt. (6) Lumbar degenerative disc disease: Code(s): M51.36 - Other intervertebral disc degeneration, lumbar region Category: Medical Qualifiers: Disc-related pain type: discogenic back pain only Qualified Code(s): M51.360 - Other intervertebral disc degeneration, lumbar region with discogenic back pain only Plan: Ibuprofen 600mg q 8hrs prn, and Tradadol 50mg bid PRN. Follow up with pain management as needed. (7) Anemia: Code(s): D64.9 - Anemia, unspecified Category: Medical Qualifiers: Anemia type: unspecified type Qualified Code(s): D64.9 - Anemia, unspecified Plan: Awaiting iron replacement therapy from hematology CBC ordered for follow appt (8) Depression: Code(s): F32.A - Depression, unspecified Category: Medical Qualifiers: Active/Remission status: currently active Depression Type: major depressive disorder Major depression episode severity: unspecified Major depression recurrence: recurrent Qualified Code(s): F33.9 - Major depressive disorder, recurrent, unspecified Plan: Continue duloxetine at bedtime to enhance tolerance She continues on waiting list for psychotherapy denies si/hi (9) Discomfort of right ear: Code(s): H92.01 - Otalgia, right ear Category: Medical Plan: right ear canal mildly pink and irritated at a small area anterior auricle pressure with palpation TMs grossly appears normal Continue Ibuprofen 600mg prn for pain follow up with office if pain worsen or not resolving (10) Insomnia: Code(s): G47.00 - Insomnia, unspecified Category: Medical Qualifiers: Insomnia type: unspecified Qualified Code(s): G47.00 - Insomnia, unspecified Plan: Continue Trazodone 100mg q h.s. (reports taking the medication around 2000 qh.s) The patient reports that she stays up at night, sometimes, even 0100 in the morning, waiting for her , who is a tank truck mechanic to come home from work. Sleep hygiene was reinforced, verbalized that she will start going to bed earlier at night. (11) Obesity (BMI 30-39.9): Code(s): E66.9 - Obesity, unspecified Category: Medical Plan: The patient has been the same with small fluctuation and down. Reinforced diet/exercise as tolerated Plan Follow up in 4 months Orders: Orders Complete Blood Count Auto Diff 4 Months D64.9 - Anemia, unspecified, E55.9 - Vitamin D deficiency, unspecified, E66.9 - Obesity, unspecified, F33.9 - Major depressive disorder, recurrent, unspecified, F41.9 - Anxiety disorder, unspecified, G43.909 - Migraine, unspecified, not intractable, without status migrainosus, G47.00 - Insomnia, unspecified, G89.4 - Chronic pain syndrome, M43.16 - Spondylolisthesis, lumbar region, M51.36 - Other intervertebral disc degeneration, lumbar region, Z00.00 - Encounter for general adult medical examination without abnormal findings TSH reflex Free T4 4 Months Z00.00 - Encounter for general adult medical examination without abnormal findings UA CC w/rflx Micro + Cult 4 Months Z00.00 - Encounter for general adult medical examination without abnormal findings Hemoglobin A1c 4 Months Z00.00 - Encounter for general adult medical examination without abnormal findings Vitamin D 25-OH Total 4 Months Z00.00 - Encounter for general adult medical examination without abnormal findings Comprehensive [place]. Panel Fast 4 Months Z00.00 - Encounter for general adult medical examination without abnormal findings IRON PROFILE 4 Months Z00.00 - Encounter for general adult medical examination without abnormal findings Glucose Fasting 4 Months Z00.00 - Encounter for general adult medical examination without abnormal findings
== END 2024-02-07 11:42 | disposition home or self-care (01) ==
PROVIDERS: PCP Internal Medicine
DX: M43.16 Spondylolisthesis, lumbar region (principal); G43.909 Migraine, unspecified, not intractable, without status migrainosus; F41.9 Anxiety disorder, unspecified; F33.9 Major depressive disorder, recurrent, unspecified; G89.4 Chronic pain syndrome; E55.9 Vitamin D deficiency, unspecified; M51.360 Other intervertebral disc degeneration, lumbar region with discogenic back pain only; D64.9 Anemia, unspecified; H92.01 Otalgia, right ear; G47.00 Insomnia, unspecified; E66.9 Obesity, unspecified

== ENCOUNTER → 2024-02-07 10:52 | Outpatient (BNVA) | payer OTHER, SELFPAY | PROVIDERS: PCP Internal Medicine | DX: M43.16 Spondylolisthesis, lumbar region (principal); G43.909 Migraine, unspecified, not intractable, without status migrainosus; F41.9 Anxiety disorder, unspecified; G89.4 Chronic pain syndrome; E55.9 Vitamin D deficiency, unspecified; M51.360 Other intervertebral disc degeneration, lumbar region with discogenic back pain only; D64.9 Anemia, unspecified; F33.9 Major depressive disorder, recurrent, unspecified; H92.01 Otalgia, right ear; G47.00 Insomnia, unspecified; E66.9 Obesity, unspecified | CPT/HCPCS: 96127; 99212 ==

== ENCOUNTER 2024-03-01 09:45 | Outpatient (AMB) | payer OTHER, SELFPAY ==
--- NOTE | 2024-03-01 09:48 | A.OFFVIS_ITS ---
Vital Signs 03/01/24 09:49 Height 5 ft 9 in Weight 252 lb 2 oz BMI 37.2 Intake Visit Reasons: OV- Lumbar radiculopathy low back pain Intake Note: Norma is a43 year old female who presents today for follow up of her lumbar radiculopathy. Patient reports she has been going to PT but it has not helped her much. She wishes to have the MRI done. Allergies No Known Allergies [No Known Allergies*] Allergy (Verified 03/01/24 10:00) Medication List - Last Reconciled 03/01/24 by Maria C Mckeon MD cholecalciferol (vitamin D3) 50 mcg PO DAILY 90 days duloxetine 30 mg PO BID 30 days ferrous sulfate 27 mg PO DAILY ibuprofen 600 mg PO Q8H PRN sennosides (senna) 17.2 mg (2 x 8.6 mg) PO BEDTIME PRN 30 days tramadol 50 mg PO BID PRN 15 days trazodone 100 mg PO BEDTIME PRN 30 days HPI Comments Details: Been following patient for pain on right lateral neck and upper trapezius area. We have tried trigger point injections to upper trapezius with good relief but not 100% resolved. Patient continues to have right-sided upper trapezius pain especially when moving head and shoulder. More recently it has been radiating down to right hand with associated tingling and sensation of swelling. Past shoulder x-ray did show mild arthritic changes; past cervical x-ray did show disc space loss. We ordered cervical MRI almost 3 months ago which was denied by insurance. She has been going to physical therapy, for weeks now, to finish 6 weeks' course. No improvement of her symptoms despite PT. Review of history: I've met patient before for EMG (BLE which was normal). She has chronic pain. Per PCP note, fibromyalgia is being considered. For chronic back pain, she has seen neurosurgery and follows with pain management for lumbar injections. She's been worked up by Rheumatology (negative workup per PCP's note). She has seen Hand Surgery, s/p left CTR and orthopedics for shoulder pain. [facility] Medical History IUD (intrauterine device) in place Migraine Anxiety Vitamin D deficiency Depression Family history of ovarian cancer Breast pain, right Hepatitis depression Obesity (BMI 30-39.9) History of in vitro fertilization Left ovarian cyst Anemia Surgical History H/O: (~03/2020) History of tonsillectomy History of carpal tunnel surgery Family History Maternal Aunt Ovarian cancer Maternal Uncle Colon cancer Maternal Uncle Colon cancer Mother COPD (chronic obstructive pulmonary disease) Fibromyalgia Hypertension Father No problems noted. Brother No problems noted. Son No problems noted. Social History Household Members: Spouse, Family and Children Housing: Apartment Alcohol intake: current Alcohol intake frequency: holidays/special occasions only Patient Tobacco Use Status: Former Tobacco user Tobacco use type: Cigarette e-Cigarette/Vaping Use: Never Used Second Hand Smoke Exposure: Yes service: No Current occupational status: unemployed Gender identity: Female Cognitive needs: No Hearing needs: No Vision needs: Yes (glasses) Female Reproductive History Menstrual Age of Menarche: 12 Physical Exam Vital Signs: BMI result Body Mass Index 37.2 Constitutional: Patient appears to be in no acute distress, well nourished and well developed. Patient was appropriately conversant and oriented. Good historian. MSK: Inspection reveals appropriate head and neck positioning. Tender right upper trapezius. Cervical ROM was full. Though pain with neck extension. Spurling's sign positive right. Right shoulder has full range of motion. Negative Arita sign. Negative empty can sign. Negative speed's test. No scapular winging. Strength is 5/5 in all muscle groups tested. No increased tone noted. Neurological: Neurologic examination of the upper and lower extremities was nonfocal with intact sensation, muscle stretch reflexes and without focal motor deficits . Willson?s negative bilaterally. Gait is non-antalgic without loss of balance. Results Reviewed Results Reviewed: Ordering Physician: Maria C Anderson Date of Service: 08/16/23 Procedure(s): XR cervical spine 3V Accession Number(s): [id number] cc: Maria C Anderson~ EXAMINATION: XR CERVICAL SPINE CLINICAL INFORMATION: Neck pain. COMPARISON: 09/08/2015. TECHNIQUE: 3 views of the cervical spine. FINDINGS: Straightening of the normal cervical lordosis. Multilevel cervical spondylosis. Mild loss of disc space height at C2-C3. Minimal anterior subluxation of C3 on C4 with mild loss of disc space height. Large anterior osteophytes at C5-C6 with mild loss of disc space height. Poor visualization of C6 and C7 due to overlying bone and soft tissue structures. XR/XR cervical spine 3V IMPRESSION: Multilevel cervical spondylosis. Ordering Physician: Wilber Cochran MD Date of Service: 07/12/23 Procedure(s): XR shoulder RT min 2V Accession Number(s): [id number] cc: Wilber Cochran MD~ EXAMINATION: XR SHOULDER, RIGHT CLINICAL INFORMATION: Pain in right shoulder. COMPARISON: None available. TECHNIQUE: 3 views of the right shoulder. FINDINGS: Bone mineralization is normal. Mild degenerative changes in the acromioclavicular and glenohumeral joints. Acromioclavicular and glenohumeral alignment is preserved. No abnormal soft tissue calcifications identified adjacent to the humeral head to suggest rotator cuff pathology. XR/XR shoulder RT min 2V IMPRESSION: Mild degenerative changes. I reviewed records from the following: PCP Neurosurgery Orthopedics Hand surgery Pain management EMG done by Dr. Sheffield 09/2023 reported normal right upper extremity. Assessment & Plan Assessment & Plan (1) Cervical radiculitis: Code(s): M54.12 - Radiculopathy, cervical region Category: Medical (2) Cervical spondylosis: Code(s): M47.812 - Spondylosis without myelopathy or radiculopathy, cervical region Category: Medical (3) Myofascial pain on right side: Code(s): M79.18 - Myalgia, other site Category: Medical Plan We have tried to address tightness in right upper trapezius with PT and trigger point injections, without success. Exam today concerning for right sided cervical radiculitis with positive Spurling sign. She has done adequate conservative management without relief. It is reasonable to get insurance approval for cervical MRI at this point. Ruling out disc herniation or nerve impingement. Discussed further plan for cervical epidural injections under pain management, depending on MRI, or even referral to neuro spine. Assessment and plan discussed with patient, and patient was agreeable. All questions were answered thoroughly. Follow up after MRI. Maria C Mckeon MD, STEPHANY Board Certified, [place] [employer] and [employer] (ABPMR) Board Certified, [place] [employer] Electro[employer] (ABEM) Coding Level of Care Code Est Pt Level 4 (07745) Diagnoses Cervical radiculitis M54.12 Cervical spondylosis M47.812 Myofascial pain on right side M79.18
[2024-03-01 09:49] VITALS: BMI 37.2
== END 2024-03-01 10:10 | disposition home or self-care (01) ==
PROVIDERS: PCP Internal Medicine; Visit Provider Physical Medicine & Rehabilitation
DX: M54.12 Radiculopathy, cervical region (principal); M47.812 Spondylosis without myelopathy or radiculopathy, cervical region; M79.18 Myalgia, other site
CPT/HCPCS: 99213

== ENCOUNTER → 2024-03-01 09:45 | Outpatient (BNVA) | payer OTHER, SELFPAY | PROVIDERS: PCP Internal Medicine; Visit Provider Physical Medicine & Rehabilitation | DX: M54.12 Radiculopathy, cervical region (principal); M47.812 Spondylosis without myelopathy or radiculopathy, cervical region; M79.18 Myalgia, other site | CPT/HCPCS: 99212 ==

== ENCOUNTER 2024-03-19 06:15 | Outpatient (REF) | payer OTHER, SELFPAY ==
--- NOTE | ~2024-03-19 | FL_ITS ---
EXAMINATION: FL GUIDANCE ONLY HISTORY: M54.16 - Radiculopathy, lumbar region COMPARISON: None available. TECHNIQUE: Fluoroscopy time: 0.5 minutes. Cumulative Dose: 21.3 mGy. DAP: 0.371 uGy-m2 (microgray-meter squared). Images: 3. FINDINGS: Images demonstrate needles and contrast in the regions of the left L4-5 and L5-S1 facet joints. FL/FL guidance in treatment room IMPRESSION: Fluoroscopy during procedure. Please see procedure report for additional information. Electronically signed by: Quan Vigil MD 03/20/2024 07:35 AM [place]
== END 2024-03-19 06:16 | disposition home or self-care (01) ==
LOC: CF 06:15
PROVIDERS: Visit Provider Anesthesiology
DX: M54.16 Radiculopathy, lumbar region (principal)
CPT/HCPCS: 64483; J2003; J3301; Q9967

== ENCOUNTER 2024-03-19 09:40 | Outpatient (AMB) | payer OTHER, SELFPAY ==
[2024-03-19 09:57] VITALS: BP 143/90; PULSE 81; RESP 16; O2SAT 97
--- NOTE | 2024-03-19 09:57 | MHC.OFFVIS ---
Vital Signs 03/19/24 09:57 03/19/24 10:38 BP 143/90 H 138/77 Blood Pressure Location Lt radial Lt radial Position Sitting Sitting Respiration 16 16 Pulse 81 71 Pulse Source Pulse Oximeter Pulse Oximeter Pulse Oximetry (%) 97 98 Oxygen Delivery Method Room Air Room Air Intake Visit Reasons: LEFT L4, L5, AND L5, S1 TFESI Allergies No Known Allergies [No Known Allergies*] Allergy (Verified 03/19/24 09:57) Medication List - Last Reconciled 03/19/24 by Darlin Fragoso LPN cholecalciferol (vitamin D3) 50 mcg PO DAILY 90 days duloxetine 30 mg PO BID 30 days ferrous sulfate 27 mg PO DAILY ibuprofen 600 mg PO Q8H PRN sennosides (senna) 17.2 mg (2 x 8.6 mg) PO BEDTIME PRN 30 days tramadol 50 mg PO BID PRN 15 days trazodone 100 mg PO BEDTIME PRN 30 days PFSH Medical History IUD (intrauterine device) in place Migraine Anxiety Vitamin D deficiency Depression Family history of ovarian cancer Breast pain, right Hepatitis depression Obesity (BMI 30-39.9) History of in vitro fertilization Left ovarian cyst Anemia Surgical History H/O: (~03/2020) History of tonsillectomy History of carpal tunnel surgery Family History Maternal Aunt Ovarian cancer Maternal Uncle Colon cancer Maternal Uncle Colon cancer Mother COPD (chronic obstructive pulmonary disease) Fibromyalgia Hypertension Father No problems noted. Brother No problems noted. Son No problems noted. Social History Household Members: Spouse, Family and Children Housing: Apartment Alcohol intake: current Alcohol intake frequency: holidays/special occasions only Patient Tobacco Use Status: Former Tobacco user Tobacco use type: Cigarette e-Cigarette/Vaping Use: Never Used Second Hand Smoke Exposure: Yes service: No Current occupational status: unemployed Gender identity: Female Cognitive needs: No Hearing needs: No Vision needs: Yes (glasses) Female Reproductive History Menstrual Age of Menarche: 12 Physical Exam Vital Signs: Last Vital Signs Pulse 71 03/19/24 10:38 Resp 16 03/19/24 10:38 BP 138/77 03/19/24 10:38 Pulse Ox 98 03/19/24 10:38 Oxygen Delivery Method Room Air 03/19/24 10:38 Assessment & Plan Assessment & Plan (1) Sacroiliitis: Code(s): M46.1 - Sacroiliitis, not elsewhere classified Category: Medical (2) Lumbar degenerative disc disease: Code(s): M51.36 - Other intervertebral disc degeneration, lumbar region Category: Medical Qualifiers: Disc-related pain type: discogenic back pain only Qualified Code(s): M51.360 - Other intervertebral disc degeneration, lumbar region with discogenic back pain only (3) Lumbar spondylosis: Code(s): M47.816 - Spondylosis without myelopathy or radiculopathy, lumbar region Category: Medical (4) Fibromyalgia, primary: Code(s): M79.7 - Fibromyalgia Category: Medical (5) Lumbar back pain with radiculopathy affecting left lower extremity: Code(s): M54.16 - Radiculopathy, lumbar region Category: Medical Plan: Tansforaminal left L5-S1 and L4-5 epidural steroid injection . Informed consent was thoroughly explained to the patient before the procedure.? The patient came to the operating room.? He was positioned prone on operating table with a pillow under his abdomen.? Time-out was performed delineating correct site and side of the procedure, nature of the injection, name and date of of the patient. The lower back of the patient was prepped with ChloraPrep and draped with sterile utility towels.? C-arm was brought over the operating field and sq picture of L5 was demonstrated on the screen.? The left side was chosen as the side of the injection.? Tilting machine ipsilateral to the left at the level of L5 1st the most prominent picture of the left pedicle was obtained on the screen.? 3 mm below the level of the lowest point of the pedicle projection to the skin small amount of lidocaine 1% 3cc was injected to anesthetize the skin.? After that 5 in 22 gauge Quincke point needle was inserted through the skin wheal and was advanced toward the L5-S1 foramina on anterior posterior , lateral and oblique views intermittently.? When needle reached appropriate positioned injection of the contrast was performed delineating epidural and perineural spread of the contrast. No intravascular no intra neuro and no intrathecal spread of the contrast was noted. After that injection of the 3 cc of lidocaine 1% mixed with Kenalog 40 mg was performed into the needle. Upon completion of the injection needle was removed and the procedure was repeated at left L4-5 level in the same fashion, the dose of the medication was 40 mg of Kenalog and 3 cc of lidocaine 1%, upon completion of the procedure the needle was removed and sterile Band-Aid was applied. Patient tolerated the procedure well. (6) Pars defect of lumbar spine: Code(s): M43.06 - Spondylolysis, lumbar region Category: Medical (7) Vertebrogenic low back pain: Onset Date: ~12/06/23 Code(s): M54.51 - Vertebrogenic low back pain Category: Medical Plan Discussed Lumbar spine MRI imaging reports. Patient presents with worsening left sided radiculopathy. We will proceed with Left L4-L5, L5-S1 TFESI with local and fluoroscopy. Expectations, risks and benefits were reviewed. Patient is aware she will be contacted to schedule this procedure. She will follow up with [facility] if no pain relief. For moderate to severe pain, I will provide patient with short script of tramadol. Side effects and precautions discussed with patient. Safety, medication administration and storage reviewed with patient. Patient has Narcan at home. All questions and concerns have been answered and patient agreed with the plan. Follow up after injections and as needed. Orders: Orders FL guidance in treatment room Today M54.16 - Radiculopathy, lumbar region Coding Level of Care Code Procedure Only Diagnoses Sacroiliitis M46.1 Degeneration of intervertebral disc of lumbar region with discogenic back pain M51.360 Disc-related pain type: discogenic back pain only Lumbar spondylosis M47.816 Fibromyalgia, primary M79.7 Lumbar back pain with radiculopathy affecting left lower extremity M54.16 Pars defect of lumbar spine M43.06 Vertebrogenic low back pain M54.51
[2024-03-19 10:38] VITALS: BP 138/77; PULSE 71; RESP 16; O2SAT 98
== END 2024-03-19 10:38 | disposition home or self-care (01) ==
LOC: HO.PMCPRC 09:40
PROVIDERS: PCP Internal Medicine; Visit Provider Anesthesiology
DX: M54.16 Radiculopathy, lumbar region (principal)
CPT/HCPCS: 64483

== ENCOUNTER 2024-03-20 11:20 | Outpatient (AMB) | payer OTHER, SELFPAY ==
--- NOTE | 2024-03-20 11:25 | MHC.OFFVIS ---
Vital Signs 03/20/24 11:27 BP 128/86 Intake Visit Reasons: Ultrasound and EMB follow up/IUD check Finish Carpenter: Finish Carpenter Present (Tasia) Allergies No Known Allergies [No Known Allergies*] Allergy (Verified 03/20/24 11:26) HPI Comments Details: Patient is here today for a follow up on her pelvic ultrasound in EMB results. She had previously experienced AUB and had an IUD inserted in November. 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 Happy overall with the IUD and placement. She has a follow up blood work with her PCP to check her anemia level. She reports itching on the mons pubis upper/ thigh right side intermittently over a number years and was given a cream for that in the past, she would like a refill for treatment. [facility] Medical History IUD (intrauterine device) in place Migraine Anxiety Vitamin D deficiency Depression Family history of ovarian cancer Breast pain, right Hepatitis depression Obesity (BMI 30-39.9) History of in vitro fertilization Left ovarian cyst Anemia Surgical History H/O: (~03/2020) History of tonsillectomy History of carpal tunnel surgery Family History Maternal Aunt Ovarian cancer Maternal Uncle Colon cancer Maternal Uncle Colon cancer Mother COPD (chronic obstructive pulmonary disease) Fibromyalgia Hypertension Father No problems noted. Brother No problems noted. Son No problems noted. Social History Household Members: Spouse, Family and Children Housing: Apartment Alcohol intake: current Alcohol intake frequency: holidays/special occasions only Patient Tobacco Use Status: Former Tobacco user Tobacco use type: Cigarette e-Cigarette/Vaping Use: Never Used Second Hand Smoke Exposure: Yes service: No Current occupational status: unemployed Gender identity: Female Cognitive needs: No Hearing needs: No Vision needs: Yes (glasses) Female Reproductive History Menstrual Age of Menarche: 12 control method: progestin IUCD (Mirena 12/07/23) Review of Systems Const All systems reviewed & are unremarkable except as noted in HPI and below Physical Exam Vital Signs: Last Vital Signs BP 128/86 03/20/24 11:27 Const General: cooperative, healthy appearing and no acute distress Orientation/consciousness: patient oriented x3 GI Inspection: Yes normal to inspection Palpation (GI): Soft to palpation and Other GI palpation findings present (Nontender) Rectal Exam - Female: visual inspection normal Other: External inspection: Right side mons pubis with loss of hair oppositional side with appearance of lichen simplex chronicus skin changes. General: Yes bladder normal to palpation External Female Exam: normal appearance of the urethra Speculum Exam - Vagina: normal appearance of the vagina, normal palpation, normal vaginal discharge and vaginal bleeding (Small amount of dark brown blood) Speculum Exam - Cervix: normal appearance of the cervix, normal palpation and Other cervical findings present (IUD strings at the os) Bimanual exam- vagina & uterus: normal bimanual exam, normal palpation, uterine size normal, bladder normal to palpation, normal palpation, uterine shape normal and non-tender Bimanual Exam- Adnexa, other: normal adnexae OB/external & speculum: vaginal bleeding (Small amount of dark brown blood) Neuro General: patient oriented x3 Results Reviewed Results Reviewed: [address] [address] Ultrasound Report Signed Patient: Norma Abreu MR#: [id number] : 1980 Acct:[id number] Age/Sex: 43 / F ADM Date: 12/15/23 Loc: HO. Attending Dr: Alexia Silva CNM Ordering Physician: Alexia Silva CNM Date of Service: 12/15/23 Procedure(s): US pelvic and transvaginal Accession Number(s): [id number] cc: Wilber Cochran MD; Alexia Silva CNM~ EXAMINATION: US PELVIS CLINICAL INFORMATION: Abnormal uterine and vaginal bleeding COMPARISON: None available. TECHNIQUE: Ultrasound of the pelvis is performed using both transabdominal and transvaginal transducers along with Doppler. Transvaginal imaging is performed due to inadequate visualization transabdominally. FINDINGS: Uterus: The uterus is anteverted and is mildly enlarged measuring 11.9 x 5.3 x 5.8 cm. For a volume of 191 cc The double wall endometrial thickness is 7 mm. An IUD is present in good position in the endometrial canal The uterus is smooth in contour and has normal myometrial echogenicity. No visible fibroid. Adnexa: Both ovaries are visualized. There is normal color flow to the adnexa. There is no ovarian torsion. There is no pelvic ascites or fluid collection. Right ovary measures 2.7 x 1.9 x 1.9 cm for a volume of 5.1 cc which includes a 1.4 cm simple cyst . Left ovary measures 2.8 x 2.3 x 2.0 cm for a volume of 6.7 cc and includes a 2.0 cm simple cyst. US/US pelvic and transvaginal IMPRESSION: 1. IUD in good position. 2. Bilateral ovarian cysts. No follow-up is needed. Electronically signed by: Paulo Prince MD 02/11/2024 11:10 PM [facility] Dictated By: Paulo Prince MD Signed By: <Electronically signed by Paulo Prince MD in OV> 02/11/24 2990 DD/ 1140 TD/TT: 12/15/23 1215 Business Controller: Surgical Pathology [id number] Name: Norma Abreu Age/Sex: 43/F Attending: Alexia Silva CNM : 1980 Submitted by: Alexia Silva CNM Copies to: Wilber Cochran MD MR #: [id number] Status: DEP REF Collected: 12/07/23 Location: .LAB Received: 12/08/23 Diagnosis Endometrium, biopsy: Benign secretory endometrium with extensive breakdown; no atypia or carcinoma. Clinical History AUB Microscopic Description Microscopic sections reviewed. Material Received Endometrial biopsy Gross Description Received in formalin labeled ?EMB? are multiple irregular and tubular cast fragments of red-maroon tissue and blood aggregating 2.8 x 1.5 x 0.5-0.8 cm, submitted in toto in cassettes A1 and A2. CEDS Copies To Wilber Cochran MD [facility],[place] [address] [place] [address] [facility] [address] [place] [address] NOTE: Unless otherwise stated, all tissue is formalin-fixed and paraffin-embedded. Some or all of the immunohistochemical tests reported herein may have been developed and their performance characteristics determined by [facility]. They have not been cleared or approved by the U.S. Food and Drug Administration (FDA). However, the FDA has determined that such clearance or approval is not necessary. This laboratory is certified under the Clinical Laboratory Improvement Amendments of 1988 (CLIA) as qualified to perform high complexity clinical laboratory testing. Patient: Norma Abreu Age/Sex: 43/F MR#: [id number] Page 1 of 2 Assessment & Plan Assessment & Plan (1) Encounter to discuss test results: Code(s): Z71.2 - Person consulting for explanation of examination or test findings Plan: Discussed: Ultrasound findings IUD in place to bilateral simple cyst no indication for follow up. Endometrial biopsy results no atypia or carcinoma. (2) IUD surveillance: Code(s): Z30.431 - Encounter for routine checking of intrauterine contraceptive device Plan: Reviewed bleeding patterns and what is normal, and when to call and come back for any concerns with bleeding irregularities. (3) History of anemia: Code(s): Z86.2 - Personal history of diseases of the blood and blood-forming organs and certain disorders involving the immune mechanism Plan: Follow up with PCP for lab eval. (4) Lichen simplex chronicus: Code(s): L28.0 - Lichen simplex chronicus Plan: Discussed skin care, use of medication. Rx for Westcort sent in. Follow up p.r.n. for skin check. Plan Annual exam scheduled 12/09/2024. The patient expressed understanding and agreement with the plan of care. All of her questions and concerns were addressed to the best of my ability. Total time I personally spent on visit and management today: ?30 minutes. Time spent included review of pertinent office notes in the electronic health record; review of laboratory and imaging results; review of personal family medical history; performing physical exam; discussing diagnosis and plan of care with the patient; documenting the encounter in the EMR. This note is constructed using voice recognition software. While every effort has been made to ensure accuracy, orthopedic physician assistant errors may have been included. Medications: New hydrocortisone valerate 0.2% apply a thin coat to area 1 appl topical BID 7 days 45 grams 1RF Coding Level of Care Code Est Pt Level 3 (52790) Diagnoses Encounter to discuss test results Z71.2 IUD surveillance Z30.431 History of anemia Z86.2 Lichen simplex chronicus L28.0
[2024-03-20 11:27] VITALS: BP 128/86
== END 2024-03-20 12:17 | disposition home or self-care (01) ==
LOC: HO.HWS 11:20
PROVIDERS: PCP Internal Medicine; Visit Provider Advanced Practice Midwife
DX: Z71.2 Person consulting for explanation of examination or test findings (principal); Z30.431 Encounter for routine checking of intrauterine contraceptive device; Z86.2 Personal history of diseases of the blood and blood-forming organs and certain disorders involving the immune mechanism; L28.0 Lichen simplex chronicus
CPT/HCPCS: 99213

== ENCOUNTER → 2024-03-20 11:20 | Outpatient (BNVA) | payer OTHER, SELFPAY | PROVIDERS: PCP Internal Medicine; Visit Provider Advanced Practice Midwife | DX: L28.0 Lichen simplex chronicus (principal); Z30.431 Encounter for routine checking of intrauterine contraceptive device; Z86.2 Personal history of diseases of the blood and blood-forming organs and certain disorders involving the immune mechanism; Z71.2 Person consulting for explanation of examination or test findings | CPT/HCPCS: 99212 ==

== ENCOUNTER 2024-03-22 09:51 | Outpatient (RCR) | payer OTHER, SELFPAY ==
--- NOTE | 2024-01-31 07:37 | MHC.PT.EP ---
[facility] [place] Office [place] Office [place] Office [address] Andrew Julian [address] [phone] F: [phone] F: [phone] F: [phone] F: [phone] Physical Therapy Plan of Care Date of Evaluation: 01/30/24 Date of Surgery: Diagnosis: CERVICAL RADICULITIS, NECK PAIN-> SPONDYLOSIS Assessment: 43 YO FEMALE REF TO PT FOR Rt SH/ CERVICAL SPONDYLOSIS, EXACERBATED IN MAY 2023- SHE RESIDES W HER SPOUSE AND TODDLER AND IS Rt HAND DOMINANT. OBJECTIVELY, SHE HAS DECR POSTURAL/ BODY MECH AWARENESS, TISSUE TENSION IN PECT/ ANT CHAIN AND CERV REGION; LIMITED Rt SH AND CERV ROM; (+) STRENGTH DEFICITS IN CORE AREA / POST RC, AND PAIN IN HER Rt UT/ CERV AREA. FUNCTIONALLY, THE Pt IS RESTRICTED W SLEEP, Rt UE USAGE W ADLs/ DOING HER HAIR, AND HOUSECHORES/ CHILDCARE W HER TODDLER. SHE IS A GOOD CANDIDATE FOR SKILLED PT, SHE IS Rt HAND DOMINANT- AGREES W PT POC AND WILL PROCEED ACCORDINGLY TO ADDRESS THE ABOVE FINDINGS. Frequency and Duration: The patient will be seen 2 x WK x 4 WKS Short Term Goals: *DECR Rt CERV/ SH SXS TO 2-04/29 *Pt INDEP SELF CORRECT POSTURE AND BODY MECJ W SIMUL ADLS *IMPROVE AROM Rt SH GIRDLE/ CERV *INITIATE HEP Electronic Coils Supervisor Goals: *Pt INDEP W HEP AND SELF SX MGMT TECHN *Pt GRAD RESUME REG ADLs/ CHILDCARE EVIDENT W IMPROVED NPDI SCORE (AT EVAL 23/50) *Pt DEMON 3:3 SIMUL ADLs W PROPER TECHN AND W/O EXACERB SXS Treatment Plan: Modalities to reduce pain, spasms and effusion. Manual therapy to restore motion and function. Therapeutic exercise to improve strength and flexibility. Neuromuscular re-education for posture and balance. Therapeutic activities to return to functional activities of daily living. Electronically signed by: ROXY ISABEL, PT Please sign and return to therapist. Thank you for your referral.
--- NOTE | 2024-05-31 15:29 | MHC.PT.DC ---
[facility] [place] Office [place] Office [place] Office [address] Andrew Julian [address] [phone] F: [phone] F: [phone] F: [phone] F: [phone] Physical Therapy Discharge Report Diagnosis: CERVICAL RADICULITIS, NECK PAIN-> SPONDYLOSIS Date of Surgery: Date of Evaluation: 01/30/24 Date of Discharge: 05/31/24 Treatments to Date: 5 Cancellations to Date: 3 No Shows to Date: Discharge Status: Patient Elected to Stop Discharge Summary: THE Pt HAS A HEP AND INCR AWARENESS W POSTURAL SELF CORRCETION- SHE DID NOT ATTEND HER LAST FEW SCHED PT APPTS, SO A REASSESSMENT WAS NOT PERF- SHE DID NOT MEET HER PT GOALS. Electronically signed by: ROXY ISABEL,PT Please sign and return to therapist. Thank you for your referral.
--- NOTE | 2024-06-03 13:29 | MHC.PT.DC ---
[facility] [place] Office [place] Office [place] Office [address] Andrew Julian [address] [phone] F: [phone] F: [phone] F: [phone] F: [phone] Physical Therapy Discharge Report Diagnosis: CERVICAL RADICULITIS, NECK PAIN-> SPONDYLOSIS Date of Surgery: Date of Evaluation: 01/30/24 Date of Discharge: 05/31/24 Treatments to Date: 5 Cancellations to Date: 3 No Shows to Date: Discharge Status: Patient Elected to Stop Discharge Summary: THE Pt HAS A HEP AND INCR AWARENESS W POSTURAL SELF CORRCETION- SHE DID NOT ATTEND HER LAST FEW SCHED PT APPTS, SO A REASSESSMENT WAS NOT PERF- SHE DID NOT MEET HER PT GOALS. Electronically signed by: ROXY ISABEL,PT Please sign and return to therapist. Thank you for your referral.
== END 2024-06-03 13:29 | disposition home or self-care (01) ==
LOC: HO.PT 09:51
PROVIDERS: PCP Internal Medicine; Visit Provider Physical Medicine & Rehabilitation
DX: M47.812 Spondylosis without myelopathy or radiculopathy, cervical region (principal); M54.12 Radiculopathy, cervical region
CPT/HCPCS: 97110; 97140; 97162; 97530

== ENCOUNTER 2024-04-11 09:37 | Outpatient (AMB) | payer OTHER, SELFPAY ==
--- NOTE | 2024-04-11 09:44 | MHC.OFFVIS ---
Vital Signs 04/11/24 09:51 Height 5 ft 9 in Weight 251 lb BMI 37.1 BP 189/85 H Blood Pressure Location Lt brachial Position Sitting Pulse 98 Pulse Source Pulse Oximeter Pulse Oximetry (%) 97 Oxygen Delivery Method Room Air Intake Visit Reasons: LEFT L4, L5 AND L5, S1 TFESI Intake Note: Pain today 10/30 Quality Control Operator Required: No Accompanied by: Self / Same As Patient Allergies No Known Allergies [No Known Allergies*] Allergy (Verified 04/11/24 09:51) HPI Comments Details: Patient presents today to assess response to Left L4-L5, L5-S1 TFESI on 03/19/[address] Urbano. Patient reports less than 10% pain relief for 1 week after procedure without significant pain or function improvement, sleep, or social interactions. Patient continues to endorse moderate to severe low back pain with radiation into her bilateral lower extremities, worse on the left. She also reports significant low back pain with radiation into her left buttock and left hip and thigh, consistent with sacroiliac joint pain. Previous interventions, including sacroiliac joint, lumbar MBBs, TFESI injections were not helpful. She was seen by our [facility] last year and deemed non-surgical. Patient reports difficulty with ADLs, bending down, flexing forward, house chores or prolonged sitting, standing or walking. Patient reports she has adjusted her diet and avoids sweets, carbohydrates for weight loss but has difficulty to participate in home exercise program or PT. She is active with her 4 year old toddler but with pain. Reports pain negatively affects her mood, sleep and social interactions. Denies any recent cough, fever, chills cold, foot drop, weakness, bladder or bowel incontinence or saddle anesthesia. Past Procedures: 03/19/24: Left L4-L5, L5-S1 TFESI-10% pain for 1 week 11/07/23: Bilateral Diagnostic L3-L4 DR L5 MBB-20% pain relief for 6 hours 04/18/23: Bilateral L5-S1 TFESI-40-50% pain relief 11/08/22: Left Therapeutic SIJ injection- 0% pain relief 10/18/22: Left Diagnostic SIJ injection-40% pain relief for 6 hours 06/21/22: Left L5-S1 TFESI-80% pain relief for 2 weeks PRIOR: Patient is a pleasant 41 year old female who presents today for an initial evaluation of chronic lower back pain, left hand pain and right shoulder pain. Patient reports chronic back pain that has been worsening after her with epidural 04/04/2020. Her back pain is axial and also radiates into her left lower extremity posteriorly with numbness and tingling in the posterior lower leg, osborne and sole of her left foot. She also has localized pain in the projections of the left sacroiliac joint. Patient also reports left hand and wrist pain with flexion, pulling and lifting objects consistent with carpal tunnel syndrome. She has a history of right carpal tunnel repair in 2010. Patient is right hand dominant. Her right shoulder radiates to her neck with muscle spasms and tenderness. Pain increases with prolonged sitting, walking, standing, intercourse, climbing stairs, changing positions and weather changes. Pain is described as constant throbbing, shooting, stabbing, sharp, cramping, tingling, sore, hurting, aching, exhausting, tiring, and radiating. Pain interferes with her daily activities and functionings, mood, sleep, social interactions and quality of life. She has been managing pain with Ibuprofen and cyclobenzaprine with continued symptoms. Patient also started physical therapy last week and is intersted to trial acupuncture therapy for right shoulder and neck pain. Lumbar spine MRI in 2017 showed disc degeneration and a minimal anterior subluxation at L5-S1 with chronic bilateral L5 pars defects and [id number] right foraminal narrowing. Facet spurring mildly distorts the exiting right L5 nerve root. Most recent lumbar spine xray showed bilateral L5 spondylolysis defect is redemonstrated and multi-level thoracolumbar spondylosis and Schmorl's node formation. Patient denies any fever, weight loss, tachycardia, abdominal or groin pain, weakness, nausea, vomiting, constipation, diarrhea, vaginal bleeding, bladder or bowel incontinence or saddle anesthesia. Of note, patient has history of fatty liver, elevated LFT and hepatitis. She reports the most recent screening for hepatitis panel was negative. [facility] Medical History IUD (intrauterine device) in place Migraine Anxiety Vitamin D deficiency Depression Family history of ovarian cancer Breast pain, right Hepatitis depression Obesity (BMI 30-39.9) History of in vitro fertilization Left ovarian cyst Anemia Surgical History H/O: (~03/2020) History of tonsillectomy History of carpal tunnel surgery Family History Maternal Aunt Ovarian cancer Maternal Uncle Colon cancer Maternal Uncle Colon cancer Mother COPD (chronic obstructive pulmonary disease) Fibromyalgia Hypertension Father No problems noted. Brother No problems noted. Son No problems noted. Social History Household Members: Spouse, Family and Children Housing: Apartment Alcohol intake: current Alcohol intake frequency: holidays/special occasions only Patient Tobacco Use Status: Former Tobacco user Tobacco use type: Cigarette e-Cigarette/Vaping Use: Never Used Second Hand Smoke Exposure: Yes service: No Current occupational status: unemployed Gender identity: Female Cognitive needs: No Hearing needs: No Vision needs: Yes (glasses) Female Reproductive History Menstrual Age of Menarche: 12 Review of Systems Const All systems reviewed & are unremarkable except as noted in HPI and below Physical Exam Vital Signs: Last Vital Signs Pulse 98 04/11/24 09:51 BP 189/85 H 04/11/24 09:51 Pulse Ox 97 04/11/24 09:51 Oxygen Delivery Method Room Air 04/11/24 09:51 BMI result Body Mass Index 37.1 General: Appears afebrile. Alert and oriented. Mood and affect appropriate. Follows and participates in conversation appropriately. Respiratory effort is unlabored. No cough. Able to transition from sit to stand unassisted, reports LLE weakness due to pain. General: Yes no CVA tenderness Back/Spine/Pelvis Other: Limited lumbar ROM due to pain. Lumbar extension and flexion forward reproduce moderate pain, worse with bending. TTP in the projection of both SIJ, left>right. Rafael's test reproduce moderate SIJ pain on the left, mild pain on the right SIJ. Mild TTP to GTB. Multiple TTPs 16/16 of lower extremities consistent with fibromyalgia. Back: no CVA tenderness Cervical Spine: cervical ROM normal, cervical muscular tenderness, pain with cervical ROM, No Cervical spine tenderness and No step off deformity Thoracic/Lumbar Spine: thoracic and lumbar spine normal to inspection, No Thoracic/lumbar spine scar(s), Lasegue's sign negative, straight leg raise negative bilaterally, pain with thoraco-lumbar ROM, paraspinal muscle tenderness, thoraco-lumbar ROM limited, No thoracic spinal tenderness, lumbar spinal tenderness (L4-S1) and straight leg raise positive left at 50 degrees Pelvis: buttock tenderness on the left Sacroiliac joints: bilaterally (left>right) tender to palpation Extrem General: Yes capillary refill normal, Yes no clubbing, cyanosis or edema and Yes no calf tenderness Psych Appearance: grossly normal Mental Status: mental status grossly normal Speech and movement: Normal speech and movement present and Clear speech present Affect: normal affect Attitude: cooperative Thought process: Normal thought process present Thought content: Normal thought content present, suicidality (none), no hallucinations and No Depressive thoughts present Insight: Good insight present (Psych) Judgement: Good judgement present (Psych) Results Reviewed Results Reviewed: MR LUMBAR SPINE WITHOUT CONTRAST 12/29/23 CLINICAL INFORMATION: Radiculopathy lumbar region. Self-reported leg weakness, sciatica and leg numbness. COMPARISON: MRI lumbar spine 05/02/2022. MRI lumbar spine 08/15/2016. FINDINGS: 5 lumbar type vertebral bodies are identified. Bilateral L5 pars interarticularis defects are visualized. No L5-S1 spondylolisthesis noted. No suspicious marrow abnormalities. Minimal multilevel Schmorl's node deformities identified. The visualized sacrum appears intact. Partial visualization is made of an approximate 2.5 cm right adnexal unilocular-appearing cyst which on the basis of this examination warrants no additional follow-up. The conus medullaris terminates at the level of L1. The conus medullaris and cauda equina are normal in appearance. T12-L1: No significant central or foraminal stenoses. L1-L2: No significant central or foraminal stenoses. L2-L3: No significant central or foraminal stenoses. L3-L4: No significant central or foraminal stenoses. L4-L5: A central and right paracentral disc protrusion measures 5 mm in radial extent and demonstrates annular T2 hyperintensity suspicious for an annular fissure. The protrusion partially effaces right subarticular recess without associated impingement or displacement of the adjacent traversing right L5 nerve roots. Intervertebral disc demonstrates 25% overall loss of cranial caudal height. No facet arthropathic changes. Normal ligamentum flavum appearance. An intraforaminal component of the protrusion results in minimal right foraminal stenosis without associated nerve root impingement. Making allowances for differences in slice selection, the protrusion is unchanged appreciably in size and configuration compared with 05/02/2022. L5-S1 mild central and right parasagittal disc protrusion is present. Minimal osteophytosis of the inferior endplate of L5 is present along the right parasagittal component of the protrusion. The protrusion measures 5 mm in radial extent and T2 hyperintensities present in the annulus of the protrusion suspicious for an annular fissure. No associated direct nerve root impingement or displacement. The intervertebral disc demonstrates 25% overall loss of cranial caudal height. The protrusion is unchanged in configuration compared with 12/02/2022. IMPRESSION: *L4-L5 mild-moderate central and right parasagittal disc protrusion and overlying annular fissure unchanged in configuration and size compared with 05/02/2022. No associated direct nerve root impingement. The annular fissure is present in the right parasagittal aspect of the protrusion. This component of the protrusion comes to within 1-2 mm proximity of the traversing right L5 nerve roots. Inflammatory changes related to the annular fissure could correlate with right L5 radiculopathy. *L5-S1 mild central and right parasagittal disc protrusion and overlying annular fissure unchanged compared with 05/02/2022. No associated direct nerve root impingement. The annular fissure resides within the central component of the protrusion. *Chronic L5 bilateral pars interarticularis defects. No L5-S1 spondylolisthesis. Assessment & Plan Assessment & Plan (1) Sacroiliitis: Code(s): M46.1 - Sacroiliitis, not elsewhere classified Category: Medical (2) Lumbar degenerative disc disease: Code(s): M51.36 - Other intervertebral disc degeneration, lumbar region Category: Medical Qualifiers: Disc-related pain type: discogenic back pain only Qualified Code(s): M51.360 - Other intervertebral disc degeneration, lumbar region with discogenic back pain only (3) Lumbar spondylosis: Code(s): M47.816 - Spondylosis without myelopathy or radiculopathy, lumbar region Category: Medical (4) Fibromyalgia, primary: Code(s): M79.7 - Fibromyalgia Category: Medical (5) Lumbar back pain with radiculopathy affecting left lower extremity: Code(s): M54.16 - Radiculopathy, lumbar region Category: Medical (6) Pars defect of lumbar spine: Code(s): M43.06 - Spondylolysis, lumbar region Category: Medical (7) Vertebrogenic low back pain: Onset Date: ~12/06/23 Code(s): M54.51 - Vertebrogenic low back pain Category: Medical Plan Patient is 3 weeks status post left L4-L5, L5-S1 TFESI with minimal relief. Previous interventions, including sacroiliac joint, lumbar MBBs, TFESI injections were not helpful. She was seen by our [facility] last year and deemed non-surgical. We reviewed neuromodulation today, SCS trial vs implant. Patient is interested to undergo lumbar SCS trial for potential longer term pain management. Extensive discussion regarding the risks and benefits of SCS trial and implant procedures and all questions were answered to patient satisfaction. Placed referral for psychology clearance in anticipation of SCS trial. All questions and concerns have been answered and patient agreed with the plan. Follow up after behavioral evaluation and as needed. Coding Level of Care Code Est Pt Level 4 (55948) Complex EM visit Add On G2211 Diagnoses Sacroiliitis M46.1 Degeneration of intervertebral disc of lumbar region with discogenic back pain M51.360 Disc-related pain type: discogenic back pain only Lumbar spondylosis M47.816 Fibromyalgia, primary M79.7 Lumbar back pain with radiculopathy affecting left lower extremity M54.16 Pars defect of lumbar spine M43.06 Vertebrogenic low back pain M54.51
[2024-04-11 09:51] VITALS: BP 189/85; PULSE 98; O2SAT 97; BMI 37.1
== END 2024-04-11 10:18 | disposition home or self-care (01) ==
PROVIDERS: PCP Internal Medicine; Visit Provider Nurse Practitioner Family
DX: M46.1 Sacroiliitis, not elsewhere classified (principal); M51.360 Other intervertebral disc degeneration, lumbar region with discogenic back pain only; M47.816 Spondylosis without myelopathy or radiculopathy, lumbar region; M79.7 Fibromyalgia; M54.16 Radiculopathy, lumbar region; M43.06 Spondylolysis, lumbar region; M54.51 Vertebrogenic low back pain
CPT/HCPCS: 99214; G2211

== ENCOUNTER → 2024-04-11 09:37 | Outpatient (BNVA) | payer OTHER, SELFPAY | PROVIDERS: PCP Internal Medicine; Visit Provider Nurse Practitioner Family | DX: M46.1 Sacroiliitis, not elsewhere classified (principal); M51.360 Other intervertebral disc degeneration, lumbar region with discogenic back pain only; M47.816 Spondylosis without myelopathy or radiculopathy, lumbar region; M79.7 Fibromyalgia; M54.16 Radiculopathy, lumbar region; M43.06 Spondylolysis, lumbar region; M54.51 Vertebrogenic low back pain | CPT/HCPCS: 99212 ==

== ENCOUNTER → 2024-05-03 18:12 | Outpatient (BNV) | payer OTHER, SELFPAY | PROVIDERS: PCP Internal Medicine; Visit Provider Radiology Diagnostic Radiology | DX: M54.12 Radiculopathy, cervical region (principal) | CPT/HCPCS: 72141 ==

== ENCOUNTER 2024-05-03 18:15 | Outpatient (REF) | payer OTHER, SELFPAY ==
--- NOTE | ~2024-05-03 | MR_ITS ---
EXAMINATION: MR CERVICAL SPINE WITHOUT CONTRAST CLINICAL INFORMATION: Right arm numbness, pain and weakness. COMPARISON: Cervical spine x-ray 09/09/2015 TECHNIQUE: MRI of the cervical spine was obtained using routine sequences without contrast. FINDINGS: There is mild straightening of cervical lordosis. The vertebral heights and alignment is normal. There is minimal loss of C4-5, C5-6 disc heights. Rest of the disc heights are normal. At C2-3 disc level there is no significant disc bulge, herniation or spinal canal stenosis. The neural foramina patent bilaterally. At C3-4 disc level there is mild uncovertebral hypertrophic changes without neral for abdominal narrowing. There is minimal central disc bulge/osteophyte complex without spinal canal stenosis. At C4-5 disc level there is minimal bulge flattening the ventral thecal sac but without spinal canal stenosis. Mild uncovertebral hypertrophic changes are noted with patent neural foramina. C5-6 At C5-6 disc level there is minimal bulge flattening the ventral thecal sac but without spinal canal stenosis. There is mild to moderate left neural foraminal narrowing from uncovertebral hypertrophic changes. At C6-7 disc level there is minimal bulge with mild flattening of the ventral thecal sac. There is no spinal canal stenosis. There is mild uncovertebral hypertrophic changes bilaterally slightly greater on the right with mild narrowing of right neural foramina. The left neural foramina is widely patent. At C7-T1 disc level there is no central disc bulge, herniation or spinal stenosis. There is mild left neural foraminal narrowing from uncovertebral hypertrophic changes. The cord signal, cervical medullary junction and the bone marrow signal is normal. Prevertebral and paravertebral soft tissues are normal. MR/MR cervical spine wo con IMPRESSION: Minimal bulges without spinal canal stenosis as described above. There is uncovertebral hypertrophic changes at C6-C7 disc level narrowing bilateral neural foramina slightly greater on the right. Moderate narrowing of left neural foramina from uncovertebral hypertrophic changes at C5-6 disc level is noted. Mild narrowing of left neural foramina at C7-T1 disc level from uncovertebral hypertrophic changes. Electronically signed by: Peter Niño MD 05/06/2024 07:51 AM EDT
== END 2024-05-03 18:16 | disposition home or self-care (01) ==
LOC: HO.MRI 18:15
PROVIDERS: PCP Internal Medicine; Visit Provider Physical Medicine & Rehabilitation
DX: M54.12 Radiculopathy, cervical region (principal)
CPT/HCPCS: 72141

== ENCOUNTER 2024-05-06 10:37 | Outpatient (AMB) | payer OTHER, SELFPAY ==
--- NOTE | 2024-05-06 10:50 | A.OFFVIS_ITS ---
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 Her back pain is multifactorial with vertebrogenic, spondylotic, pars defect in the lower spine, sacroiliitis, and fibromyalgia pain components. Her chronic lumbar radiculopathy affects the left lower leg. Previous interventions, including therapeutic TFESI, SIJ and lumbar medial branch block injections, provided minimal relief. Psychological clearance was recently completed for a spinal cord stimulator trial, and she was noted to be a good candidate. Neurosurgery deeming her non-surgical. Patient also reports ongoing neck pain with right sided radiculopathy. She recently underwent cervical spine MRI as noted below. Patient reports difficulty with ADLs, bending down, flexing forward, house chores or prolonged sitting, standing or walking. Patient reports she has adjusted her diet and avoids sweets, carbohydrates for weight loss but has difficulty to participate in home exercise program or PT. She is active with her 4 year old toddler but with pain. Reports pain negatively affects her mood, sleep and social interactions. Denies any recent cough, fever, chills cold, foot drop, weakness, bladder or bowel incontinence or saddle anesthesia. - Location: Low back, left lower leg, and right neck with radiating symptoms - Quality: Chronic - Radiation: Pain radiates to the left lower leg; neck pain radiates to right arm, 5th digit - Aggravating Factors: Twisting, bending, walking, standing, prolonged sitting - Relieving Factors: Minimal relief from previous injections - Impact: Limits ability to shower, bend, twist, and execute some daily activities - Duration: Chronic Past Procedures: 03/19/24: Left L4-L5, L5-S1 TFESI-10% pain for 1 week 11/07/23: Bilateral Diagnostic L3-L4 DR L5 MBB-20% pain relief for 6 hours 04/18/23: Bilateral L5-S1 TFESI-40-50% pain relief 11/08/22: Left Therapeutic SIJ injection- 0% pain relief 10/18/22: Left Diagnostic SIJ injection-40% pain relief for 6 hours 06/21/22: Left L5-S1 TFESI-80% pain relief for 2 weeks PRIOR: Patient is a pleasant 41 year old female who presents today for an initial evaluation of chronic lower back pain, left hand pain and right shoulder pain. Patient reports chronic back pain that has been worsening after her with epidural 04/04/2020. Her back pain is axial and also radiates into her left lower extremity posteriorly with numbness and tingling in the posterior lower leg, osborne and sole of her left foot. She also has localized pain in the projections of the left sacroiliac joint. Patient also reports left hand and wrist pain with flexion, pulling and lifting objects consistent with carpal tunnel syndrome. She has a history of right carpal tunnel repair in 2010. Patient is right hand dominant. Her right shoulder radiates to her neck with muscle spasms and tenderness. Pain increases with prolonged sitting, walking, standing, intercourse, climbing stairs, changing positions and weather changes. Pain is described as constant throbbing, shooting, stabbing, sharp, cramping, tingling, sore, hurting, aching, exhausting, tiring, and radiating. Pain interferes with her daily activities and functionings, mood, sleep, social interactions and quality of life. She has been managing pain with Ibuprofen and cyclobenzaprine with continued symptoms. Patient also started physical therapy last week and is intersted to trial acupuncture therapy for right shoulder and neck pain. Lumbar spine MRI in 2017 showed disc degeneration and a minimal anterior subluxation at L5-S1 with chronic bilateral L5 pars defects and [id number] right foraminal narrowing. Facet spurring mildly distorts the exiting right L5 nerve root. Most recent lumbar spine xray showed bilateral L5 spondylolysis defect is redemonstrated and multi-level thoracolumbar spondylosis and Schmorl's node formation. Patient denies any fever, weight loss, tachycardia, abdominal or groin pain, weakness, nausea, vomiting, constipation, diarrhea, vaginal bleeding, bladder or bowel incontinence or saddle anesthesia. Of note, patient has history of fatty liver, elevated LFT and hepatitis. She reports the most recent screening for hepatitis panel was negative. [facility] Medical History IUD (intrauterine device) in place Migraine Anxiety Vitamin D deficiency Depression Family history of ovarian cancer Breast pain, right Hepatitis depression Obesity (BMI 30-39.9) History of in vitro fertilization Left ovarian cyst Anemia Surgical History H/O: (~03/2020) History of tonsillectomy History of carpal tunnel surgery Family History Maternal Aunt Ovarian cancer Maternal Uncle Colon cancer Maternal Uncle Colon cancer Mother COPD (chronic obstructive pulmonary disease) Fibromyalgia Hypertension Father No problems noted. Brother No problems noted. Son No problems noted. Social History Household Members: Spouse, Family and Children Housing: Apartment Alcohol intake: current Alcohol intake frequency: holidays/special occasions only Patient Tobacco Use Status: Former Tobacco user Tobacco use type: Cigarette e-Cigarette/Vaping Use: Never Used Second Hand Smoke Exposure: Yes service: No Current occupational status: unemployed Gender identity: Female Cognitive needs: No Hearing needs: No Vision needs: Yes (glasses) Female Reproductive History Menstrual Age of Menarche: 12 Review of Systems Const All systems reviewed & are unremarkable except as noted in HPI and below Physical Exam Vital Signs: Last Vital Signs Pulse 86 05/06/24 10:55 BP 131/73 05/06/24 10:55 Pulse Ox 98 05/06/24 10:55 Oxygen Delivery Method Room Air 05/06/24 10:55 BMI result Body Mass Index 37.9 General: Appears afebrile. Alert and oriented. Mood and affect appropriate. Follows and participates in conversation appropriately. Respiratory effort is unlabored. No cough. Able to transition from sit to stand unassisted, reports LLE weakness due to pain. Neck Other: Decreased cervical ROM in all planes due to pain and limited on the right with lateral bending. Reports increased pain with cervical extension and flexion. Spurling compression test is positive on the right. Elvey's tension test positive on the right with radiation of pain from neck to wrist to right 5th digit with associated numbness and tingling of RUE. Lhermitte's test was negative. DTR intact, +2 and symmetrical. Patient demonstrated 5/5 motor strength of bilateral upper extremities. 2 + radial pulses. Significant tightness throughout right upper trapezius as well as TTP throughout bilateral upper trapezius muscles. No paravertebral tenderness over facet joints bilaterally. Neck: Yes normal visual inspection, Yes no lymphadenopathy, Yes no meningeal signs, Yes supple, No anterior neck swelling, Yes no JVD, No prominent supraclavicular fat pad and Yes prominent dorsocervical fat pad General: Yes no CVA tenderness Back/Spine/Pelvis Other: Limited lumbar ROM due to pain. Lumbar extension and flexion forward reproduce moderate pain, worse with bending. TTP in the projection of both SIJ, left>rig ht. Rafael's test reproduce moderate SIJ pain on the left, mild pain on the right SIJ. Mild TTP to GTB. Multiple TTPs 16/16 of lower extremities consistent with fibromyalgia. Back: no CVA tenderness Cervical Spine: cervical ROM normal, cervical muscular tenderness, pain with cervical ROM, No Cervical spine tenderness and No step off deformity Thoracic/Lumbar Spine: thoracic and lumbar spine normal to inspection, No Thoracic/lumbar spine scar(s), Lasegue's sign negative, straight leg raise negative bilaterally, pain with thoraco-lumbar ROM, paraspinal muscle tenderness, thoraco-lumbar ROM limited, No thoracic spinal tenderness, lumbar spinal tenderness (L4-S1) and straight leg raise positive left at 50 degrees Pelvis: buttock tenderness on the left Sacroiliac joints: bilaterally (left>right) tender to palpation Neuro General: no meningeal signs Extrem General: Yes capillary refill normal, Yes no clubbing, cyanosis or edema and Yes no calf tenderness Results Reviewed Results Reviewed: MR LUMBAR SPINE WITHOUT CONTRAST 12/29/23 CLINICAL INFORMATION: Radiculopathy lumbar region. Self-reported leg weakness, sciatica and leg numbness. COMPARISON: MRI lumbar spine 05/02/2022. MRI lumbar spine 08/15/2016. FINDINGS: 5 lumbar type vertebral bodies are identified. Bilateral L5 pars interarticularis defects are visualized. No L5-S1 spondylolisthesis noted. No suspicious marrow abnormalities. Minimal multilevel Schmorl's node deformities identified. The visualized sacrum appears intact. Partial visualization is made of an approximate 2.5 cm right adnexal unilocular-appearing cyst which on the basis of this examination warrants no additional follow-up. The conus medullaris terminates at the level of L1. The conus medullaris and cauda equina are normal in appearance. T12-L1: No significant central or foraminal stenoses. L1-L2: No significant central or foraminal stenoses. L2-L3: No significant central or foraminal stenoses. L3-L4: No significant central or foraminal stenoses. L4-L5: A central and right paracentral disc protrusion measures 5 mm in radial extent and demonstrates annular T2 hyperintensity suspicious for an annular fissure. The protrusion partially effaces right subarticular recess without associated impingement or displacement of the adjacent traversing right L5 nerve roots. Intervertebral disc demonstrates 25% overall loss of cranial caudal height. No facet arthropathic changes. Normal ligamentum flavum appearance. An intraforaminal component of the protrusion results in minimal right foraminal stenosis without associated nerve root impingement. Making allowances for differences in slice selection, the protrusion is unchanged appreciably in size and configuration compared with 05/02/2022. L5-S1 mild central and right parasagittal disc protrusion is present. Minimal osteophytosis of the inferior endplate of L5 is present along the right parasagittal component of the protrusion. The protrusion measures 5 mm in radial extent and T2 hyperintensities present in the annulus of the protrusion suspicious for an annular fissure. No associated direct nerve root impingement or displacement. The intervertebral disc demonstrates 25% overall loss of cranial caudal height. The protrusion is unchanged in configuration compared with 12/02/2022. IMPRESSION: *L4-L5 mild-moderate central and right parasagittal disc protrusion and overlying annular fissure unchanged in configuration and size compared with 05/02/2022. No associated direct nerve root impingement. The annular fissure is present in the right parasagittal aspect of the protrusion. This component of the protrusion comes to within 1-2 mm proximity of the traversing right L5 nerve roots. Inflammatory changes related to the annular fissure could correlate with right L5 radiculopathy. *L5-S1 mild central and right parasagittal disc protrusion and overlying annular fissure unchanged compared with 05/02/2022. No associated direct nerve root impingement. The annular fissure resides within the central component of the protrusion. *Chronic L5 bilateral pars interarticularis defects. No L5-S1 spondylolisthesis. MR CERVICAL SPINE WITHOUT CONTRAST 05/03/24 CLINICAL INFORMATION: Right arm numbness, pain and weakness. COMPARISON: Cervical spine x-ray 09/09/2015 TECHNIQUE: MRI of the cervical spine was obtained using routine sequences without contrast. FINDINGS: There is mild straightening of cervical lordosis. The vertebral heights and alignment is normal. There is minimal loss of C4-5, C5-6 disc heights. Rest of the disc heights are normal. At C2-3 disc level there is no significant disc bulge, herniation or spinal canal stenosis. The neural foramina patent bilaterally. At C3-4 disc level there is mild uncovertebral hypertrophic changes without neral for abdominal narrowing. There is minimal central disc bulge/osteophyte complex without spinal canal stenosis. At C4-5 disc level there is minimal bulge flattening the ventral thecal sac but without spinal canal stenosis. Mild uncovertebral hypertrophic changes are noted with patent neural foramina. C5-6 At C5-6 disc level there is minimal bulge flattening the ventral thecal sac but without spinal canal stenosis. There is mild to moderate left neural foraminal narrowing from uncovertebral hypertrophic changes. At C6-7 disc level there is minimal bulge with mild flattening of the ventral thecal sac. There is no spinal canal stenosis. There is mild uncovertebral hypertrophic changes bilaterally slightly greater on the right with mild narrowing of right neural foramina. The left neural foramina is widely patent. At C7-T1 disc level there is no central disc bulge, herniation or spinal stenosis. There is mild left neural foraminal narrowing from uncovertebral hypertrophic changes. The cord signal, cervical medullary junction and the bone marrow signal is normal. Prevertebral and paravertebral soft tissues are normal. IMPRESSION: Minimal bulges without spinal canal stenosis as described above. There is uncovertebral hypertrophic changes at C6-C7 disc level narrowing bilateral neural foramina slightly greater on the right. Moderate narrowing of left neural foramina from uncovertebral hypertrophic changes at C5-6 disc level is noted. Mild narrowing of left neural foramina at C7-T1 disc level from uncovertebral hypertrophic changes. Assessment & Plan Assessment & Plan (1) Sacroiliitis: Code(s): M46.1 - Sacroiliitis, not elsewhere classified Category: Medical (2) Lumbar degenerative disc disease: Code(s): M51.36 - Other intervertebral disc degeneration, lumbar region Category: Medical Qualifiers: Disc-related pain type: discogenic back pain only Qualified Code(s): M51.360 - Other intervertebral disc degeneration, lumbar region with discogenic back pain only (3) Lumbar spondylosis: Code(s): M47.816 - Spondylosis without myelopathy or radiculopathy, lumbar region Category: Medical (4) Fibromyalgia, primary: Code(s): M79.7 - Fibromyalgia Category: Medical (5) Pars defect of lumbar spine: Code(s): M43.06 - Spondylolysis, lumbar region Category: Medical (6) Vertebrogenic low back pain: Onset Date: ~12/06/23 Code(s): M54.51 - Vertebrogenic low back pain Category: Medical (7) Cervical radiculitis: Code(s): M54.12 - Radiculopathy, cervical region Category: Medical (8) Cervical spondylosis: Code(s): M47.812 - Spondylosis without myelopathy or radiculopathy, cervical region Category: Medical Plan The plan is to conduct a spinal cord stimulator trial once psychological clearance is confirmed. Extensive discussion regarding the risks and benefits of SCS trial and implant procedures and all questions were answered to patient satisfaction. For persistent right sided cervical radiculopathy, we will tentatively plan for Right C6-C7 Interlaminar Parasaggital MAYRA with local and fluoroscopy. Expectations, risks and benefits were reviewed. All questions and concerns have been answered and patient agreed with the plan. Follow up s/p injections/SCS trial and sooner as needed. Patient was informed and verbally consented to the use of an ambient scribe for clinic note documentation during this visit. Coding Level of Care Code Est Pt Level 4 (58779) Complex EM visit Add On G2211 Diagnoses Sacroiliitis M46.1 Degeneration of intervertebral disc of lumbar region with discogenic back pain M51.360 Disc-related pain type: discogenic back pain only Lumbar spondylosis M47.816 Fibromyalgia, primary M79.7 Pars defect of lumbar spine M43.06 Vertebrogenic low back pain M54.51 Cervical radiculitis M54.12 Cervical spondylosis M47.812
[2024-05-06 10:55] VITALS: BP 131/73; PULSE 86; O2SAT 98; BMI 37.9
== END 2024-05-06 11:20 | disposition home or self-care (01) ==
LOC: HO.PMC 10:37
PROVIDERS: PCP Internal Medicine; Visit Provider Nurse Practitioner Family
DX: M46.1 Sacroiliitis, not elsewhere classified (principal); M51.360 Other intervertebral disc degeneration, lumbar region with discogenic back pain only; M47.816 Spondylosis without myelopathy or radiculopathy, lumbar region; M79.7 Fibromyalgia; M43.06 Spondylolysis, lumbar region; M54.51 Vertebrogenic low back pain; M54.12 Radiculopathy, cervical region; M47.812 Spondylosis without myelopathy or radiculopathy, cervical region
CPT/HCPCS: 99214; G2211

== ENCOUNTER → 2024-05-06 10:37 | Outpatient (BNVA) | payer OTHER, SELFPAY | PROVIDERS: PCP Internal Medicine; Visit Provider Nurse Practitioner Family | DX: M46.1 Sacroiliitis, not elsewhere classified (principal); M51.360 Other intervertebral disc degeneration, lumbar region with discogenic back pain only; M47.816 Spondylosis without myelopathy or radiculopathy, lumbar region; M79.7 Fibromyalgia; M43.06 Spondylolysis, lumbar region; M54.51 Vertebrogenic low back pain; M54.12 Radiculopathy, cervical region; M47.812 Spondylosis without myelopathy or radiculopathy, cervical region | CPT/HCPCS: 99212 ==

== ENCOUNTER 2024-05-10 09:53 | Outpatient (AMB) | payer OTHER, SELFPAY ==
--- NOTE | 2024-05-10 09:54 | MHC.OFFVIS ---
Vital Signs 05/10/24 09:55 Height 5 ft 9 in Weight 256 lb BMI 37.8 Intake Visit Reasons: O/V cervical MRI review Intake Note: Norma 43 yr old female presents today for her Cervical MRI review. States she continues to have pain and stiffness. Allergies No Known Allergies [No Known Allergies*] Allergy (Verified 05/10/24 09:57) Medication List - Last Reconciled 05/10/24 by aMria C Mckeon MD buspirone 5 mg PO BID cholecalciferol (vitamin D3) 50 mcg PO DAILY 90 days duloxetine 30 mg PO BID 30 days ferrous sulfate 27 mg PO DAILY hydrocortisone valerate 0.2% 1 appl topical BID 7 days hydroxyzine HCl 25 mg PO TID PRN 30 days ibuprofen 600 mg PO Q8H PRN levonorgestrel (Mirena) intrauterine prednisone 5 mg PO DIRECTED sennosides (senna) 17.2 mg (2 x 8.6 mg) PO BEDTIME PRN 30 days tramadol 50 mg PO BID PRN 15 days trazodone 100 mg PO BEDTIME PRN 30 days HPI Comments Details: Been following patient for pain on right lateral neck and upper trapezius area. We have tried trigger point injections to upper trapezius with good relief but not 100% resolved. Patient continues to have right-sided upper trapezius pain especially when moving head and shoulder. More recently it has been radiating down to right hand with associated tingling and sensation of swelling. Past shoulder x-ray did show mild arthritic changes; past cervical x-ray did show disc space loss. She has seen Hand Surgery, s/p left CTR and orthopedics for shoulder pain. We finally got cervical MRI approved and done. [facility] Medical History IUD (intrauterine device) in place Migraine Anxiety Vitamin D deficiency Depression Family history of ovarian cancer Breast pain, right Hepatitis depression Obesity (BMI 30-39.9) History of in vitro fertilization Left ovarian cyst Anemia Surgical History H/O: (~03/2020) History of tonsillectomy History of carpal tunnel surgery Family History Maternal Aunt Ovarian cancer Maternal Uncle Colon cancer Maternal Uncle Colon cancer Mother COPD (chronic obstructive pulmonary disease) Fibromyalgia Hypertension Father No problems noted. Brother No problems noted. Son No problems noted. Social History Household Members: Spouse, Family and Children Housing: Apartment Alcohol intake: current Alcohol intake frequency: holidays/special occasions only Patient Tobacco Use Status: Former Tobacco user Tobacco use type: Cigarette e-Cigarette/Vaping Use: Never Used Second Hand Smoke Exposure: Yes service: No Current occupational status: unemployed Gender identity: Female Cognitive needs: No Hearing needs: No Vision needs: Yes (glasses) Female Reproductive History Menstrual Age of Menarche: 12 Physical Exam Vital Signs: BMI result Body Mass Index 37.8 Constitutional: Patient appears to be in no acute distress, well nourished and well developed. Patient was appropriately conversant and oriented. Good historian. MSK: Inspection reveals appropriate head and neck positioning. Tender right upper trapezius. Limited cervical range of motion even with flexion and definitely lateral rotation due to pain. Spurling's sign positive right. Right shoulder has full range of motion despite pain.. Negative Arita sign. Negative empty can sign. Negative speed's test. No scapular winging. Strength is 5/5 in all muscle groups tested. No increased tone noted. Noted right side fingers all swollen compared to left. Neurological: Neurologic examination of the upper and lower extremities was nonfocal with intact sensation, muscle stretch reflexes and without focal motor deficits . Willson?s negative bilaterally. Gait is non-antalgic without loss of balance. Results Reviewed Results Reviewed: EXAMINATION: MR CERVICAL SPINE WITHOUT CONTRAST CLINICAL INFORMATION: Right arm numbness, pain and weakness. COMPARISON: Cervical spine x-ray 09/09/2015 TECHNIQUE: MRI of the cervical spine was obtained using routine sequences without contrast. FINDINGS: There is mild straightening of cervical lordosis. The vertebral heights and alignment is normal. There is minimal loss of C4-5, C5-6 disc heights. Rest of the disc heights are normal. At C2-3 disc level there is no significant disc bulge, herniation or spinal canal stenosis. The neural foramina patent bilaterally. At C3-4 disc level there is mild uncovertebral hypertrophic changes without neral for abdominal narrowing. There is minimal central disc bulge/osteophyte complex without spinal canal stenosis. At C4-5 disc level there is minimal bulge flattening the ventral thecal sac but without spinal canal stenosis. Mild uncovertebral hypertrophic changes are noted with patent neural foramina. C5-6 At C5-6 disc level there is minimal bulge flattening the ventral thecal sac but without spinal canal stenosis. There is mild to moderate left neural foraminal narrowing from uncovertebral hypertrophic changes. At C6-7 disc level there is minimal bulge with mild flattening of the ventral thecal sac. There is no spinal canal stenosis. There is mild uncovertebral hypertrophic changes bilaterally slightly greater on the right with mild narrowing of right neural foramina. The left neural foramina is widely patent. At C7-T1 disc level there is no central disc bulge, herniation or spinal stenosis. There is mild left neural foraminal narrowing from uncovertebral hypertrophic changes. The cord signal, cervical medullary junction and the bone marrow signal is normal. Prevertebral and paravertebral soft tissues are normal. MR/MR cervical spine wo con IMPRESSION: Minimal bulges without spinal canal stenosis as described above. There is uncovertebral hypertrophic changes at C6-C7 disc level narrowing bilateral neural foramina slightly greater on the right. Moderate narrowing of left neural foramina from uncovertebral hypertrophic changes at C5-6 disc level is noted. Mild narrowing of left neural foramina at C7-T1 disc level from uncovertebral hypertrophic changes. Electronically signed by: Peter Niño MD 05/06/2024 07:51 AM EDT RP Assessment & Plan Assessment & Plan (1) Cervical radiculitis: Code(s): M54.12 - Radiculopathy, cervical region Category: Medical (2) Cervical spinal stenosis: Code(s): M48.02 - Spinal stenosis, cervical region Category: Medical (3) Right arm weakness: Code(s): R29.898 - Other symptoms and signs involving the musculoskeletal system Category: Medical (4) Right arm numbness: Code(s): R20.0 - Anesthesia of skin Category: Medical Plan Gradually progressing right sided cervical radiculitis symptoms. We've done PT and trigger point injections to target myofascial pain without complete relief. She continues to have right sided neck pain, now with weakness on right upper arm and swelling on arm and fingers. No signs of hyperreflexia or myelopathy. No signs of RTC injury. She has seen rheumatology to rule out immunologic etiology, blood tests were normal. She also follows with Pain Management and would like to avoid cervical spine injections if possible. MRI cspine showed flattening of ventral sac at C4-5, C5-6 and C6-7 without cord compression. Images reviewed with patient. 1. Referring her to neurospine see if there is need for surgical intervention 2. EMG RUE to rule out other causes for numbness 3. Start short oral prednisone course to relieve inflammation and pain. Instructions, side effects and precautions discussed. Assessment and plan discussed with patient, and patient was agreeable. All questions were answered thoroughly. Maria C Mckeon MD, STEPHANY Board Certified, [place] [employer] and Rehabilitation (ABPMR) Board Certified, [place] Board [employer] Electro[employer]ostic [employer] (ABEM) Orders: Orders NE electromyogram (EMG) Today R20.0 - Anesthesia of skin, R29.898 - Other symptoms and signs involving the musculoskeletal system NE nerve conduction velocity Today R20.0 - Anesthesia of skin, R29.898 - Other symptoms and signs involving the musculoskeletal system Referrals Neurosurgery Referral M48.02 - Spinal stenosis, cervical region, M54.12 - Radiculopathy, cervical region, R20.0 - Anesthesia of skin, R29.898 - Other symptoms and signs involving the musculoskeletal system Medications: New prednisone see taper instructions; 40 mg Daily for three days, 30 mg daily for three days, 20 mg daily for three days, 10 mg daily for three days 5 mg PO DIRECTED 60 tabs 0RF Coding Level of Care Code Est Pt Level 4 (83940) Complex EM visit Add On G2211 Diagnoses Cervical radiculitis M54.12 Cervical spinal stenosis M48.02 Right arm weakness R29.898 Right arm numbness R20.0
[2024-05-10 09:55] VITALS: BMI 37.8
== END 2024-05-10 10:19 | disposition home or self-care (01) ==
LOC: HO.HOS 09:54
PROVIDERS: PCP Internal Medicine; Visit Provider Physical Medicine & Rehabilitation
DX: M54.12 Radiculopathy, cervical region (principal); M48.02 Spinal stenosis, cervical region; R29.898 Other symptoms and signs involving the musculoskeletal system; R20.0 Anesthesia of skin
CPT/HCPCS: 99214; G2211

== ENCOUNTER → 2024-05-10 09:53 | Outpatient (BNVA) | payer OTHER, SELFPAY | PROVIDERS: PCP Internal Medicine; Visit Provider Physical Medicine & Rehabilitation | DX: M54.12 Radiculopathy, cervical region (principal); M48.02 Spinal stenosis, cervical region; R29.898 Other symptoms and signs involving the musculoskeletal system; R20.0 Anesthesia of skin | CPT/HCPCS: 99212 ==

== ENCOUNTER 2024-05-17 10:53 | Outpatient (AMB) | payer OTHER, SELFPAY ==
--- NOTE | 2024-05-17 10:59 | HO.SPINEOV ---
Intake Visit Reasons: neck pain Intake Note: Ms. Abreu is here today c/o neck pain and swelling on the left arm. Janitorial Services Supervisor Required: No Allergies No Known Allergies [No Known Allergies*] Allergy (Verified 05/17/24 10:59) Assessment & Plan Assessment & Plan (1) Right arm numbness: Code(s): R20.0 - Anesthesia of skin Category: Medical Plan Mrs Abreu came into the office today for follow-up. She has been having chronic neck pain on the right side with radiation into her shoulder with tingling going down into her hand. She underwent C6-7 injections as well as physical therapy without any relief. She does report a tremendous amount of pain in the shoulder with movement but the discomfort is not felt to be shoulder in origin. She does hold her head to the left side to try to alleviate some of the discomfort. My examination is difficult secondary to pain in the shoulder, but reflexes are normal. Dr. Lynn reviewed the MRI done at here at [facility] with me and there is no compression of the nerves in the cervical spine and just some mild degenerative disc disease. He does not agree with the radiologist that there is compression at the C6-7 level. Therefore we do not have any surgery to offer her and there is no role for intervention on our end. We think that this should just go away and time, it could be some kind of radiculitis that will just pass. Total amount of time spent in this visit was 20 minutes in discussion of symptoms, cervical MRI imaging results and subsequent plan of care Yg Lynn MD,PhD [facility] Coding Level of Care Code Est Pt Level 3 (07281) Diagnoses Right arm numbness R20.0
== END 2024-05-17 11:47 | disposition home or self-care (01) ==
LOC: HO.HNS 10:53
PROVIDERS: PCP Internal Medicine; Visit Provider Physician Assistant
DX: R20.0 Anesthesia of skin (principal)
CPT/HCPCS: 99213

== ENCOUNTER → 2024-05-17 10:53 | Outpatient (BNVA) | payer OTHER, SELFPAY | PROVIDERS: PCP Internal Medicine; Visit Provider Physician Assistant | DX: R20.0 Anesthesia of skin (principal) | CPT/HCPCS: 99212 ==

== ENCOUNTER 2024-06-05 13:52 | Outpatient (REF) | payer OTHER, SELFPAY ==
--- NOTE | ~2024-06-05 | XR_ITS ---
EXAMINATION: XR HAND, RIGHT CLINICAL INFORMATION: M79.643 - Pain in unspecified hand COMPARISON: None available. TECHNIQUE: PA, lateral, and oblique views of the right hand. FINDINGS: The bones and soft tissues are normal. No fracture. Alignment is anatomic. Joint spaces are maintained. No erosions or soft tissue calcifications. XR/XR hand RT min 3V IMPRESSION: Normal right hand. No evidence of erosive arthropathy. Electronically signed by: Cecil Panda MD 06/06/2024 12:21 PM EDT
--- NOTE | 2024-06-05 13:55 | EMG_ITS ---
Chief complaint: Ongoing right-sided neck pain, right arm pain and numbness, swelling on right fingers Reason for referral: Evaluate for entrapment neuropathy versus radiculopathy Procedure done: Right upper extremity NCS/EMG Precautions and/or limitations: None The limb temperature was monitored continuously and remained between 32-36 degrees C during the performance of the NCS. Nerve Conduction Studies Anti Sensory Summary Table ?Stim Site NR Onset (ms) Norm Onset (ms) Peak (ms) Norm Peak (ms) O-P Amp (?V) Norm O-P Amp Site1 Site2 Delta-0 (ms) Dist (cm) Vikram (m/s) Norm Vikram (m/s) Right Median Anti Sensory (2nd Digit) Wrist ? 2.7 3.4 <3.6 31.1 >10 Wrist 2nd Digit 2.7 14.0 52 Run #2 (Thumb) Forearm ? 0.9 1.8 <3.1 11.3 Forearm Thumb 0.9 0.0 Right Ulnar Anti Sensory (5th Digit) Wrist ? 1.5 2.9 <3.7 19.3 >15.0 Wrist 5th Digit 1.5 14.0 93 Motor Summary Table ?Stim Site NR Onset (ms) Norm Onset (ms) O-P Amp (mV) Norm O-P Amp iAmp (mV) Amp (1st) (%) Site1 Site2 Delta-0 (ms) Dist (cm) Vikram (m/s) Norm Vikram (m/s) Right Median Motor (Abd Poll Brev) Wrist ? 3.8 <3.9 10.5 >4.5 13.5 100.0 Elbow Wrist 3.9 23.0 59 >45 Elbow ? 7.7 9.9 12.9 94.3 Right Ulnar Motor (Abd Dig Minimi) Wrist ? 2.7 <3.0 6.8 >5 8.6 100.0 B Elbow Wrist 3.8 20.0 53 >45 B Elbow ? 6.5 6.3 8.0 92.6 A Elbow B Elbow 1.2 10.0 83 >45 A Elbow ? 7.7 6.2 8.0 91.2 EMG ?Side Muscle Nerve Root Ins Act Fibs Psw Amp Dur Poly Recrt Int Pat Comment Right 1stDorInt Ulnar C8-T1 Nml Nml Nml Nml Nml 0 Nml Complete Right FlexCarRad Median C6-7 Nml Nml Nml Nml Nml 0 Nml Complete Right Biceps Musculocut C5-6 Nml Nml Nml Nml Nml 0 Nml Complete Right Triceps Radial C6-7-8 Nml Nml Nml Nml Nml 0 Nml Complete Right Deltoid Axillary C5-6 Nml Nml Nml Nml Nml 0 Nml Complete Paraspinal EMG ?Side Muscle Nerve Root Ins Act Fibs Psw Comment Right Cervical Upper Rami Nml Nml Nml Right Cervical Mid Rami Nml Nml Nml Right Cervical Lower Rami Nml Nml Nml FINDINGS: All motor and sensory nerves tested showed normal latencies, amplitudes and conduction velocities. Concentric needle EMG was performed in selected muscles of the right upper extremity and cervical paraspinals. Study did not reveal signs of electric abnormalities as shown in the table above. IMPRESSION: 1. This is a normal study. 2. There is no electrodiagnostic evidence for median neuropathy, ulnar neuropathy, brachial plexopathy, or cervical radiculopathy. CLINICAL COMMENT: Reviewed notes from neuro spine. MRI findings nonsurgical. We will send for right hand x-ray today. Rule out erosions. Patient was previously seen by Dr. Torres. Referring back to Rheumatology to evaluate for inflammatory arthritis. Thank you for your kind referral. Maria C Mckeon MD, STEPHANY Board Certified, [place] Board [employer] and Rehabilitation (ABPMR) Board Certified, [place] Board [employer] Electrodiagnostic Medicine (ABEM) [place] [id number] [facility]
== END 2024-06-05 13:53 | disposition home or self-care (01) ==
LOC: HO.NEURO 13:52
PROVIDERS: PCP Internal Medicine; Visit Provider Physical Medicine & Rehabilitation
DX: R20.0 Anesthesia of skin (principal); R29.898 Other symptoms and signs involving the musculoskeletal system; M79.641 Pain in right hand
CPT/HCPCS: 73130; 95860

== ENCOUNTER → 2024-06-05 13:55 | Outpatient (BNV) | payer OTHER, SELFPAY | PROVIDERS: PCP Internal Medicine; Visit Provider Physical Medicine & Rehabilitation | DX: R20.0 Anesthesia of skin (principal); R20.2 Paresthesia of skin | CPT/HCPCS: 95886; 95909 ==

== ENCOUNTER 2024-06-05 14:08 | Outpatient (REF) | payer OTHER, SELFPAY | END 2024-06-05 14:09 | disposition home or self-care (01) | LOC: HO.HOSX 14:08 | PROVIDERS: Visit Provider Physical Medicine & Rehabilitation | DX: Z13.89 Encounter for screening for other disorder (principal) ==

== ENCOUNTER → 2024-06-05 14:10 | Outpatient (BNV) | payer OTHER, SELFPAY | PROVIDERS: PCP Internal Medicine; Visit Provider Radiology Diagnostic Radiology | DX: M79.643 Pain in unspecified hand (principal) | CPT/HCPCS: 73130 ==

== ENCOUNTER 2024-06-14 10:39 | Outpatient (AMB) | payer OTHER, SELFPAY ==
--- NOTE | 2024-06-14 10:50 | A.OFFPC_ITS ---
Vital Signs 06/14/24 10:51 Height 5 ft 9 in Weight 254 lb BMI 37.5 BP 126/84 Blood Pressure Location Lt brachial Position Sitting Respiration 16 Pulse 76 Pulse Source Pulse Oximeter Temp 98.8 F Temp Source Oral Pulse Oximetry (%) 97 Oxygen Delivery Method Room Air Intake Visit Reasons: depression/migraine Clinical Programmer Required: No Accompanied by: Self / Same As Patient Allergies No Known Allergies [No Known Allergies*] Allergy (Verified 06/14/24 11:04) Medication List - Last Reconciled 06/14/24 by SARIKA Allred buspirone 5 mg PO BID cholecalciferol (vitamin D3) 50 mcg PO DAILY 90 days duloxetine 30 mg PO BID 30 days ferrous sulfate 27 mg PO DAILY hydrocortisone valerate 0.2% 1 appl topical BID 7 days hydroxyzine HCl 25 mg PO TID PRN 30 days ibuprofen 600 mg PO Q8H PRN levonorgestrel (Mirena) intrauterine sennosides (senna) 17.2 mg (2 x 8.6 mg) PO BEDTIME PRN 30 days tramadol 50 mg PO BID PRN 15 days trazodone 100 mg PO BEDTIME PRN 30 days Tobacco use date assessed: 06/14/24 Dental Screening Dental Screen Date: 06/14/24 Did you have a dental visit in the last 12 months?: Yes Did you have a dental problem in the last 6 months where you did not have access to dental care?: No Was dental information given to patient?: Patient has dentist HPI depression/migraine HPI Details The patient is a 43-year-old female presenting with ongoing pain management and anxiety treatment. She experiences chronic pain, swelling, and tingling in her right upper extremity with significant functional impairment. Multiple diagnostic tests, including radiological imaging and nerve conduction studies, have not identified a clear source, although some narrowing at C6-C7 suggests potential cervical spinal stenosis. Previously diagnosed with fibromyalgia, she has tried various interventions such as anti-inflammatory medications, injections, and physical therapy without significant relief. Anxiety related to her health condition is being managed with medications newly prescribed by Dr. Cochran. The patient forget to get her labs done. Reports pain down her right arm, staring into her shoulder, ending into her and with tingling and numbness in the fingers, reports nerve studies were negative. She has an appt with rheumatology. Headachea has been minimum, anxiety had increased and dr. Cochran started her on buspirone and hydroxyzine prn. [facility] Medical History IUD (intrauterine device) in place Migraine Anxiety Vitamin D deficiency Depression Family history of ovarian cancer Breast pain, right Hepatitis depression Obesity (BMI 30-39.9) History of in vitro fertilization Left ovarian cyst Anemia Surgical History H/O: (~03/2020) History of tonsillectomy History of carpal tunnel surgery Family History Maternal Aunt Ovarian cancer Maternal Uncle Colon cancer Maternal Uncle Colon cancer Mother COPD (chronic obstructive pulmonary disease) Fibromyalgia Hypertension Father No problems noted. Brother No problems noted. Son No problems noted. Social History Household Members: Spouse, Family and Children Housing: Apartment Alcohol intake: current Alcohol intake frequency: holidays/special occasions only Patient Tobacco Use Status: Former Tobacco user Tobacco use type: Cigarette e-Cigarette/Vaping Use: Never Used Second Hand Smoke Exposure: Yes service: No Current occupational status: unemployed Gender identity: Female Cognitive needs: No Hearing needs: No Vision needs: Yes (glasses) Female Reproductive History Menstrual Age of Menarche: 12 Questionnaire PHQ-9 Over the last 2 weeks, how often have you been bothered by any of the following problems? 1. Little interest or pleasure in doing things: not at all 2. Feeling down, depressed, or hopeless: nearly every day 3. Trouble falling or staying asleep, or sleeping too much: nearly every day 4. Feeling tired or having little energy: nearly every day 5. Poor appetite or overeating: nearly every day 6. Feeling bad about yourself - or that you are a failure or have let yourself or your family down: not at all 7. Trouble concentrating on things, such as reading the newspaper or watching television: nearly every day 8. Moving or speaking so slowly that other people could have noticed. Or the opposite - being so fidgety or restless that you have been moving around a lot more than usual: not at all 9. Thoughts that you would be better off or of hurting yourself in some way: not at all Total score: 15 Depression Screening Interpretation: Positive Depression Screening Done: Yes 96601 - PHQ-9 Billing: Yes Source: Developed by Drs. Quan Painting, Vickie Hui, Sam Dudley and colleagues, with an educational maxwell from [employer]. Thrive Questionnaire Date Thrive assessed: 06/14/24 I am a: Patient What is your living situation today?: I have a steady place to live Within the past 12 months, did the food you bought not last and you didn't have the money to get more?: Never true Within the past 12 months, did you worry whether your food would run out before you got money to buy more?: Never true Do you have trouble paying for medicines?: No Do you have trouble getting transportation to medical appointments?: No Do you have trouble paying your heating and electricity bill?: No Do you have trouble taking care of your child, family member or friend?: No Do you have trouble with day-to-day activities such as bathing, preparing meals, shopping, managing finances, etc.?: No Are you currently unemployed and looking for a job?: No Are you interested in more education?: No Please select the resources that you would like help with: None Currently or been in a relationship where the following occur: No concerns reported THRIVE Score: 0 AUDIT C Alcohol Use Questionnaire (AUDIT-C) 1. How often do you have a drink containing alcohol?: Never Total Score: 0 Score Reviewed/Action Taken: No BISHNU-7 AMB Questionnaire BISHNU-7 Date BISHNU - 7 assessed: 06/14/24 Feeling nervous, anxious, or on edge: 3 = Nearly every day Not being able to stop or control worryin = More than half the days Worrying too much about different things: 2 = More than half the days Trouble relaxin = Nearly every day Being so restless that it is hard to sit still: 1 = Several days Becoming easily annoyed or irritable: 1 = Several days Feeling afraid as if something awful might happen: 0 = Not at all Total BISHNU-7 score (0-4 normal; 5-9 mild; 10-14 moderate; 15-21 severe): 12 Source: Developed by Drs. Quan Painting, Vickie Hui, Sam Dudley and colleagues, with an educational maxwell from [employer]. BISHNU-7 Assessment Billing BISHNU-7 Assessment Tool: BISHNU-7 Assessment 61730 Review of Systems Const Denies headache(s) Eyes Denies loss of vision ENT Denies vertigo, Denies dizziness, Denies headache(s) and Denies sore throat Card Denies chest pain, Denies leg edema and Denies lightheadedness Resp Denies cough, Denies hemoptysis and Denies wheezing GI Denies abdominal pain, Denies melena, Denies constipation, Denies diarrhea and Denies vomiting Denies urinary frequency, Denies dysuria and Denies urinary urgency Musc Denies arthralgias, Denies joint swelling, Reports numbness (right upper arms) and Reports tingling (right upper arms) Neuro Denies Abnormal speech present, Denies behavioral changes, Denies vertigo, Denies dizziness, Denies headache(s), Denies loss of vision, Denies memory loss, Reports numbness (right upper arms) and Reports tingling (right upper arms) Psych Reports anxiety, Denies behavioral changes, Denies depression, Denies memory loss and Denies panic attacks Jefferson/Lymph Denies easy bleeding and Denies easy bruising Aller/Immun Denies wheezing Physical exam (Primary Care) Vital Signs: Last Vital Signs Temp 98.8 F 06/14/24 10:51 Pulse 76 06/14/24 10:51 Resp 16 06/14/24 10:51 BP 126/84 06/14/24 10:51 Pulse Ox 97 06/14/24 10:51 Oxygen Delivery Method Room Air 06/14/24 10:51 BMI result Body Mass Index 37.5 Tobacco/Smoking Status: Tobacco use Status Tobacco use date assessed 06/14/24 06/14/24 10:59 Patient Tobacco Use Status Former Tobacco user 06/14/24 10:59 Tobacco use type Cigarette 06/14/24 10:59 e-Cigarette/Vaping Use Never Used 06/14/24 10:59 PHQ-9: PHQ-9 Score PHQ-9: Total score 15 06/14/24 11:20 Depression Screening Interpretation: Positive Thrive Assessment: Date of Thrive Assessment Date Thrive assessed 06/14/24 06/14/24 10:59 Currently or been in a relationship where the following occur: No concerns reported Const General: healthy appearing, no acute distress, alert and awake Nutritional Appearance: well nourished Orientation/consciousness: oriented to person, oriented to place and oriented to time HENMT Ears: external ears normal General nose exam: Normal external nose present Eyes Conjunctivae: conjunctivae normal Sclerae: sclerae normal Pupils: Equal, round and reactive pupils present Neck Neck: Yes no lymphadenopathy and Yes no JVD Thyroid: Thyroid normal Carotids: no bruits Resp Effort & Inspection: normal respiratory effort and not tachypneic Auscultation: no crackles, no rales, no rhonchi and no wheezes Cardio Rate: regular rate Rhythm: regular rhythm Heart sounds: no murmurs and normal S1 and S2 GI Palpation (GI): Soft to palpation, nontender, no hepatomegaly and no splenomegaly Auscultation: normal bowel sounds Skin General skin exam: no rashes or lesions noted and dry skin Neuro General: oriented to person, oriented to place and oriented to time Cranial nerves: Yes Equal, round and reactive pupils present Speech: No Abnormal speech present Gait exam (Neuro): Normal gait present Motor exam (neuro): no tremor noted Extrem Right upper extremity: full ROM and elbow/forearm Left upper extremity: full ROM Right lower extremity: full ROM; no edema Left lower extremity: full ROM; no edema Psych Mental Status: mental status grossly normal Speech and movement: Normal speech and movement present Affect: normal affect Attitude: cooperative Thought process: Normal thought process present Coding Level of Care Code Est Pt Level 4 (27962) Diagnoses Neuralgia M79.2 Right arm numbness R20.0 Right arm weakness R29.898 Anxiety F41.9 Episode of recurrent major depressive disorder, unspecified depression episode severity F33.9 Depression Type: major depressive disorder Major depression recurrence: recurrent Active/Remission status: currently active Major depression episode severity: unspecified Migraine without status migrainosus, not intractable, unspecified migraine type G43.909 Migraine type: unspecified Status migrainosus presence: without status migrainosus Intractability: not intractable Additional Codes BISHNU-7 Assessment Billing - BISHNU-7 Assessment Tool: BISHNU-7 Assessment 69527 ([id number]) PHQ-9 - 34390 - PHQ-9 Billing: Yes ([id number]) Time Spent (min) 38 Assessment & Plan Assessment & Plan (1) Neuralgia: Code(s): M79.2 - Neuralgia and neuritis, unspecified Category: Medical (2) Right arm numbness: Code(s): R20.0 - Anesthesia of skin Category: Medical (3) Right arm weakness: Code(s): R29.898 - Other symptoms and signs involving the musculoskeletal system Category: Medical (4) Anxiety: Code(s): F41.9 - Anxiety disorder, unspecified Category: Medical (5) Depression: Code(s): F32.A - Depression, unspecified Category: Medical Qualifiers: Depression Type: major depressive disorder Major depression recurrence: recurrent Active/Remission status: currently active Major depression episode severity: unspecified Qualified Code(s): F33.9 - Major depressive disorder, recurrent, unspecified (6) Migraine: Code(s): G43.909 - Migraine, unspecified, not intractable, without status migrainosus Category: Medical Qualifiers: Migraine type: unspecified Status migrainosus presence: without status migrainosus Intractability: not intractable Qualified Code(s): G43.909 - Migraine, unspecified, not intractable, without status migrainosus Plan We have initiated treatment with low-dose gabapentin to target the neuropathic component of her pain, with plans to assess effectiveness and monitor for any side effects. To aid muscle relaxation and improve her pain management, Flexeril will be administered at night. Ongoing anxiety will be managed with buspirone and hydroxyzine, monitoring her response to these medications. We will maintain her appointment with the wind power project manager to further evaluate her for possible arthritis. Follow-up will be continued with her primary care and rheumatology team. Patient was informed and verbally consented to the use of an ambient scribe for clinic note documentation during this visit. Medications: New gabapentin 100 mg PO TID 90 caps 1RF M79.2 - Neuralgia and neuritis, unspecified cyclobenzaprine 5 mg PO BEDTIME PRN 30 tabs 1RF muscle spasm Patient Instructions: - Begin gabapentin as prescribed and monitor for side effects like drowsiness. - Take Flexeril at bedtime to help with muscle relaxation. - Continue taking buspirone and hydroxyzine for anxiety. - Attend the wind power project manager appointment in September. - Follow up with your healthcare team as needed. - Report any worsening of symptoms or new side effects promptly.
[2024-06-14 10:51] VITALS: BP 126/84; PULSE 76; RESP 16; TEMP 37.1; O2SAT 97; BMI 37.5
== END 2024-06-14 11:21 | disposition home or self-care (01) ==
LOC: HO.HMCH 10:40
PROVIDERS: PCP Internal Medicine
DX: M79.2 Neuralgia and neuritis, unspecified (principal); R20.0 Anesthesia of skin; R29.898 Other symptoms and signs involving the musculoskeletal system; F41.9 Anxiety disorder, unspecified; F33.9 Major depressive disorder, recurrent, unspecified; G43.909 Migraine, unspecified, not intractable, without status migrainosus

== ENCOUNTER → 2024-06-14 10:39 | Outpatient (BNVA) | payer OTHER, SELFPAY | PROVIDERS: PCP Internal Medicine | DX: M79.2 Neuralgia and neuritis, unspecified (principal); R20.0 Anesthesia of skin; R29.898 Other symptoms and signs involving the musculoskeletal system; F41.9 Anxiety disorder, unspecified; F33.9 Major depressive disorder, recurrent, unspecified; G43.909 Migraine, unspecified, not intractable, without status migrainosus; Z79.899 Other long term (current) drug therapy | CPT/HCPCS: 96127; 99212 ==

== ENCOUNTER 2024-07-16 08:59 | Outpatient (AMB) | payer OTHER, SELFPAY ==
[2024-07-16 09:05] VITALS: BP 138/80; PULSE 72; TEMP 36.7; O2SAT 99; BMI 37.5
--- NOTE | 2024-07-16 09:05 | MHC.OFFWIV ---
Intake Vital Signs 07/16/24 09:05 Height 5 ft 9 in Weight 254 lb BMI 37.5 BP 138/80 Blood Pressure Location Lt brachial Position Sitting Pulse 72 Pulse Source Pulse Oximeter Temp 98.0 F Temp Source Oral Pulse Oximetry (%) 99 Intake Visit Reasons: EP Rt side hip/leg pain, sciatica? Patient Tobacco Use Status: Former Tobacco user Allergies No Known Allergies [No Known Allergies*] Allergy (Verified 07/16/24 09:06) Do you need a note to return to daycare/school/sports/work: No HPI HPI Comments History of Present Illness Details 43 y/o Patient with complex medical problems presents to the walk in clinic with c/o lower back pain with radiation to the right lower leg with Spasm. Pt has extensive h/o Lower back, and Neck pain associated with OA and degenerative disk disease. She is being managed by Pain management and did receive Corticosteroids in the past. She is currently taking Flexeril, Gabapentin and Duloxetine. Reports that Flexeril makes her sleepy an able to care for her 4 year old son. Denies bowel or bladder symptoms. [facility] Medical History IUD (intrauterine device) in place Migraine Anxiety Vitamin D deficiency Depression Family history of ovarian cancer Breast pain, right Hepatitis depression Obesity (BMI 30-39.9) History of in vitro fertilization Left ovarian cyst Anemia Surgical History H/O: (~03/2020) History of tonsillectomy History of carpal tunnel surgery Family History Maternal Aunt Ovarian cancer Maternal Uncle Colon cancer Maternal Uncle Colon cancer Mother COPD (chronic obstructive pulmonary disease) Fibromyalgia Hypertension Father No problems noted. Brother No problems noted. Son No problems noted. Social History Household Members: Spouse, Family and Children Housing: Apartment Alcohol intake: current Alcohol intake frequency: holidays/special occasions only Patient Tobacco Use Status: Former Tobacco user Tobacco use type: Cigarette e-Cigarette/Vaping Use: Never Used Second Hand Smoke Exposure: Yes service: No Current occupational status: unemployed Gender identity: Female Cognitive needs: No Hearing needs: No Vision needs: Yes (glasses) Female Reproductive History Menstrual Age of Menarche: 12 Review of Systems Const All systems reviewed & are unremarkable except as noted in HPI and below Physical Exam Vital Signs: Last Vital Signs Temp 98.0 F 07/16/24 09:05 Pulse 72 07/16/24 09:05 BP 138/80 07/16/24 09:05 Pulse Ox 99 07/16/24 09:05 BMI result Body Mass Index 37.5 Const General: no acute distress; No comfortable Nutritional Appearance: overweight Orientation/consciousness: patient oriented x3 Back/Spine/Pelvis Back: back tenderness Thoracic/Lumbar Spine: pain with thoraco-lumbar ROM, thoraco-lumbar spasm on the right and lumbar spinal tenderness Sacrum: tenderness on the right Neuro General: patient oriented x3, gait normal and moves all extremities Psych Speech and movement: Normal speech and movement present Assessment & Plan Assessment & Plan (1) Spondylolisthesis of lumbar region: Code(s): M43.16 - Spondylolisthesis, lumbar region Plan: F/U with Pain management. Continue on prescribed medications Ice/Hot Rest back. Coding Level of Care Code Est Pt Level 4 (33461) Diagnoses Spondylolisthesis of lumbar region M43.16 Time Spent (min) 20
== END 2024-07-16 09:56 | disposition home or self-care (01) ==
PROVIDERS: PCP Internal Medicine; Visit Provider Nurse Practitioner Family
DX: M43.16 Spondylolisthesis, lumbar region (principal)

== ENCOUNTER → 2024-07-16 08:59 | Outpatient (BNVA) | payer OTHER, SELFPAY | PROVIDERS: PCP Internal Medicine; Visit Provider Nurse Practitioner Family | DX: M43.16 Spondylolisthesis, lumbar region (principal) | CPT/HCPCS: 99212 ==

== ENCOUNTER 2024-07-19 | Outpatient (REF) | payer OTHER, SELFPAY ==
--- NOTE | ~2024-07-19 | XR_ITS ---
CLINICAL HISTORY: M47.816 - Spondylosis without myelopathy or radiculopathy, lumbar region 7 views lumbar spine Comparison: None Findings: Normal vertebral body alignment. No acute fractures or dislocation. There is L4-L5 and L5-S1 degenerative disc change. IUD is noted in the mid pelvis. IMPRESSION: No acute findings. This document has been electronically signed by: Darrian Ramirez MD on 07/20/2024 09:47:08
== END 2024-07-19 00:01 | disposition home or self-care (01) ==
LOC: HO.XRAY
PROVIDERS: PCP Internal Medicine; Visit Provider Nurse Practitioner Family
DX: M54.16 Radiculopathy, lumbar region (principal); M47.816 Spondylosis without myelopathy or radiculopathy, lumbar region
CPT/HCPCS: 72114

== ENCOUNTER 2024-07-19 10:48 | Outpatient (AMB) | payer OTHER, SELFPAY ==
--- NOTE | 2024-07-19 10:50 | A.OFFVIS_ITS ---
Vital Signs 07/19/24 10:55 Height 5 ft 9 in Weight 250 lb BMI 36.9 BP 159/85 H Blood Pressure Location Lt brachial Position Sitting Pulse 76 Pulse Source Pulse Oximeter Pulse Oximetry (%) 99 Oxygen Delivery Method Room Air Intake Visit Reasons: RIGHT SIDE PAIN Intake Note: Pain today 10/30 Block Inspector Required: No Accompanied by: Self / Same As Patient Allergies No Known Allergies [No Known Allergies*] Allergy (Verified 07/19/24 10:56) HPI Comments Details: The patient is a 43-year-old female presenting with exacerbation of chronic low back pain and acute lumbar radiculopathy on the right side. The pain began last Monday following no specific trauma and presents as a severe, shooting pain starting in the lower back and radiating into right buttock and down the right leg, affecting areas from the side and buttock to below the knee. There is accompanying numbness and tingling on the right side for the first time, contrasting with previous left-side symptoms. Patient was seen for acute on chronic back pain exacerbation on 07/16/24 at [facility] [place] [facility] and was told to follow up with our office. She has managed similar pain on her left side with past interventions, including an injection at the L5-S1 level, which provided no significant relief. Current pain management involves gabapentin, cyclobenzaprine, and ibuprofen, though there is an inadequate response. She notes significant interference with sleep and daily activities such as walking and stair navigation. - Onset: Monday, with no preceding trauma or fall. - Quality: Severe, shooting, radiating, throbbing, sharp, heavy pain. - Primary Location: Lower back. - Radiation: Right leg, involves the side, buttock, and below the knee and 5th toe. - Exacerbating Factors: Lying flat, standing, and stair navigation. - Relieving Factors: None, constantly has to change and adjust positioning, unable to find comfortable positioning. - Interference: Sleep disturbances, difficulty walking, limping, and significant discomfort ascending and descending stairs. - Affect: Pain is significantly interfering with sleep and daily activities. - Analgesia: Uses gabapentin (at night), cyclobenzaprine, and ibuprofen daily, with inadequate pain relief. - Adverse Effects: Not specifically mentioned. - Activities of Daily Living: Difficulty with walking, stair navigation, and significant sleep disruption. - Aberrant Drug-Related Behaviors: No evidence of misuse or overuse reported. PRIOR: The patient is a 43-year-old female presenting follow up for persistent chronic low back pain. Her back pain is multifactorial with vertebrogenic, spondylotic, pars defect in the lower spine, sacroiliitis, and fibromyalgia pain components. Her chronic lumbar radiculopathy affects the left lower leg. Previous interventions, including therapeutic TFESI, SIJ and lumbar medial branch block injections, provided minimal relief. Psychological clearance was recently completed for a spinal cord stimulator trial, and she was noted to be a good candidate. Neurosurgery deeming her non-surgical. Patient also reports ongoing neck pain with right sided radiculopathy. She recently underwent cervical spine MRI as noted below. Patient reports difficulty with ADLs, bending down, flexing forward, house chores or prolonged sitting, standing or walking. Patient reports she has adjusted her diet and avoids sweets, carbohydrates for weight loss but has difficulty to participate in home exercise program or PT. She is active with her 4 year old toddler but with pain. Reports pain negatively affects her mood, sleep and social interactions. Denies any recent cough, fever, chills cold, foot drop, weakness, bladder or bowel incontinence or saddle anesthesia. - Location: Low back, left lower leg, and right neck with radiating symptoms - Quality: Chronic - Radiation: Pain radiates to the left lower leg; neck pain radiates to right arm, 5th digit - Aggravating Factors: Twisting, bending, walking, standing, prolonged sitting - Relieving Factors: Minimal relief from previous injections - Impact: Limits ability to shower, bend, twist, and execute some daily activities - Duration: Chronic Past Procedures: 03/19/24: Left L4-L5, L5-S1 TFESI-10% pain for 1 week 11/07/23: Bilateral Diagnostic L3-L4 DR L5 MBB-20% pain relief for 6 hours 04/18/23: Bilateral L5-S1 TFESI-40-50% pain relief 11/08/22: Left Therapeutic SIJ injection- 0% pain relief 10/18/22: Left Diagnostic SIJ injection-40% pain relief for 6 hours 06/21/22: Left L5-S1 TFESI-80% pain relief for 2 weeks PRIOR: Patient is a pleasant 41 year old female who presents today for an initial evaluation of chronic lower back pain, left hand pain and right shoulder pain. Patient reports chronic back pain that has been worsening after her with epidural 04/04/2020. Her back pain is axial and also radiates into her left lower extremity posteriorly with numbness and tingling in the posterior lower leg, osborne and sole of her left foot. She also has localized pain in the proje ctions of the left sacroiliac joint. Patient also reports left hand and wrist pain with flexion, pulling and lifting objects consistent with carpal tunnel syndrome. She has a history of right carpal tunnel repair in 2010. Patient is right hand dominant. Her right shoulder radiates to her neck with muscle spasms and tenderness. Pain increases with prolonged sitting, walking, standing, intercourse, climbing stairs, changing positions and weather changes. Pain is described as constant throbbing, shooting, stabbing, sharp, cramping, tingling, sore, hurting, aching, exhausting, tiring, and radiating. Pain interferes with her daily activities and functionings, mood, sleep, social interactions and quality of life. She has been managing pain with Ibuprofen and cyclobenzaprine with continued symptoms. Patient also started physical therapy last week and is intersted to trial acupuncture therapy for right shoulder and neck pain. Lumbar spine MRI in 2017 showed disc degeneration and a minimal anterior subluxation at L5-S1 with chronic bilateral L5 pars defects and [id number] right foraminal narrowing. Facet spurring mildly distorts the exiting right L5 nerve root. Most recent lumbar spine xray showed bilateral L5 spondylolysis defect is redemonstrated and multi-level thoracolumbar spondylosis and Schmorl's node formation. Patient denies any fever, weight loss, tachycardia, abdominal or groin pain, weakness, nausea, vomiting, constipation, diarrhea, vaginal bleeding, bladder or bowel incontinence or saddle anesthesia. Of note, patient has history of fatty liver, elevated LFT and hepatitis. She reports the most recent screening for hepatitis panel was negative. [facility] Medical History IUD (intrauterine device) in place Migraine Anxiety Vitamin D deficiency Depression Family history of ovarian cancer Breast pain, right Hepatitis depression Obesity (BMI 30-39.9) History of in vitro fertilization Left ovarian cyst Anemia Surgical History H/O: (~03/2020) History of tonsillectomy History of carpal tunnel surgery Family History Maternal Aunt Ovarian cancer Maternal Uncle Colon cancer Maternal Uncle Colon cancer Mother COPD (chronic obstructive pulmonary disease) Fibromyalgia Hypertension Father No problems noted. Brother No problems noted. Son No problems noted. Social History Household Members: Spouse, Family and Children Housing: Apartment Alcohol intake: current Alcohol intake frequency: holidays/special occasions only Patient Tobacco Use Status: Former Tobacco user Tobacco use type: Cigarette e-Cigarette/Vaping Use: Never Used Second Hand Smoke Exposure: Yes service: No Current occupational status: unemployed Gender identity: Female Cognitive needs: No Hearing needs: No Vision needs: Yes (glasses) Female Reproductive History Menstrual Age of Menarche: 12 Review of Systems Const Details: - Musculoskeletal: Reports severe shooting pain radiating down the right leg. - Neurological: Reports numbness and tingling on the right side with weakness; denies bladder or bowel dysfunction or saddle anesthesia. - General: Denies any recent trauma, injury or falls. All systems reviewed & are unremarkable except as noted in HPI and below Physical Exam Vital Signs: Last Vital Signs Pulse 76 07/19/24 10:55 BP 159/85 H 07/19/24 10:55 Pulse Ox 99 07/19/24 10:55 Oxygen Delivery Method Room Air 07/19/24 10:55 BMI result Body Mass Index 36.9 General: Appears afebrile. Alert and oriented. Mood and affect appropriate. Follows and participates in conversation appropriately. Respiratory effort is unlabored. No cough. Able to transition from sit to stand unassisted, reports RLE weakness due to pain. General: Yes no CVA tenderness Back/Spine/Pelvis Other: Limited lumbar ROM due to pain. Movements reproduce moderate to severe pain. Slow, antalgic gait with limping. Lumbar extension and flexion forward reproduce moderate pain, worse with bending. TTP in the projection of both SIJ, right>left. Rafael's test reproduce moderate SIJ pain, right>left. Multiple TTPs 16/16 of lower and upper extremities. Back: no CVA tenderness Cervical Spine: cervical ROM normal, cervical muscular tenderness and No Cervical spine tenderness Thoracic/Lumbar Spine: thoracic and lumbar spine normal to inspection, No Thoracic/lumbar spine scar(s), Lasegue's sign positive on the right and localized, pain with thoraco-lumbar ROM, paraspinal muscle tenderness, thoraco- lumbar ROM limited, No thoracic spinal tenderness, lumbar spinal tenderness (L4- S1) and straight leg raise positive right at 40 degrees Pelvis: buttock tenderness on the right and sciatic notch tenderness on the right Sacroiliac joints: bilaterally (right>left) tender to palpation Extrem General: Yes capillary refill normal, Yes no clubbing, cyanosis or edema and Yes no calf tenderness Results Reviewed Results Reviewed: MR LUMBAR SPINE WITHOUT CONTRAST 12/29/23 CLINICAL INFORMATION: Radiculopathy lumbar region. Self-reported leg weakness, sciatica and leg numbness. COMPARISON: MRI lumbar spine 05/02/2022. MRI lumbar spine 08/15/2016. FINDINGS: 5 lumbar type vertebral bodies are identified. Bilateral L5 pars interarticularis defects are visualized. No L5-S1 spondylolisthesis noted. No suspicious marrow abnormalities. Minimal multilevel Schmorl's node deformities identified. The visualized sacrum appears intact. Partial visualization is made of an approximate 2.5 cm right adnexal unilocular-appearing cyst which on the basis of this examination warrants no additional follow-up. The conus medullaris terminates at the level of L1. The conus medullaris and cauda equina are normal in appearance. T12-L1: No significant central or foraminal stenoses. L1-L2: No significant central or foraminal stenoses. L2-L3: No significant central or foraminal stenoses. L3-L4: No significant central or foraminal stenoses. L4-L5: A central and right paracentral disc protrusion measures 5 mm in radial extent and demonstrates annular T2 hyperintensity suspicious for an annular fissure. The protrusion partially effaces right subarticular recess without associated impingement or displacement of the adjacent traversing right L5 nerve roots. Intervertebral disc demonstrates 25% overall loss of cranial caudal height. No facet arthropathic changes. Normal ligamentum flavum appearance. An intraforaminal component of the protrusion results in minimal right foraminal stenosis without associated nerve root impingement. Making allowances for differences in slice selection, the protrusion is unchanged appreciably in size and configuration compared with 05/02/2022. L5-S1 mild central and right parasagittal disc protrusion is present. Minimal osteophytosis of the inferior endplate of L5 is present along the right parasagittal component of the protrusion. The protrusion measures 5 mm in radial extent and T2 hyperintensities present in the annulus of the protrusion suspicious for an annular fissure. No associated direct nerve root impingement or displacement. The intervertebral disc demonstrates 25% overall loss of cranial caudal height. The protrusion is unchanged in configuration compared with 12/02/2022. IMPRESSION: *L4-L5 mild-moderate central and right parasagittal disc protrusion and overlying annular fissure unchanged in configuration and size compared with 05/02/2022. No associated direct nerve root impingement. The annular fissure is present in the right parasagittal aspect of the protrusion. This component of the protrusion comes to within 1-2 mm proximity of the traversing right L5 nerve roots. Inflammatory changes related to the annular fissure could correlate with right L5 radiculopathy. *L5-S1 mild central and right parasagittal disc protrusion and overlying annular fissure unchanged compared with 05/02/2022. No associated direct nerve root impingement. The annular fissure resides within the central component of the protrusion. *Chronic L5 bilateral pars interarticularis defects. No L5-S1 spondylolisthesis. MR CERVICAL SPINE WITHOUT CONTRAST 05/03/24 CLINICAL INFORMATION: Right arm numbness, pain and weakness. COMPARISON: Cervical spine x-ray 09/09/2015 TECHNIQUE: MRI of the cervical spine was obtained using routine sequences without contrast. FINDINGS: There is mild straightening of cervical lordosis. The vertebral heights and alignment is normal. There is minimal loss of C4-5, C5-6 disc heights. Rest of the disc heights are normal. At C2-3 disc level there is no significant disc bulge, herniation or spinal canal stenosis. The neural foramina patent bilaterally. At C3-4 disc level there is mild uncovertebral hypertrophic changes without neral for abdominal narrowing. There is minimal central disc bulge/osteophyte complex without spinal canal stenosis. At C4-5 disc level there is minimal bulge flattening the ventral thecal sac but without spinal canal stenosis. Mild uncovertebral hypertrophic changes are noted with patent neural foramina. C5-6 At C5-6 disc level there is minimal bulge flattening the ventral thecal sac but without spinal canal stenosis. There is mild to moderate left neural foraminal narrowing from uncovertebral hypertrophic changes. At C6-7 disc level there is minimal bulge with mild flattening of the ventral thecal sac. There is no spinal canal stenosis. There is mild uncovertebral hypertrophic changes bilaterally slightly greater on the right with mild narrowing of right neural foramina. The left neural foramina is widely patent. At C7-T1 disc level there is no central disc bulge, herniation or spinal stenosis. There is mild left neural foraminal narrowing from uncovertebral hypertrophic changes. The cord signal, cervical medullary junction and the bone marrow signal is normal. Prevertebral and paravertebral soft tissues are normal. IMPRESSION: Minimal bulges without spinal canal stenosis as described above. There is uncovertebral hypertrophic changes at C6-C7 disc level narrowing bilateral neural foramina slightly greater on the right. Moderate narrowing of left neural foramina from uncovertebral hypertrophic changes at C5-6 disc level is noted. Mild narrowing of left neural foramina at C7-T1 disc level from uncovertebral hypertrophic changes. Assessment & Plan Assessment & Plan (1) Lumbar spondylosis: Code(s): M47.816 - Spondylosis without myelopathy or radiculopathy, lumbar region Category: Medical (2) Lumbar radiculopathy: Code(s): M54.16 - Radiculopathy, lumbar region Category: Medical (3) Acute on chronic low back pain: Code(s): M54.50 - Low back pain, unspecified; G89.29 - Other chronic pain Category: Medical (4) Lumbar degenerative disc disease: Code(s): M51.36 - Other intervertebral disc degeneration, lumbar region Category: Medical Qualifiers: Disc-related pain type: discogenic back pain only Qualified Code(s): M51.360 - Other intervertebral disc degeneration, lumbar region with discogenic back pain only Plan I plan to obtain an x-ray to assess any spinal instability, followed by prescribed steroid pack (Medrol) to manage inflammation and pain. We will tenantively plan for Right L5-S1 TFESI with local and fluoroscopy. Expectations, risks and benefits were reviewed. Patient is aware she will be contacted to schedule this procedure. Continuation of gabapentin, duloxetine, Ibuprofen and cyclobenzaprine is advised, with physical therapy aimed to aid recovery. If there's no satisfactory improvement, a referral to neurosurgery will be considered for advanced care. All questions and concerns have been answered and patient agreed with the plan. Follow up after injection and sooner as needed. Patient was informed and verbally consented to the use of an ambient scribe for clinic note documentation during this visit. Orders: Orders XR lumbar spine 6V w bending Today M47.816 - Spondylosis without myelopathy or radiculopathy, lumbar region, M54.16 - Radiculopathy, lumbar region Medications: New methylprednisolone (Medrol (João)) PO PER PKG DIR 21 ea 0RF pain M47.816 - Spondylosis without myelopathy or radiculopathy, lumbar region, M54.16 - Radicul opathy, lumbar region Coding Level of Care Code Est Pt Level 4 (59534) Complex EM visit Add On G2211 Diagnoses Lumbar spondylosis M47.816 Lumbar radiculopathy M54.16 Acute on chronic low back pain M54.50; G89.29 Degeneration of intervertebral disc of lumbar region with discogenic back pain M51.360 Disc-related pain type: discogenic back pain only
[2024-07-19 10:55] VITALS: BP 159/85; PULSE 76; O2SAT 99; BMI 36.9
== END 2024-07-19 11:09 | disposition home or self-care (01) ==
LOC: HO.PMC 10:49
PROVIDERS: PCP Internal Medicine; Visit Provider Nurse Practitioner Family
DX: M47.816 Spondylosis without myelopathy or radiculopathy, lumbar region (principal); M54.16 Radiculopathy, lumbar region; M54.50 Low back pain, unspecified; G89.29 Other chronic pain; M51.360 Other intervertebral disc degeneration, lumbar region with discogenic back pain only
CPT/HCPCS: 99214; G2211

== ENCOUNTER → 2024-07-19 10:48 | Outpatient (BNVA) | payer OTHER, SELFPAY | PROVIDERS: PCP Internal Medicine; Visit Provider Nurse Practitioner Family | DX: M47.816 Spondylosis without myelopathy or radiculopathy, lumbar region (principal); M54.16 Radiculopathy, lumbar region; M54.50 Low back pain, unspecified; M51.360 Other intervertebral disc degeneration, lumbar region with discogenic back pain only; G89.29 Other chronic pain | CPT/HCPCS: 99212 ==

== ENCOUNTER → 2024-07-19 11:20 | Outpatient (BNV) | payer OTHER, SELFPAY | PROVIDERS: PCP Internal Medicine; Visit Provider Specialist | DX: M51.372 Other intervertebral disc degeneration, lumbosacral region with discogenic back pain and lower extremity pain (principal) | CPT/HCPCS: 72114 ==

== ENCOUNTER 2024-08-03 10:05 | Emergency (ER) | payer OTHER, SELFPAY ==
[2024-08-03 10:07] VITALS: BP 143/98; PULSE 95; RESP 18; TEMP 36.2; O2SAT 96; BMI 37.6
[2024-08-03 10:44] VITALS: BP 140/86; PULSE 95; RESP 15; TEMP 37; O2SAT 97
--- NOTE | 2024-08-03 11:00 | PC.NURSE ---
patient a&ox3, c/o 11/29 rle pain, pt states her buttocks is numb then pain shoots down her rt leg. last seen by pain management a few weeks ago, states she previously has had an mri here. awaiting provider, call [facility]a within reach, plan of care ongoing
--- NOTE | 2024-08-03 11:01 | ED_ITS ---
HPI - General Adult General Chief complaint: Extremity Injury, Lower Stated complaint: shooting pain down R leg Time Seen by Provider: 08/03/24 11:00 Source: patient and RN notes reviewed Mode of arrival: ambulatory Limitations: no limitations History of Present Illness ED Provider: Mable Power PA-C HPI narrative: This is a 43-year-old female, with a past medical history of spondylolisthesis, anemia, migraines, who presents emergency department with concerns of right low back pain that radiates into her right leg. This is chronic, she has been treated by pain management in the past, now having numbness to 5th toe, and right buttock over the last 2 weeks. patient reports that she has been seen by multiple providers including pain management, software applications specialist, and her primary care physician. She states that several weeks ago she was put on a Medrol dose pack which she completed with minimal relief. She states that the pain starts in her right low back and radiates down her right leg. She denies any saddle anesthesia. No urinary or bowel retention or incontinence. No fevers, chills, chest pain, shortness of breath, abdominal pain, nausea, vomiting or diarrhea. Denies any urinary symptoms. No history of IVDA. No other complaints or concerns at this time. MD complaint: Acute on chronic low back pain Onset (ago): day(s) Radiation: extremity Severity: moderate Quality: aching Pain Consistency: constant Relieving factors: none Exacerbating factors: none Associated symptoms: denies other symptoms Treatments prior to arrival: none Related Data Home Medications ?Medication ?Instructions ?Recorded ?Confirmed ferrous sulfate 27 mg iron tablet 27 mg PO DAILY 12/13/23 06/14/24 levonorgestrel 21 mcg/24 hr (up to intrauterine 03/20/24 06/14/24 8 years) 52 mg intrauterine device (Mirena) Previous Rx's ?Medication ?Instructions ?Recorded ibuprofen 600 mg tablet 600 mg PO Q8H PRN pain #30 tabs 03/11/22 cholecalciferol (vitamin D3) 50 50 mcg PO DAILY 90 days #90 caps 09/21/22 mcg (2,000 unit) capsule sennosides 8.6 mg tablet (senna) 17.2 mg (2 x 8.6 mg) PO BEDTIME 07/11/23 PRN constipation 30 days #60 tabs trazodone 100 mg tablet 100 mg PO BEDTIME PRN insomnia 30 12/25/23 days #30 tabs tramadol 50 mg tablet 50 mg PO BID PRN pain 15 days #30 01/04/24 tabs duloxetine 30 mg capsule,delayed 30 mg PO BID 30 days #60 caps 01/12/24 release hydrocortisone valerate 0.2 % 1 appl topical BID 7 days #45 grams 03/20/24 topical cream buspirone 5 mg tablet 5 mg PO BID #60 tabs 06/10/24 cyclobenzaprine 5 mg tablet 5 mg PO BEDTIME PRN muscle spasm 06/14/24 #30 tabs gabapentin 100 mg capsule 100 mg PO TID #90 caps 06/14/24 hydroxyzine HCl 25 mg tablet 25 mg PO TID PRN anxiety 30 days 07/11/24 #90 tabs methylprednisolone 4 mg tablets in See Rx Instructions PO PER PKG DIR 07/19/24 a dose pack (Medrol (João)) pain #21 ea acetaminophen 500 mg tablet 500 mg PO Q6H PRN pain #30 tabs 08/03/24 (Tylenol Extra Strength) methocarbamol 750 mg tablet 750 mg PO TID 3 days #9 tabs 08/03/24 prednisone 20 mg tablet 40 mg (2 x 20 mg) PO DAILY 5 days 08/03/24 #10 tabs Allergies Allergy/AdvReac Type Severity Reaction Status Date / Time No Known Allergies Allergy Verified 08/03/24 10:11 [No Known Allergies*] Review of Systems Review of Systems: Yes all other systems are reviewed and are negative Constitutional: Constitutional: Reports as per [facility] Past Medical History Attestation statement: The following information was validated with the patient. Medical History IUD (intrauterine device) in place Migraine Anxiety Vitamin D deficiency Depression Family history of ovarian cancer Breast pain, right Hepatitis depression Obesity (BMI 30-39.9) History of in vitro fertilization Left ovarian cyst Anemia Surgical History H/O: (~03/2020) History of tonsillectomy History of carpal tunnel surgery Family History Family History Maternal Aunt Ovarian cancer Maternal Uncle Colon cancer Maternal Uncle Colon cancer Mother COPD (chronic obstructive pulmonary disease) Fibromyalgia Hypertension Father No problems noted. Brother No problems noted. Son No problems noted. Social History Social History Household Members: Spouse, Family and Children Housing: Apartment Alcohol intake: current Alcohol intake frequency: holidays/special occasions only Patient Tobacco Use Status: Former Tobacco user Tobacco use type: Cigarette Smoked in Last 30 Days: No e-Cigarette/Vaping Use: Never Used Second Hand Smoke Exposure: Yes Use of substances other than those prescribed or required for medical reasons: No Advance Directives: No Advance Directives Information Provided: Yes Patient : No service: No Current occupational status: unemployed Gender identity: Female Cognitive needs: No Hearing needs: No Vision needs: Yes (glasses) Physical Exam ED Vital Signs: Vital Signs - 24 hr 08/03/24 10:07 08/03/24 10:44 08/03/24 11:54 Temperature 97.1 F 98.6 F 98.0 F Pulse Rate 95 95 70 Respiratory Rate 18 15 17 Blood Pressure 143/98 H 140/86 H 138/81 Pulse Oximetry 96 97 96 Oxygen Delivery Method Room Air Room Air Room Air 08/03/24 12:57 Temperature 98.0 F Pulse Rate 70 Respiratory Rate 17 Blood Pressure 138/81 Pulse Oximetry 96 Oxygen Delivery Method Room Air BMI result Body Mass Index 37.6 Const General: cooperative, comfortable and no acute distress Orientation/consciousness: patient oriented x3 Limitations: no limitations HENMT Head: Yes normal to inspection, Yes normocephalic and Yes atraumatic Ears: hearing grossly normal bilaterally General nose exam: Normal external nose present Face and sinus: Yes normal facial exam Mouth: Normal oral and palatal mucosa present, oropharynx normal and moist mucous membranes Throat: Yes posterior oropharynx normal Eyes General: appearance normal, both eyes and all related structures Eyelids: Yes eyelids normal Conjunctivae: conjunctivae normal Sclerae: sclerae normal Pupils: Equal, round and reactive pupils present EOM: EOMs intact bilaterally Neck Neck: Yes normal visual inspection, Yes full ROM and Yes no lymphadenopathy Lymphatic: no lymphadenopathy noted Chest Chest palpation & inspection: normal inspection of the chest Resp Effort & Inspection: normal respiratory effort and able to speak in complete sentences Auscultation: clear to auscultation bilaterally Cardio Rate: regular rate Rhythm: regular rhythm GI Inspection: Yes normal to inspection Back/Spine/Pelvis Other: Patient with tenderness palpation along the right SI joint extending into her right buttocks down right leg. No palpable calf cords, positive straight leg raise on the right. Distal sensation circulation intact. Leg is well perfused. No overlying skin changes to the spine. No midline spine tenderness. DTRs 2+ Skin General skin exam: no rashes or lesions noted Trauma: no lacerations or abrasions Wounds: no wounds Neuro General: patient oriented x3 and moves all extremities Cranial nerves: Yes Equal, round and reactive pupils present Extrem General: Yes normal to inspection Right upper extremity: normal to inspection Left upper extremity: normal to inspection Right lower extremity: normal to inspection Left lower extremity: normal to inspection Medications Administered Discontinued Medications Generic Name Dose Route Start Last Admin Trade Name Freq PRN Reason Stop Dose Admin Diazepam 5 mg 08/03/24 11:28 08/03/24 11:36 Diazepam 5 Mg Tablet PO 08/03/24 11:29 5 mg ONCE ONE Administration Ketorolac Tromethamine 15 mg 08/03/24 11:28 08/03/24 11:36 Ketorolac Tromethamine 15 Mg/Ml Vial IM 08/03/24 11:29 15 mg ONCE ONE Administration Medical Decision Making Medical Decision Making [facility] Narrative: This is a 43-year-old female who presents emergency department with concerns of right low back pain that radiates down into her right leg. She has chronic back pain and has been seen multiple times by pain management, specialists. she states that she has had right low back pain, that radiates down into her right buttock, and down her right leg. She states that her right buttock does feel numb. This patient presents with back pain most consistent with lumbar radiculopathy. Differential diagnoses includes lumbago versus musculoskeletal spasm / strain versus sciatica. No back pain red flags on history or physical. Presentation not consistent with malignancy (lack of history of malignancy, lack of B symptoms), fracture (no trauma, no bony tenderness to palpation), cauda equina syndrome (no bowel or urinary incontinence/retention, no saddle anesthesia, no distal weakness), pulmonary embolism, renal colic, pyelonephritis (afebrile, no CVAT, no urinary symptoms). She has had no recent injury or trauma, she did have x-rays on July 20 of her lumbar spine revealing L4-L5 and L5-S1 degenerative disc change. I discussed at length her results of her x-rays which is consistent with lumbar radiculopathy secondary to degenerative disc disease along L4-L5 L5-S1. She has no red flag back symptoms to suggest needing further imaging. Patient would benefit from course of prednisone. We will medicate with Toradol and Valium to see if this provides her with some relief. We will continue to closely monitor pending symptomatic improvement. 1238 - patient feeling better after receiving Valium and Toradol. She is feeling well enough and comfortable for discharge home. She was given strict return precautions. She understands and agrees with plan. Patient stable for discharge. Differential Diagnosis Differential Diagnoses: The differential diagnosis associated with the presentation includes See above External Record Review External record reviewed: Inpatient record, Office record, Outpatient record and Prior outpatient radiology Prescription Management I considered prescription management with: Pain Medication Chronic Conditions Patient?s care impacted by: Other ( chronic back pain) Discharge Plan Discharge Clinical Impression: Acute lumbar radiculopathy Patient Disposition: Home, Self-Care Instructions: Lumbar Radiculopathy (ED), Back Pain (ED), Lower Back Exercises (ED) Additional Instructions: You were seen in the emergency department due to worsening back pain. Your x-rays that were performed outpatient on July 20, 2024 revealing L4-L5 and L5-S1 degenerative disc disease. You likely have a nerve that is being compressed causing you to have your symptoms. We are going to treat you with a course of prednisone. Please take as prescribed. Start this today. Robaxin is a muscle relaxants, you can take this as needed for muscle spasms. Please be advised that this can cause drowsiness, do not drink alcohol or drive while taking this medication. Continue taking ibuprofen, you may add Tylenol as needed for pain. Gentle stretching, and massage can help with your symptoms. You need to follow-up with your pain management, and software applications specialist, I encourage you to follow-up with them Monday morning to be seen as soon as possible. If any new or worsening symptoms occur including but not limited to worsening pain, numbness tingling into your groin, loss of bladder or bowel control, please return for re-evaluation. Prescriptions: New methocarbamol 750 mg tablet 750 mg PO TID 3 Days Qty: 9 0RF acetaminophen [Tylenol Extra Strength] 500 mg tablet 500 mg PO Q6H PRN (Reason: pain) Qty: 30 0RF prednisone 20 mg tablet 40 mg PO DAILY 5 Days Qty: 10 0RF No Action trazodone 100 mg tablet 100 mg PO BEDTIME PRN (Reason: insomnia) 30 Days Qty: 30 1RF duloxetine 30 mg capsule,delayed release(DR/EC) 30 mg PO BID 30 Days Qty: 60 1RF buspirone 5 mg tablet 5 mg PO BID Qty: 60 0RF Rx Instructions: Rx has to be taken twice a day regularly hydroxyzine HCl 25 mg tablet 25 mg PO TID PRN (Reason: anxiety) 30 Days Qty: 90 0RF Rx Instructions: Rx taken up to 3 times a day NEEDED ferrous sulfate 27 mg iron Tablet 27 mg PO DAILY ibuprofen 600 mg tablet 600 mg PO Q8H PRN (Reason: pain) Qty: 30 0RF sennosides [senna] 8.6 mg tablet 17.2 mg PO BEDTIME PRN (Reason: constipation) 30 Days Qty: 60 3RF cholecalciferol (vitamin D3) 50 mcg (2,000 unit) capsule 50 mcg PO DAILY 90 Days Qty: 90 3RF tramadol 50 mg tablet 50 mg PO BID PRN (Reason: pain) 15 Days Qty: 30 0RF Mirena 21 mcg/24hr (up to 8 yrs) 52 mg intrauterine device intrauterine hydrocortisone valerate 0.2 % cream 1 appl topical BID 7 Days Qty: 45 1RF Rx Instructions: apply a thin coat to area gabapentin 100 mg capsule 100 mg PO TID Qty: 90 1RF cyclobenzaprine 5 mg tablet 5 mg PO BEDTIME PRN (Reason: muscle spasm) Qty: 30 1RF methylprednisolone [Medrol (João)] 4 mg tablets,dose pack See Rx Instructions PO PER PKG DIR Qty: 21 0RF Rx Instructions: PO PER PKG DIR Interventions: ED Discharge Assessment Last Done: 08/03/24 12:57 Discharge Date/Time: 08/03/24 12:58 Print Language: Romanian
[2024-08-03] MEDS: diazePAM 5 MG TABLET PO (11:36)
[2024-08-03] MEDS: Ketorolac Tromethamine 15 MG/ML VIAL IM (11:36)
--- NOTE | 2024-08-03 11:38 | PC.NURSE ---
patient medicated per order
[2024-08-03 11:54] VITALS: BP 138/81; PULSE 70; RESP 17; TEMP 36.7; O2SAT 96
[2024-08-03 12:57] VITALS: BP 138/81; PULSE 70; RESP 17; TEMP 36.7; O2SAT 96
== END 2024-08-03 12:58 | disposition home or self-care (01) ==
PROVIDERS: Emergency Provider Emergency Medicine; PCP Internal Medicine
DX: M54.16 Radiculopathy, lumbar region (principal); M54.50 Low back pain, unspecified
CPT/HCPCS: 96372; 99284; J1885

== ENCOUNTER 2024-08-20 09:51 | Outpatient (AMB) | payer OTHER, SELFPAY ==
--- NOTE | 2024-08-20 09:52 | A.OFFVIS_ITS ---
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 The pain radiates from the buttock down the side and back of the leg and has been worsening for almost a month. The patient reports numbness in the fifth toe and other toes, with the pain being described as shooting and affecting her ability to walk and perform daily activities. Denies any recent trauma, injury or falls. The patient has a history of spondylolisthesis, lumbar disc degeneration, and arthritis, with previous imaging showing disc degeneration at L4-L5 and L5-S1. She has been to the [facility] emergency room on 08/03/24 where she received Toradol and Valium, which provided temporary relief. The patient has also been taking gabapentin, cyclobenzaprine, Tylenol, and metocarpamol, with a Medrol pack prescribed in June and prednisone given in the ER with partial and temporary relief. The patient reports that the pain affects her ability to perform house chores and take care of her [id number] son. She has attempted conservative treatments, including walking and managing stairs at home, but the pain persi sts. Denies any recent cough, cold, infection, fever or any other significant changes in medical history since last office visit. Past Procedures: 03/19/24: Left L4-L5, L5-S1 TFESI-10% pain for 1 week 11/07/23: Bilateral Diagnostic L3-L4 DR L5 MBB-20% pain relief for 6 hours 04/18/23: Bilateral L5-S1 TFESI-40-50% pain relief 11/08/22: Left Therapeutic SIJ injection- 0% pain relief 10/18/22: Left Diagnostic SIJ injection-40% pain relief for 6 hours 06/21/22: Left L5-S1 TFESI-80% pain relief for 2 weeks PRIOR: Patient is a pleasant 41 year old female who presents today for an initial evaluation of chronic lower back pain, left hand pain and right shoulder pain. Patient reports chronic back pain that has been worsening after her with epidural 04/04/2020. Her back pain is axial and also radiates into her left lower extremity posteriorly with numbness and tingling in the posterior lower leg, osborne and sole of her left foot. She also has localized pain in the projections of the left sacroiliac joint. Patient also reports left hand and wrist pain with flexion, pulling and lifting objects consistent with carpal tunnel syndrome. She has a history of right carpal tunnel repair in 2010. Patient is right hand dominant. Her right shoulder radiates to her neck with muscle spasms and tenderness. Pain increases with prolonged sitting, walking, standing, intercourse, climbing stairs, changing positions and weather changes. Pain is described as constant throbbing, shooting, stabbing, sharp, cramping, tingling, sore, hurting, aching, exhausting, tiring, and radiating. Pain interferes with her daily activities and functionings, mood, sleep, social interactions and quality of life. She has been managing pain with Ibuprofen and cyclobenzaprine with continued symptoms. Patient also started physical therapy last week and is intersted to trial acupuncture therapy for right shoulder and neck pain. Lumbar spine MRI in 2017 showed disc degeneration and a minimal anterior subluxation at L5-S1 with chronic bilateral L5 pars defects and [id number] right foraminal narrowing. Facet spurring mildly distorts the exiting right L5 nerve root. Most recent lumbar spine xray showed bilateral L5 spondylolysis defect is redemonstrated and multi-level thoracolumbar spondylosis and Schmorl's node formation. Patient denies any fever, weight loss, tachycardia, abdominal or groin pain, weakness, nausea, vomiting, constipation, diarrhea, vaginal bleeding, bladder or bowel incontinence or saddle anesthesia. Of note, patient has history of fatty liver, elevated LFT and hepatitis. She reports the most recent screening for hepatitis panel was negative. [facility] Medical History IUD (intrauterine device) in place Migraine Anxiety Vitamin D deficiency Depression Family history of ovarian cancer Breast pain, right Hepatitis depression Obesity (BMI 30-39.9) History of in vitro fertilization Left ovarian cyst Anemia Surgical History H/O: (~03/2020) History of tonsillectomy History of carpal tunnel surgery Family History Maternal Aunt Ovarian cancer Maternal Uncle Colon cancer Maternal Uncle Colon cancer Mother COPD (chronic obstructive pulmonary disease) Fibromyalgia Hypertension Father No problems noted. Brother No problems noted. Son No problems noted. Social History Household Members: Spouse, Family and Children Housing: Apartment Alcohol intake: current Alcohol intake frequency: holidays/special occasions only Patient Tobacco Use Status: Former Tobacco user Tobacco use type: Cigarette e-Cigarette/Vaping Use: Never Used Second Hand Smoke Exposure: Yes service: No Current occupational status: unemployed Gender identity: Female Cognitive needs: No Hearing needs: No Vision needs: Yes (glasses) Female Reproductive History Menstrual Age of Menarche: 12 Review of Systems Const Details: - Musculoskeletal: Reports right-sided buttock and leg pain, numbness, and tingling. - Neurological: Reports numbness in the fifth toe and other toes. All systems reviewed & are unremarkable except as noted in HPI and below Physical Exam Vital Signs: Last Vital Signs Pulse 74 08/20/24 10:07 BP 137/90 H 08/20/24 10:07 Pulse Ox 98 08/20/24 10:07 Oxygen Delivery Method Room Air 08/20/24 10:07 BMI result Body Mass Index 37.5 General: Appears afebrile. Alert and oriented. Mood and affect appropriate. Follows and participates in conversation appropriately. Respiratory effort is unlabored. No cough. Able to transition from sit to stand unassisted, reports RLE weakness due to pain. General: Yes no CVA tenderness Back/Spine/Pelvis Other: Limited lumbar ROM due to pain. Movements reproduce moderate pain. Antalgic gait with limping. Lumbar extension and flexion forward reproduce moderate pain, worse with bending. TTP in the projection of both SIJ, right>left. Rafael's, Stinchfield, Pelvic compression and Gaenslen tests reproduce moderate SIJ pain, right>left. Multiple TTPs 16/16 of lower and upper extremities. Back: no CVA tenderness Cervical Spine: cervical ROM normal, cervical muscular tenderness and No Cervical spine tenderness Thoracic/Lumbar Spine: thoracic and lumbar spine normal to inspection, No Thoracic/lumbar spine scar(s), Lasegue's sign positive on the right and diffuse, pain with thoraco-lumbar ROM, paraspinal muscle tenderness, thoraco-lumbar ROM limited, No thoracic spinal tenderness, lumbar spinal tenderness (L4-S1) and straight leg raise positive right at 40 degrees Pelvis: buttock tenderness on the right and no sciatic notch tenderness Sacroiliac joints: bilaterally (right>left) tender to palpation Extrem General: Yes capillary refill normal, Yes no clubbing, cyanosis or edema and Yes no calf tenderness Results Reviewed Results Reviewed: MR LUMBAR SPINE WITHOUT CONTRAST 12/29/23 CLINICAL INFORMATION: Radiculopathy lumbar region. Self-reported leg weakness, sciatica and leg numbness. COMPARISON: MRI lumbar spine 05/02/2022. MRI lumbar spine 08/15/2016. FINDINGS: 5 lumbar type vertebral bodies are identified. Bilateral L5 pars interarticularis defects are visualized. No L5-S1 spondylolisthesis noted. No suspicious marrow abnormalities. Minimal multilevel Schmorl's node deformities identified. The visualized sacrum appears intact. Partial visualization is made of an approximate 2.5 cm right adnexal unilocular-appearing cyst which on the basis of this examination warrants no additional follow-up. The conus medullaris terminates at the level of L1. The conus medullaris and cauda equina are normal in appearance. T12-L1: No significant central or foraminal stenoses. L1-L2: No significant central or foraminal stenoses. L2-L3: No significant central or foraminal stenoses. L3-L4: No significant central or foraminal stenoses. L4-L5: A central and right paracentral disc protrusion measures 5 mm in radial extent and demonstrates annular T2 hyperintensity suspicious for an annular fissure. The protrusion partially effaces right subarticular recess without associated impingement or displacement of the adjacent traversing right L5 nerve roots. Intervertebral disc demonstrates 25% overall loss of cranial caudal height. No facet arthropathic changes. Normal ligamentum flavum appearance. An intraforaminal component of the protrusion results in minimal right foraminal stenosis without associated nerve root impingement. Making allowances for differences in slice selection, the protrusion is unchanged appreciably in size and configuration compared with 05/02/2022. L5-S1 mild central and right parasagittal disc protrusion is present. Minimal osteophytosis of the inferior endplate of L5 is present along the right parasagittal component of the protrusion. The protrusion measures 5 mm in radial extent and T2 hyperintensities present in the annulus of the protrusion suspicious for an annular fissure. No associated direct nerve root impingement or displacement. The intervertebral disc demonstrates 25% overall loss of cranial caudal height. The protrusion is unchanged in configuration compared with 12/02/2022. IMPRESSION: *L4-L5 mild-moderate central and right parasagittal disc protrusion and overlying annular fissure unchanged in configuration and size compared with 05/02/2022. No associated direct nerve root impingement. The annular fissure is present in the right parasagittal aspect of the protrusion. This component of the protrusion comes to within 1-2 mm proximity of the traversing right L5 nerve roots. Inflammatory changes related to the annular fissure could correlate with right L5 radiculopathy. *L5-S1 mild central and right parasagittal disc protrusion and overlying annular fissure unchanged compared with 05/02/2022. No associated direct nerve root impingement. The annular fissure resides within the central component of the protrusion. *Chronic L5 bilateral pars interarticularis defects. No L5-S1 spondylolisthesis. MR CERVICAL SPINE WITHOUT CONTRAST 05/03/24 CLINICAL INFORMATION: Right arm numbness, pain and weakness. COMPARISON: Cervical spine x-ray 09/09/2015 TECHNIQUE: MRI of the cervical spine was obtained using routine sequences without contrast. FINDINGS: There is mild straightening of cervical lordosis. The vertebral heights and alignment is normal. There is minimal loss of C4-5, C5-6 disc heights. Rest of the disc heights are normal. At C2-3 disc level there is no significant disc bulge, herniation or spinal canal stenosis. The neural foramina patent bilaterally. At C3-4 disc level there is mild uncovertebral hypertrophic changes without neral for abdominal narrowing. There is minimal central disc bulge/osteophyte complex without spinal canal stenosis. At C4-5 disc level there is minimal bulge flattening the ventral thecal sac but without spinal canal stenosis. Mild uncovertebral hypertrophic changes are noted with patent neural foramina. C5-6 At C5-6 disc level there is minimal bulge flattening the ventral thecal sac but without spinal canal stenosis. There is mild to moderate left neural foraminal narrowing from uncovertebral hypertrophic changes. At C6-7 disc level there is minimal bulge with mild flattening of the ventral thecal sac. There is no spinal canal stenosis. There is mild uncovertebral hypertrophic changes bilaterally slightly greater on the right with mild narrowing of right neural foramina. The left neural foramina is widely patent. At C7-T1 disc level there is no central disc bulge, herniation or spinal stenosis. There is mild left neural foraminal narrowing from uncovertebral hypertrophic changes. The cord signal, cervical medullary junction and the bone marrow signal is normal. Prevertebral and paravertebral soft tissues are normal. IMPRESSION: Minimal bulges without spinal canal stenosis as described above. There is uncovertebral hypertrophic changes at C6-C7 disc level narrowing bilateral neural foramina slightly greater on the right. Moderate narrowing of left neural foramina from uncovertebral hypertrophic changes at C5-6 disc level is noted. Mild narrowing of left neural foramina at C7-T1 disc level from uncovertebral hypertrophic changes. XR lumbar spine 6V w bending 07/20/24 CLINICAL HISTORY: M47.816 - Spondylosis without myelopathy or radiculopathy, lumbar region 7 views lumbar spine Comparison: None Findings: Normal vertebral body alignment. No acute fractures or dislocation. There is L4-L5 and L5-S1 degenerative disc change. IUD is noted in the mid pelvis. IMPRESSION: No acute findings. Assessment & Plan Assessment & Plan (1) Lumbar spondylosis: Code(s): M47.816 - Spondylosis without myelopathy or radiculopathy, lumbar region Category: Medical (2) Lumbar radiculopathy: Code(s): M54.16 - Radiculopathy, lumbar region Category: Medical (3) Acute on chronic low back pain: Code(s): M54.50 - Low back pain, unspecified; G89.29 - Other chronic pain Category: Medical (4) Lumbar degenerative disc disease: Code(s): M51.36 - Other intervertebral disc degeneration, lumbar region Category: Medical Qualifiers: Disc-related pain type: discogenic back pain only Qualified Code(s): M51.360 - Other intervertebral disc degeneration, lumbar region with discogenic back pain only (5) Chronic SI joint pain: Code(s): M53.3 - Sacrococcygeal disorders, not elsewhere classified; G89.29 - Other chronic pain Category: Medical (6) Sacroiliitis: Code(s): M46.1 - Sacroiliitis, not elsewhere classified Category: Medical (7) Pars defect of lumbar spine: Code(s): M43.06 - Spondylolysis, lumbar region Category: Medical Plan The plan includes proceeding with a right sacroiliac joint injection due to the denial of the previous L5-S1 injection by insurance. If the sacroiliac joint injection does not provide relief, consideration will be given to revisiting the L4-L5 area based on the MRI findings from December. Schedule Right Therapeutic SIJ injection with local and fluoroscopy. Expectations, risks and benefits were reviewed. Patient is aware she will be contacted to schedule this procedure. Patient will continue gabapentin, duloxetine, Ibuprofen and cyclobenzaprine, with continued weight optimization, home exercise program and learned exercises from previous physical therapy aimed to aid recovery. All questions and concerns have been answered and patient agreed with the plan. Follow up after injection and sooner as needed. Patient was informed and verbally consented to the use of an ambient scribe for clinic note documentation during this visit. Coding Level of Care Code Est Pt Level 4 (58021) Complex EM visit Add On G2211 Diagnoses Lumbar spondylosis M47.816 Lumbar radiculopathy M54.16 Acute on chronic low back pain M54.50; G89.29 Degeneration of intervertebral disc of lumbar region with discogenic back pain M51.360 Disc-related pain type: discogenic back pain only Chronic SI joint pain M53.3; G89.29 Sacroiliitis M46.1 Pars defect of lumbar spine M43.06
[2024-08-20 10:07] VITALS: BP 137/90; PULSE 74; O2SAT 98; BMI 37.5
== END 2024-08-20 10:25 | disposition home or self-care (01) ==
LOC: HO.PMC 09:51
PROVIDERS: PCP Internal Medicine; Visit Provider Nurse Practitioner Family
DX: M47.816 Spondylosis without myelopathy or radiculopathy, lumbar region (principal); M54.16 Radiculopathy, lumbar region; M54.50 Low back pain, unspecified; G89.29 Other chronic pain; M51.360 Other intervertebral disc degeneration, lumbar region with discogenic back pain only; M53.3 Sacrococcygeal disorders, not elsewhere classified; M46.1 Sacroiliitis, not elsewhere classified; M43.06 Spondylolysis, lumbar region
CPT/HCPCS: 99214

== ENCOUNTER → 2024-08-20 09:51 | Outpatient (BNVA) | payer OTHER, SELFPAY | PROVIDERS: PCP Internal Medicine; Visit Provider Nurse Practitioner Family | DX: M79.604 Pain in right leg (principal); M54.50 Low back pain, unspecified; R20.0 Anesthesia of skin; R20.2 Paresthesia of skin; M47.816 Spondylosis without myelopathy or radiculopathy, lumbar region; M54.16 Radiculopathy, lumbar region; G89.29 Other chronic pain; M46.1 Sacroiliitis, not elsewhere classified; M43.06 Spondylolysis, lumbar region; M53.3 Sacrococcygeal disorders, not elsewhere classified | CPT/HCPCS: 99212 ==

== ENCOUNTER 2024-11-26 06:21 | Outpatient (REF) | payer OTHER, SELFPAY ==
--- NOTE | ~2024-11-26 | FL_ITS ---
EXAMINATION: FL GUIDANCE ONLY HISTORY: M53.3 - Sacrococcygeal disorders, not elsewhere classified COMPARISON: None available. TECHNIQUE: Fluoroscopy time: 12.4 seconds. Cumulative Dose: 5.95 mGy. Images: 2. FINDINGS: Fluoroscopic spot films of the right hemipelvis demonstrate a needle and contrast material in the region of the sacroiliac joint. FL/FL guidance in treatment room IMPRESSION: Fluoroscopy during procedure. Please see procedure report for additional information. Electronically signed by: Quan Vigil MD 11/26/2024 03:55 PM EDT
== END 2024-11-26 06:22 | disposition home or self-care (01) ==
LOC: CF 06:21
PROVIDERS: Visit Provider Anesthesiology
DX: M53.3 Sacrococcygeal disorders, not elsewhere classified (principal); G89.29 Other chronic pain
CPT/HCPCS: 27096; J2003; J2795; J3301; Q9967

== ENCOUNTER 2024-11-26 12:36 | Outpatient (AMB) | payer OTHER, SELFPAY ==
[2024-11-26 12:44] VITALS: BP 145/81; PULSE 82; RESP 16; O2SAT 97; BMI 37.5
--- NOTE | 2024-11-26 12:44 | MHC.OFFVIS ---
Vital Signs 11/26/24 12:44 Height 5 ft 9 in Weight 254 lb BMI 37.5 BP 145/81 H Blood Pressure Location Lt radial Position Sitting Respiration 16 Pulse 82 Pulse Source Pulse Oximeter Pulse Oximetry (%) 97 Oxygen Delivery Method Room Air Intake Visit Reasons: Right Therapeutic SIJ Injection Allergies No Known Allergies (No Known Allergies*) Allergy (Verified 08/20/24 10:08) PFSH Medical History IUD (intrauterine device) in place Migraine Anxiety Vitamin D deficiency Depression Family history of ovarian cancer Breast pain, right Hepatitis depression Obesity (BMI 30-39.9) History of in vitro fertilization Left ovarian cyst Anemia Surgical History H/O: (~03/2020) History of tonsillectomy History of carpal tunnel surgery Family History Maternal Aunt Ovarian cancer Maternal Uncle Colon cancer Maternal Uncle Colon cancer Mother COPD (chronic obstructive pulmonary disease) Fibromyalgia Hypertension Father No problems noted. Brother No problems noted. Son No problems noted. Social History Household Members: Spouse, Family and Children Housing: Apartment Alcohol intake: current Alcohol intake frequency: holidays/special occasions only Patient Tobacco Use Status: Former Tobacco user Tobacco use type: Cigarette e-Cigarette/Vaping Use: Never Used Second Hand Smoke Exposure: Yes service: No Current occupational status: unemployed Gender identity: Female Cognitive needs: No Hearing needs: No Vision needs: Yes (glasses) Female Reproductive History Menstrual Age of Menarche: 12 Physical Exam Vital Signs: Last Vital Signs Pulse 82 11/26/24 12:44 Resp 16 11/26/24 12:44 BP 145/81 H 11/26/24 12:44 Pulse Ox 97 11/26/24 12:44 Oxygen Delivery Method Room Air 11/26/24 12:44 BMI result Body Mass Index 37.5 Assessment & Plan Assessment & Plan (1) Chronic SI joint pain: Code(s): M53.3 - Sacrococcygeal disorders, not elsewhere classified; G89.29 - Other chronic pain Category: Medical (2) Sacroiliac joint dysfunction of right side: Code(s): M53.3 - Sacrococcygeal disorders, not elsewhere classified Category: Medical Plan Sacroiliac joint injection therapeutic right. Informed consent was explained thoroughly to the patient.? All questions about benefits and risks for the procedure were answered. Patient came to the operating room and was positioned prone on the operating table with the pillow under the abdomen.? The lower back and buttocks of the patient were prepped with ChloraPrep prepped and draped with sterile utility towels.? Sterilely draped C-arm was brought over the operating field and sq picture of patient's pelvis was demonstrated on the screen.? For the right joint tilting C-arm contralateral to the site of the joint the most posterior portion of the joints was superimposed with anterior silhouette of the joint.? Skin was injected in the projection of the joint slightly medial to the location of the joint with 25 gauge 1/2 inch needle using local lidocaine 2% mixed with ropivacaine 0.5% one to one. After that 22 gauge 3 and 1/2 inch needle was driven to the right joint in tunnel vision fashion.? When needle entered the joint capsule injection of the contrast was performed demonstrating intra-articular and minimally periarticular spread of the contrast.? After that 5 cc. of ropivacaine 0.5% mixed with Kenalog 40 mg was injected into the joint. Upon completion of the injections the needles were removed, Band-Aids were applied.? Upon completion of the injection patient was taken outside of the operating room to the recovery room where recovered uneventfully. Orders: Orders FL guidance in treatment room Today G89.29 - Other chronic pain, M53.3 - Sacrococcygeal disorders, not elsewhere classified Coding Level of Care Code Procedure Only Diagnoses Chronic SI joint pain M53.3; G89.29 Sacroiliac joint dysfunction of right side M53.3
== END 2024-11-26 13:31 | disposition home or self-care (01) ==
LOC: HO.PMCPRC 12:36
PROVIDERS: PCP Internal Medicine; Visit Provider Anesthesiology
DX: M53.3 Sacrococcygeal disorders, not elsewhere classified (principal); G89.29 Other chronic pain
CPT/HCPCS: 27096

== ENCOUNTER 2024-12-20 16:04 | Emergency (ER) | payer OTHER, SELFPAY ==
--- NOTE | ~2024-12-20 | CT_ITS ---
CLINICAL HISTORY: ? right inguinal hernia CT abdomen and pelvis with contrast Comparison: None provided Findings: 7.1 x 9.2 cm soft tissue abnormality right mons pubis. Internal areas of low and high density noted. Possible hematoma, please correlate with history. Soft tissue masses are possible as well. Lung bases are clear. No acute bony abnormalities. Hepatosplenomegaly with fatty infiltration of the liver. No focal abnormality in liver or spleen. Pancreas and adrenal glands unremarkable. Gallbladder is within normal limits. No significant focal renal abnormalities. No renal stones or hydronephrosis. Abdominal aorta is normal in caliber. No free fluid or adenopathy in the pelvis. No diverticulitis. Appendix unremarkable. Uterus normal size with an IUD. No adnexal abnormality. Impression: Right mons pubis soft tissue abnormality as above Probable hematoma, please correlate with history This document has been electronically signed by: Ramon Rai MD on 12/20/2024 20:20:21
[2024-12-20 16:20] VITALS: BP 186/89; PULSE 97; RESP 18; TEMP 36.1; O2SAT 97; BMI 35.4
--- NOTE | 2024-12-20 16:21 | ED.GENADULT ---
HPI - General Adult General Chief complaint: Skin/Abscess/Foreign Body Stated complaint: Swollen red bump on the outside of vagina Time Seen by Provider: 12/20/24 19:06 History of Present Illness ED Provider: Jean Pierre PETERS narrative: The patient is a 44-year-old woman who comes to the emergency room for evaluation of the swelling in her groin area. She says that a couple of months ago she felt that she had a minor amount of swelling and possible tenderness in the region of her right groin. This was present over the last couple of months but was not particularly bothersome and did not seem to be getting worse in any way so she did not pay much attention to it. Today at around noon she ran suddenly after one of her children who seemed to be getting into trouble. During this exertion she felt a sudden rivers of swelling in her groin that resulted in a dramatic increase in the swelling of her mons pubis. This was uncomfortable and it seemed firm. She was concerned about this new development and came to the emergency room for evaluation. She feels as though something ?pushed through? and she feels that this was primarily on the right side. The swelling is not particularly painful at the moment but it is uncomfortable. She has had no vomiting. No fever, sweats, chills. She denies any trauma or injuries. She has a history of a . Related Data Home Medications ?Medication ?Instructions ?Recorded ?Confirmed ferrous sulfate 27 mg iron tablet 27 mg PO DAILY 12/13/23 06/14/24 levonorgestrel (Mirena) intrauterine 03/20/24 06/14/24 Previous Rx's ?Medication ?Instructions ?Recorded ibuprofen 600 mg tablet 600 mg PO Q8H PRN pain #30 tabs 03/11/22 cholecalciferol (vitamin D3) 50 50 mcg PO DAILY 90 days #90 caps 09/21/22 mcg (2,000 unit) capsule sennosides 8.6 mg tablet (senna) 17.2 mg (2 x 8.6 mg) PO BEDTIME 07/11/23 PRN constipation 30 days #60 tabs trazodone 100 mg tablet 100 mg PO BEDTIME PRN insomnia 30 12/25/23 days #30 tabs tramadol 50 mg tablet 50 mg PO BID PRN pain 15 days #30 01/04/24 tabs hydrocortisone valerate 0.2 % 1 appl topical BID 7 days #45 grams 03/20/24 topical cream methylprednisolone 4 mg tablets in See Rx Instructions PO PER PKG DIR 07/19/24 a dose pack (Medrol (João)) pain #21 ea acetaminophen 500 mg tablet 500 mg PO Q6H PRN pain #30 tabs 08/03/24 (Tylenol Extra Strength) methocarbamol 750 mg tablet 750 mg PO TID 3 days #9 tabs 08/03/24 prednisone 20 mg tablet 40 mg (2 x 20 mg) PO DAILY 5 days 08/03/24 #10 tabs hydroxyzine HCl 25 mg tablet 25 mg PO TID PRN anxiety 30 days 08/26/24 #90 tabs duloxetine 30 mg capsule,delayed 30 mg PO BID 30 days #60 caps 10/22/24 release gabapentin 100 mg capsule 100 mg PO TID #90 caps 10/22/24 buspirone 5 mg tablet 5 mg PO BID #60 tabs 11/21/24 cyclobenzaprine 5 mg tablet 5 mg PO BEDTIME PRN muscle spasm 11/21/24 #30 tabs Allergies Allergy/AdvReac Type Severity Reaction Status Date / Time No Known Allergies (No Known Allergy Verified 12/20/24 16:23 Allergies*) Review of Systems Review of Systems: Yes all other systems are reviewed and are negative [facility] Past Medical History Medical History (Updated 12/20/24 @ 20:58 by Alexis Greenfield MD) Soft tissue mass IUD (intrauterine device) in place Migraine Anxiety Vitamin D deficiency Depression Family history of ovarian cancer Breast pain, right Hepatitis depression Obesity (BMI 30-39.9) History of in vitro fertilization Left ovarian cyst Anemia Surgical History H/O: (~03/2020) History of tonsillectomy History of carpal tunnel surgery Family History Family History Maternal Aunt Ovarian cancer Maternal Uncle Colon cancer Maternal Uncle Colon cancer Mother COPD (chronic obstructive pulmonary disease) Fibromyalgia Hypertension Father No problems noted. Brother No problems noted. Son No problems noted. Social History Social History Household Members: Spouse, Family and Children Housing: Apartment Alcohol intake: current Alcohol intake frequency: holidays/special occasions only Patient Tobacco Use Status: Former Tobacco user Tobacco use type: Cigarette e-Cigarette/Vaping Use: Never Used Second Hand Smoke Exposure: Yes Advance Directives: No Advance Directives Information Provided: No Do you have a plan to hurt others: No Plan Patient : No service: No Current occupational status: unemployed Gender identity: Female Cognitive needs: No Hearing needs: No Vision needs: Yes (glasses) Physical Exam ED Vital Signs: Vital Signs - 24 hr 12/20/24 16:20 12/20/24 18:44 12/20/24 20:25 Temperature 96.9 F 98.1 F 99.0 F Pulse Rate 97 97 86 Respiratory Rate 18 18 Blood Pressure 186/89 H 141/69 H 166/93 H Pulse Oximetry 97 96 96 Oxygen Delivery Method Room Air Room Air Room Air BMI result Body Mass Index 35.4 Const Other: The patient is a 44-year-old woman who was awake and alert, pleasant and cooperative. She does not appear in overt distress. Orientation/consciousness: patient oriented x3 HENMT Other: The face is symmetrical. ?Mucous membranes moist. Eyes Other: Pupils are round equal, conjunctivae are clear, extraocular movements intact Neck Neck: Yes normal visual inspection and Yes full ROM Resp Effort & Inspection: normal respiratory effort Auscultation: clear to auscultation bilaterally Cardio Rate: regular rate Rhythm: regular rhythm Heart sounds: S1 normal heart sound present and S2 normal heart sound present GI Other: The abdomen is soft and nontender. The abdomen is not distended. Other: The patient has a large area of swelling in the region of the mons pubis. The swelling is fairly firm and not very fluctuant. There was no associated erythema. The swelling seems fairly symmetrical but the patient feels that the problem is really originating on the right side. Skin Other: The skin in the region of the mons pubis is somewhat taut but not erythematous. The skin is otherwise normal. Neuro General: patient oriented x3, tone normal, moves all extremities, no focal motor deficits and CN's II-XI intact bilaterally Extrem Other: There is no calf swelling or tenderness. No asymmetry. No peripheral edema. Course Course Course Narrative: This is a Rapid Medical Examination (RME) performed by Danni Beverly PA-C in triage. Full HPI, ROS, assessment and treatment plan per primary provider in the Main ED. Hx: 44 yo F here for eval of bump to her upper groin region that she noticed today. assoc pain. denies drainage. Plan: further eval in back, labs, UA - will defer imaging. Medications Administered Discontinued Medications Generic Name Dose Route Start Last Admin Trade Name Malcolm PRN Reason Stop Dose Admin Iohexol 85 ml 12/20/24 19:53 12/20/24 19:53 Iohexol 350 Mg/Ml 100 Ml Infus..Btl IV 12/20/24 19:54 85 ml ONCE ONE Administration Medical Decision Making Medical Decision Making [facility] Narrative: The patient is a 44-year-old woman who presents to the emergency room for evaluation of a dramatic swelling of the region of the mons pubis. On physical exam she has a remarkable degree of swelling to the mons pubis. On general inspection there was no obvious lateralization to the swelling but the patient feels that it began in the right side. The patient says that she may have had a very small degree of swelling over the last couple of months but there was an abrupt change today at around noon when she was exerting herself by running after a child. The patient does not seem toxic. I had some concern initially that this might represent an inguinal hernia and so we obtained a CT scan of the abdomen and pelvis. There was no hernia. The radiologist feels that this is a soft tissue swelling which may represent a hematoma. There does not seem to be other obvious pathology. Clinically the patient does not appear toxic and although the swelling is fairly firm I do not think this is compromising the integrity of the overlying skin. I explained to the patient that this seems to be some possible hematoma like structure (perhaps there was some burst blood vessel). The patient is not on any anticoagulation. She has a unremarkable labs and an unremarkable set of vital signs. She is ambulatory without difficulty. I do not feel that this process represents an acute surgical emergency. I think the patient looks well enough that she may be discharged with the instructions to use ice packs to the swelling and to use ibuprofen and acetaminophen as needed for discomfort. She receives her gynecology care through [facility]. I think she should initially follow up with the Gynecology office given the location of the swelling. It may be that she will be referred to General surgery. If she is worse she should return to the emergency room. Lab Data 12/20/24 16:39 12/20/24 16:39 Labs: Lab Results 12/20/24 Range/Units 16:39 WBC 4.8 (4.8-10.8) X10*3/uL RBC 3.84 L (4.20-5.50) X10*6/uL Hgb 11.0 L D (12.0-16.0) g/dl Hct 32.5 L (37.0-47.0) % MCV 84.6 (80.0-98.0) fL MCH 28.6 (27.0-33.0) pg MCHC 33.8 (31.0-35.0) g/dl RDW 14.2 (11.0-16.0) % Plt Count 156 L (160-400) X10*3/uL MPV 9.6 (9.4-12.3) fL Immature Gran % (Auto) 0.2 (0.0-0.4) % Neut % (Auto) 64.1 (45-73) % Lymph % (Auto) 25.8 (20-40) % [place] % (Auto) 8.3 (2-11) % Eos % (Auto) 1.2 (0-4) % Baso % (Auto) 0.4 (0-2) % Lymph # (Auto) 1.2 (1.2-4.9) X10*3/uL [place] # (Auto) 0.4 (0.1-1.2) X10*3/uL Eos # (Auto) 0.1 (0.0-0.4) X10*3/uL Baso # (Auto) 0.0 (0.0-0.2) X10*3/uL Abs Immat Gran (auto) 0.01 (0.00-0.03) X10*3/uL Absolute Neuts (auto) 3.1 (2.0-8.3) x10*3/uL Absolute Nucleated RBC 0.000 (0.0-0.012) X10*3/uL Nucleated RBC % (auto) 0.0 (0.0-0.2) /100WBC Sodium 141 (135-145) mmol/L Potassium 4.1 (3.3-5.1) mmol/L Chloride 111 H (96-108) mmol/L Carbon Dioxide 23 (22-29) mmol/L Anion Gap 11 L (12-20) BUN 11 (9-16) mg/dL Creatinine 0.67 (0.5-1.4) mg/dL Estim Creat Clear Calc 140.8 Estimated GFR > 60 Random Glucose 144 H (60-115) mg/dL Calcium 8.4 D (8.4-10.2) mg/dL Magnesium 1.9 (1.6-2.6) mg/dL Total Bilirubin 0.2 (0.0-1.0) mg/dL AST 39 H (5-31) U/L ALT 32 H (0-31) U/L Alkaline Phosphatase 74 (39-117) U/L Total Protein 6.9 (6.5-8.0) g/dL Albumin 4.1 (3.5-5.0) g/dL Beta HCG, Quant < 2 mIU/mL Discharge Plan Discharge Clinical Impression: Labial swelling Patient Disposition: Home, Self-Care Additional Instructions: At this point it seems as though the swelling you were experiencing may be some kind of bruising, as if you have experienced an unusual broken blood vessel. I would treat this primarily by applying ice packs several times a day. I would recommend filling a plastic bag with ice and then applying the bag for 10-15 minutes every couple of hours. Always keep a piece of dry cloth between your skin and the ice bag. This will prevent your skin from freezing. Do your best to avoid lifting or straining over the next few days. You may use ibuprofen and acetaminophen as needed for discomfort. Please plan on contacting your Gynecology office on Monday. Please call them Monday morning to arrange a follow up appointment for this unusual condition. I have also provided the contact information for the surgical office in case the Gynecology staff wants you to see a general surgeon. Return to the emergency room if significantly worse. Prescriptions: No Action trazodone 100 mg tablet 100 mg PO BEDTIME PRN (Reason: insomnia) 30 Days Qty: 30 1RF hydroxyzine HCl 25 mg tablet 25 mg PO TID PRN (Reason: anxiety) 30 Days Qty: 90 0RF Rx Instructions: Rx taken up to 3 times a day NEEDED duloxetine 30 mg capsule,delayed release(DR/EC) 30 mg PO BID 30 Days Qty: 60 1RF gabapentin 100 mg capsule 100 mg PO TID Qty: 90 1RF cyclobenzaprine 5 mg tablet 5 mg PO BEDTIME PRN (Reason: muscle spasm) Qty: 30 1RF buspirone 5 mg tablet 5 mg PO BID Qty: 60 0RF Rx Instructions: Rx has to be taken twice a day regularly ferrous sulfate 27 mg iron Tablet 27 mg PO DAILY methocarbamol 750 mg tablet 750 mg PO TID 3 Days Qty: 9 0RF acetaminophen [Tylenol Extra Strength] 500 mg tablet 500 mg PO Q6H PRN (Reason: pain) Qty: 30 0RF prednisone 20 mg tablet 40 mg PO DAILY 5 Days Qty: 10 0RF ibuprofen 600 mg tablet 600 mg PO Q8H PRN (Reason: pain) Qty: 30 0RF sennosides [senna] 8.6 mg tablet 17.2 mg PO BEDTIME PRN (Reason: constipation) 30 Days Qty: 60 3RF cholecalciferol (vitamin D3) 50 mcg (2,000 unit) capsule 50 mcg PO DAILY 90 Days Qty: 90 3RF tramadol 50 mg tablet 50 mg PO BID PRN (Reason: pain) 15 Days Qty: 30 0RF Mirena 21 mcg/24hr (up to 8 yrs) 52 mg intrauterine device intrauterine hydrocortisone valerate 0.2 % cream 1 appl topical BID 7 Days Qty: 45 1RF Rx Instructions: apply a thin coat to area methylprednisolone [Medrol (João)] 4 mg tablets,dose pack See Rx Instructions PO PER PKG DIR Qty: 21 0RF Rx Instructions: PO PER PKG DIR Referrals: [facility] General Surgeons [Provider Group, General Surgery] [facility] Women's Services [Provider Group] Wilber Cochran MD [Primary Care Provider, Internal Medicine] Print Language: Venezuelan
[2024-12-20 16:44] LABS: MANUAL DIFF FLAG NO
[2024-12-20 16:56] LABS: Hematocrit 32.5 % (37.0-47.0); Hemoglobin 11.0 g/dl (12.0-16.0); Imm Gran Abs Auto 0.01 X10*3/uL (0.00-0.03); Imm Gran Pct Auto 0.2 % (0.0-0.4); Lymphocytes Absolute Auto 1.2 X10*3/uL (1.2-4.9); Mean Corpuscular HGB Conc 33.8 g/dl (31.0-35.0); Mean Corpuscular Hemoglobin 28.6 pg (27.0-33.0); Mean Corpuscular Volume 84.6 fL (80.0-98.0); NRBC Abs Auto 0.000 X10*3/uL (0.0-0.012); NRBC Pct Auto 0.0 /100WBC (0.0-0.2); Platelet Count 156 X10*3/uL (160-400); Red Blood Count 3.84 X10*6/uL (4.20-5.50); White Blood Count 4.8 X10*3/uL (4.8-10.8)
[2024-12-20 17:00] LABS: Alanine Aminotransferase 32 U/L (0-31); Albumin Level 4.1 g/dL (3.5-5.0); Alkaline Phosphatase 74 U/L (39-117); Anion Gap 11 (12-20); Aspartate Amino Transferase 39 U/L (5-31); Blood Urea Nitrogen 11 mg/dL (9-16); Calcium 8.4 mg/dL (8.4-10.2); Carbon Dioxide 23 mmol/L (22-29); Chloride 111 mmol/L (96-108); Creatinine Clr Calc Pharmacy 140.8; Estimated Glomerular Filt Rate > 60; Magnesium 1.9 mg/dL (1.6-2.6); Potassium 4.1 mmol/L (3.3-5.1); Sodium 141 mmol/L (135-145); Total Protein 6.9 g/dL (6.5-8.0)
[2024-12-20 18:44] VITALS: BP 141/69; PULSE 97; RESP 18; TEMP 36.7; O2SAT 96
[2024-12-20] MEDS: iohexoL 350 MG/ML 100 ML INFUS..BTL 85 ML IV (19:53)
--- NOTE | 2024-12-20 20:10 | PM.CNGS ---
History of Present Illness Consult details Consult date: 12/20/24 Narrative: 44-year-old female referred to me for a pubic mass The patient has says that she has felt a small mass on the pubic area for maybe 1 or 2 months now. However, this morning, she says that this became suddenly much more pronounced and bigger. She thought that there was a sudden gush of pressure in the area She denies any pain or tenderness. She denies any previous trauma to the area. She denies any skin changes. She denies any vaginal discharge. Review of Systems Constitutional: Constitutional: Denies chills and Denies fever(s) Cardiovascular: Cardiovascular: Denies chest pain, Denies dyspnea and Denies dyspnea on exertion Respiratory: Respiratory: Denies cough, Denies dyspnea and Denies dyspnea on exertion Gastrointestinal: Gastrointestinal: Denies hematochezia and Denies change in bowel habits Genitourinary: Genitourinary: Denies hematuria Musculoskeletal: Musculoskeletal: Denies back pain and Denies limited range of motion Neurologic: Denies focal weakness and Denies convulsions Psychiatric: Psychiatric: Denies depression and Denies mood swings [facility] Past Medical History Medical History (Updated 12/21/24 @ 00:00 by Ketchupppbhavya) Soft tissue mass IUD (intrauterine device) in place Migraine Anxiety Vitamin D deficiency Depression Family history of ovarian cancer Breast pain, right Hepatitis depression Obesity (BMI 30-39.9) History of in vitro fertilization Left ovarian cyst Anemia Family History Family History Maternal Aunt Ovarian cancer Maternal Uncle Colon cancer Maternal Uncle Colon cancer Mother COPD (chronic obstructive pulmonary disease) Fibromyalgia Hypertension Father No problems noted. Brother No problems noted. Son No problems noted. Surgical History Surgical History H/O: (~03/2020) History of tonsillectomy History of carpal tunnel surgery Social History Social History Household Members: Spouse, Family and Children Housing: Apartment Alcohol intake: current Alcohol intake frequency: holidays/special occasions only Patient Tobacco Use Status: Former Tobacco user Tobacco use type: Cigarette e-Cigarette/Vaping Use: Never Used Second Hand Smoke Exposure: Yes service: No Current occupational status: unemployed Gender identity: Female Cognitive needs: No Hearing needs: No Vision needs: Yes (glasses) Meds Allergies Allergy/AdvReac Type Severity Reaction Status Date / Time No Known Allergies (No Known Allergy Verified 12/20/24 16:23 Allergies*) Home Medications ?Medication ?Instructions ?Recorded ?Confirmed ?Last Taken ?Type ferrous sulfate 27 mg iron tablet 27 mg PO DAILY 12/13/23 06/14/24 Unknown History levonorgestrel (Mirena) intrauterine 03/20/24 06/14/24 Unknown History Physical Exam Vital Signs: Vital Signs: Last Vital Signs Temp 98.1 F 12/20/24 18:44 Pulse 97 12/20/24 18:44 Resp 18 12/20/24 18:44 BP 141/69 H 12/20/24 18:44 Pulse Ox 96 12/20/24 18:44 O2 Del Method Room Air 12/20/24 18:44 BMI result Body Mass Index 35.4 Const: Other: Morbidly obese, seen ambulating General: comfortable and no acute distress Orientation/consciousness: patient oriented x3 Neck: Neck: Yes no lymphadenopathy Resp: Auscultation: clear to auscultation bilaterally Cardio: Rhythm: regular rhythm GI: Palpation (GI): Soft to palpation, nontender and no guarding : Other: On the pubic area extending to the mons pubis note of a firm mass, about 9 cm in widest dimension, nontender, no skin changes, no cellulitis, no skin induration Neuro: General: patient oriented x3 Results Labs 12/20/24 16:39 12/20/24 16:39 Labs: Abnormal lab results 12/20/24 Range/Units 16:39 RBC 3.84 L (4.20-5.50) X10*6/uL Hgb 11.0 L D (12.0-16.0) g/dl Hct 32.5 L (37.0-47.0) % Plt Count 156 L (160-400) X10*3/uL Chloride 111 H (96-108) mmol/L Anion Gap 11 L (12-20) Random Glucose 144 H (60-115) mg/dL AST 39 H (5-31) U/L ALT 32 H (0-31) U/L Short CBC 12/20/24 Range/Units 16:39 WBC 4.8 (4.8-10.8) X10*3/uL Hgb 11.0 L D (12.0-16.0) g/dl Hct 32.5 L (37.0-47.0) % Plt Count 156 L (160-400) X10*3/uL BMP 12/20/24 16:39 Sodium 141 Potassium 4.1 Chloride 111 H Carbon Dioxide 23 BUN 11 Creatinine 0.67 Calcium 8.4 D Liver Function 12/20/24 Range/Units 16:39 Total Bilirubin 0.2 (0.0-1.0) mg/dL AST 39 H (5-31) U/L ALT 32 H (0-31) U/L Alkaline Phosphatase 74 (39-117) U/L Albumin 4.1 (3.5-5.0) g/dL All other labs normal. Assessment and Plan (1) Soft tissue mass: Status: Acute She has a large soft tissue mass in the pubis was seems extend to the mons. I have reviewed her CAT scan and this seems to be connected to her vagina. This mass is in the subcutaneous layer and this has not connected to the intra-abdominal region. Her final CAT scan report is pending. This mass does not appear to be inflammatory. She will probably benefit from outpatient consultation with the appropriate specialty depending on the final CAT scan report She looks well overall and is stable. Procedures Date of Service Date of Service: 12/24/24
[2024-12-20 20:25] VITALS: BP 166/93; PULSE 86; TEMP 37.2; O2SAT 96
[2024-12-20 21:47] VITALS: BP 166/93; PULSE 86; RESP 18; TEMP 37.2; O2SAT 96
== END 2024-12-20 21:49 | disposition home or self-care (01) ==
PROVIDERS: Physician Assistant Medical; Emergency Provider Emergency Medicine; PCP Internal Medicine
DX: N90.60 Unspecified hypertrophy of vulva (principal)
CPT/HCPCS: 36415; 74177; 80053; 83735; 84702; 85025; 96374; 99284; J1885; Q9967

== ENCOUNTER → 2024-12-20 18:02 | Outpatient (BNV) | payer OTHER, SELFPAY | PROVIDERS: Emergency Provider Emergency Medicine; PCP Internal Medicine; Visit Provider Surgery | DX: M79.89 Other specified soft tissue disorders (principal) | CPT/HCPCS: 99283 ==

== ENCOUNTER → 2024-12-20 19:21 | Outpatient (BNV) | payer OTHER, SELFPAY | PROVIDERS: Emergency Provider Emergency Medicine; PCP Internal Medicine; Visit Provider Radiology Diagnostic Radiology | DX: R19.09 Other intra-abdominal and pelvic swelling, mass and lump (principal) | CPT/HCPCS: 74177 ==

== ENCOUNTER 2024-12-30 12:52 | Outpatient (AMB) | payer OTHER, SELFPAY ==
--- NOTE | 2024-12-30 12:55 | MHC.OFFVIS ---
Vital Signs 12/30/24 12:59 Height 5 ft 9 in Weight 256 lb 8 oz BMI 37.9 BP 166/89 H Blood Pressure Location Lt brachial Position Sitting Pulse 79 Pulse Source Pulse Oximeter Pulse Oximetry (%) 100 Oxygen Delivery Method Room Air Intake Visit Reasons: S/P Right Therapeutic SIJ Injection Intake Note: Pain today 8/10 Director Public Policy Required: No Accompanied by: Self / Same As Patient Allergies No Known Allergies (No Known Allergies*) Allergy (Verified 12/20/24 16:23) HPI Comments Details: The patient is a 44-year-old female presenting with chronic pain management following a therapeutic sacroiliac joint injection. The patient reports that the injection, performed on November 26, 2024, did not alleviate her pain, which she rates as 8 out of 10. She describes her pain as worsening, with a sensation of dilation and difficulty walking upright, leading to a hunched posture. The patient has a history of axial low back pain and radicular pain, with previous interventions including medial lumbar branch blocks and transforaminal injections on both sides, providing only minimal relief. The first injection in 2022 provided some relief, but subsequent treatments have not been effective. The patient has been evaluated for a spinal cord stimulator, having completed a psychological evaluation in April 2024 and being considered a good candidate per patient. Pending behavioral report release contingent upon patient's copay. She expresses reluctance towards surgical options, was previously evaluated by our [facility] team for cervical and lumbar radiculopathy and is exploring alternative pain management strategies, including consultations with other pain clinics. The patient has also been taking gabapentin, cyclobenzaprine, Tylenol, and metocarpamol, completed prednisone tapers over summer and finds better pain relief with tramadol. I have informed patient that we do not offer opioid program at this time. Denies any recent cough, cold, infection, fever or any other significant changes in medical history since last office visit. - Affect: Pain impacts daily activities and quality of life, causing difficulty in performing routine tasks and affecting mood. - Analgesia: Current pain level is 8/10. Medications include ibuprofen, Tylenol, and gabapentin 300 mg at night. - Adverse Effects: No specific adverse effects from current medications reported. - Activities of Daily Living: Pain limits ability to perform tasks such as bending,vacuuming, house chores, cooking, shaving legs or putting on shoes, and sitting on the floor to play with her son. - Aberrant Drug Related Behaviors: No aberrant behaviors reported. Past Procedures: 11/26/24: Right therapeutic SI joint injection-0% pain relief 03/19/24: Left L4-L5, L5-S1 TFESI-10% pain for 1 week 11/07/23: Bilateral Diagnostic L3-L4 DR L5 MBB-20% pain relief for 6 hours 04/18/23: Bilateral L5-S1 TFESI-40-50% pain relief 11/08/22: Left Therapeutic SIJ injection- 0% pain relief 10/18/22: Left Diagnostic SIJ injection-40% pain relief for 6 hours 06/21/22: Left L5-S1 TFESI-80% pain relief for 2 weeks PRIOR: Patient is a pleasant 41 year old female who presents today for an initial evaluation of chronic lower back pain, left hand pain and right shoulder pain. Patient reports chronic back pain that has been worsening after her with epidural 04/04/2020. Her back pain is axial and also radiates into her left lower extremity posteriorly with numbness and tingling in the posterior lower leg, osborne and sole of her left foot. She also has localized pain in the projections of the left sacroiliac joint. Patient also reports left hand and wrist pain with flexion, pulling and lifting objects consistent with carpal tunnel syndrome. She has a history of right carpal tunnel repair in 2010. Patient is right hand dominant. Her right shoulder radiates to her neck with muscle spasms and tenderness. Pain increases with prolonged sitting, walking, standing, intercourse, climbing stairs, changing positions and weather changes. Pain is described as constant throbbing, shooting, stabbing, sharp, cramping, tingling, sore, hurting, aching, exhausting, tiring, and radiating. Pain interferes with her daily activities and functionings, mood, sleep, social interactions and quality of life. She has been managing pain with Ibuprofen and cyclobenzaprine with continued symptoms. Patient also started physical therapy last week and is intersted to trial acupuncture therapy for right shoulder and neck pain. Lumbar spine MRI in 2017 showed disc degeneration and a minimal anterior subluxation at L5-S1 with chronic bilateral L5 pars defects and [id number] right foraminal narrowing. Facet spurring mildly distorts the exiting right L5 nerve root. Most recent lumbar spine xray showed bilateral L5 spondylolysis defect is redemonstrated and multi-level thoracolumbar spondylosis and Schmorl's node formation. Patient denies any fever, weight loss, tachycardia, abdominal or groin pain, weakness, nausea, vomiting, constipation, diarrhea, vaginal bleeding, bladder or bowel incontinence or saddle anesthesia. Of note, patient has history of fatty liver, elevated LFT and hepatitis. She reports the most recent screening for hepatitis panel was negative. [facility], [facility] Medical History Soft tissue mass IUD (intrauterine device) in place Migraine Anxiety Vitamin D deficiency Depression Family history of ovarian cancer Breast pain, right Hepatitis depression Obesity (BMI 30-39.9) History of in vitro fertilization Left ovarian cyst Anemia Surgical History H/O: (~03/2020) History of tonsillectomy History of carpal tunnel surgery Family History Maternal Aunt Ovarian cancer Maternal Uncle Colon cancer Maternal Uncle Colon cancer Mother COPD (chronic obstructive pulmonary disease) Fibromyalgia Hypertension Father No problems noted. Brother No problems noted. Son No problems noted. Social History Household Members: Spouse, Family and Children Housing: Apartment Alcohol intake: current Alcohol intake frequency: holidays/special occasions only Patient Tobacco Use Status: Former Tobacco user Tobacco use type: Cigarette e-Cigarette/Vaping Use: Never Used Second Hand Smoke Exposure: Yes service: No Current occupational status: unemployed Gender identity: Female Cognitive needs: No Hearing needs: No Vision needs: Yes (glasses) Female Reproductive History Menstrual Age of Menarche: 12 Review of Systems Const All systems reviewed & are unremarkable except as noted in HPI and below Physical Exam Vital Signs: Last Vital Signs Pulse 79 12/30/24 12:59 BP 166/89 H 12/30/24 12:59 Pulse Ox 100 12/30/24 12:59 Oxygen Delivery Method Room Air 12/30/24 12:59 BMI result Body Mass Index 37.9 General: Appears afebrile. Alert and oriented. Mood and affect appropriate. Follows and participates in conversation appropriately. Respiratory effort is unlabored. No cough. Able to transition from sit to stand unassisted, reports RLE weakness due to pain. General: Yes no CVA tenderness Back/Spine/Pelvis Other: Limited lumbar ROM due to pain. Movements reproduce moderate pain. Antalgic gait without limping. Lumbar extension and flexion forward reproduce moderate pain, worse with bending and flexion forward. TTP in the projection of both SIJ, right>left. Rafael's, Stinchfield, Pelvic compression and Gaenslen tests reproduce moderate SIJ pain, right>left. Multiple TTPs 16/16 of lower and upper extremities. Back: no CVA tenderness Cervical Spine: cervical ROM normal, cervical muscular tenderness and No Cervical spine tenderness Thoracic/Lumbar Spine: thoracic and lumbar spine normal to inspection, No Thoracic/lumbar spine scar(s), Lasegue's sign positive on the right and diffuse, pain with thoraco-lumbar ROM, paraspinal muscle tenderness, thoraco-lumbar ROM limited, No thoracic spinal tenderness, lumbar spinal tenderness (L4-S1) and straight leg raise positive right at 40 degrees Pelvis: buttock tenderness on the right and no sciatic notch tenderness Sacroiliac joints: bilaterally (right>left) tender to palpation Extrem General: Yes capillary refill normal, Yes no clubbing, cyanosis or edema and Yes no calf tenderness Results Reviewed Results Reviewed: MR LUMBAR SPINE WITHOUT CONTRAST 12/29/23 CLINICAL INFORMATION: Radiculopathy lumbar region. Self-reported leg weakness, sciatica and leg numbness. COMPARISON: MRI lumbar spine 05/02/2022. MRI lumbar spine 08/15/2016. FINDINGS: 5 lumbar type vertebral bodies are identified. Bilateral L5 pars interarticularis defects are visualized. No L5-S1 spondylolisthesis noted. No suspicious marrow abnormalities. Minimal multilevel Schmorl's node deformities identified. The visualized sacrum appears intact. Partial visualization is made of an approximate 2.5 cm right adnexal unilocular-appearing cyst which on the basis of this examination warrants no additional follow-up. The conus medullaris terminates at the level of L1. The conus medullaris and cauda equina are normal in appearance. T12-L1: No significant central or foraminal stenoses. L1-L2: No significant central or foraminal stenoses. L2-L3: No significant central or foraminal stenoses. L3-L4: No significant central or foraminal stenoses. L4-L5: A central and right paracentral disc protrusion measures 5 mm in radial extent and demonstrates annular T2 hyperintensity suspicious for an annular fissure. The protrusion partially effaces right subarticular recess without associated impingement or displacement of the adjacent traversing right L5 nerve roots. Intervertebral disc demonstrates 25% overall loss of cranial caudal height. No facet arthropathic changes. Normal ligamentum flavum appearance. An intraforaminal component of the protrusion results in minimal right foraminal stenosis without associated nerve root impingement. Making allowances for differences in slice selection, the protrusion is unchanged appreciably in size and configuration compared with 05/02/2022. L5-S1 mild central and right parasagittal disc protrusion is present. Minimal osteophytosis of the inferior endplate of L5 is present along the right parasagittal component of the protrusion. The protrusion measures 5 mm in radial extent and T2 hyperintensities present in the annulus of the protrusion suspicious for an annular fissure. No associated direct nerve root impingement or displacement. The intervertebral disc demonstrates 25% overall loss of cranial caudal height. The protrusion is unchanged in configuration compared with 12/02/2022. IMPRESSION: *L4-L5 mild-moderate central and right parasagittal disc protrusion and overlying annular fissure unchanged in configuration and size compared with 05/02/2022. No associated direct nerve root impingement. The annular fissure is present in the right parasagittal aspect of the protrusion. This component of the protrusion comes to within 1-2 mm proximity of the traversing right L5 nerve roots. Inflammatory changes related to the annular fissure could correlate with right L5 radiculopathy. *L5-S1 mild central and right parasagittal disc protrusion and overlying annular fissure unchanged compared with 05/02/2022. No associated direct nerve root impingement. The annular fissure resides within the central component of the protrusion. *Chronic L5 bilateral pars interarticularis defects. No L5-S1 spondylolisthesis. MR CERVICAL SPINE WITHOUT CONTRAST 05/03/24 CLINICAL INFORMATION: Right arm numbness, pain and weakness. COMPARISON: Cervical spine x-ray 09/09/2015 TECHNIQUE: MRI of the cervical spine was obtained using routine sequences without contrast. FINDINGS: There is mild straightening of cervical lordosis. The vertebral heights and alignment is normal. There is minimal loss of C4-5, C5-6 disc heights. Rest of the disc heights are normal. At C2-3 disc level there is no significant disc bulge, herniation or spinal canal stenosis. The neural foramina patent bilaterally. At C3-4 disc level there is mild uncovertebral hypertrophic changes without neral for abdominal narrowing. There is minimal central disc bulge/osteophyte complex without spinal canal stenosis. At C4-5 disc level there is minimal bulge flattening the ventral thecal sac but without spinal canal stenosis. Mild uncovertebral hypertrophic changes are noted with patent neural foramina. C5-6 At C5-6 disc level there is minimal bulge flattening the ventral thecal sac but without spinal canal stenosis. There is mild to moderate left neural foraminal narrowing from uncovertebral hypertrophic changes. At C6-7 disc level there is minimal bulge with mild flattening of the ventral thecal sac. There is no spinal canal stenosis. There is mild uncovertebral hypertrophic changes bilaterally slightly greater on the right with mild narrowing of right neural foramina. The left neural foramina is widely patent. At C7-T1 disc level there is no central disc bulge, herniation or spinal stenosis. There is mild left neural foraminal narrowing from uncovertebral hypertrophic changes. The cord signal, cervical medullary junction and the bone marrow signal is normal. Prevertebral and paravertebral soft tissues are normal. IMPRESSION: Minimal bulges without spinal canal stenosis as described above. There is uncovertebral hypertrophic changes at C6-C7 disc level narrowing bilateral neural foramina slightly greater on the right. Moderate narrowing of left neural foramina from uncovertebral hypertrophic changes at C5-6 disc level is noted. Mild narrowing of left neural foramina at C7-T1 disc level from uncovertebral hypertrophic changes. XR lumbar spine 6V w bending 07/20/24 CLINICAL HISTORY: M47.816 - Spondylosis without myelopathy or radiculopathy, lumbar region 7 views lumbar spine Comparison: None Findings: Normal vertebral body alignment. No acute fractures or dislocation. There is L4-L5 and L5-S1 degenerative disc change. IUD is noted in the mid pelvis. IMPRESSION: No acute findings. Assessment & Plan Assessment & Plan (1) Lumbar back pain with radiculopathy affecting left lower extremity: Code(s): M54.16 - Radiculopathy, lumbar region Category: Medical (2) Lumbar spondylosis: Code(s): M47.816 - Spondylosis without myelopathy or radiculopathy, lumbar region Category: Medical (3) Lumbar degenerative disc disease: Code(s): M51.36 - Other intervertebral disc degeneration, lumbar region Category: Medical (4) Lumbar radiculopathy: Code(s): M54.16 - Radiculopathy, lumbar region Category: Medical (5) Spondylolisthesis of lumbar region: Code(s): M43.16 - Spondylolisthesis, lumbar region Category: Medical (6) Pars defect of lumbar spine: Code(s): M43.06 - Spondylolysis, lumbar region Category: Medical (7) Muscle spasm of back: Code(s): M62.830 - Muscle spasm of back Category: Medical Plan The plan includes discontinuing further injections due to lack of efficacy and considering a spinal cord stimulator as next option for longer term pain management. The patient is interested to seek a second opinion from another pain management clinic, such as [facility] or [facility] to explore alternative approaches prior to consideration of SCS. A psychological evaluation has been completed, and the patient is deemed a suitable candidate for spinal cord stimulation, pending report release from [facility] and further evaluation and trial. I have informed patient that we do not offer opioid program at this time. She does report good pain relief with short script of tramadol. All questions and concerns have been answered and patient agreed with the treatment plan. Follow up as needed. Patient was informed and verbally consented to the use of an ambient scribe for clinic note documentation during this visit. Orders: Referrals Pain Management Referral M43.16 - Spondylolisthesis, lumbar region, M47.816 - Spondylosis without myelopathy or radiculopathy, lumbar region, M51.360 - Other intervertebral disc degeneration, lumbar region with discogenic back pain only, M54.16 - Radiculopathy, lumbar region Coding Level of Care Code Est Pt Level 4 (46315) Complex EM visit Add On G2211 Diagnoses Lumbar back pain with radiculopathy affecting left lower extremity M54.16 Lumbar spondylosis M47.816 Lumbar degenerative disc disease M51.36 Lumbar radiculopathy M54.16 Spondylolisthesis of lumbar region M43.16 Pars defect of lumbar spine M43.06 Muscle spasm of back M62.830
[2024-12-30 12:59] VITALS: BP 166/89; PULSE 79; O2SAT 100; BMI 37.9
== END 2024-12-30 13:24 | disposition home or self-care (01) ==
LOC: HO.PMC 12:53
PROVIDERS: PCP Internal Medicine; Visit Provider Nurse Practitioner Family
DX: M54.16 Radiculopathy, lumbar region (principal); M47.816 Spondylosis without myelopathy or radiculopathy, lumbar region; M51.369 Other intervertebral disc degeneration, lumbar region without mention of lumbar back pain or lower extremity pain; M43.16 Spondylolisthesis, lumbar region; M43.06 Spondylolysis, lumbar region; M62.830 Muscle spasm of back
CPT/HCPCS: 99214

== ENCOUNTER → 2024-12-30 12:52 | Outpatient (BNVA) | payer OTHER, SELFPAY | PROVIDERS: PCP Internal Medicine; Visit Provider Nurse Practitioner Family | DX: M54.16 Radiculopathy, lumbar region (principal); M47.816 Spondylosis without myelopathy or radiculopathy, lumbar region; M51.360 Other intervertebral disc degeneration, lumbar region with discogenic back pain only; M43.16 Spondylolisthesis, lumbar region; M62.830 Muscle spasm of back | CPT/HCPCS: 99212 ==

== ENCOUNTER 2025-01-15 09:47 | Outpatient (AMB) | payer OTHER, SELFPAY ==
[2025-01-15 10:01] VITALS: BP 150/82; PULSE 88; O2SAT 97; BMI 38.6
--- NOTE | 2025-01-15 10:01 | A.OFFVIS_ITS ---
Vital Signs 01/15/25 10:01 Height 5 ft 9 in Weight 261 lb 7.492 oz BMI 38.6 BP 150/82 H Blood Pressure Location Rt brachial Position Sitting Pulse 88 Pulse Source Pulse Oximeter Pulse Oximetry (%) 97 Oxygen Delivery Method Room Air Intake Visit Reasons: osteoarthritis Intake Note: Patient presents for osteoarthritis today. She was last seen by Dr. Torres on 09/04/23. Patient is concerned about swelling on her right side for months, and is in a lot of pain. 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 She has been a patient at this practice and being treated for fibromyalgia. She reports ongoing pain all over her body including her hands, elbow shoulders lower back. She has undergone various treatments with the pain and lower back including injections and physical therapy. Otherwise she denies autoimmune signs and symptoms, including denying photosensitivity oral ulcers Raynaud's miscarriages blood clots dry eyes. She has intermittent dry mouth. She denies any skin thickening, no skin rashes. No family history of any autoimmune disease. Her workup including a negative RF CCP and MITZY multiple times. Her hand x-rays have shown no erosive disease in the past, no signs of inflammatory arthritis. Shoulders x-rays have shown mild osteoarthritis. Vital signs reviewed Physical Examination CONSTITUITIONAL Patient alert and cooperative. Well appearing and in no apparent painful distress HEENT Conjunctiva and sclera clear. No lymphadenopathy. CHEST/RESPIRATORY SYSTEM Normal respiratory effort and able to speak in complete sentences. Clear to auscultation bilaterally. No crackles, rales, rhonchi, wheezes heard. CARDIAC SYSTEM Regular rate and rhythm. S1 and S2 heard no murmurs. Radial pulses intact bilaterally MSK Hands * Right Hand: RIGHT HAND IS DIFFUSELY SWOLLEN, no tenderness to palpation of MCPs PIPs or DIPs * Left Hand: Able to make a fist. No swelling or tenderness to palpation of the MCPs, PIPs or DIPs. No deformities noted. Wrists * Right Wrist: Full ROM to flexion and extension. Swelling of the right wrist noted * Left Wrist: Full ROM to flexion and extension. Elbows * Right Elbow: Full ROM. * Left Elbow: Full ROM. Shoulders * Right shoulder: Limited range of motion of the right shoulder * Left shoulder: Limited range of motion of the left shoulder Hips * Right hip: Limited range of motion of the right hip mainly limited due to pain * Left hip: imited range of motion of the right hip mainly limited due to pain Hip bursa: Tenderness to palpation of the bursa bilaterally Knees * Right knee: Full ROM. No swelling noted. * Left knee: Full ROM. No swelling noted. Ankles * Right ankle: Good ankle dorsiflexion and plantar flexion. * Left ankle: Good ankle dorsiflexion and plantar flexion Tender points? * Diffuse tenderness to palpation of the bilateral trapezius, supraspinatus, anterior costochondral junctions, bilateral suboccipital muscle insertions SKIN No rashes PFSH Medical History Soft tissue mass IUD (intrauterine device) in place Migraine Anxiety Vitamin D deficiency Depression Family history of ovarian cancer Breast pain, right Hepatitis depression Obesity (BMI 30-39.9) History of in vitro fertilization Left ovarian cyst Anemia Surgical History H/O: (~03/2020) History of tonsillectomy History of carpal tunnel surgery Family History Maternal Aunt Ovarian cancer Maternal Uncle Colon cancer Maternal Uncle Colon cancer Mother COPD (chronic obstructive pulmonary disease) Fibromyalgia Hypertension Father No problems noted. Brother No problems noted. Son No problems noted. Social History Household Members: Spouse, Family and Children Housing: Apartment Alcohol intake: current Alcohol intake frequency: holidays/special occasions only Patient Tobacco Use Status: Former Tobacco user Tobacco use type: Cigarette e-Cigarette/Vaping Use: Never Used Second Hand Smoke Exposure: Yes service: No Current occupational status: unemployed Gender identity: Female Cognitive needs: No Hearing needs: No Vision needs: Yes (glasses) Female Reproductive History Menstrual Age of Menarche: 12 Physical Exam Vital Signs: Last Vital Signs Pulse 88 01/15/25 10:01 BP 150/82 H 01/15/25 10:01 Pulse Ox 97 01/15/25 10:01 Oxygen Delivery Method Room Air 01/15/25 10:01 BMI result Body Mass Index 38.6 Assessment & Plan Assessment & Plan (1) Swelling of right upper extremity: Code(s): M79.89 - Other specified soft tissue disorders Category: Medical (2) Fibromyalgia, primary: Code(s): M79.7 - Fibromyalgia Category: Medical (3) Primary osteoarthritis, right shoulder: Code(s): M19.011 - Primary osteoarthritis, right shoulder Category: Medical (4) Spondylolisthesis of lumbar region: Code(s): M43.16 - Spondylolisthesis, lumbar region Category: Medical Plan Patient presents as a new patient to me for fibromyalgia/chronic pain syndrome. She has no signs of rheumatic autoimmune disease, including SLE Sjogren's scleroderma psoriatic arthritis or rheumatoid arthritis. She does present with unilateral right arm swelling, she states that this right arm swelling has been there for over a year and is chronic. On review of her records I have was not able to find dedicated imaging for the right arm, therefore I will request a right upper extremity Doppler ultrasound to rule out blood clot causing right upper extremity swelling versus lymphedema. If there is anything that needs attention, I will call the patient. Patient can follow me as needed Orders: Orders US duplex arterial venous comp Today M19.011 - Primary osteoarthritis, right shoulder, M79.89 - Other specified soft tissue disorders Coding Level of Care Code New Pt Level 4 (16058) Diagnoses Swelling of right upper extremity M79.89 Fibromyalgia, primary M79.7 Primary osteoarthritis, right shoulder M19.011 Spondylolisthesis of lumbar region M43.16 Time Spent (min) 45
== END 2025-01-15 11:46 | disposition home or self-care (01) ==
LOC: HO.RHES 09:47
PROVIDERS: PCP Internal Medicine; Visit Provider Student in an Organized Health Care Education/Training Program
DX: M79.89 Other specified soft tissue disorders (principal); M79.7 Fibromyalgia; M19.011 Primary osteoarthritis, right shoulder; M43.16 Spondylolisthesis, lumbar region
CPT/HCPCS: 99204

== ENCOUNTER → 2025-01-15 09:47 | Outpatient (BNVA) | payer OTHER, SELFPAY | PROVIDERS: PCP Internal Medicine; Visit Provider Student in an Organized Health Care Education/Training Program | DX: M19.011 Primary osteoarthritis, right shoulder (principal); M43.16 Spondylolisthesis, lumbar region; M79.89 Other specified soft tissue disorders; M79.7 Fibromyalgia | CPT/HCPCS: 99202 ==

== ENCOUNTER 2025-01-20 10:08 | Outpatient (REF) | payer OTHER, SELFPAY ==
--- NOTE | ~2025-01-20 | US_ITS ---
EXAMINATION: US TRIPLEX UPPER EXTREMITY, RIGHT CLINICAL INFORMATION: Pain in the right shoulder. COMPARISON: None available. TECHNIQUE: Color-flow triplex imaging with spectral analysis and compression Doppler was performed on the right upper extremity. FINDINGS: The right internal jugular, subclavian, and axillary veins are patent with normal spectral Doppler waveforms. The imaged segment of the right brachiocephalic vein is patent. Spectral doppler waveforms are normal. The brachial, basilic, cephalic, radial, and ulnar veins are patent and compressible. US/US venous duplex UE RT IMPRESSION: No acute deep venous thrombosis interrogated veins, right upper extremity. Negative for DVT. Electronically signed by: Poncho Massey MD 01/20/2025 11:43 AM EST
== END 2025-01-20 10:09 | disposition home or self-care (01) ==
LOC: HO.US 10:08
PROVIDERS: PCP Internal Medicine; Visit Provider Student in an Organized Health Care Education/Training Program
DX: M19.011 Primary osteoarthritis, right shoulder (principal); M79.89 Other specified soft tissue disorders
CPT/HCPCS: 93971

== ENCOUNTER → 2025-01-20 10:12 | Outpatient (BNV) | payer OTHER, SELFPAY | PROVIDERS: PCP Internal Medicine; Visit Provider Radiology Diagnostic Radiology | DX: M25.511 Pain in right shoulder (principal) | CPT/HCPCS: 93971 ==